=== PATIENT | male | born 1950 | race Two or more races ===

== ENCOUNTER 2019-12-07 14:59 | Inpatient (IN) | payer MEDICARE, MEDICAID ==
[~2019-12-07] VITALS: Ht 170.2 cm; Wt 79.7 kg
--- NOTE | 2019-12-07 15:54 | Emergency Room Report ---
History of Present Illness General Chief Complaint: Fever Present Illness HPI 69-year-old male history of cerebral palsy, bedbound, nonverbal, Nava dependent presented for fever cough and shortness of breath. Patient apparently fever for the past 24 hours last fever this morning 101. Patient is on 2 L nasal canula. History limited due to patient's baseline mental status. Allergies: Coded Allergies: No Known Allergies (Unverified , 12/07/19) COVID-19 Screening Contact w/high risk pt: No Recent Travel to affected area: No Experienced COVID-19 symptoms?: Yes COVID-19 symptoms experienced: Shortness of Breath, Cough Patient History Limited by: medical condition Reviewed Nursing Documentation: PMH: Agreed; PSxH: Agreed Nursing Documentation-PMH Hx Gastrointestinal Problems: Yes - GERD, DYSPHAGIA Review of Systems All Other Systems: limited - History limited due to patient's baseline mental status Physical Exam Vital Signs Date Time Temp Pulse Resp B/P (MAP) Pulse Ox O2 Delivery O2 Flow Rate FiO2 12/07/19 14:59 99.9 78 20 104/68 (80) 97 Room Air Sp02 EP Interpretation: reviewed, normal General Appearance: thin, Chronically Ill Head: normocephalic, atraumatic Eyes: bilateral eye PERRL, bilateral eye EOMI ENT: hearing grossly normal, dry mucus membranes Neck: full range of motion, supple Respiratory: no wheezing, other - Mild respiratory distress noted no audible wheezing Cardiovascular #1: normal peripheral pulses, regular rate, rhythm, no murmur Gastrointestinal: non tender, soft, non-distended, no guarding Musculoskeletal: other - Extremities contracted, chronic ulcerations noted bilateral feet Neurologic: alert, no focal defects, other - Patient nonverbal at baseline Skin: warm/dry, pallor Medical Decision Making Diagnostic Impression: Primary Impression: Urinary tract infection Additional Impression: Rule out Covid-19 ER Course Patient presents for shortness of breath cough and fever. Presented from a intermediate facility. Differential diagnosis included but not limited to pneumonia, coronavirus infection, sepsis, UTI to name a few. Septic work-up initiated in ER. Lactate was normal. Patient was requiring 2 L via nasal cannula, patient's urinalysis was consistent with UTI IV antibiotics given. Chest x-ray showed no obvious lobar pneumonia, patient was covered with azithromycin as well. Due to patient's current living situation and in a intermediate facility with some symptoms concerning for coronavirus infection and Covid-19 will admit to an isolation floor for observation. Coronavirus testing was sent. Patient admitted by his primary care physician. Laboratory Tests Test 12/07/19 15:50 White Blood Count 13.2 K/UL (4.8-10.8) H Red Blood Count 3.34 M/UL (4.70-6.10) L Hemoglobin 9.8 G/DL (14.2-18.0) L Hematocrit 31.8 % (42.0-52.0) L Mean Corpuscular Volume 95 FL (80-99) Mean Corpuscular Hemoglobin 29.2 PG (27.0-31.0) Mean Corpuscular Hemoglobin Concent 30.7 G/DL (32.0-36.0) L Red Cell Distribution Width 20.5 % (11.6-14.8) H Platelet Count 598 K/UL (150-450) H Mean Platelet Volume 5.6 FL (6.5-10.1) L Neutrophils (%) (Auto) 79.2 % (45.0-75.0) H Lymphocytes (%) (Auto) 12.5 % (20.0-45.0) L Monocytes (%) (Auto) 6.1 % (1.0-10.0) Eosinophils (%) (Auto) 1.6 % (0.0-3.0) Basophils (%) (Auto) 0.6 % (0.0-2.0) Urine Color Pale yellow Urine Appearance Very cloudy Urine pH 7 (4.5-8.0) Urine Specific [place] 1.010 (1.005-1.035) Urine Protein 3+ (NEGATIVE) H Urine Glucose (UA) Negative (NEGATIVE) Urine Ketones Negative (NEGATIVE) Urine Blood 5+ (NEGATIVE) H Urine Nitrite Positive (NEGATIVE) H Urine Bilirubin Negative (NEGATIVE) Urine Urobilinogen Normal MG/DL (0.0-1.0) Urine Leukocyte Esterase 3+ (NEGATIVE) H Urine RBC Tntc /HPF (0 - 0) H Urine WBC Tntc /HPF (0 - 0) H Urine Squamous Epithelial Cells None /LPF (NONE/OCC) Urine Bacteria Many /HPF (NONE) H Sodium Level 141 MMOL/L (136-145) Potassium Level 4.3 MMOL/L (3.5-5.1) Chloride Level 106 MMOL/L (98-107) Carbon Dioxide Level 30 MMOL/L (21-32) Anion Gap 5 mmol/L (5-15) Blood Urea Nitrogen 31 mg/dL (7-18) H Creatinine 0.8 MG/DL (0.55-1.30) Estimated Glomerular Filtration Rate > 60 mL/min (>60) Glucose Level 98 MG/DL (74-106) Lactic Acid Level 1.20 mmol/L (0.4-2.0) Calcium Level 8.4 MG/DL (8.5-10.1) L Total Bilirubin 0.3 MG/DL (0.2-1.0) Aspartate Amino Transferase (AST) 22 U/L (15-37) Alanine Aminotransferase (ALT) 17 U/L (12-78) Alkaline Phosphatase 140 U/L (46-116) H Total Creatine Kinase 67 U/L (26-308) Creatine Kinase MB 0.5 NG/ML (0.0-3.6) Creatine Kinase MB Relative Index 0.7 Troponin I 0.000 ng/mL (0.000-0.056) Total Protein 6.5 G/DL (6.4-8.2) Albumin 1.4 G/DL (3.4-5.0) L Globulin 5.1 g/dL Albumin/Globulin Ratio 0.3 (1.0-2.7) L Microbiology Date/Time Source Procedure Growth Status 12/07/19 15:50 Nasal Nares - Final Complete 12/07/19 15:50 Nasal Nares - Final Complete EKG Diagnostic Results EKG Time: 16:12 Rate: normal Rhythm: NSR Other Impression t wave flattening 1 AVL Rhythm Strip Diag. Results EP Interpretation: yes Rate: 86 Rhythm: NSR Last Vital Signs Date Time Temp Pulse Resp B/P (MAP) Pulse Ox O2 Delivery O2 Flow Rate FiO2 12/07/19 14:59 99.9 78 20 104/68 (80) 97 Room Air Disposition: ADMITTED INPATIENT Condition: Serious Referrals: Leda Sweeney MD (PCP) Jonathan Minor M.D. Dec 07, 2019 15:54
[2019-12-07 16:00] VITALS: BP 104/68
[2019-12-07 16:13] LABS: BASOPHILS % (AUTO) 0.6 % (0.0-2.0); EOSINOPHILS % (AUTO) 1.6 % (0.0-3.0); HEMATOCRIT 31.8 % (42.0-52.0); HEMOGLOBIN 9.8 G/DL (14.2-18.0); LYMPHOCYTES % (AUTO) 12.5 % (20.0-45.0); MEAN CORPUSCULAR VOLUME 95 FL (80-99); MONOCYTES % (AUTO) 6.1 % (1.0-10.0); NEUTROPHILS % (AUTO) 79.2 % (45.0-75.0); PLATELET COUNT 598 K/UL (150-450); RED BLOOD COUNT 3.34 M/UL (4.70-6.10); RED CELL DISTRIBUTION WIDTH 20.5 % (11.6-14.8); WHITE BLOOD COUNT 13.2 K/UL (4.8-10.8)
[2019-12-07 16:22] LABS: ANION GAP 5 mmol/L (5-15); APPEARANCE,URINE VERY CLOUDY; BILIRUBIN, URINE NEGATIVE (NEGATIVE); BLOOD UREA NITROGEN 31 mg/dL (7-18); CALCIUM 8.4 MG/DL (8.5-10.1); CARBON DIOXIDE 30 MMOL/L (21-32); CHLORIDE 106 MMOL/L (98-107); COLOR,URINE PALE YELLOW; CREATININE 0.8 MG/DL (0.55-1.30); GLUCOSE, URINE (UA) NEGATIVE (NEGATIVE); KETONES,URINE NEGATIVE (NEGATIVE); LEUKOCYTE ESTERASE ,URINE 3+ (NEGATIVE); NITRITE,URINE POSITIVE (NEGATIVE); PH,URINE 7 (4.5-8.0); POTASSIUM 4.3 MMOL/L (3.5-5.1); PROTEIN,URINE 3+ (NEGATIVE); SODIUM 141 MMOL/L (136-145); UROBILINOGEN,URINE NORMAL MG/DL (0.0-1.0)
[2019-12-07 16:35] LABS: ALANINE AMINOTRANSFERASE 17 U/L (12-78); ALBUMIN 1.4 G/DL (3.4-5.0); ALBUMIN/GLOBULIN RATIO 0.3 (1.0-2.7); ALKALINE PHOSPHATASE 140 U/L (46-116); ASPARTATE AMINO TRANSFERASE 22 U/L (15-37); BILIRUBIN,TOTAL 0.3 MG/DL (0.2-1.0); CKMB 0.5 NG/ML (0.0-3.6); CREATINE KINASE 67 U/L (26-308)
[2019-12-07] MEDS ORDERED: Azithromycin 500 MG in NS 275 ML IV ONE (17:15)
[2019-12-07] MEDS ORDERED: cefTRIAXone 1 GM in NS 55 ML IVPB ONE (17:15)
--- NOTE | 2019-12-07 17:27 | Diagnostic Imaging Report ---
EXAM: XR Chest, 1 View CLINICAL HISTORY: COUGH TECHNIQUE: Frontal view of the chest. COMPARISON: No relevant prior studies available. FINDINGS: Lungs: Low lung volumes with bronchovascular crowding. Left midlung and right base subsegmental atelectasis or scarring. No consolidation, pleural effusion, or pneumothorax. Pleural space: See above. Heart: Unremarkable. No cardiomegaly. Mediastinum: Unremarkable. Bones/joints: Osteopenia. IMPRESSION: 1. Low lung volumes with bronchovascular crowding. 2. Left midlung and right base subsegmental atelectasis or scarring. 3. Otherwise no acute cardiopulmonary disease. 4. If there is continued concern, recommend frontal and lateral chest radiographs or CT.
[2019-12-07 18:24] VITALS: BP 115/78
[2019-12-07 20:00] VITALS: BP_SYST 105; BP_SYST 121; BP_DIAS 70; BP_DIAS 73
[2019-12-07 21:00] VITALS: BP 106/52
[2019-12-07] MEDS ORDERED: Acetaminophen 650 MG SUPP RECTAL PRN ×2 (21:00→21:30)
--- NOTE | 2019-12-07 21:12 | Pulmonology Progress Note ---
Assessment/Plan Assessment/Plan Pulmonary Consultation HPI 69-year-old male history of cerebral palsy, bedbound, nonverbal, Roper dependent presented for fever cough and shortness of breath. Patient apparently fever for the past 24 hours last fever this morning 101. Patient is on 2 L nasal canula. History limited due to patient's baseline mental status. Has G tube Being ruled out for Covid19, currently SDU status, overflowing in ICU On IV Antibiotics, IVF Hemodynamically stable, on NC O2 2L/min Allergies: No Known Allergies Past Medical History: GERD, Dysphagia, previous G tube, Cerebral Palsy, BPH All Other Systems: limited - History limited due to patient's baseline mental status Physical Exam Vital Signs Date Time Temp Pulse Resp B/P (MAP) Pulse Ox O2 Delivery O2 Flow Rate FiO2 12/07/19 14:59 99.9 78 20 104/68 (80) 97 Room Air General Appearance: thin, Chronically Ill, mild pallor Head: normocephalic, atraumatic Eyes: bilateral eye PERRL, bilateral eye EOMI ENT: hearing grossly normal, dry mucus membranes Neck: full range of motion, supple Respiratory: CTAB Cardiovascular: regular rate, rhythm, HS1, HS2 normal, no murmur, normal peripheral pulses, Gastrointestinal: non tender, soft, non-distended, no guarding Musculoskeletal: other - Extremities contracted, chronic ulcerations noted bilateral feet Neurologic: awake, no focal defects, other - Patient nonverbal at baseline Skin: warm/dry Impression: Urinary tract infection Possible Pneumonia Rule out Covid-19 Cerebral Palsy Seizure History BPH - chronic roper Dysphagia s/p G tube Anemia Lymphopenia Plan IV antibiotics R/o coronavirus infection SDU status IVF Await cultures/viral studies PPX Monitor labs O2 PRN Bronchodilators Laboratory Tests Test 12/07/19 15:50 White Blood Count 13.2 K/UL (4.8-10.8) H Red Blood Count 3.34 M/UL (4.70-6.10) L Hemoglobin 9.8 G/DL (14.2-18.0) L Hematocrit 31.8 % (42.0-52.0) L Mean Corpuscular Volume 95 FL (80-99) Mean Corpuscular Hemoglobin 29.2 PG (27.0-31.0) Mean Corpuscular Hemoglobin Concent 30.7 G/DL (32.0-36.0) L Red Cell Distribution Width 20.5 % (11.6-14.8) H Platelet Count 598 K/UL (150-450) H Mean Platelet Volume 5.6 FL (6.5-10.1) L Neutrophils (%) (Auto) 79.2 % (45.0-75.0) H Lymphocytes (%) (Auto) 12.5 % (20.0-45.0) L Monocytes (%) (Auto) 6.1 % (1.0-10.0) Eosinophils (%) (Auto) 1.6 % (0.0-3.0) Basophils (%) (Auto) 0.6 % (0.0-2.0) Urine Color Pale yellow Urine Appearance Very cloudy Urine pH 7 (4.5-8.0) Urine Specific [place] 1.010 (1.005-1.035) Urine Protein 3+ (NEGATIVE) H Urine Glucose (UA) Negative (NEGATIVE) Urine Ketones Negative (NEGATIVE) Urine Blood 5+ (NEGATIVE) H Urine Nitrite Positive (NEGATIVE) H Urine Bilirubin Negative (NEGATIVE) Urine Urobilinogen Normal MG/DL (0.0-1.0) Urine Leukocyte Esterase 3+ (NEGATIVE) H Urine RBC Tntc /HPF (0 - 0) H Urine WBC Tntc /HPF (0 - 0) H Urine Squamous Epithelial Cells None /LPF (NONE/OCC) Urine Bacteria Many /HPF (NONE) H Sodium Level 141 MMOL/L (136-145) Potassium Level 4.3 MMOL/L (3.5-5.1) Chloride Level 106 MMOL/L (98-107) Carbon Dioxide Level 30 MMOL/L (21-32) Anion Gap 5 mmol/L (5-15) Blood Urea Nitrogen 31 mg/dL (7-18) H Creatinine 0.8 MG/DL (0.55-1.30) Estimated Glomerular Filtration Rate > 60 mL/min (>60) Glucose Level 98 MG/DL (74-106) Lactic Acid Level 1.20 mmol/L (0.4-2.0) Calcium Level 8.4 MG/DL (8.5-10.1) L Total Bilirubin 0.3 MG/DL (0.2-1.0) Aspartate Amino Transferase (AST) 22 U/L (15-37) Alanine Aminotransferase (ALT) 17 U/L (12-78) Alkaline Phosphatase 140 U/L (46-116) H Total Creatine Kinase 67 U/L (26-308) Creatine Kinase MB 0.5 NG/ML (0.0-3.6) Creatine Kinase MB Relative Index 0.7 Troponin I 0.000 ng/mL (0.000-0.056) Total Protein 6.5 G/DL (6.4-8.2) Albumin 1.4 G/DL (3.4-5.0) L Globulin 5.1 g/dL Albumin/Globulin Ratio 0.3 (1.0-2.7) L Microbiology Date/Time Source Procedure Growth Status 12/07/19 15:50 Nasal Nares - Final Complete 12/07/19 15:50 Nasal Nares - Final Complete EK:12 Rate: normal Rhythm: NSR Other Impression t wave flattening 1 AVL CXR: Atelectasis RLL, L mid zone Subjective ROS Limited/Unobtainable: No Allergies: Coded Allergies: No Known Allergies (Unverified , 12/07/19) Objective Last 24 Hour Vital Signs Date Time Temp Pulse Resp B/P (MAP) Pulse Ox O2 Delivery O2 Flow Rate FiO2 12/07/19 18:24 99.9 78 20 115/78 97 Nasal Cannula 2.0 12/07/19 16:00 99.9 20 104/68 97 Room Air 12/07/19 16:00 78 20 Room Air 12/07/19 14:59 99.9 78 20 104/68 (80) 97 Room Air Microbiology Date/Time Source Procedure Growth Status 12/07/19 15:50 Nasal Nares - Final Complete 12/07/19 15:50 Nasal Nares - Final Complete 12/07/19 18:15 Rectum Received Laboratory Tests 12/07/19 15:50: White Blood Count 13.2H, Red Blood Count 3.34L, Hemoglobin 9.8L, Hematocrit 31.8L, Mean Corpuscular Volume 95, Mean Corpuscular Hemoglobin 29.2, Mean Corpuscular Hemoglobin Concent 30.7L, Red Cell Distribution Width 20.5H, Platelet Count 598H, Mean Platelet Volume 5.6L, Neutrophils (%) (Auto) 79.2H, Lymphocytes (%) (Auto) 12.5L, Monocytes (%) (Auto) 6.1, Eosinophils (%) (Auto) 1.6, Basophils (%) (Auto) 0.6, Urine Color Pale yellow, Urine Appearance Very cloudy, Urine pH 7, Urine Specific [place] 1.010, Urine Protein 3+H, Urine Glucose (UA) Negative, Urine Ketones Negative, Urine Blood 5+H, Urine Nitrite PositiveH, Urine Bilirubin Negative, Urine Urobilinogen Normal, Urine Leukocyte Esterase 3+H, Urine RBC TntcH, Urine WBC TntcH, Urine Squamous Epithelial Cells None, Urine Bacteria ManyH, Sodium Level 141, Potassium Level 4.3, Chloride Level 106, Carbon Dioxide Level 30, Anion Gap 5, Blood Urea Nitrogen 31H, Creatinine 0.8, Estimat Glomerular Filtration Rate > 60, Glucose Level 98, Lactic Acid Level 1.20, Calcium Level 8.4L, Total Bilirubin 0.3, Aspartate Amino Transf (AST/SGOT) 22, Alanine Aminotransferase (ALT/SGPT) 17, Alkaline Phosphatase 140H, Total Creatine Kinase 67, Creatine Kinase MB 0.5, Creatine Kinase MB Relative Index 0.7, Troponin I 0.000, Total Protein 6.5, Albumin 1.4L , Globulin 5.1, Albumin/Globulin Ratio 0.3L Current Medications Medications (Trade) Dose Ordered Sig/Nazia Route PRN Reason Start Time Stop Time Status Last Admin Dose Admin Acetaminophen (Tylenol) 650 mg Q4H PRN RECTAL Temp >100.5 12/07/19 21:00 01/06/20 20:59 UNV Acetaminophen (Tylenol) 650 mg Q4HR PRN ORAL Temp >100.5 12/07/19 21:00 01/06/20 20:59 UNV Sodium Chloride 1,000 ml @ 50 mls/hr Q20H IV 12/07/19 21:00 01/06/20 20:59 UNV Oscar Bragg MD Dec 07, 2019 21:12
[2019-12-07] MEDS ORDERED: Albuterol/Ipratropium 3ml neb HHN PRN (21:30)
[2019-12-07 22:00] VITALS: BP 93/57
[2019-12-07] MEDS ORDERED: FERROUS SULFAT325 MG GT (22:59)
[2019-12-07] MEDS ORDERED: ACETAMINOPHEN500 M5 GT (22:59)
[2019-12-07] MEDS ORDERED: ATORVASTATIN CA10 MG GT (22:59)
[2019-12-07] MEDS ORDERED: ALBUTEROL1.25 MG/3 HHN (22:59)
[2019-12-07] MEDS ORDERED: SENOKOT8.6 MG GT (22:59)
[2019-12-07] MEDS ORDERED: METOPROLOL SUCC25 MG GT (22:59)
[2019-12-07] MEDS ORDERED: COLACE100 MG/10 GT (22:59)
[2019-12-07] MEDS ORDERED: FUROSEMIDE20 M1 (22:59)
[2019-12-07] MEDS ORDERED: FINASTERIDE5 MG GT (22:59)
[2019-12-07] MEDS ORDERED: MULTIVITAMINS1 EAC2 GT (22:59)
[2019-12-07] MEDS ORDERED: KEPPRA LIQ100 MG/1 M GT (22:59)
[2019-12-07] MEDS ORDERED: VITAMIN C500 M1 GT (22:59)
[2019-12-07] MEDS ORDERED: FLOMAX0.4 MG GT (22:59)
[2019-12-07] MEDS ORDERED: OMEPRAZOLE40 M1 GT (22:59)
[2019-12-07] MEDS ORDERED: ZINC SULFATE220 M1 GT (22:59)
[2019-12-07 23:00] VITALS: BP 90/53
[2019-12-08] VITALS (56 sets, daily range): BP systolic 81–131; BP diastolic 37–95
[2019-12-08] MEDS ORDERED: NS 250 ML IVPB ONE (02:00)
[2019-12-08] MEDS ORDERED: D5NS 1,000 ML IV SCH ×2 (02:00→06:00)
--- NOTE | 2019-12-08 03:04 | Diagnostic Imaging Report ---
EXAM: XR Chest, 1 View CLINICAL HISTORY: S/P LINE TECHNIQUE: Frontal view of the chest. COMPARISON: 12/07/2019 IMPRESSION: Right central line terminates in the right atrium. Cardiomegaly. Mild vascular congestion. Mild bilateral pleural effusions.
--- NOTE | 2019-12-08 03:20 | Emergency Room Report ---
History of Present Illness General Chief Complaint: Fever Source: Medical Record Present Illness HPI This patient was admitted for fever and cough. He was admitted for COVID-19 rule out. His blood pressure drop and he needed a central line for pressor. I placed a central line under sterile condition. no complications. Allergies: Coded Allergies: MOLD (Unverified Allergy, Unknown, 12/07/19) POLLEN EXTRACTS (Unverified Allergy, Unknown, 12/07/19) COVID-19 Screening Contact w/high risk pt: No Recent Travel to affected area: No Experienced COVID-19 symptoms?: Yes COVID-19 symptoms experienced: Fever (T>100.4F or >38C), Shortness of Breath Nursing Documentation-PMH Hx Cardiac Problems: Yes Hx Cancer: No Hx Gastrointestinal Problems: Yes - DYSPHAGIA, malnutrition, gastrostomy, profound Intellectal disabilities Hx Neurological Problems: Yes Hx Seizures: Yes Hx Cerebral Palsy: Yes Physical Exam Vital Signs Date Time Temp Pulse Resp B/P (MAP) Pulse Ox O2 Delivery O2 Flow Rate FiO2 12/07/19 14:59 99.9 78 20 104/68 (80) 97 Room Air 12/07/19 18:24 2.0 Procedures Central Line Central Line : Consent: Emergent Central Line Lumen: triple Maximal Sterile Barrier Tech: yes cap, yes mask, yes sterile gown, yes sterile gloves, yes large sterile sheet, yes hand hygiene, yes chlorhexidine prep No Max Barrier Tech Because: emergency insertion Central Line Postion: internal jugular (R) Anesthesia: local cc's of anesthesia: 5 Complications: none Central Line Post Position: sutured, good blood return, position confirmed w / CXR Attempts: One Patient Tolerated: Well Complications: None Medical Decision Making Diagnostic Impression: Primary Impression: Urinary tract infection Additional Impression: Rule out Covid-19 Chest X-Ray Diagnostic Results Chest X-Ray Diagnostic Results : Chest X-Ray Ordered: Yes # of Views/Limited/Complete: 1 View Indication: Other - central line placement EP Interpretation: Yes Interpretation: no effusion, no pneumothorax, other - RLL infiltrate. central line in good position Impression: Other - central line placement. Electronically Signed by: Mc Gotti mD Last Vital Signs Date Time Temp Pulse Resp B/P (MAP) Pulse Ox O2 Delivery O2 Flow Rate FiO2 12/08/19 02:39 99/47 12/08/19 02:00 75 33 98 4/4/20 00:00 2.0 12/08/19 00:00 98.5 12/07/19 19:56 Nasal Cannula Disposition: ADMITTED INPATIENT Condition: Serious Referrals: Leda Sweeney MD (PCP) Mc Gotti MD Dec 08, 2019 03:20
[2019-12-08 05:19] LABS: BASOPHILS % (AUTO) 0.6 % (0.0-2.0); EOSINOPHILS % (AUTO) 1.7 % (0.0-3.0); HEMATOCRIT 26.1 % (42.0-52.0); HEMOGLOBIN 8.5 G/DL (14.2-18.0); LYMPHOCYTES % (AUTO) 13.4 % (20.0-45.0); MEAN CORPUSCULAR VOLUME 91 FL (80-99); MONOCYTES % (AUTO) 8.3 % (1.0-10.0); PLATELET COUNT 497 K/UL (150-450); RED BLOOD COUNT 2.86 M/UL (4.70-6.10); RED CELL DISTRIBUTION WIDTH 18.3 % (11.6-14.8); WHITE BLOOD COUNT 10.3 K/UL (4.8-10.8)
[2019-12-08 05:27] LABS: ALANINE AMINOTRANSFERASE 16 U/L (12-78); ALBUMIN 1.9 G/DL (3.4-5.0); ALBUMIN/GLOBULIN RATIO 0.5 (1.0-2.7); ALKALINE PHOSPHATASE 111 U/L (46-116); ANION GAP 6 mmol/L (5-15); ASPARTATE AMINO TRANSFERASE 19 U/L (15-37); BILIRUBIN,TOTAL 0.3 MG/DL (0.2-1.0); BLOOD UREA NITROGEN 25 mg/dL (7-18); CALCIUM 8.2 MG/DL (8.5-10.1); CARBON DIOXIDE 30 MMOL/L (21-32); CHLORIDE 107 MMOL/L (98-107); CREATININE 0.7 MG/DL (0.55-1.30); POTASSIUM 3.7 MMOL/L (3.5-5.1); SODIUM 143 MMOL/L (136-145)
[2019-12-08] MEDS ORDERED: Acetaminophen 650 MG SUPP RECTAL PRN (05:30)
--- NOTE | 2019-12-08 05:52 | Pulmonolgy Critical Care Note ---
Critical Care - Asmt/Plan Assessment/Plan: Pulmonary Critical Care Progress Note HPI 69-year-old male history of cerebral palsy, bedbound, nonverbal, Roper dependent presented for fever cough and shortness of breath. 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 Patient is on 2 L nasal canula. History limited due to patient's baseline mental status. Has G tube Being ruled out for Covid19, TF to ICU status this AM due to hypotension On IV Antibiotics, IVF, IV pressors PRN Hemodynamically stable currently, on NC O2 2L/min Allergies: No Known Allergies Past Medical History: GERD, Dysphagia, previous G tube, Cerebral Palsy, BPH All Other Systems: limited - History limited due to patient's baseline mental status Physical Exam Vital Signs Noted General Appearance: thin, Chronically Ill, mild pallor Head: normocephalic, atraumatic Eyes: bilateral eye PERRL, bilateral eye EOMI ENT: hearing grossly normal, dry mucus membranes Neck: full range of motion, supple Respiratory: CTAB Cardiovascular: regular rate, rhythm, HS1, HS2 normal, no murmur, normal peripheral pulses, Gastrointestinal: non tender, soft, non-distended, no guarding Musculoskeletal: other - Extremities contracted, chronic ulcerations noted bilateral feet Neurologic: awake, no focal defects, other - Patient nonverbal at baseline Skin: warm/dry Impression: Urinary tract infection Possible Pneumonia Sepsis Rule out Covid-19 Cerebral Palsy Seizure History BPH - chronic roper Dysphagia s/p G tube Anemia Lymphopenia Plan IV antibiotics R/o coronavirus infection SDU status IVF Pressors PRN Cengtral Line Await cultures/viral studies PPX Monitor labs O2 PRN Bronchodilators Laboratory Tests Test 12/07/19 15:50 White Blood Count 13.2 K/UL (4.8-10.8) H Red Blood Count 3.34 M/UL (4.70-6.10) L Hemoglobin 9.8 G/DL (14.2-18.0) L Hematocrit 31.8 % (42.0-52.0) L Mean Corpuscular Volume 95 FL (80-99) Mean Corpuscular Hemoglobin 29.2 PG (27.0-31.0) Mean Corpuscular Hemoglobin Concent 30.7 G/DL (32.0-36.0) L Red Cell Distribution Width 20.5 % (11.6-14.8) H Platelet Count 598 K/UL (150-450) H Mean Platelet Volume 5.6 FL (6.5-10.1) L Neutrophils (%) (Auto) 79.2 % (45.0-75.0) H Lymphocytes (%) (Auto) 12.5 % (20.0-45.0) L Monocytes (%) (Auto) 6.1 % (1.0-10.0) Eosinophils (%) (Auto) 1.6 % (0.0-3.0) Basophils (%) (Auto) 0.6 % (0.0-2.0) Urine Color Pale yellow Urine Appearance Very cloudy Urine pH 7 (4.5-8.0) Urine Specific [place] 1.010 (1.005-1.035) Urine Protein 3+ (NEGATIVE) H Urine Glucose (UA) Negative (NEGATIVE) Urine Ketones Negative (NEGATIVE) Urine Blood 5+ (NEGATIVE) H Urine Nitrite Positive (NEGATIVE) H Urine Bilirubin Negative (NEGATIVE) Urine Urobilinogen Normal MG/DL (0.0-1.0) Urine Leukocyte Esterase 3+ (NEGATIVE) H Urine RBC Tntc /HPF (0 - 0) H Urine WBC Tntc /HPF (0 - 0) H Urine Squamous Epithelial Cells None /LPF (NONE/OCC) Urine Bacteria Many /HPF (NONE) H Sodium Level 141 MMOL/L (136-145) Potassium Level 4.3 MMOL/L (3.5-5.1) Chloride Level 106 MMOL/L (98-107) Carbon Dioxide Level 30 MMOL/L (21-32) Anion Gap 5 mmol/L (5-15) Blood Urea Nitrogen 31 mg/dL (7-18) H Creatinine 0.8 MG/DL (0.55-1.30) Estimated Glomerular Filtration Rate > 60 mL/min (>60) Glucose Level 98 MG/DL (74-106) Lactic Acid Level 1.20 mmol/L (0.4-2.0) Calcium Level 8.4 MG/DL (8.5-10.1) L Total Bilirubin 0.3 MG/DL (0.2-1.0) Aspartate Amino Transferase (AST) 22 U/L (15-37) Alanine Aminotransferase (ALT) 17 U/L (12-78) Alkaline Phosphatase 140 U/L (46-116) H Total Creatine Kinase 67 U/L (26-308) Creatine Kinase MB 0.5 NG/ML (0.0-3.6) Creatine Kinase MB Relative Index 0.7 Troponin I 0.000 ng/mL (0.000-0.056) Total Protein 6.5 G/DL (6.4-8.2) Albumin 1.4 G/DL (3.4-5.0) L Globulin 5.1 g/dL Albumin/Globulin Ratio 0.3 (1.0-2.7) L Microbiology Date/Time Source Procedure Growth Status 12/07/19 15:50 Nasal Nares - Final Complete 12/07/19 15:50 Nasal Nares - Final Complete EK:12 Rate: normal Rhythm: NSR Other Impression t wave flattening 1 AVL CXR: Atelectasis RLL, L mid zone Subjective ROS Limited/Unobtainable: No Allergies: Coded Allergies: No Known Allergies (Unverified , 12/07/19) Objective Last 24 Hour Vital Signs Date Time Temp Pulse Resp B/P (MAP) Pulse Ox O2 Delivery O2 Flow Rate FiO2 12/07/19 18:24 99.9 78 20 115/78 97 Nasal Cannula 2.0 12/07/19 16:00 99.9 20 104/68 97 Room Air 12/07/19 16:00 78 20 Room Air 12/07/19 14:59 99.9 78 20 104/68 (80) 97 Room Air Microbiology Date/Time Source Procedure Growth Status 12/07/19 15:50 Nasal Nares - Final Complete 12/07/19 15:50 Nasal Nares - Final Complete 12/07/19 18:15 Rectum Received Laboratory Tests 12/07/19 15:50: White Blood Count 13.2H, Red Blood Count 3.34L, Hemoglobin 9.8L, Hematocrit 31.8L, Mean Corpuscular Volume 95, Mean Corpuscular Hemoglobin 29.2, Mean Corpuscular Hemoglobin Concent 30.7L, Red Cell Distribution Width 20.5H, Platelet Count 598H, Mean Platelet Volume 5.6L, Neutrophils (%) (Auto) 79.2H, Lymphocytes (%) (Auto) 12.5L, Monocytes (%) (Auto) 6.1, Eosinophils (%) (Auto) 1.6, Basophils (%) (Auto) 0.6, Urine Color Pale yellow, Urine Appearance Very cloudy, Urine pH 7, Urine Specific [place] 1.010, Urine Protein 3+H, Urine Glucose (UA) Negative, Urine Ketones Negative, Urine Blood 5+H, Urine Nitrite PositiveH, Urine Bilirubin Negative, Urine Urobilinogen Normal, Urine Leukocyte Esterase 3+H, Urine RBC TntcH, Urine WBC TntcH, Urine Squamous Epithelial Cells None, Urine Bacteria ManyH, Sodium Level 141, Potassium Level 4.3, Chloride Level 106, Carbon Dioxide Level 30, Anion Gap 5, Blood Urea Nitrogen 31H, Creatinine 0.8, Estimat Glomerular Filtration Rate > 60, Glucose Level 98, Lactic Acid Level 1.20, Calcium Level 8.4L, Total Bilirubin 0.3, Aspartate Amino Transf (AST/SGOT) 22, Alanine Aminotransferase (ALT/SGPT) 17, Alkaline Phosphatase 140H, Total Creatine Kinase 67, Creatine Kinase MB 0.5, Creatine Kinase MB Relative Index 0.7, Troponin I 0.000, Total Protein 6.5, Albumin 1.4L , Globulin 5.1, Albumin/Globulin Ratio 0.3L Current Medications Medications (Trade) Dose Ordered Sig/Nazia Route PRN Reason Start Time Stop Time Status Last Admin Dose Admin Acetaminophen (Tylenol) 650 mg Q4H PRN RECTAL Temp >100.5 12/07/19 21:00 01/06/20 20:59 UNV Acetaminophen (Tylenol) 650 mg Q4HR PRN ORAL Temp >100.5 12/07/19 21:00 01/06/20 20:59 UNV Sodium Chloride 1,000 ml @ 50 mls/hr Q20H IV 12/07/19 21:00 01/06/20 20:59 UNV Critical Care - Objective Last 24 Hour Vital Signs Date Time Temp Pulse Resp B/P (MAP) Pulse Ox O2 Delivery O2 Flow Rate FiO2 12/08/19 03:15 68 25 100/50 (67) 99 12/08/19 03:00 68 25 102/50 (67) 99 12/08/19 02:45 68 24 106/50 (68) 98 12/08/19 02:39 99/47 12/08/19 02:30 77 24 99/47 (64) 98 12/08/19 02:15 77 24 99/47 (64) 98 12/08/19 02:00 75 33 103/58 (73) 98 12/08/19 01:00 70 25 83/41 (55) 100 12/08/19 00:00 Nasal Cannula 2.0 12/08/19 00:00 2.0 12/08/19 00:00 98.5 64 20 89/46 (60) 100 12/07/19 23:00 64 19 90/53 (65) 100 12/07/19 22:00 66 18 93/57 (69) 100 12/07/19 21:00 Nasal Cannula 2.0 12/07/19 21:00 71 22 106/52 (70) 100 12/07/19 20:00 98.8 72 24 121/73 (89) 100 12/07/19 19:56 99.9 76 22 107/68 100 Nasal Cannula 2.0 12/07/19 18:24 99.9 78 20 115/78 97 Nasal Cannula 2.0 12/07/19 16:00 99.9 20 104/68 97 Room Air 12/07/19 16:00 78 20 Room Air 12/07/19 14:59 99.9 78 20 104/68 (80) 97 Room Air Micro: Microbiology Date/Time Source Procedure Growth Status 12/07/19 15:50 Nasal Nares - Final Complete 12/07/19 15:50 Nasal Nares - Final Complete 12/07/19 18:15 Rectum Received Critical Care - Subjective ROS Limited/Unobtainable: No Condition: critical I&O: Intake and Output 12/07/19 12/08/19 19:00 07:00 Intake Total 730 ml Output Total 410 ml Balance 320 ml Intake IV Total 730 ml Output Urine Total 410 ml Oscar Bragg MD Dec 08, 2019 05:52
[2019-12-08] MEDS ORDERED: Albuterol ud Inhalation HHN PRN ×2 (06:00)
[2019-12-08] MEDS: D5NS 1,000 ML IV SCH ×2 (07:11→18:11)
[2019-12-08] MEDS: levETIRAcetam 500mg/5ml Liquid GT SCH ×2 (08:42→21:01)
[2019-12-08] MEDS: Heparin 5000 units/ml inj SUBQ SCH ×2 (08:43→21:02)
[2019-12-08] MEDS ORDERED: levETIRAcetam 500mg/5ml Liquid GT SCH (09:00)
[2019-12-08] MEDS ORDERED: Heparin 5000 units/ml inj SUBQ SCH (09:00)
[2019-12-08] MEDS ORDERED: D5NS 1000ml IV ONE (12:40)
[2019-12-08] MEDS ORDERED: Vancomycin 1.5gm/NS Premix IVPB ONE (14:00)
[2019-12-08] MEDS: Piperacillin/Tazobactam 3.375 GM in NS 110 ML IVPB SCH ×2 (14:31→21:02)
--- NOTE | 2019-12-08 15:27 | Cardiac Electrophysiology PN ---
Subjective Subjective [id number] Objective Last 24 Hour Vital Signs Date Time Temp Pulse Resp B/P (MAP) Pulse Ox O2 Delivery O2 Flow Rate FiO2 12/08/19 14:00 68 19 129/61 (83) 100 12/08/19 13:15 54 11 120/51 (74) 100 12/08/19 13:00 124/48 12/08/19 13:00 54 13 120/51 (74) 100 12/08/19 12:45 54 22 120/51 (74) 100 12/08/19 12:30 54 22 120/51 (74) 100 12/08/19 12:00 98.8 54 19 94/50 (65) 99 12/08/19 12:00 Nasal Cannula 2.0 12/08/19 12:00 2.0 12/08/19 12:00 94/50 12/08/19 12:00 60 12/08/19 11:45 54 19 94/50 (65) 99 12/08/19 11:30 59 26 112/55 (74) 100 12/08/19 11:15 63 22 109/69 (82) 100 12/08/19 11:00 55 12 100/67 (78) 100 12/08/19 11:00 109/69 12/08/19 10:45 61 12 102/51 (68) 99 12/08/19 10:30 55 10 96/56 (69) 100 12/08/19 10:15 60 16 88/39 (55) 100 12/08/19 10:15 88/39 12/08/19 10:00 58 20 95/50 (65) 100 12/08/19 10:00 84/43 12/08/19 09:51 65 22 84/43 (57) 100 12/08/19 09:45 63 22 87/46 (60) 98 12/08/19 09:45 87/46 12/08/19 09:36 98.6 12/08/19 09:30 60 21 103/40 (61) 96 12/08/19 09:15 66 25 117/57 (77) 100 12/08/19 09:00 99/48 12/08/19 09:00 67 24 99/48 (65) 97 12/08/19 08:00 2.0 12/08/19 08:00 99.0 61 22 101/48 (65) 100 12/08/19 08:00 101/48 12/08/19 08:00 Nasal Cannula 2.0 12/08/19 08:00 61 12/08/19 07:00 61 23 110/47 (68) 100 12/08/19 06:30 66 20 12/08/19 06:00 65 24 109/50 (69) 100 12/08/19 06:00 109/50 12/08/19 05:30 66 23 107/40 (62) 100 12/08/19 05:00 65 20 106/48 (67) 100 12/08/19 05:00 106/48 12/08/19 04:30 82 24 93/55 (68) 100 12/08/19 04:00 2.0 12/08/19 04:00 98.7 61 13 104/56 (72) 100 12/08/19 04:00 61 12/08/19 04:00 104/56 12/08/19 04:00 Nasal Cannula 2.0 12/08/19 03:30 69 26 108/50 (69) 99 12/08/19 03:15 68 25 100/50 (67) 99 12/08/19 03:00 102/50 12/08/19 03:00 68 25 102/50 (67) 99 12/08/19 02:45 68 24 106/50 (68) 98 12/08/19 02:39 99/40 12/08/19 02:39 99/47 12/08/19 02:30 77 24 99/47 (64) 98 12/08/19 02:15 77 24 99/47 (64) 98 12/08/19 02:00 75 33 103/58 (73) 98 12/08/19 01:00 70 25 83/41 (55) 100 12/08/19 00:00 64 12/08/19 00:00 Nasal Cannula 2.0 12/08/19 00:00 2.0 12/08/19 00:00 98.5 64 20 89/46 (60) 100 12/07/19 23:00 64 19 90/53 (65) 100 12/07/19 22:00 66 18 93/57 (69) 100 12/07/19 21:00 Nasal Cannula 2.0 12/07/19 21:00 71 22 106/52 (70) 100 12/07/19 20:10 72 12/07/19 20:00 98.8 72 24 121/73 (89) 100 12/07/19 19:56 99.9 76 22 107/68 100 Nasal Cannula 2.0 12/07/19 18:24 99.9 78 20 115/78 97 Nasal Cannula 2.0 12/07/19 16:00 99.9 20 104/68 97 Room Air 12/07/19 16:00 78 20 Room Air Intake and Output 12/07/19 12/08/19 19:00 07:00 Intake Total 1163.0 ml Output Total 520 ml Balance 643.0 ml Intake IV Total 1163.0 ml Output Urine Total 520 ml # Voids 1 Laboratory Tests Test 12/07/19 15:50 12/08/19 04:30 12/08/19 07:22 White Blood Count 13.2 K/UL (4.8-10.8) H 10.3 K/UL (4.8-10.8) Red Blood Count 3.34 M/UL (4.70-6.10) L 2.86 M/UL (4.70-6.10) L Hemoglobin 9.8 G/DL (14.2-18.0) L 8.5 G/DL (14.2-18.0) L Hematocrit 31.8 % (42.0-52.0) L 26.1 % (42.0-52.0) L Mean Corpuscular Volume 95 FL (80-99) 91 FL (80-99) Mean Corpuscular Hemoglobin 29.2 PG (27.0-31.0) 29.8 PG (27.0-31.0) Mean Corpuscular Hemoglobin Concent 30.7 G/DL (32.0-36.0) L 32.6 G/DL (32.0-36.0) Red Cell Distribution Width 20.5 % (11.6-14.8) H 18.3 % (11.6-14.8) H Platelet Count 598 K/UL (150-450) H 497 K/UL (150-450) H Mean Platelet Volume 5.6 FL (6.5-10.1) L 5.0 FL (6.5-10.1) L Neutrophils (%) (Auto) 79.2 % (45.0-75.0) H 76.0 % (45.0-75.0) H Lymphocytes (%) (Auto) 12.5 % (20.0-45.0) L 13.4 % (20.0-45.0) L Monocytes (%) (Auto) 6.1 % (1.0-10.0) 8.3 % (1.0-10.0) Eosinophils (%) (Auto) 1.6 % (0.0-3.0) 1.7 % (0.0-3.0) Basophils (%) (Auto) 0.6 % (0.0-2.0) 0.6 % (0.0-2.0) Urine Color Pale yellow Urine Appearance Very cloudy Urine pH 7 (4.5-8.0) Urine Specific [place] 1.010 (1.005-1.035) Urine Protein 3+ (NEGATIVE) H Urine Glucose (UA) Negative (NEGATIVE) Urine Ketones Negative (NEGATIVE) Urine Blood 5+ (NEGATIVE) H Urine Nitrite Positive (NEGATIVE) H Urine Bilirubin Negative (NEGATIVE) Urine Urobilinogen Normal MG/DL (0.0-1.0) Urine Leukocyte Esterase 3+ (NEGATIVE) H Urine RBC Tntc /HPF (0 - 0) H Urine WBC Tntc /HPF (0 - 0) H Urine Squamous Epithelial Cells None /LPF (NONE/OCC) Urine Bacteria Many /HPF (NONE) H Sodium Level 141 MMOL/L (136-145) 143 MMOL/L (136-145) Potassium Level 4.3 MMOL/L (3.5-5.1) 3.7 MMOL/L (3.5-5.1) Chloride Level 106 MMOL/L (98-107) 107 MMOL/L (98-107) Carbon Dioxide Level 30 MMOL/L (21-32) 30 MMOL/L (21-32) Anion Gap 5 mmol/L (5-15) 6 mmol/L (5-15) Blood Urea Nitrogen 31 mg/dL (7-18) H 25 mg/dL (7-18) H Creatinine 0.8 MG/DL (0.55-1.30) 0.7 MG/DL (0.55-1.30) Estimat Glomerular Filtration Rate > 60 mL/min (>60) > 60 mL/min (>60) Glucose Level 98 MG/DL (74-106) 112 MG/DL (74-106) H Lactic Acid Level 1.20 mmol/L (0.4-2.0) Calcium Level 8.4 MG/DL (8.5-10.1) L 8.2 MG/DL (8.5-10.1) L Total Bilirubin 0.3 MG/DL (0.2-1.0) 0.3 MG/DL (0.2-1.0) Aspartate Amino Transf (AST/SGOT) 22 U/L (15-37) 19 U/L (15-37) Alanine Aminotransferase (ALT/SGPT) 17 U/L (12-78) 16 U/L (12-78) Alkaline Phosphatase 140 U/L (46-116) H 111 U/L (46-116) Total Creatine Kinase 67 U/L (26-308) Creatine Kinase MB 0.5 NG/ML (0.0-3.6) Creatine Kinase MB Relative Index 0.7 Troponin I 0.000 ng/mL (0.000-0.056) Total Protein 6.5 G/DL (6.4-8.2) 6.0 G/DL (6.4-8.2) L Albumin 1.4 G/DL (3.4-5.0) L 1.9 G/DL (3.4-5.0) L Globulin 5.1 g/dL 4.1 g/dL Albumin/Globulin Ratio 0.3 (1.0-2.7) L 0.5 (1.0-2.7) L Arterial Blood pH 7.500 (7.350-7.450) Arterial Blood Partial Pressure CO2 36.2 mmHg (35.0-45.0) Arterial Blood Partial Pressure O2 144.5 mmHg (75.0-100.0) H Arterial Blood HCO3 27.6 mmol/L (22.0-26.0) H Arterial Blood Oxygen Saturation 98.5 % (95-100) Arterial Blood Base Excess 4.3 (-2-2) H Triston Test Positive Microbiology Date/Time Source Procedure Growth Status 12/07/19 15:50 Nasal Nares - Final Complete 12/07/19 15:50 Nasal Nares - Final Complete 12/07/19 18:15 Rectum Received Rk Hdz MD Dec 08, 2019 15:27
[2019-12-08] MEDS ORDERED: DOPamine 400mg/250ml 250 ML IV SCH (16:15)
--- NOTE | 2019-12-08 17:30 | Consultation ---
DATE OF CONSULTATION: 12/08/2019 CARDIOLOGY CONSULTATION CONSULTING PHYSICIAN: Rk Hdz MD. REFERRING PHYSICIAN: Leda Sweeney MD. REASON FOR CONSULTATION: Shortness of breath. HISTORY OF PRESENT ILLNESS: The patient is a 69-year-old gentleman with cerebral palsy, who is nonverbal and bedbound, G-tube and Nava dependent, who was brought from [facility] for fever and shortness of breath. The patient had fever for 24 hours prior to the admission. He is on 2 L nasal cannula. The patient was admitted to rule out for COVID-19, to intensive care unit as the patient was also hypotensive. At the time of my evaluation, the patient is off pressors and heart rhythm in the 50s. REVIEW OF SYSTEMS: Cannot be obtained. PAST MEDICAL HISTORY: As mentioned above. FAMILY HISTORY: Noncontributory. SOCIAL HISTORY: He lives in a fpc. Does not smoke or drink alcohol. PHYSICAL EXAMINATION: VITAL SIGNS: Blood pressure 129/61, pulse is mostly in the 50s, respirations 18, and he is afebrile with temperature 98.8. HEAD AND NECK: Showed no JVD. LUNGS: Coarse rhonchi. CARDIOVASCULAR: Showed regular S1 and S2 with no gallop. ABDOMEN: Soft. EXTREMITIES: He has 1+ pitting edema. LABORATORY AND DIAGNOSTIC DATA: His labs showed white count of 10.3, hemoglobin of 8.5, hematocrit 26.1, and platelet count of 497,000. Sodium is 142, potassium 3.7, BUN of 25, creatinine 0.7, and glucose of 112. His troponin is negative and urinalysis showed positive nitrites, too numerous to count wbc and rbc, and many bacteria. ASSESSMENT AND PLAN: 1. Shortness of breath. First troponin is negative. We will completely rule out ID protocol and get an echocardiogram and EKG as well as brain natriuretic peptide. 2. Hypotension. The patient was on Levophed that was discontinued. He is on IV antibiotic. 3. Cough and fever. Possible pneumonia. The patient will be ruled out for COVID-19. 4. Seizures, on Keppra. 5. Cerebral palsy. The patient also has a G-tube. Thank you very much for allowing me to participate in the care of this patient. Please do not hesitate to contact me for any questions regarding my evaluation. Rk Hdz M.D. DR: Vladislav JOB#: [id number] CC:
--- NOTE | 2019-12-08 19:56 | Consultation ---
History of Present Illness General Date patient seen: Dec 08, 2019 Chief Complaint: Fever Present Illness HPI 69-year-old male history of cerebral palsy, bedbound, nonverbal, Nava dependent presented for fever cough and shortness of breath. Patient apparently fever for the past 24 hours last fever this morning 101. Patient is on 2 L nasal canula. History limited due to patient's baseline mental status. Admitted to ICU for evaluation work up COVID. Surgery called to evaluate and assist with care. abnormal labs, central line placed in ED, multiple decubitus requiring care. Allergies: Coded Allergies: MOLD (Unverified Allergy, Unknown, 12/07/19) POLLEN EXTRACTS (Unverified Allergy, Unknown, 12/07/19) Medication History Scheduled Albuterol Sulfate (Albuterol Sulfate), 1.25 MG HHN TID, (Reported) Ascorbic Acid* (Vitamin C*), 500 MG GT TWICE A DAY, (Reported) Atorvastatin Calcium* (Lipitor*), 10 MG GT BEDTIME, (Reported) Docusate Sodium (Docusate Sodium), 100 MG GT TWICE A DAY, (Reported) Ferrous Sulfate* (Ferrous Sulfate*), 325 MG GT DAILY, (Reported) Finasteride (Finasteride), 5 MG GT DAILY, (Reported) Furosemide* (Lasix*), 20 MG DAILY, (Reported) Levetiracetam (Keppra), 5 ML GT TWICE A DAY, (Reported) Metoprolol Succinate* (Metoprolol Succinate*), 12.5 MG GT Q12HR, (Reported) Multivitamins* (Multivitamins*), 1 TAB GT DAILY, (Reported) Omeprazole (Omeprazole), 40 MG GT DAILY, (Reported) Sennosides (Senokot), 8.6 MG GT DAILY, (Reported) Tamsulosin HCl (Flomax), 0.4 MG GT QHS, (Reported) Zinc Sulfate (Zinc Sulfate*), 220 MG GT DAILY, (Reported) Scheduled PRN Acetaminophen (Acetaminophen), 500 MG GT Q6HR PRN for Severe Pain (Pain Scale 7- 10), (Reported) Patient History Limited by: medical condition History Provided By: Medical Record, PMD Healthcare decision maker Resuscitation status Full Code Advanced Directive on File Yes Past Medical/Surgical History Past Medical/Surgical History: (1) Decubital ulcer (2) Respiratory insufficiency (3) Suspected COVID-19 virus infection (4) Urinary tract infection Review of Systems All Other Systems: negative except mentioned in HPI ROS Narrative difficult to obtain given medical condition baseline Physical Exam General Appearance: no apparent distress Lines, tubes and drains: central line HEENT: mucous membranes moist Neck: normal inspection Respiratory/Chest: no respiratory distress, no accessory muscle use, decreased breath sounds Cardiovascular/Chest: normal rate Abdomen: soft, no organomegaly, no mass, other Extremities: inflammation, slow capillary refill, other Skin Exam: warm/dry Neurologic: alert Last 24 Hour Vital Signs Date Time Temp Pulse Resp B/P (MAP) Pulse Ox O2 Delivery O2 Flow Rate FiO2 12/08/19 19:37 75 25 97 Nasal Cannula 2.0 28 12/08/19 19:37 97 Nasal Cannula 2.0 28 12/08/19 19:00 76 25 122/44 (70) 87 12/08/19 19:00 122/44 12/08/19 19:00 122/44 12/08/19 19:00 122/44 12/08/19 19:00 122/44 12/08/19 19:00 122/44 12/08/19 18:30 89 25 118/56 (76) 94 12/08/19 18:00 126/53 12/08/19 18:00 126/53 12/08/19 18:00 126/53 12/08/19 18:00 126/53 12/08/19 18:00 126/53 12/08/19 18:00 126/53 12/08/19 18:00 126/53 12/08/19 18:00 126/53 12/08/19 18:00 126/53 12/08/19 18:00 76 24 126/49 (74) 94 12/08/19 17:30 81 23 131/41 (71) 94 12/08/19 17:30 132/55 12/08/19 17:30 132/55 12/08/19 17:30 132/55 12/08/19 17:30 132/55 12/08/19 17:30 132/55 12/08/19 17:30 132/55 12/08/19 17:30 132/55 12/08/19 17:30 132/55 12/08/19 17:30 132/55 12/08/19 17:30 132/55 12/08/19 17:15 132/46 12/08/19 17:15 132/46 12/08/19 17:15 132/46 12/08/19 17:15 132/46 12/08/19 17:15 132/46 12/08/19 17:15 132/46 12/08/19 17:15 132/45 12/08/19 17:15 132/46 12/08/19 17:15 132/46 12/08/19 17:15 132/46 12/08/19 17:00 107/69 12/08/19 17:00 107/69 12/08/19 17:00 107/69 12/08/19 17:00 107/69 12/08/19 17:00 139/54 12/08/19 17:00 139/54 12/08/19 17:00 78 22 107/69 (82) 100 12/08/19 16:45 132/83 12/08/19 16:43 132/83 12/08/19 16:30 60 23 115/66 (82) 100 12/08/19 16:15 60 23 115/66 (82) 100 12/08/19 16:00 2.0 12/08/19 16:00 129/95 12/08/19 16:00 129/95 12/08/19 16:00 129/95 12/08/19 16:00 129/95 12/08/19 16:00 126/95 12/08/19 16:00 98.7 61 29 126/95 (105) 100 12/08/19 16:00 Nasal Cannula 2.0 12/08/19 16:00 69 12/08/19 15:00 113/58 12/08/19 15:00 113/58 12/08/19 15:00 113/58 12/08/19 15:00 113/58 12/08/19 15:00 113/58 12/08/19 15:00 58 16 113/58 (76) 100 12/08/19 14:00 120/55 12/08/19 14:00 120/55 12/08/19 14:00 120/55 12/08/19 14:00 120/55 12/08/19 14:00 120/55 12/08/19 14:00 68 19 129/61 (83) 100 12/08/19 13:15 54 11 120/51 (74) 100 12/08/19 13:00 124/48 12/08/19 13:00 54 13 120/51 (74) 100 12/08/19 12:45 54 22 120/51 (74) 100 12/08/19 12:30 54 22 120/51 (74) 100 12/08/19 12:00 98.8 54 19 94/50 (65) 99 12/08/19 12:00 Nasal Cannula 2.0 12/08/19 12:00 2.0 12/08/19 12:00 94/50 12/08/19 12:00 60 12/08/19 11:45 54 19 94/50 (65) 99 12/08/19 11:30 59 26 112/55 (74) 100 12/08/19 11:15 63 22 109/69 (82) 100 12/08/19 11:00 55 12 100/67 (78) 100 12/08/19 11:00 109/69 12/08/19 10:45 61 12 102/51 (68) 99 12/08/19 10:30 55 10 96/56 (69) 100 12/08/19 10:15 60 16 88/39 (55) 100 12/08/19 10:15 88/39 12/08/19 10:00 58 20 95/50 (65) 100 12/08/19 10:00 84/43 12/08/19 09:51 65 22 84/43 (57) 100 12/08/19 09:45 63 22 87/46 (60) 98 12/08/19 09:45 87/46 12/08/19 09:36 98.6 12/08/19 09:30 60 21 103/40 (61) 96 12/08/19 09:15 66 25 117/57 (77) 100 12/08/19 09:00 99/48 12/08/19 09:00 67 24 99/48 (65) 97 12/08/19 08:00 2.0 12/08/19 08:00 99.0 61 22 101/48 (65) 100 12/08/19 08:00 101/48 12/08/19 08:00 Nasal Cannula 2.0 12/08/19 08:00 61 12/08/19 07:00 61 23 110/47 (68) 100 12/08/19 06:30 66 20 12/08/19 06:00 65 24 109/50 (69) 100 12/08/19 06:00 109/50 12/08/19 05:30 66 23 107/40 (62) 100 12/08/19 05:00 65 20 106/48 (67) 100 12/08/19 05:00 106/48 12/08/19 04:30 82 24 93/55 (68) 100 12/08/19 04:00 2.0 12/08/19 04:00 98.7 61 13 104/56 (72) 100 12/08/19 04:00 61 12/08/19 04:00 104/56 12/08/19 04:00 Nasal Cannula 2.0 12/08/19 03:30 69 26 108/50 (69) 99 12/08/19 03:15 68 25 100/50 (67) 99 12/08/19 03:00 102/50 12/08/19 03:00 68 25 102/50 (67) 99 12/08/19 02:45 68 24 106/50 (68) 98 12/08/19 02:39 99/40 12/08/19 02:39 99/47 12/08/19 02:30 77 24 99/47 (64) 98 12/08/19 02:15 77 24 99/47 (64) 98 12/08/19 02:00 75 33 103/58 (73) 98 12/08/19 01:00 70 25 83/41 (55) 100 12/08/19 00:00 64 12/08/19 00:00 Nasal Cannula 2.0 12/08/19 00:00 2.0 12/08/19 00:00 98.5 64 20 89/46 (60) 100 12/07/19 23:00 64 19 90/53 (65) 100 12/07/19 22:00 66 18 93/57 (69) 100 12/07/19 21:00 Nasal Cannula 2.0 12/07/19 21:00 71 22 106/52 (70) 100 12/07/19 20:10 72 12/07/19 20:00 98.8 72 24 121/73 (89) 100 12/07/19 19:56 99.9 76 22 107/68 100 Nasal Cannula 2.0 Intake and Output 12/07/19 12/08/19 19:00 07:00 Intake Total 1163.0 ml Output Total 520 ml Balance 643.0 ml Intake IV Total 1163.0 ml Output Urine Total 520 ml # Voids 1 Laboratory Tests Test 12/08/19 04:30 12/08/19 07:22 White Blood Count 10.3 K/UL (4.8-10.8) Red Blood Count 2.86 M/UL (4.70-6.10) L Hemoglobin 8.5 G/DL (14.2-18.0) L Hematocrit 26.1 % (42.0-52.0) L Mean Corpuscular Volume 91 FL (80-99) Mean Corpuscular Hemoglobin 29.8 PG (27.0-31.0) Mean Corpuscular Hemoglobin Concent 32.6 G/DL (32.0-36.0) Red Cell Distribution Width 18.3 % (11.6-14.8) H Platelet Count 497 K/UL (150-450) H Mean Platelet Volume 5.0 FL (6.5-10.1) L Neutrophils (%) (Auto) 76.0 % (45.0-75.0) H Lymphocytes (%) (Auto) 13.4 % (20.0-45.0) L Monocytes (%) (Auto) 8.3 % (1.0-10.0) Eosinophils (%) (Auto) 1.7 % (0.0-3.0) Basophils (%) (Auto) 0.6 % (0.0-2.0) Sodium Level 143 MMOL/L (136-145) Potassium Level 3.7 MMOL/L (3.5-5.1) Chloride Level 107 MMOL/L (98-107) Carbon Dioxide Level 30 MMOL/L (21-32) Anion Gap 6 mmol/L (5-15) Blood Urea Nitrogen 25 mg/dL (7-18) H Creatinine 0.7 MG/DL (0.55-1.30) Estimat Glomerular Filtration Rate > 60 mL/min (>60) Glucose Level 112 MG/DL (74-106) H Calcium Level 8.2 MG/DL (8.5-10.1) L Total Bilirubin 0.3 MG/DL (0.2-1.0) Aspartate Amino Transf (AST/SGOT) 19 U/L (15-37) Alanine Aminotransferase (ALT/SGPT) 16 U/L (12-78) Alkaline Phosphatase 111 U/L (46-116) Total Protein 6.0 G/DL (6.4-8.2) L Albumin 1.9 G/DL (3.4-5.0) L Globulin 4.1 g/dL Albumin/Globulin Ratio 0.5 (1.0-2.7) L Arterial Blood pH 7.500 (7.350-7.450) Arterial Blood Partial Pressure CO2 36.2 mmHg (35.0-45.0) Arterial Blood Partial Pressure O2 144.5 mmHg (75.0-100.0) H Arterial Blood HCO3 27.6 mmol/L (22.0-26.0) H Arterial Blood Oxygen Saturation 98.5 % (95-100) Arterial Blood Base Excess 4.3 (-2-2) H Triston Test Positive Height (Feet): 5 Height (Inches): 7.00 Weight (Pounds): 145 Medications Current Medications Medications (Trade) Dose Ordered Sig/Nazia Route PRN Reason Start Time Stop Time Status Last Admin Dose Admin Acetaminophen (Tylenol) 650 mg Q4H PRN ORAL Temp >100.5 12/08/19 05:00 01/07/20 04:59 12/08/19 09:06 Acetaminophen (Tylenol) 650 mg Q4H PRN RECTAL Temp >100.5 12/08/19 05:30 01/06/20 20:59 Albuterol Sulfate (Proventil) 2.5 mg Q6H PRN HHN Shortness of Breath 12/08/19 06:00 12/13/19 05:59 Azithromycin 500 mg/Dextrose 275 ml @ 275 mls/hr Q24HRS IV 12/08/19 23:00 12/13/19 22:59 Chlorhexidine Gluconate (Susanna-Hex 2%) 1 applic DAILY@2000 TOPIC 12/08/19 20:00 03/07/20 19:59 Dextrose/Sodium Chloride 1,000 ml @ 80 mls/hr [id number] IV 12/08/19 06:58 01/07/20 06:57 12/08/19 18:11 Dopamine HCl/ Dextrose 250 ml @ 0 mls/hr Q24H IV 12/09/19 16:15 03/07/20 16:14 Heparin Sodium (Porcine) (Heparin 5000 units/ml) 5,000 units EVERY 12 HOURS SUBQ 12/08/19 09:00 01/22/20 08:59 12/08/19 08:43 Lansoprazole (Prevacid) 30 mg DAILY GT 12/08/19 09:00 01/07/20 08:59 12/08/19 08:42 Levetiracetam (Keppra) 500 mg Q12HR GT 12/08/19 09:00 01/07/20 08:59 12/08/19 08:42 Norepinephrine Bitartrate 4 mg/ Dextrose 250 ml @ 0 mls/hr Q24H IV 12/09/19 01:30 01/07/20 01:29 12/08/19 02:39 Ondansetron HCl (Zofran) 4 mg Q6H PRN IVP Nausea & Vomiting 12/08/19 03:30 01/06/20 21:29 Piperacillin Sod/ Tazobactam Sod 3.375 gm/Sodium Chloride 110 ml @ 27.5 mls/hr EVERY 8 HOURS IVPB 12/08/19 14:00 12/13/19 13:59 12/08/19 14:31 Tamsulosin HCl (Flomax) 0.4 mg BEDTIME ORAL 12/08/19 21:00 01/07/20 20:59 Vancomycin HCl (Vanco rx to dose) 1 ea DAILY PRN MISC Per rx protocol 12/08/19 13:00 01/07/20 12:59 Vancomycin HCl 1 gm/Dextrose 275 ml @ 183.708 mls/hr Q12H IVPB 12/09/19 02:00 12/14/19 01:59 Assessment/Plan Problem List: (1) Urinary tract infection ICD Codes: N39.0 - Urinary tract infection, site not specified SNOMED: 65862383 (2) Respiratory insufficiency Assessment & Plan: Right central line terminates in the right atrium. Cardiomegaly. Mild vascular congestion. Mild bilateral pleural effusions. ICD Codes: R06.89 - Other abnormalities of breathing SNOMED: 042168910 (3) Decubital ulcer Assessment & Plan: patient presented with multiple decubitus ulcere requiring care and close management stage 4 sacral decubitus with necrotic slough moist no pus serous exudate periwound erythema turn q2h off load pressure with pillows off load heels with pillows heel protectors hold on air mattress for now until cleared nutritional supplementation will follow with recs thank you ICD Codes: L89.90 - Pressure ulcer of unspecified site, unspecified stage SNOMED: 130643627 (4) Suspected COVID-19 virus infection ICD Codes: R68.89 - Other general symptoms and signs SNOMED: 978433148 Davonte Ham Dec 08, 2019 19:56
[2019-12-08] MEDS ORDERED: Tamsulosin 0.4mg cap ORAL SCH ×2 (21:00)
[2019-12-08] MEDS: Dyna-Hex 2% Top Sol 2oz TOPIC SCH (21:01)
[2019-12-08] MEDS ORDERED: cefTRIAXone 1 GM in D5W 55 ML IVPB SCH ×4 (22:00)
[2019-12-08] MEDS: Azithromycin 500 MG in D5W 275 ML IV SCH (22:31)
[2019-12-08] MEDS ORDERED: Azithromycin 500 MG in D5W 275 ML IV SCH (23:00)
--- NOTE | 2019-12-08 23:00 | History and Physical Report ---
DATE OF ADMISSION: 12/07/2019 HISTORY OF PRESENT ILLNESS: The patient has Down syndrome, nonverbal, unable to get any history. The patient is being admitted for fever, cough, lethargy and also for urinary tract infection. The patient also had according to the ER doctor COVID swab done in the ER and sent. Chest x-ray does not show any pneumonia, showed slight congestion. Cannot get any history from the patient. PAST MEDICAL HISTORY: Down syndrome, GERD, history of dysphagia, hyperlipidemia, iron-deficiency anemia, BPH, seizure disorder, hypertension, constipation. PAST SURGICAL HISTORY: History of PEG in the past. MEDICATIONS: Vitamin C, Lipitor, Colace, ferrous sulfate, finasteride, Keppra, metoprolol, omeprazole, Senokot, and Flomax. ALLERGIES: Mold and pollen. FAMILY HISTORY: Unable to obtain. SOCIAL HISTORY: Unable to obtain, nonverbal. REVIEW OF SYSTEMS: Unable to obtain. The patient is nonverbal. PHYSICAL EXAMINATION: VITAL SIGNS: Temperature not recorded, pulse is 81, blood pressure 132/55. HEENT: PERRLA. NECK: Supple. No lymphadenopathy. CHEST: Clear to auscultation. CARDIOVASCULAR: Regular rate and rhythm ABDOMEN: Soft. Positive bowel sounds. No organomegaly. EXTREMITIES: A 1+ edema. NEUROLOGIC: Does not follow neurologic exam. The patient is lethargic. LABORATORY DATA: WBC of 13.2, hemoglobin 9.8, and platelets of 598. Sodium 141, potassium 4.3, BUN of 31, creatinine 0.8, glucose of 98. ASSESSMENT/PLAN: Respiratory insufficiency, pneumonia, rule out sepsis. Urinary tract infection. The patient again being admitted for pneumonia and urinary tract infection. I have consulted Dr. Hdz, Dr. Bragg, and Dr. Krause to help with the management of the lethargy, pneumonia, respiratory insufficiency, urinary tract infection, rule out sepsis. Leda Sweeney M.D. DR: William JOB#: [id number] CC:
[2019-12-09] VITALS (46 sets, daily range): BP systolic 73–131; BP diastolic 37–69
[2019-12-09] MEDS ORDERED: DOPamine 400mg/250ml 250 ML IV ONE ×2 (01:15→11:18)
[2019-12-09] MEDS: Vancomycin 1gm/D5W 275ml IVPB SCH ×4 (01:22→15:56)
[2019-12-09] MEDS: DOPamine 400mg/250ml 250 ML IV SCH ×3 (01:23→20:26)
[2019-12-09] MEDS: Piperacillin/Tazobactam 3.375 GM in NS 110 ML IVPB SCH ×3 (05:47→22:34)
[2019-12-09 07:13] LABS: BASOPHILS % (AUTO) 0.5 % (0.0-2.0); EOSINOPHILS % (AUTO) 3.1 % (0.0-3.0); HEMOGLOBIN 9.5 G/DL (14.2-18.0); LYMPHOCYTES % (AUTO) 12.4 % (20.0-45.0); MEAN CORPUSCULAR VOLUME 91 FL (80-99); MONOCYTES % (AUTO) 4.9 % (1.0-10.0); NEUTROPHILS % (AUTO) 79.2 % (45.0-75.0); PLATELET COUNT 557 K/UL (150-450); RED BLOOD COUNT 3.18 M/UL (4.70-6.10); RED CELL DISTRIBUTION WIDTH 17.9 % (11.6-14.8); WHITE BLOOD COUNT 10.6 K/UL (4.8-10.8)
[2019-12-09 07:29] LABS: ANION GAP 8 mmol/L (5-15); BLOOD UREA NITROGEN 17 mg/dL (7-18); CALCIUM 8.3 MG/DL (8.5-10.1); CARBON DIOXIDE 28 MMOL/L (21-32); CHLORIDE 104 MMOL/L (98-107); CREATININE 0.7 MG/DL (0.55-1.30); POTASSIUM 3.2 MMOL/L (3.5-5.1); SODIUM 140 MMOL/L (136-145)
[2019-12-09] MEDS: D5NS 1,000 ML IV SCH ×2 (08:00→10:29)
[2019-12-09] MEDS: levETIRAcetam 500mg/5ml Liquid GT SCH ×2 (08:00→20:25)
[2019-12-09] MEDS: Heparin 5000 units/ml inj SUBQ SCH ×2 (08:01→20:27)
--- NOTE | 2019-12-09 10:09 | Consultation ---
Consult Note Consult Note I was asked to evaluate the patient at the request of Dr. Sweeney fluid and electrolyte management. Days second of patient's hospitalization. He is in ICU room F. Data reviewed. Discussed with RN. Emergency room note: This patient was admitted for fever and cough. He was admitted for COVID-19 rule out. His blood pressure drop and he needed a central line for pressor. I placed a central line under sterile condition. no complications. Coded Allergies: MOLD (Unverified Allergy, Unknown, 12/07/19) POLLEN EXTRACTS (Unverified Allergy, Unknown, 12/07/19) COVID-19 Screening Contact w/high risk pt: No Recent Travel to affected area: No Experienced COVID-19 symptoms?: Yes COVID-19 symptoms experienced: Fever (T>100.4F or >38C), Shortness of Breath Hx Cardiac Problems: Yes Hx Gastrointestinal Problems: Yes - DYSPHAGIA, malnutrition, gastrostomy, profound Intellectal disabilities Hx Neurological Problems: Yes Hx Seizures: Yes Hx Cerebral Palsy: Yes Assessment/Plan Hypokalemia Hypoalbuminemia Urinary tract infection Possible Pneumonia, Sepsis, Rule out Covid-19 Cerebral Palsy Seizure History BPH - chronic roper Dysphagia s/p G tube Anemia, Lymphopenia IV hydration Monitor renal parameters and electrolytes Antibiotics Avoid nephrotoxic's Per consultants Per orders Andre Flores MD Dec 09, 2019 10:09
--- NOTE | 2019-12-09 17:31 | Cardiac Electrophysiology PN ---
Assessment/Plan Assessment/Plan 1. Shortness of breath. Troponins are negative. Echocardiogram still pending. Infulenza A is positive 2. Hypotension. Levophed was discontinued on IV antibiotic. 3. Cough and fever. Possible pneumonia. The patient will be ruled out for COVID-19.Influenza A is positive 4. Seizures, on Keppra. 5. Cerebral palsy. Subjective Subjective In ICU on Dopamine 10. No further bradycardia. Infuenza A is positive. Rule out COVID is pending Objective Last 24 Hour Vital Signs Date Time Temp Pulse Resp B/P (MAP) Pulse Ox O2 Delivery O2 Flow Rate FiO2 12/09/19 17:00 118/60 12/09/19 16:00 2.0 12/09/19 16:00 111/63 12/09/19 16:00 98.1 77 19 115/51 (72) 100 12/09/19 16:00 Nasal Cannula 2.0 12/09/19 15:30 78 26 109/60 (76) 99 12/09/19 15:00 130/67 12/09/19 15:00 95 28 125/62 (83) 98 12/09/19 14:30 76 23 112/58 (76) 98 12/09/19 14:00 78 20 122/62 (82) 97 12/09/19 14:00 119/60 12/09/19 13:30 79 23 114/65 (81) 98 12/09/19 13:00 110/55 12/09/19 13:00 75 20 107/60 (76) 98 12/09/19 12:30 74 20 115/60 (78) 98 12/09/19 12:00 79 12/09/19 12:00 116/59 12/09/19 12:00 Nasal Cannula 2.0 12/09/19 12:00 2.0 12/09/19 12:00 98.5 74 21 113/56 (75) 98 12/09/19 11:30 77 22 115/60 (78) 99 12/09/19 11:23 119/59 12/09/19 11:00 113/57 12/09/19 11:00 72 19 113/57 (75) 98 12/09/19 10:30 77 20 120/56 (77) 99 12/09/19 10:00 108/58 12/09/19 10:00 71 24 108/53 (71) 96 12/09/19 09:30 74 27 118/52 (74) 97 12/09/19 09:16 74 24 100 Nasal Cannula 2.0 28 12/09/19 09:16 100 Nasal Cannula 2.0 28 12/09/19 09:00 73 26 112/53 (72) 98 12/09/19 09:00 112/53 12/09/19 08:30 69 23 106/56 (73) 99 12/09/19 08:00 Nasal Cannula 2.0 12/09/19 08:00 98.0 77 22 115/58 (77) 98 12/09/19 08:00 2.0 12/09/19 08:00 114/62 12/09/19 08:00 67 12/09/19 07:00 77 24 109/48 (68) 95 12/09/19 07:00 109/48 12/09/19 06:30 98.1 76 19 115/55 (75) 99 12/09/19 06:30 76 20 12/09/19 06:00 112/53 12/09/19 06:00 67 20 112/53 (72) 100 12/09/19 05:30 71 20 116/53 (74) 100 12/09/19 05:00 70 27 101/52 (68) 99 12/09/19 05:00 101/52 12/09/19 04:30 74 28 73/39 (50) 100 12/09/19 04:00 2.0 12/09/19 04:00 Nasal Cannula 2.0 12/09/19 04:00 108/57 12/09/19 04:00 75 12/09/19 04:00 98.0 75 18 108/57 (74) 98 12/09/19 03:30 77 22 111/59 (76) 98 12/09/19 03:00 80 22 110/60 (77) 98 12/09/19 03:00 110/60 12/09/19 02:30 83 23 116/59 (78) 98 12/09/19 02:00 81 28 131/65 (87) 97 12/09/19 02:00 131/65 12/09/19 01:30 109/70 12/09/19 01:30 75 21 111/53 (72) 97 12/09/19 01:23 120/40 12/09/19 01:00 75 23 106/46 (66) 97 12/09/19 01:00 106/46 12/09/19 00:30 77 23 101/37 (58) 97 12/09/19 00:00 77 12/09/19 00:00 91/48 12/09/19 00:00 2.0 12/09/19 00:00 98.0 77 16 91/48 (62) 96 12/09/19 00:00 Nasal Cannula 2.0 12/08/19 23:30 78 17 108/37 (60) 97 12/08/19 23:00 111/43 12/08/19 23:00 74 20 111/43 (65) 97 12/08/19 22:45 78 22 115/44 (67) 95 12/08/19 22:30 78 21 99/50 (66) 94 12/08/19 22:00 97/41 12/08/19 22:00 73 20 97/41 (59) 95 12/08/19 21:30 79 26 115/45 (68) 95 12/08/19 21:00 120/47 12/08/19 21:00 75 19 120/47 (71) 96 12/08/19 20:30 74 22 112/45 (67) 97 12/08/19 20:15 75 25 116/44 (68) 95 12/08/19 20:10 75 22 121/46 (71) 97 12/08/19 20:00 98.1 76 20 81/63 (69) 96 12/08/19 20:00 Nasal Cannula 2.0 12/08/19 20:00 81/63 12/08/19 20:00 2.0 12/08/19 19:37 75 25 97 Nasal Cannula 2.0 28 12/08/19 19:37 97 Nasal Cannula 2.0 28 12/08/19 19:31 75 12/08/19 19:30 78 23 121/44 (69) 95 12/08/19 19:00 76 25 122/44 (70) 87 12/08/19 19:00 122/44 12/08/19 19:00 122/44 12/08/19 19:00 122/44 12/08/19 19:00 122/44 12/08/19 19:00 122/44 12/08/19 18:30 89 25 118/56 (76) 94 12/08/19 18:00 126/53 12/08/19 18:00 126/53 12/08/19 18:00 126/53 12/08/19 18:00 126/53 12/08/19 18:00 126/53 12/08/19 18:00 126/53 12/08/19 18:00 126/53 12/08/19 18:00 126/53 12/08/19 18:00 126/53 12/08/19 18:00 76 24 126/49 (74) 94 12/08/19 17:30 81 23 131/41 (71) 94 12/08/19 17:30 132/55 12/08/19 17:30 132/55 12/08/19 17:30 132/55 12/08/19 17:30 132/55 12/08/19 17:30 132/55 12/08/19 17:30 132/55 12/08/19 17:30 132/55 12/08/19 17:30 132/55 12/08/19 17:30 132/55 12/08/19 17:30 132/55 Intake and Output 12/08/19 12/09/19 19:00 07:00 Intake Total 1374.3435 ml 1999.969 ml Output Total 410 ml 940 ml Balance 964.3435 ml 1059.969 ml Intake IV Total 1344.3435 ml 1949.969 ml Other 30 ml 50 ml Output Urine Total 410 ml 940 ml Laboratory Tests Test 12/09/19 04:30 White Blood Count 10.6 K/UL (4.8-10.8) Red Blood Count 3.18 M/UL (4.70-6.10) L Hemoglobin 9.5 G/DL (14.2-18.0) L Hematocrit 29.0 % (42.0-52.0) L Mean Corpuscular Volume 91 FL (80-99) Mean Corpuscular Hemoglobin 29.8 PG (27.0-31.0) Mean Corpuscular Hemoglobin Concent 32.7 G/DL (32.0-36.0) Red Cell Distribution Width 17.9 % (11.6-14.8) H Platelet Count 557 K/UL (150-450) H Mean Platelet Volume 5.0 FL (6.5-10.1) L Neutrophils (%) (Auto) 79.2 % (45.0-75.0) H Lymphocytes (%) (Auto) 12.4 % (20.0-45.0) L Monocytes (%) (Auto) 4.9 % (1.0-10.0) Eosinophils (%) (Auto) 3.1 % (0.0-3.0) H Basophils (%) (Auto) 0.5 % (0.0-2.0) Sodium Level 140 MMOL/L (136-145) Potassium Level 3.2 MMOL/L (3.5-5.1) L Chloride Level 104 MMOL/L (98-107) Carbon Dioxide Level 28 MMOL/L (21-32) Anion Gap 8 mmol/L (5-15) Blood Urea Nitrogen 17 mg/dL (7-18) Creatinine 0.7 MG/DL (0.55-1.30) Estimat Glomerular Filtration Rate > 60 mL/min (>60) Glucose Level 120 MG/DL (74-106) H Calcium Level 8.3 MG/DL (8.5-10.1) L Troponin I 0.021 ng/mL (0.000-0.056) Pro-B-Type Natriuretic Peptide 2538 pg/mL (0-125) H Microbiology Date/Time Source Procedure Growth Status 12/07/19 15:50 Blood Blood Culture - Preliminary Resulted 12/07/19 15:35 Blood Blood Culture - Preliminary NO GROWTH AFTER 24 HOURS Resulted 12/07/19 15:50 Nasal Nares - Final Complete 12/07/19 15:50 Nasal Nares - Final Complete 12/07/19 15:50 Urine,Clean Catch Urine Culture - Preliminary Gram Negative Bacillus 1 Resulted 12/07/19 18:15 Rectum Received Objective HEAD AND NECK: Showed no JVD. LUNGS: Coarse rhonchi. CARDIOVASCULAR: Showed regular S1 and S2 with no gallop. ABDOMEN: Soft. EXTREMITIES: He has 1+ pitting edema. Rk Hdz MD Dec 09, 2019 17:31
--- NOTE | 2019-12-09 17:42 | Pulmonolgy Critical Care Note ---
Critical Care - Asmt/Plan Assessment/Plan: Pulmonary Critical Care Progress Note HPI 69-year-old male history of cerebral palsy, bedbound, nonverbal, Roper dependent presented for fever cough and shortness of breath. 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 Patient is on nasal canula O2. History limited due to patient's baseline mental status. Has G tube On pressors PRN Being ruled out for Covid19, In ICU due to hypotension On IV Antibiotics, IVF, IV pressors PRN Hemodynamically stable currently, on NC O2 Allergies: No Known Allergies Past Medical History: GERD, Dysphagia, previous G tube, Cerebral Palsy, BPH All Other Systems: limited - History limited due to patient's baseline mental status Physical Exam Vital Signs Noted General Appearance: thin, Chronically Ill, mild pallor Head: normocephalic, atraumatic Eyes: bilateral eye PERRL, bilateral eye EOMI ENT: hearing grossly normal, dry mucus membranes Neck: full range of motion, supple Respiratory: CTAB Cardiovascular: regular rate, rhythm, HS1, HS2 normal, no murmur, normal peripheral pulses, Gastrointestinal: non tender, soft, non-distended, no guarding Musculoskeletal: other - Extremities contracted, chronic ulcerations noted bilateral feet Neurologic: awake, no focal defects, other - Patient nonverbal at baseline Skin: warm/dry Impression: Urinary tract infection Possible Pneumonia Sepsis Rule out Covid-19 Cerebral Palsy Seizure History BPH - chronic roper Dysphagia s/p G tube Anemia Lymphopenia Plan IV antibiotics R/o coronavirus infection SDU status IVF Pressors PRN Cengtral Line Await cultures/viral studies PPX Monitor labs O2 PRN Bronchodilators Laboratory Tests Noted EK:12 Rate: normal Rhythm: NSR Other Impression t wave flattening 1 AVL CXR: Atelectasis RLL, L mid zone Subjective ROS Limited/Unobtainable: No Allergies: Coded Allergies: No Known Allergies (Unverified , 12/07/19) Microbiology Date/Time Source Procedure Growth Status 12/07/19 15:50 Nasal Nares - Final Complete 12/07/19 15:50 Nasal Nares - Final Complete 12/07/19 18:15 Rectum Received Critical Care - Objective Last 24 Hour Vital Signs Date Time Temp Pulse Resp B/P (MAP) Pulse Ox O2 Delivery O2 Flow Rate FiO2 12/09/19 17:00 118/60 12/09/19 16:00 2.0 12/09/19 16:00 111/63 12/09/19 16:00 98.1 77 19 115/51 (72) 100 12/09/19 16:00 Nasal Cannula 2.0 12/09/19 15:30 78 26 109/60 (76) 99 12/09/19 15:00 130/67 12/09/19 15:00 95 28 125/62 (83) 98 12/09/19 14:30 76 23 112/58 (76) 98 12/09/19 14:00 78 20 122/62 (82) 97 12/09/19 14:00 119/60 12/09/19 13:30 79 23 114/65 (81) 98 12/09/19 13:00 110/55 12/09/19 13:00 75 20 107/60 (76) 98 12/09/19 12:30 74 20 115/60 (78) 98 12/09/19 12:00 79 12/09/19 12:00 116/59 12/09/19 12:00 Nasal Cannula 2.0 12/09/19 12:00 2.0 12/09/19 12:00 98.5 74 21 113/56 (75) 98 12/09/19 11:30 77 22 115/60 (78) 99 12/09/19 11:23 119/59 12/09/19 11:00 113/57 12/09/19 11:00 72 19 113/57 (75) 98 12/09/19 10:30 77 20 120/56 (77) 99 12/09/19 10:00 108/58 12/09/19 10:00 71 24 108/53 (71) 96 12/09/19 09:30 74 27 118/52 (74) 97 12/09/19 09:16 74 24 100 Nasal Cannula 2.0 28 12/09/19 09:16 100 Nasal Cannula 2.0 28 12/09/19 09:00 73 26 112/53 (72) 98 12/09/19 09:00 112/53 12/09/19 08:30 69 23 106/56 (73) 99 12/09/19 08:00 Nasal Cannula 2.0 12/09/19 08:00 98.0 77 22 115/58 (77) 98 12/09/19 08:00 2.0 12/09/19 08:00 114/62 12/09/19 08:00 67 12/09/19 07:00 77 24 109/48 (68) 95 12/09/19 07:00 109/48 12/09/19 06:30 98.1 76 19 115/55 (75) 99 12/09/19 06:30 76 20 12/09/19 06:00 112/53 12/09/19 06:00 67 20 112/53 (72) 100 12/09/19 05:30 71 20 116/53 (74) 100 12/09/19 05:00 70 27 101/52 (68) 99 12/09/19 05:00 101/52 12/09/19 04:30 74 28 73/39 (50) 100 12/09/19 04:00 2.0 12/09/19 04:00 Nasal Cannula 2.0 12/09/19 04:00 108/57 12/09/19 04:00 75 12/09/19 04:00 98.0 75 18 108/57 (74) 98 12/09/19 03:30 77 22 111/59 (76) 98 12/09/19 03:00 80 22 110/60 (77) 98 12/09/19 03:00 110/60 12/09/19 02:30 83 23 116/59 (78) 98 12/09/19 02:00 81 28 131/65 (87) 97 12/09/19 02:00 131/65 12/09/19 01:30 109/70 12/09/19 01:30 75 21 111/53 (72) 97 12/09/19 01:23 120/40 12/09/19 01:00 75 23 106/46 (66) 97 12/09/19 01:00 106/46 12/09/19 00:30 77 23 101/37 (58) 97 12/09/19 00:00 77 12/09/19 00:00 91/48 12/09/19 00:00 2.0 12/09/19 00:00 98.0 77 16 91/48 (62) 96 12/09/19 00:00 Nasal Cannula 2.0 12/08/19 23:30 78 17 108/37 (60) 97 12/08/19 23:00 111/43 12/08/19 23:00 74 20 111/43 (65) 97 12/08/19 22:45 78 22 115/44 (67) 95 12/08/19 22:30 78 21 99/50 (66) 94 12/08/19 22:00 97/41 12/08/19 22:00 73 20 97/41 (59) 95 12/08/19 21:30 79 26 115/45 (68) 95 12/08/19 21:00 120/47 12/08/19 21:00 75 19 120/47 (71) 96 12/08/19 20:30 74 22 112/45 (67) 97 12/08/19 20:15 75 25 116/44 (68) 95 12/08/19 20:10 75 22 121/46 (71) 97 12/08/19 20:00 98.1 76 20 81/63 (69) 96 12/08/19 20:00 Nasal Cannula 2.0 12/08/19 20:00 81/63 12/08/19 20:00 2.0 12/08/19 19:37 75 25 97 Nasal Cannula 2.0 28 12/08/19 19:37 97 Nasal Cannula 2.0 28 12/08/19 19:31 75 12/08/19 19:30 78 23 121/44 (69) 95 12/08/19 19:00 76 25 122/44 (70) 87 12/08/19 19:00 122/44 12/08/19 19:00 122/44 12/08/19 19:00 122/44 12/08/19 19:00 122/44 12/08/19 19:00 122/44 12/08/19 18:30 89 25 118/56 (76) 94 12/08/19 18:00 126/53 12/08/19 18:00 126/53 12/08/19 18:00 126/53 12/08/19 18:00 126/53 12/08/19 18:00 126/53 12/08/19 18:00 126/53 12/08/19 18:00 126/53 12/08/19 18:00 126/53 12/08/19 18:00 126/53 12/08/19 18:00 76 24 126/49 (74) 94 Micro: Microbiology Date/Time Source Procedure Growth Status 12/07/19 15:50 Blood Blood Culture - Preliminary Resulted 12/07/19 15:35 Blood Blood Culture - Preliminary NO GROWTH AFTER 24 HOURS Resulted 12/07/19 15:50 Nasal Nares - Final Complete 12/07/19 15:50 Nasal Nares - Final Complete 12/07/19 15:50 Urine,Clean Catch Urine Culture - Preliminary Gram Negative Bacillus 1 Resulted 12/07/19 18:15 Rectum Received Critical Care - Subjective ROS Limited/Unobtainable: No FI02: 28 Sputum Amount: None I&O: Intake and Output 12/08/19 12/09/19 19:00 07:00 Intake Total 1374.3435 ml 1999.969 ml Output Total 410 ml 940 ml Balance 964.3435 ml 1059.969 ml Intake IV Total 1344.3435 ml 1949.969 ml Other 30 ml 50 ml Output Urine Total 410 ml 940 ml Oscar Bragg MD Dec 09, 2019 17:42
--- NOTE | 2019-12-09 18:26 | Surgery Progress Note ---
Surgery Progress Note Subjective Symptoms: improved, voiding well, passing flatus Objective Last 24 Hour Vital Signs Date Time Temp Pulse Resp B/P (MAP) Pulse Ox O2 Delivery O2 Flow Rate FiO2 12/09/19 18:00 72 18 117/64 (81) 99 12/09/19 17:30 74 18 119/55 (76) 99 12/09/19 17:00 78 19 118/60 (79) 99 12/09/19 17:00 118/60 12/09/19 16:00 2.0 12/09/19 16:00 111/63 12/09/19 16:00 98.1 77 19 115/51 (72) 100 12/09/19 16:00 74 12/09/19 16:00 Nasal Cannula 2.0 12/09/19 15:30 78 26 109/60 (76) 99 12/09/19 15:00 130/67 12/09/19 15:00 95 28 125/62 (83) 98 12/09/19 14:30 76 23 112/58 (76) 98 12/09/19 14:00 78 20 122/62 (82) 97 12/09/19 14:00 119/60 12/09/19 13:30 79 23 114/65 (81) 98 12/09/19 13:00 110/55 12/09/19 13:00 75 20 107/60 (76) 98 12/09/19 12:30 74 20 115/60 (78) 98 12/09/19 12:00 79 12/09/19 12:00 116/59 12/09/19 12:00 Nasal Cannula 2.0 12/09/19 12:00 2.0 12/09/19 12:00 98.5 74 21 113/56 (75) 98 12/09/19 11:30 77 22 115/60 (78) 99 20 11:23 119/59 12/09/19 11:00 113/57 12/09/19 11:00 72 19 113/57 (75) 98 12/09/19 10:30 77 20 120/56 (77) 99 12/09/19 10:00 108/58 12/09/19 10:00 71 24 108/53 (71) 96 12/09/19 09:30 74 27 118/52 (74) 97 12/09/19 09:16 74 24 100 Nasal Cannula 2.0 28 12/09/19 09:16 100 Nasal Cannula 2.0 28 12/09/19 09:00 73 26 112/53 (72) 98 12/09/19 09:00 112/53 12/09/19 08:30 69 23 106/56 (73) 99 12/09/19 08:00 Nasal Cannula 2.0 12/09/19 08:00 98.0 77 22 115/58 (77) 98 12/09/19 08:00 2.0 12/09/19 08:00 114/62 12/09/19 08:00 67 12/09/19 07:00 77 24 109/48 (68) 95 12/09/19 07:00 109/48 12/09/19 06:30 98.1 76 19 115/55 (75) 99 12/09/19 06:30 76 20 12/09/19 06:00 112/53 12/09/19 06:00 67 20 112/53 (72) 100 12/09/19 05:30 71 20 116/53 (74) 100 12/09/19 05:00 70 27 101/52 (68) 99 12/09/19 05:00 101/52 12/09/19 04:30 74 28 73/39 (50) 100 12/09/19 04:00 2.0 12/09/19 04:00 Nasal Cannula 2.0 12/09/19 04:00 108/57 12/09/19 04:00 75 12/09/19 04:00 98.0 75 18 108/57 (74) 98 12/09/19 03:30 77 22 111/59 (76) 98 12/09/19 03:00 80 22 110/60 (77) 98 12/09/19 03:00 110/60 12/09/19 02:30 83 23 116/59 (78) 98 12/09/19 02:00 81 28 131/65 (87) 97 12/09/19 02:00 131/65 12/09/19 01:30 109/70 12/09/19 01:30 75 21 111/53 (72) 97 12/09/19 01:23 120/40 12/09/19 01:00 75 23 106/46 (66) 97 12/09/19 01:00 106/46 12/09/19 00:30 77 23 101/37 (58) 97 12/09/19 00:00 77 12/09/19 00:00 91/48 12/09/19 00:00 2.0 12/09/19 00:00 98.0 77 16 91/48 (62) 96 12/09/19 00:00 Nasal Cannula 2.0 12/08/19 23:30 78 17 108/37 (60) 97 12/08/19 23:00 111/43 12/08/19 23:00 74 20 111/43 (65) 97 12/08/19 22:45 78 22 115/44 (67) 95 12/08/19 22:30 78 21 99/50 (66) 94 12/08/19 22:00 97/41 12/08/19 22:00 73 20 97/41 (59) 95 12/08/19 21:30 79 26 115/45 (68) 95 12/08/19 21:00 120/47 12/08/19 21:00 75 19 120/47 (71) 96 12/08/19 20:30 74 22 112/45 (67) 97 12/08/19 20:15 75 25 116/44 (68) 95 12/08/19 20:10 75 22 121/46 (71) 97 12/08/19 20:00 98.1 76 20 81/63 (69) 96 12/08/19 20:00 Nasal Cannula 2.0 12/08/19 20:00 81/63 12/08/19 20:00 2.0 12/08/19 19:37 75 25 97 Nasal Cannula 2.0 28 12/08/19 19:37 97 Nasal Cannula 2.0 28 12/08/19 19:31 75 12/08/19 19:30 78 23 121/44 (69) 95 12/08/19 19:00 76 25 122/44 (70) 87 12/08/19 19:00 122/44 12/08/19 19:00 122/44 12/08/19 19:00 122/44 12/08/19 19:00 122/44 12/08/19 19:00 122/44 12/08/19 18:30 89 25 118/56 (76) 94 I&O Intake and Output 12/08/19 12/09/19 19:00 07:00 Intake Total 1374.3435 ml 1999.969 ml Output Total 410 ml 940 ml Balance 964.3435 ml 1059.969 ml Intake IV Total 1344.3435 ml 1949.969 ml Other 30 ml 50 ml Output Urine Total 410 ml 940 ml Dressing: dry Wound: clean Cardiovascular: RSR Respiratory: decreased breath sounds Abdomen: soft, non-tender, present bowel sounds Extremities: no tenderness, no cyanosis Laboratory Tests Test 12/09/19 04:30 White Blood Count 10.6 K/UL (4.8-10.8) Red Blood Count 3.18 M/UL (4.70-6.10) L Hemoglobin 9.5 G/DL (14.2-18.0) L Hematocrit 29.0 % (42.0-52.0) L Mean Corpuscular Volume 91 FL (80-99) Mean Corpuscular Hemoglobin 29.8 PG (27.0-31.0) Mean Corpuscular Hemoglobin Concent 32.7 G/DL (32.0-36.0) Red Cell Distribution Width 17.9 % (11.6-14.8) H Platelet Count 557 K/UL (150-450) H Mean Platelet Volume 5.0 FL (6.5-10.1) L Neutrophils (%) (Auto) 79.2 % (45.0-75.0) H Lymphocytes (%) (Auto) 12.4 % (20.0-45.0) L Monocytes (%) (Auto) 4.9 % (1.0-10.0) Eosinophils (%) (Auto) 3.1 % (0.0-3.0) H Basophils (%) (Auto) 0.5 % (0.0-2.0) Sodium Level 140 MMOL/L (136-145) Potassium Level 3.2 MMOL/L (3.5-5.1) L Chloride Level 104 MMOL/L (98-107) Carbon Dioxide Level 28 MMOL/L (21-32) Anion Gap 8 mmol/L (5-15) Blood Urea Nitrogen 17 mg/dL (7-18) Creatinine 0.7 MG/DL (0.55-1.30) Estimat Glomerular Filtration Rate > 60 mL/min (>60) Glucose Level 120 MG/DL (74-106) H Calcium Level 8.3 MG/DL (8.5-10.1) L Troponin I 0.021 ng/mL (0.000-0.056) Pro-B-Type Natriuretic Peptide 2538 pg/mL (0-125) H Plan Problems: (1) Urinary tract infection (2) Respiratory insufficiency Assessment & Plan: Right central line terminates in the right atrium. Cardiomegaly. Mild vascular congestion. Mild bilateral pleural effusions. (3) Decubital ulcer Assessment & Plan: patient presented with multiple decubitus ulcere requiring care and close management stage 4 sacral decubitus with necrotic slough moist no pus serous exudate periwound erythema turn q2h off load pressure with pillows off load heels with pillows heel protectors hold on air mattress for now until cleared nutritional supplementation will follow with recs thank you (4) Suspected COVID-19 virus infection Davonte Ham Dec 09, 2019 18:26
[2019-12-09] MEDS: Dyna-Hex 2% Top Sol 2oz TOPIC SCH (20:25)
--- NOTE | 2019-12-09 21:00 | General Progress Note ---
Assessment/Plan Problem List: (1) Urinary tract infection ICD Codes: N39.0 - Urinary tract infection, site not specified SNOMED: 58267362 (2) Respiratory insufficiency ICD Codes: R06.89 - Other abnormalities of breathing SNOMED: 554234825 (3) Decubital ulcer ICD Codes: L89.90 - Pressure ulcer of unspecified site, unspecified stage SNOMED: 301216972 (4) Suspected COVID-19 virus infection ICD Codes: R68.89 - Other general symptoms and signs SNOMED: 153234151 Status: progressing Assessment/Plan: nonverbal lethargic r/o covid abx per id afebrile check h/h Subjective ROS Limited/Unobtainable: Yes Allergies: Coded Allergies: MOLD (Unverified Allergy, Unknown, 12/07/19) POLLEN EXTRACTS (Unverified Allergy, Unknown, 12/07/19) Objective Last 24 Hour Vital Signs Date Time Temp Pulse Resp B/P (MAP) Pulse Ox O2 Delivery O2 Flow Rate FiO2 12/09/19 20:30 80 28 115/61 (79) 99 12/09/19 20:26 111/58 12/09/19 20:00 Nasal Cannula 2.0 12/09/19 20:00 2.0 12/09/19 20:00 98.9 74 19 112/62 (79) 100 12/09/19 19:06 75 15 100 Nasal Cannula 2.0 28 12/09/19 19:06 100 Nasal Cannula 2.0 28 12/09/19 19:00 72 17 104/50 (68) 99 12/09/19 19:00 104/50 12/09/19 18:30 96 27 124/69 (87) 97 12/09/19 18:00 117/64 12/09/19 18:00 72 18 117/64 (81) 99 12/09/19 17:30 74 18 119/55 (76) 99 12/09/19 17:00 78 19 118/60 (79) 99 12/09/19 17:00 118/60 12/09/19 16:00 2.0 12/09/19 16:00 111/63 12/09/19 16:00 98.1 77 19 115/51 (72) 100 12/09/19 16:00 74 12/09/19 16:00 Nasal Cannula 2.0 12/09/19 15:30 78 26 109/60 (76) 99 420 15:00 130/67 420 15:00 95 28 125/62 (83) 98 20 14:30 76 23 112/58 (76) 98 20 14:00 78 20 122/62 (82) 97 20 14:00 119/60 20 13:30 79 23 114/65 (81) 98 12/09/19 13:00 110/55 20 13:00 75 20 107/60 (76) 98 12/09/19 12:30 74 20 115/60 (78) 98 12/09/19 12:00 79 12/09/19 12:00 116/59 12/09/19 12:00 Nasal Cannula 2.0 12/09/19 12:00 2.0 12/09/19 12:00 98.5 74 21 113/56 (75) 98 12/09/19 11:30 77 22 115/60 (78) 99 20 11:23 119/59 12/09/19 11:00 113/57 12/09/19 11:00 72 19 113/57 (75) 98 12/09/19 10:30 77 20 120/56 (77) 99 12/09/19 10:00 108/58 20 10:00 71 24 108/53 (71) 96 12/09/19 09:30 74 27 118/52 (74) 97 12/09/19 09:16 74 24 100 Nasal Cannula 2.0 28 12/09/19 09:16 100 Nasal Cannula 2.0 28 12/09/19 09:00 73 26 112/53 (72) 98 20 09:00 112/53 12/09/19 08:30 69 23 106/56 (73) 99 12/09/19 08:00 Nasal Cannula 2.0 12/09/19 08:00 98.0 77 22 115/58 (77) 98 20 08:00 2.0 12/09/19 08:00 114/62 12/09/19 08:00 67 12/09/19 07:00 77 24 109/48 (68) 95 12/09/19 07:00 109/48 12/09/19 06:30 98.1 76 19 115/55 (75) 99 12/09/19 06:30 76 20 12/09/19 06:00 112/53 12/09/19 06:00 67 20 112/53 (72) 100 12/09/19 05:30 71 20 116/53 (74) 100 12/09/19 05:00 70 27 101/52 (68) 99 12/09/19 05:00 101/52 12/09/19 04:30 74 28 73/39 (50) 100 12/09/19 04:00 2.0 12/09/19 04:00 Nasal Cannula 2.0 12/09/19 04:00 108/57 12/09/19 04:00 75 12/09/19 04:00 98.0 75 18 108/57 (74) 98 12/09/19 03:30 77 22 111/59 (76) 98 12/09/19 03:00 80 22 110/60 (77) 98 12/09/19 03:00 110/60 12/09/19 02:30 83 23 116/59 (78) 98 12/09/19 02:00 81 28 131/65 (87) 97 12/09/19 02:00 131/65 12/09/19 01:30 109/70 12/09/19 01:30 75 21 111/53 (72) 97 12/09/19 01:23 120/40 12/09/19 01:00 75 23 106/46 (66) 97 12/09/19 01:00 106/46 12/09/19 00:30 77 23 101/37 (58) 97 12/09/19 00:00 77 12/09/19 00:00 91/48 12/09/19 00:00 2.0 12/09/19 00:00 98.0 77 16 91/48 (62) 96 12/09/19 00:00 Nasal Cannula 2.0 12/08/19 23:30 78 17 108/37 (60) 97 12/08/19 23:00 111/43 12/08/19 23:00 74 20 111/43 (65) 97 12/08/19 22:45 78 22 115/44 (67) 95 12/08/19 22:30 78 21 99/50 (66) 94 12/08/19 22:00 97/41 12/08/19 22:00 73 20 97/41 (59) 95 12/08/19 21:30 79 26 115/45 (68) 95 12/08/19 21:00 120/47 12/08/19 21:00 75 19 120/47 (71) 96 Intake and Output 12/08/19 12/09/19 19:00 07:00 Intake Total 1374.3435 ml 1999.969 ml Output Total 410 ml 940 ml Balance 964.3435 ml 1059.969 ml Intake IV Total 1344.3435 ml 1949.969 ml Other 30 ml 50 ml Output Urine Total 410 ml 940 ml Laboratory Tests 12/09/19 04:30: White Blood Count 10.6, Red Blood Count 3.18L, Hemoglobin 9.5L, Hematocrit 29.0L , Mean Corpuscular Volume 91, Mean Corpuscular Hemoglobin 29.8, Mean Corpuscular Hemoglobin Concent 32.7, Red Cell Distribution Width 17.9H, Platelet Count 557H, Mean Platelet Volume 5.0L, Neutrophils (%) (Auto) 79.2H, Lymphocytes (%) (Auto) 12.4L, Monocytes (%) (Auto) 4.9, Eosinophils (%) (Auto) 3.1H, Basophils (%) (Auto) 0.5, Sodium Level 140, Potassium Level 3.2L, Chloride Level 104, Carbon Dioxide Level 28, Anion Gap 8, Blood Urea Nitrogen 17 , Creatinine 0.7, Estimat Glomerular Filtration Rate > 60, Glucose Level 120H, Calcium Level 8.3L, Troponin I 0.021, Pro-B-Type Natriuretic Peptide 2538H Height (Feet): 5 Height (Inches): 7.00 Weight (Pounds): 148 Leda Sweeney MD Dec 09, 2019 21:00
--- NOTE | 2019-12-09 21:45 | Consultation ---
DATE OF CONSULTATION: 12/09/2019 INFECTIOUS DISEASE CONSULTATION CONSULTING PHYSICIAN: Lucas Gutierrez MD. PRIMARY ATTENDING PHYSICIAN: Leda Sweeney MD. REASON FOR CONSULTATION: Sepsis, septic shock, UTI, and rule out COVID-19. HISTORY OF PRESENT ILLNESS: This is a 69-year-old male admitted on December 06, from a alf facility because of low-grade fever and coughing. He was hypotensive and admitted to ICU, started on vasopressor, and currently is on dopamine. He is not a source of history. PAST MEDICAL HISTORY: Significant for Down syndrome, anemia, pressure ulcers, BPH, dysphagia, status post G-tube placement. The patient was recently hospitalized in [facility] in [place] and [facility]. ALLERGIES: Allergic to mold and pollen. MEDICATIONS: Getting dopamine, Prevacid, vancomycin, azithromycin, Zosyn, Keppra, albuterol, and Zofran. SOCIAL HISTORY: Single. half-way resident. Bedbound. REVIEW OF SYSTEMS: Cannot be obtained, but the patient is more communicative compared to admission to [facility]. PHYSICAL EXAMINATION: VITAL SIGNS: Temperature 98.5, pulse 75, blood pressure 107/60. GENERAL APPEARANCE: No acute distress. HEAD AND NECK: He has right IJ central line. LUNGS: Clear. HEART: Normal rate. ABDOMEN: Soft. G-tube in place. EXTREMITIES: He has bilateral edema. SKIN: He has multiple pressure ulcers including sacral, right big toe, left big toe, right external malleolus, right fifth toe, and right heel. The right heel pressure ulcer seems to be necrotic. NEUROLOGIC: He is awake, responsive. LABORATORY AND DIAGNOSTIC DATA: WBC today is 10.6, coming down from 13.2. Hemoglobin 9.5, hematocrit 29, platelet is 557,000. Sodium 140, potassium 3.2, chloride 104, bicarbonate 28, BUN 17, creatinine 0.7, glucose 120. Albumin is low at 1.9. Chest x-ray shows some congestion, cardiomegaly, and mild bilateral pleural effusion. Blood culture x1 is coming gram-positive cocci in cluster. Urine culture, gram-negative rods. Influenza A and B are negative. IMPRESSION: Sepsis, septic shock, currently on dopamine. He has bacteremia with gram-positive cocci and UTI with gram-negative ranulfo. He has anemia, multiple pressure ulcer, and Down syndrome. RECOMMENDATION: Continue current antibiotic, Zosyn, vancomycin, and Zithromax. We will follow up the culture. We will follow up the COVID-19. At the end of my exam, I thank Dr. Sweeney for involving me in the care of this patient. Lucas Gutierrez M.D. DR: SHORTY JOB#: [id number] CC:
[2019-12-09] MEDS: Azithromycin 500 MG in D5W 275 ML IV SCH (22:36)
[2019-12-10] VITALS (43 sets, daily range): BP systolic 94–135; BP diastolic 50–96
[2019-12-10] MEDS: D5NS 1,000 ML IV SCH ×2 (00:17→16:20)
[2019-12-10 05:43] LABS: BASOPHILS % (AUTO) 0.5 % (0.0-2.0); EOSINOPHILS % (AUTO) 2.5 % (0.0-3.0); HEMATOCRIT 28.4 % (42.0-52.0); HEMOGLOBIN 9.3 G/DL (14.2-18.0); LYMPHOCYTES % (AUTO) 11.9 % (20.0-45.0); MEAN CORPUSCULAR VOLUME 90 FL (80-99); MONOCYTES % (AUTO) 6.2 % (1.0-10.0); NEUTROPHILS % (AUTO) 78.9 % (45.0-75.0); PLATELET COUNT 554 K/UL (150-450); RED BLOOD COUNT 3.14 M/UL (4.70-6.10); RED CELL DISTRIBUTION WIDTH 17.8 % (11.6-14.8); WHITE BLOOD COUNT 11.1 K/UL (4.8-10.8)
[2019-12-10] MEDS: DOPamine 400mg/250ml 250 ML IV SCH ×2 (06:13→17:00)
[2019-12-10] MEDS: Piperacillin/Tazobactam 3.375 GM in NS 110 ML IVPB SCH (06:13)
[2019-12-10 06:22] LABS: ALANINE AMINOTRANSFERASE 21 U/L (12-78); ALBUMIN 1.5 G/DL (3.4-5.0); ALBUMIN/GLOBULIN RATIO 0.3 (1.0-2.7); ALKALINE PHOSPHATASE 119 U/L (46-116); ANION GAP 12 mmol/L (5-15); ASPARTATE AMINO TRANSFERASE 19 U/L (15-37); BILIRUBIN,TOTAL 0.3 MG/DL (0.2-1.0); BLOOD UREA NITROGEN 7 mg/dL (7-18); CALCIUM 8.3 MG/DL (8.5-10.1); CARBON DIOXIDE 22 MMOL/L (21-32); CHLORIDE 103 MMOL/L (98-107); CHOLESTEROL 91 MG/DL (< 200); CREATININE 0.8 MG/DL (0.55-1.30); FERRITIN 646 NG/ML (8-388); GAMMA GLUTAMYL TRANSPEPTIDASE 34 U/L (5-85); HDL CHOLESTEROL 24 MG/DL (40-60); PHOSPHORUS 3.3 MG/DL (2.5-4.9); POTASSIUM 3.6 MMOL/L (3.5-5.1); SODIUM 137 MMOL/L (136-145); TRIGLYCERIDES 80 MG/DL (30-150)
[2019-12-10] MEDS: levETIRAcetam 500mg/5ml Liquid GT SCH ×2 (08:33→21:36)
[2019-12-10] MEDS: Heparin 5000 units/ml inj SUBQ SCH (08:42)
--- NOTE | 2019-12-10 10:29 | Infectious Diseases Prog Note ---
Assessment/Plan Assessment/Plan IMPRESSION: Sepsis, septic shock, currently on dopamine. 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 RECOMMENDATION: Discontinue current Zosyn, vancomycin, and Zithromax. Start on Cefepime COVID-19: negative Subjective ROS Limited/Unobtainable: Yes Cardiovascular: Reports: other - on Dopamine Allergies: Coded Allergies: MOLD (Unverified Allergy, Unknown, 12/07/19) POLLEN EXTRACTS (Unverified Allergy, Unknown, 12/07/19) Objective Vital Signs Last 24 Hour Vital Signs Date Time Temp Pulse Resp B/P (MAP) Pulse Ox O2 Delivery O2 Flow Rate FiO2 12/10/19 10:00 98.5 84 22 107/65 (79) 99 12/10/19 09:30 98.5 68 17 117/50 (72) 100 12/10/19 09:00 98.5 79 23 120/66 (84) 99 12/10/19 08:58 98.5 87 23 130/72 (91) 98 12/10/19 08:30 85 17 130/72 (91) 100 12/10/19 08:00 2.0 12/10/19 08:00 80 20 121/63 (82) 100 12/10/19 08:00 Nasal Cannula 2.0 Nasal Cannula 2.0 Nasal Cannula 2.0 12/10/19 08:00 64 12/10/19 07:00 76 18 118/56 (76) 99 12/10/19 06:13 114/58 12/10/19 06:00 77 20 119/58 (78) 99 12/10/19 05:45 80 19 113/63 (80) 99 12/10/19 05:30 79 24 121/66 (84) 100 12/10/19 05:15 81 21 119/63 (81) 98 12/10/19 05:00 87 22 120/66 (84) 97 12/10/19 04:45 95 29 112/69 (83) 98 12/10/19 04:30 102 29 123/69 (87) 97 12/10/19 04:15 94 31 111/68 (82) 98 12/10/19 04:00 2.0 12/10/19 04:00 Nasal Cannula 2.0 4/6/20 04:00 98.5 67 16 112/56 (74) 100 12/10/19 03:45 75 26 108/62 (77) 100 12/10/19 03:30 68 16 120/51 (74) 100 12/10/19 03:20 72 12/10/19 03:15 68 17 108/58 (75) 100 12/10/19 03:00 72 20 114/53 (73) 99 12/10/19 02:30 70 19 113/54 (73) 100 12/10/19 02:15 72 19 114/50 (71) 99 12/10/19 02:00 69 22 111/57 (75) 100 12/10/19 01:45 72 20 115/56 (75) 100 12/10/19 01:30 71 17 110/56 (74) 99 12/10/19 01:19 115/60 12/10/19 01:00 70 22 118/54 (75) 99 12/10/19 00:30 65 17 107/53 (71) 100 12/10/19 00:15 71 22 106/54 (71) 100 12/10/19 00:00 Nasal Cannula 2.0 12/10/19 00:00 107/63 12/10/19 00:00 98.5 73 21 109/60 (76) 100 12/09/19 23:30 77 23 116/61 (79) 100 12/09/19 23:17 76 12/09/19 23:00 70 24 90/57 (68) 99 12/09/19 22:45 72 23 99/52 (68) 99 12/09/19 22:30 71 21 116/54 (74) 100 12/09/19 22:00 76 23 112/67 (82) 100 12/09/19 21:30 68 16 118/46 (70) 100 12/09/19 21:27 74 12/09/19 21:00 75 18 109/55 (73) 100 12/09/19 20:30 80 28 115/61 (79) 99 12/09/19 20:26 111/58 12/09/19 20:00 Nasal Cannula 2.0 12/09/19 20:00 2.0 12/09/19 20:00 98.9 74 19 112/62 (79) 100 12/09/19 19:06 75 15 100 Nasal Cannula 2.0 28 12/09/19 19:06 100 Nasal Cannula 2.0 28 12/09/19 19:00 72 17 104/50 (68) 99 20 19:00 104/50 12/09/19 18:30 96 27 124/69 (87) 97 12/09/19 18:00 117/64 20 18:00 72 18 117/64 (81) 99 20 17:30 74 18 119/55 (76) 99 12/09/19 17:00 78 19 118/60 (79) 99 20 17:00 118/60 12/09/19 16:00 2.0 12/09/19 16:00 111/63 12/09/19 16:00 98.1 77 19 115/51 (72) 100 12/09/19 16:00 74 12/09/19 16:00 Nasal Cannula 2.0 12/09/19 15:30 78 26 109/60 (76) 99 12/09/19 15:00 130/67 12/09/19 15:00 95 28 125/62 (83) 98 12/09/19 14:30 76 23 112/58 (76) 98 20 14:00 78 20 122/62 (82) 97 12/09/19 14:00 119/60 12/09/19 13:30 79 23 114/65 (81) 98 12/09/19 13:00 110/55 12/09/19 13:00 75 20 107/60 (76) 98 12/09/19 12:30 74 20 115/60 (78) 98 12/09/19 12:00 79 12/09/19 12:00 116/59 20 12:00 Nasal Cannula 2.0 12/09/19 12:00 2.0 12/09/19 12:00 98.5 74 21 113/56 (75) 98 12/09/19 11:30 77 22 115/60 (78) 99 20 11:23 119/59 20 11:00 113/57 20 11:00 72 19 113/57 (75) 98 20 10:30 77 20 120/56 (77) 99 Height (Feet): 5 Height (Inches): 7.00 Weight (Pounds): 145 General Appearance: no acute distress HEENT: mucous membranes moist Respiratory/Chest: lungs clear Cardiovascular: normal rate, other Extremities: other - legs contracture & edema Skin: ulcers, other - more in feet R>L Neurologic/Psychiatric: alert, responsive Microbiology Date/Time Source Procedure Growth Status 12/07/19 15:50 Blood Blood Culture - Preliminary Staphylococcus Sp Coag Neg Resulted 12/07/19 15:35 Blood Blood Culture - Preliminary NO GROWTH AFTER 48 HOURS Resulted 12/07/19 16:05 Nasopharynx Coronavirus COVID-19 PCR ([facility]) - Final Complete 12/07/19 15:50 Nasal Nares - Final Complete 12/07/19 15:50 Nasal Nares - Final Complete 12/07/19 15:50 Urine,Clean Catch Urine Culture - Final Pseudomonas Aeruginosa Complete 12/07/19 18:15 Rectum VRE Culture - Final Enterococcus Faecium - Vre Enterococcus Faecalis - Vre Complete Laboratory Tests Test 12/10/19 01:00 12/10/19 03:40 Vancomycin Level Trough 24.6 ug/mL (5.0-12.0) H White Blood Count 11.1 K/UL (4.8-10.8) H Red Blood Count 3.14 M/UL (4.70-6.10) L Hemoglobin 9.3 G/DL (14.2-18.0) L Hematocrit 28.4 % (42.0-52.0) L Mean Corpuscular Volume 90 FL (80-99) Mean Corpuscular Hemoglobin 29.8 PG (27.0-31.0) Mean Corpuscular Hemoglobin Concent 32.9 G/DL (32.0-36.0) Red Cell Distribution Width 17.8 % (11.6-14.8) H Platelet Count 554 K/UL (150-450) H Mean Platelet Volume 4.7 FL (6.5-10.1) L Neutrophils (%) (Auto) 78.9 % (45.0-75.0) H Lymphocytes (%) (Auto) 11.9 % (20.0-45.0) L Monocytes (%) (Auto) 6.2 % (1.0-10.0) Eosinophils (%) (Auto) 2.5 % (0.0-3.0) Basophils (%) (Auto) 0.5 % (0.0-2.0) Sodium Level 137 MMOL/L (136-145) Potassium Level 3.6 MMOL/L (3.5-5.1) Chloride Level 103 MMOL/L (98-107) Carbon Dioxide Level 22 MMOL/L (21-32) Anion Gap 12 mmol/L (5-15) Blood Urea Nitrogen 7 mg/dL (7-18) Creatinine 0.8 MG/DL (0.55-1.30) Estimat Glomerular Filtration Rate > 60 mL/min (>60) Glucose Level 122 MG/DL (74-106) H Hemoglobin A1c 5.4 % (4.3-6.0) Uric Acid 3.4 MG/DL (2.6-7.2) Calcium Level 8.3 MG/DL (8.5-10.1) L Phosphorus Level 3.3 MG/DL (2.5-4.9) Magnesium Level 1.6 MG/DL (1.8-2.4) L Ferritin 646 NG/ML (8-388) H Total Bilirubin 0.3 MG/DL (0.2-1.0) Gamma Glutamyl Transpeptidase 34 U/L (5-85) Aspartate Amino Transf (AST/SGOT) 19 U/L (15-37) Alanine Aminotransferase (ALT/SGPT) 21 U/L (12-78) Alkaline Phosphatase 119 U/L (46-116) H Troponin I 0.006 ng/mL (0.000-0.056) C-Reactive Protein, Quantitative 15.1 mg/dL (0.00-0.90) H Pro-B-Type Natriuretic Peptide 1632 pg/mL (0-125) H Total Protein 6.4 G/DL (6.4-8.2) Albumin 1.5 G/DL (3.4-5.0) L Globulin 4.9 g/dL Albumin/Globulin Ratio 0.3 (1.0-2.7) L Triglycerides Level 80 MG/DL (30-150) Cholesterol Level 91 MG/DL (< 200) LDL Cholesterol 55 mg/dL (<100) HDL Cholesterol 24 MG/DL (40-60) L Cholesterol/HDL Ratio 3.8 (3.3-4.4) Thyroid Stimulating Hormone (TSH) 1.495 uiU/mL (0.358-3.740) Cortisol AM Sample Pending Current Medications Medications (Trade) Dose Ordered Sig/Nazia Route PRN Reason Start Time Stop Time Status Last Admin Dose Admin Acetaminophen (Tylenol) 650 mg Q4H PRN ORAL Temp >100.5 12/08/19 05:00 01/07/20 04:59 12/08/19 09:06 Acetaminophen (Tylenol) 650 mg Q4H PRN RECTAL Temp >100.5 12/08/19 05:30 01/06/20 20:59 Albuterol Sulfate (Proventil) 2.5 mg Q6H PRN HHN Shortness of Breath 12/08/19 06:00 12/13/19 05:59 Azithromycin 500 mg/Dextrose 275 ml @ 275 mls/hr Q24HRS IV 12/08/19 23:00 12/13/19 22:59 12/09/19 22:36 Chlorhexidine Gluconate (Susanna-Hex 2%) 1 applic DAILY@2000 TOPIC 12/08/19 20:00 03/07/20 19:59 12/09/19 20:25 Dextrose/Sodium Chloride 1,000 ml @ 60 mls/hr [id number] IV 12/09/19 10:15 01/08/20 10:14 12/10/19 00:17 Dopamine HCl/ Dextrose 250 ml @ 0 mls/hr Q24H IV 12/09/19 16:15 03/07/20 16:14 12/10/19 06:13 Heparin Sodium (Porcine) (Heparin 5000 units/ml) 5,000 units EVERY 12 HOURS SUBQ 12/08/19 09:00 01/22/20 08:59 12/10/19 08:42 Lansoprazole (Prevacid) 30 mg BID GT 12/09/19 18:00 01/07/20 08:59 12/10/19 08:33 Levetiracetam (Keppra) 500 mg Q12HR GT 12/08/19 09:00 01/07/20 08:59 12/10/19 08:33 Magnesium Sulfate 100 ml @ 100 mls/hr Q1H IVPB 12/10/19 09:00 12/10/19 10:59 12/10/19 09:53 Norepinephrine Bitartrate 4 mg/ Dextrose 250 ml @ 0 mls/hr Q24H IV 12/09/19 01:30 01/07/20 01:29 12/08/19 02:39 Ondansetron HCl (Zofran) 4 mg Q6H PRN IVP Nausea & Vomiting 12/08/19 03:30 01/06/20 21:29 Piperacillin Sod/ Tazobactam Sod 3.375 gm/Sodium Chloride 110 ml @ 27.5 mls/hr EVERY 8 HOURS IVPB 12/08/19 14:00 12/13/19 13:59 12/10/19 06:13 Lucas Gutierrez MD Dec 10, 2019 10:29
--- NOTE | 2019-12-10 10:45 | Consultation ---
History of Present Illness General Chief Complaint: Fever Present Illness Allergies: Coded Allergies: MOLD (Unverified Allergy, Unknown, 12/07/19) POLLEN EXTRACTS (Unverified Allergy, Unknown, 12/07/19) Medication History Scheduled Albuterol Sulfate (Albuterol Sulfate), 1.25 MG HHN TID, (Reported) Ascorbic Acid* (Vitamin C*), 500 MG GT TWICE A DAY, (Reported) Atorvastatin Calcium* (Lipitor*), 10 MG GT BEDTIME, (Reported) Docusate Sodium (Docusate Sodium), 100 MG GT TWICE A DAY, (Reported) Ferrous Sulfate* (Ferrous Sulfate*), 325 MG GT DAILY, (Reported) Finasteride (Finasteride), 5 MG GT DAILY, (Reported) Furosemide* (Lasix*), 20 MG DAILY, (Reported) Levetiracetam (Keppra), 5 ML GT TWICE A DAY, (Reported) Metoprolol Succinate* (Metoprolol Succinate*), 12.5 MG GT Q12HR, (Reported) Multivitamins* (Multivitamins*), 1 TAB GT DAILY, (Reported) Omeprazole (Omeprazole), 40 MG GT DAILY, (Reported) Sennosides (Senokot), 8.6 MG GT DAILY, (Reported) Tamsulosin HCl (Flomax), 0.4 MG GT QHS, (Reported) Zinc Sulfate (Zinc Sulfate*), 220 MG GT DAILY, (Reported) Scheduled PRN Acetaminophen (Acetaminophen), 500 MG GT Q6HR PRN for Severe Pain (Pain Scale 7- 10), (Reported) Patient History Healthcare decision maker Resuscitation status Full Code Advanced Directive on File Yes Physical Exam Last 24 Hour Vital Signs Date Time Temp Pulse Resp B/P (MAP) Pulse Ox O2 Delivery O2 Flow Rate FiO2 12/10/19 10:00 98.5 84 22 107/65 (79) 99 12/10/19 09:30 98.5 68 17 117/50 (72) 100 12/10/19 09:00 98.5 79 23 120/66 (84) 99 12/10/19 08:58 98.5 87 23 130/72 (91) 98 12/10/19 08:30 85 17 130/72 (91) 100 12/10/19 08:00 2.0 12/10/19 08:00 80 20 121/63 (82) 100 12/10/19 08:00 Nasal Cannula 2.0 Nasal Cannula 2.0 Nasal Cannula 2.0 12/10/19 08:00 64 12/10/19 07:00 76 18 118/56 (76) 99 12/10/19 06:13 114/58 12/10/19 06:00 77 20 119/58 (78) 99 12/10/19 05:45 80 19 113/63 (80) 99 12/10/19 05:30 79 24 121/66 (84) 100 12/10/19 05:15 81 21 119/63 (81) 98 12/10/19 05:00 87 22 120/66 (84) 97 12/10/19 04:45 95 29 112/69 (83) 98 12/10/19 04:30 102 29 123/69 (87) 97 12/10/19 04:15 94 31 111/68 (82) 98 12/10/19 04:00 2.0 12/10/19 04:00 Nasal Cannula 2.0 12/10/19 04:00 98.5 67 16 112/56 (74) 100 12/10/19 03:45 75 26 108/62 (77) 100 12/10/19 03:30 68 16 120/51 (74) 100 12/10/19 03:20 72 12/10/19 03:15 68 17 108/58 (75) 100 12/10/19 03:00 72 20 114/53 (73) 99 12/10/19 02:30 70 19 113/54 (73) 100 12/10/19 02:15 72 19 114/50 (71) 99 12/10/19 02:00 69 22 111/57 (75) 100 12/10/19 01:45 72 20 115/56 (75) 100 12/10/19 01:30 71 17 110/56 (74) 99 12/10/19 01:19 115/60 12/10/19 01:00 70 22 118/54 (75) 99 12/10/19 00:30 65 17 107/53 (71) 100 12/10/19 00:15 71 22 106/54 (71) 100 12/10/19 00:00 Nasal Cannula 2.0 12/10/19 00:00 107/63 4/6/20 00:00 98.5 73 21 109/60 (76) 100 4/20 23:30 77 23 116/61 (79) 100 20 23:17 76 4/01/22 23:00 70 24 90/57 (68) 99 420 22:45 72 23 99/52 (68) 99 4/20 22:30 71 21 116/54 (74) 100 20 22:00 76 23 112/67 (82) 100 420 21:30 68 16 118/46 (70) 100 20 21:27 74 4/20 21:00 75 18 109/55 (73) 100 12/09/19 20:30 80 28 115/61 (79) 99 20 20:26 111/58 12/09/19 20:00 Nasal Cannula 2.0 12/09/19 20:00 2.0 12/09/19 20:00 98.9 74 19 112/62 (79) 100 12/09/19 19:06 75 15 100 Nasal Cannula 2.0 28 12/09/19 19:06 100 Nasal Cannula 2.0 28 12/09/19 19:00 72 17 104/50 (68) 99 20 19:00 104/50 12/09/19 18:30 96 27 124/69 (87) 97 20 18:00 117/64 20 18:00 72 18 117/64 (81) 99 20 17:30 74 18 119/55 (76) 99 20 17:00 78 19 118/60 (79) 99 20 17:00 118/60 20 16:00 2.0 20 16:00 111/63 20 16:00 98.1 77 19 115/51 (72) 100 20 16:00 74 12/09/19 16:00 Nasal Cannula 2.0 20 15:30 78 26 109/60 (76) 99 4/20 15:00 130/67 20 15:00 95 28 125/62 (83) 98 20 14:30 76 23 112/58 (76) 98 4//20 14:00 78 20 122/62 (82) 97 12/09/19 14:00 119/60 12/09/19 13:30 79 23 114/65 (81) 98 12/09/19 13:00 110/55 12/09/19 13:00 75 20 107/60 (76) 98 12/09/19 12:30 74 20 115/60 (78) 98 12/09/19 12:00 79 12/09/19 12:00 116/59 12/09/19 12:00 Nasal Cannula 2.0 12/09/19 12:00 2.0 12/09/19 12:00 98.5 74 21 113/56 (75) 98 12/09/19 11:30 77 22 115/60 (78) 99 12/09/19 11:23 119/59 12/09/19 11:00 113/57 12/09/19 11:00 72 19 113/57 (75) 98 Intake and Output 12/09/19 12/10/19 19:00 07:00 Intake Total 1580.468 ml 1517.058 ml Output Total 675 ml 945 ml Balance 905.468 ml 572.058 ml Intake IV Total 1580.468 ml 1417.058 ml Other 100 ml Output Urine Total 675 ml 945 ml Laboratory Tests Test 12/10/19 01:00 12/10/19 03:40 Vancomycin Level Trough 24.6 ug/mL (5.0-12.0) H White Blood Count 11.1 K/UL (4.8-10.8) H Red Blood Count 3.14 M/UL (4.70-6.10) L Hemoglobin 9.3 G/DL (14.2-18.0) L Hematocrit 28.4 % (42.0-52.0) L Mean Corpuscular Volume 90 FL (80-99) Mean Corpuscular Hemoglobin 29.8 PG (27.0-31.0) Mean Corpuscular Hemoglobin Concent 32.9 G/DL (32.0-36.0) Red Cell Distribution Width 17.8 % (11.6-14.8) H Platelet Count 554 K/UL (150-450) H Mean Platelet Volume 4.7 FL (6.5-10.1) L Neutrophils (%) (Auto) 78.9 % (45.0-75.0) H Lymphocytes (%) (Auto) 11.9 % (20.0-45.0) L Monocytes (%) (Auto) 6.2 % (1.0-10.0) Eosinophils (%) (Auto) 2.5 % (0.0-3.0) Basophils (%) (Auto) 0.5 % (0.0-2.0) Sodium Level 137 MMOL/L (136-145) Potassium Level 3.6 MMOL/L (3.5-5.1) Chloride Level 103 MMOL/L (98-107) Carbon Dioxide Level 22 MMOL/L (21-32) Anion Gap 12 mmol/L (5-15) Blood Urea Nitrogen 7 mg/dL (7-18) Creatinine 0.8 MG/DL (0.55-1.30) Estimat Glomerular Filtration Rate > 60 mL/min (>60) Glucose Level 122 MG/DL (74-106) H Hemoglobin A1c 5.4 % (4.3-6.0) Uric Acid 3.4 MG/DL (2.6-7.2) Calcium Level 8.3 MG/DL (8.5-10.1) L Phosphorus Level 3.3 MG/DL (2.5-4.9) Magnesium Level 1.6 MG/DL (1.8-2.4) L Ferritin 646 NG/ML (8-388) H Total Bilirubin 0.3 MG/DL (0.2-1.0) Gamma Glutamyl Transpeptidase 34 U/L (5-85) Aspartate Amino Transf (AST/SGOT) 19 U/L (15-37) Alanine Aminotransferase (ALT/SGPT) 21 U/L (12-78) Alkaline Phosphatase 119 U/L (46-116) H Troponin I 0.006 ng/mL (0.000-0.056) C-Reactive Protein, Quantitative 15.1 mg/dL (0.00-0.90) H Pro-B-Type Natriuretic Peptide 1632 pg/mL (0-125) H Total Protein 6.4 G/DL (6.4-8.2) Albumin 1.5 G/DL (3.4-5.0) L Globulin 4.9 g/dL Albumin/Globulin Ratio 0.3 (1.0-2.7) L Triglycerides Level 80 MG/DL (30-150) Cholesterol Level 91 MG/DL (< 200) LDL Cholesterol 55 mg/dL (<100) HDL Cholesterol 24 MG/DL (40-60) L Cholesterol/HDL Ratio 3.8 (3.3-4.4) Thyroid Stimulating Hormone (TSH) 1.495 uiU/mL (0.358-3.740) Cortisol AM Sample Pending Height (Feet): 5 Height (Inches): 7.00 Weight (Pounds): 145 Medications Current Medications Medications (Trade) Dose Ordered Sig/Nazia Route PRN Reason Start Time Stop Time Status Last Admin Dose Admin Acetaminophen (Tylenol) 650 mg Q4H PRN ORAL Temp >100.5 12/08/19 05:00 01/07/20 04:59 12/08/19 09:06 Acetaminophen (Tylenol) 650 mg Q4H PRN RECTAL Temp >100.5 12/08/19 05:30 01/06/20 20:59 Albuterol Sulfate (Proventil) 2.5 mg Q6H PRN HHN Shortness of Breath 12/08/19 06:00 12/13/19 05:59 Cefepime HCl 1 gm/ Dextrose 55 ml @ 110 mls/hr EVERY 12 HOURS IVPB 12/10/19 10:30 12/17/19 10:29 UNV Chlorhexidine Gluconate (Susanna-Hex 2%) 1 applic DAILY@2000 TOPIC 12/08/19 20:00 03/07/20 19:59 12/09/19 20:25 Dextrose/Sodium Chloride 1,000 ml @ 60 mls/hr [id number] IV 12/09/19 10:15 01/08/20 10:14 12/10/19 00:17 Dopamine HCl/ Dextrose 250 ml @ 0 mls/hr Q24H IV 12/09/19 16:15 03/07/20 16:14 12/10/19 06:13 Heparin Sodium (Porcine) (Heparin 5000 units/ml) 5,000 units EVERY 12 HOURS SUBQ 12/08/19 09:00 01/22/20 08:59 12/10/19 08:42 Lansoprazole (Prevacid) 30 mg BID GT 12/09/19 18:00 5/4/20 08:59 12/10/19 08:33 Levetiracetam (Keppra) 500 mg Q12HR GT 12/08/19 09:00 01/07/20 08:59 12/10/19 08:33 Magnesium Sulfate 100 ml @ 100 mls/hr Q1H IVPB 12/10/19 09:00 12/10/19 10:59 12/10/19 09:53 Norepinephrine Bitartrate 4 mg/ Dextrose 250 ml @ 0 mls/hr Q24H IV 12/09/19 01:30 01/07/20 01:29 12/08/19 02:39 Ondansetron HCl (Zofran) 4 mg Q6H PRN IVP Nausea & Vomiting 12/08/19 03:30 01/06/20 21:29 Assessment/Plan Assessment/Plan: Heme Consult Chief Complaint: Fever REQ MD: Leda Lynch RFC: Anemia, Lymphopenia DOS: 12/10/2019 HPI 69-year-old male history of cerebral palsy, bedbound, nonverbal, Nava dependent presented for fever cough and shortness of breath. Patient apparently fever for the past 24 hours last fever this morning 101. Patient is on 2 L nasal canula. History limited due to patient's baseline mental status. Admitted to ICU for evaluation work up COVID. Surgery called to evaluate and assist with care. abnormal labs, central line placed in ED, multiple decubitus requiring care.has been seen by several consultants and I was consulted for lab disorders Allergies: MOLD (Unverified Allergy, Unknown, 12/07/19) POLLEN EXTRACTS (Unverified Allergy, Unknown, 12/07/19) Medication History Scheduled Albuterol Sulfate (Albuterol Sulfate), 1.25 MG HHN TID, (Reported) Ascorbic Acid* (Vitamin C*), 500 MG GT TWICE A DAY, (Reported) Atorvastatin Calcium* (Lipitor*), 10 MG GT BEDTIME, (Reported) Docusate Sodium (Docusate Sodium), 100 MG GT TWICE A DAY, (Reported) Ferrous Sulfate* (Ferrous Sulfate*), 325 MG GT DAILY, (Reported) Finasteride (Finasteride), 5 MG GT DAILY, (Reported) Furosemide* (Lasix*), 20 MG DAILY, (Reported) Levetiracetam (Keppra), 5 ML GT TWICE A DAY, (Reported) Metoprolol Succinate* (Metoprolol Succinate*), 12.5 MG GT Q12HR, (Reported) Multivitamins* (Multivitamins*), 1 TAB GT DAILY, (Reported) Omeprazole (Omeprazole), 40 MG GT DAILY, (Reported) Sennosides (Senokot), 8.6 MG GT DAILY, (Reported) Tamsulosin HCl (Flomax), 0.4 MG GT QHS, (Reported) Zinc Sulfate (Zinc Sulfate*), 220 MG GT DAILY, (Reported) Acetaminophen (Acetaminophen), 500 MG GT Q6HR PRN for Severe Pain (Pain Scale 7- 10), (Reported) Patient History Limited by: medical condition History Provided By: Medical Record, PMD Healthcare decision maker Resuscitation status Full Code Advanced Directive on File Yes Past Medical/Surgical History Past Medical/Surgical History: (1) Decubital ulcer (2) Respiratory insufficiency (3) Suspected COVID-19 virus infection (4) Urinary tract infection Review of Systems difficult to obtain given medical condition baseline Physical Exam General Appearance: no apparent distress Lines, tubes and drains: central line HEENT: mucous membranes moist Neck: normal inspection Respiratory/Chest: no respiratory distress Cardiovascular/Chest: normal rate Abdomen: soft, no organomegaly, no mass, other Extremities: inflammation, slow capillary refill, other Skin Exam: warm/dry Labs; noted Imaging: reviewed IMPRESSION/RECS: # Anemia of chronic disease due to underlying chronic medical issues, multifactorial v Gi bleed --> Anemia workup has been ordered, rule out gi bleed --> No evidence of hemolysis is noted, peripheral smear has been reviewed. --> Hgb goal >7. Transfuse prn. --> Epogen or iron at this time is not particularly indicated --> Medications have been reviewed --> low threshold for gi evaluation in case has occult + --> bone marrow biopsy is not indicated given the other more likely causes # Dvt of the right leg history --> currently off anticoagulation --> review lower ext duplex # Lymphopenia is likely due to Sepsis, septic shock, currently on dopamine. --> remains in the icu, with UTI with Pseudomonas --> imaging noted, cultures reviewed --> as per id Positive blood culture likely contamination --> COVID rule out --> on cefepime # VRE Carrier # Multiple pressure ulcer, # Down syndrome. The timing of this note does not necessarily reflect the time of the patient was seen. Greatly appreciate consultation. Camden Bella MD Dec 10, 2019 10:45
--- NOTE | 2019-12-10 11:22 | Nephrology Progress Note ---
Assessment/Plan Problem List: (1) Electrolyte imbalance (2) Dehydration (3) Urinary tract infection (4) Hypoalbuminemia (5) Hypokalemia (6) BPH (benign prostatic hyperplasia) (7) Anemia Assessment Hypokalemia Hypoalbuminemia Urinary tract infection Possible Pneumonia, Sepsis, Rule out Covid-19 Cerebral Palsy Seizure History BPH - chronic roper Dysphagia s/p G tube Anemia, Lymphopenia Plan IV hydration Monitor renal parameters and electrolytes Antibiotics Avoid nephrotoxic's Per consultants Per orders Subjective ROS Limited/Unobtainable: No Constitutional: Reports: malaise Objective Objective Last 24 Hour Vital Signs Date Time Temp Pulse Resp B/P (MAP) Pulse Ox O2 Delivery O2 Flow Rate FiO2 12/10/19 11:00 111/68 12/10/19 10:00 98.5 84 22 107/65 (79) 99 12/10/19 10:00 107/65 12/10/19 09:30 98.5 68 17 117/50 (72) 100 12/10/19 09:00 98.5 79 23 120/66 (84) 99 12/10/19 09:00 120/66 12/10/19 08:58 98.5 87 23 130/72 (91) 98 12/10/19 08:30 85 17 130/72 (91) 100 12/10/19 08:00 2.0 12/10/19 08:00 80 20 121/63 (82) 100 12/10/19 08:00 Nasal Cannula 2.0 Nasal Cannula 2.0 Nasal Cannula 2.0 12/10/19 08:00 121/63 12/10/19 08:00 64 12/10/19 07:00 76 18 118/56 (76) 99 12/10/19 06:13 114/58 12/10/19 06:00 77 20 119/58 (78) 99 12/10/19 05:45 80 19 113/63 (80) 99 12/10/19 05:30 79 24 121/66 (84) 100 12/10/19 05:15 81 21 119/63 (81) 98 12/10/19 05:00 87 22 120/66 (84) 97 12/10/19 04:45 95 29 112/69 (83) 98 12/10/19 04:30 102 29 123/69 (87) 97 12/10/19 04:15 94 31 111/68 (82) 98 12/10/19 04:00 2.0 12/10/19 04:00 Nasal Cannula 2.0 12/10/19 04:00 98.5 67 16 112/56 (74) 100 12/10/19 03:45 75 26 108/62 (77) 100 12/10/19 03:30 68 16 120/51 (74) 100 12/10/19 03:20 72 12/10/19 03:15 68 17 108/58 (75) 100 12/10/19 03:00 72 20 114/53 (73) 99 12/10/19 02:30 70 19 113/54 (73) 100 12/10/19 02:15 72 19 114/50 (71) 99 12/10/19 02:00 69 22 111/57 (75) 100 12/10/19 01:45 72 20 115/56 (75) 100 12/10/19 01:30 71 17 110/56 (74) 99 12/10/19 01:19 115/60 12/10/19 01:00 70 22 118/54 (75) 99 12/10/19 00:30 65 17 107/53 (71) 100 12/10/19 00:15 71 22 106/54 (71) 100 12/10/19 00:00 Nasal Cannula 2.0 12/10/19 00:00 107/63 12/10/19 00:00 98.5 73 21 109/60 (76) 100 12/09/19 23:30 77 23 116/61 (79) 100 12/09/19 23:17 76 12/09/19 23:00 70 24 90/57 (68) 99 12/09/19 22:45 72 23 99/52 (68) 99 12/09/19 22:30 71 21 116/54 (74) 100 12/09/19 22:00 76 23 112/67 (82) 100 12/09/19 21:30 68 16 118/46 (70) 100 12/09/19 21:27 74 12/09/19 21:00 75 18 109/55 (73) 100 12/09/19 20:30 80 28 115/61 (79) 99 12/09/19 20:26 111/58 12/09/19 20:00 Nasal Cannula 2.0 12/09/19 20:00 2.0 12/09/19 20:00 98.9 74 19 112/62 (79) 100 12/09/19 19:06 75 15 100 Nasal Cannula 2.0 28 12/09/19 19:06 100 Nasal Cannula 2.0 28 12/09/19 19:00 72 17 104/50 (68) 99 12/09/19 19:00 104/50 12/09/19 18:30 96 27 124/69 (87) 97 12/09/19 18:00 117/64 12/09/19 18:00 72 18 117/64 (81) 99 12/09/19 17:30 74 18 119/55 (76) 99 12/09/19 17:00 78 19 118/60 (79) 99 12/09/19 17:00 118/60 12/09/19 16:00 2.0 12/09/19 16:00 111/63 12/09/19 16:00 98.1 77 19 115/51 (72) 100 12/09/19 16:00 74 12/09/19 16:00 Nasal Cannula 2.0 12/09/19 15:30 78 26 109/60 (76) 99 12/09/19 15:00 130/67 12/09/19 15:00 95 28 125/62 (83) 98 12/09/19 14:30 76 23 112/58 (76) 98 12/09/19 14:00 78 20 122/62 (82) 97 12/09/19 14:00 119/60 12/09/19 13:30 79 23 114/65 (81) 98 12/09/19 13:00 110/55 12/09/19 13:00 75 20 107/60 (76) 98 12/09/19 12:30 74 20 115/60 (78) 98 12/09/19 12:00 79 12/09/19 12:00 116/59 12/09/19 12:00 Nasal Cannula 2.0 12/09/19 12:00 2.0 12/09/19 12:00 98.5 74 21 113/56 (75) 98 12/09/19 11:30 77 22 115/60 (78) 99 12/09/19 11:23 119/59 Intake and Output 12/09/19 12/10/19 19:00 07:00 Intake Total 1580.468 ml 1517.058 ml Output Total 675 ml 945 ml Balance 905.468 ml 572.058 ml Intake IV Total 1580.468 ml 1417.058 ml Other 100 ml Output Urine Total 675 ml 945 ml Laboratory Tests 12/10/19 01:00: Vancomycin Level Trough 24.6H 12/10/19 03:40: White Blood Count 11.1H, Red Blood Count 3.14L, Hemoglobin 9.3L, Hematocrit 28.4L, Mean Corpuscular Volume 90, Mean Corpuscular Hemoglobin 29.8, Mean Corpuscular Hemoglobin Concent 32.9, Red Cell Distribution Width 17.8H, Platelet Count 554H, Mean Platelet Volume 4.7L, Neutrophils (%) (Auto) 78.9H, Lymphocytes (%) (Auto) 11.9L, Monocytes (%) (Auto) 6.2, Eosinophils (%) (Auto) 2.5, Basophils (%) (Auto) 0.5, Sodium Level 137, Potassium Level 3.6, Chloride Level 103, Carbon Dioxide Level 22, Anion Gap 12, Blood Urea Nitrogen 7, Creatinine 0.8, Estimat Glomerular Filtration Rate > 60, Glucose Level 122H, Hemoglobin A1c 5.4, Uric Acid 3.4, Calcium Level 8.3L, Phosphorus Level 3.3, Magnesium Level 1.6L, Ferritin 646H, Total Bilirubin 0.3, Gamma Glutamyl Transpeptidase 34, Aspartate Amino Transf (AST/SGOT) 19, Alanine Aminotransferase (ALT/SGPT) 21, Alkaline Phosphatase 119H, Troponin I 0.006, C- Reactive Protein, Quantitative 15.1H, Pro-B-Type Natriuretic Peptide 1632H, Total Protein 6.4, Albumin 1.5L, Globulin 4.9, Albumin/Globulin Ratio 0.3L, Triglycerides Level 80, Cholesterol Level 91, LDL Cholesterol 55, HDL Cholesterol 24L, Cholesterol/HDL Ratio 3.8, Thyroid Stimulating Hormone (TSH) 1.495, Cortisol AM Sample [Pending] Height (Feet): 5 Height (Inches): 7.00 Weight (Pounds): 145 General Appearance: no apparent distress Cardiovascular: normal rate Respiratory/Chest: decreased breath sounds Abdomen: soft Andre Flores MD Dec 10, 2019 11:22
[2019-12-10] MEDS: Cefepime HCl 1 GM in D5W 55 ML IVPB SCH ×2 (11:55→21:36)
[2019-12-10] MEDS ORDERED: Heparin 25,000u/D5W 500ml 500 ML IV SCH (13:00)
[2019-12-10] MEDS ORDERED: D5W 275ml ONE (14:09)
[2019-12-10] MEDS ORDERED: Sterile Water Irrig 1000ml IRRIG ONE (14:09)
[2019-12-10] MEDS ORDERED: Tubing IV Secondary IV ONE (14:09)
[2019-12-10] MEDS ORDERED: NS 275ml ONE (14:09)
[2019-12-10] MEDS ORDERED: D5NS 1000ml IV ONE (14:09)
--- NOTE | 2019-12-10 14:18 | Diagnostic Imaging Report ---
Indication: Lower extremity edema, shortness of breath Technique: Grayscale and duplex images of the bilateral lower extremity veins Comparison: Findings: On the right, occlusive thrombus is seen within the common femoral vein and femoral vein. The popliteal vein is patent. The calf veins and greater saphenous vein are patent. On the left, the imaging is very limited as the patient has hip and knee contractures. The imaged portions of the femoral and popliteal veins appear patent Impression: Positive for right common femoral and femoral vein deep venous thrombosis Patient's nurse aware
--- NOTE | 2019-12-10 14:29 | Cardiac Electrophysiology PN ---
Assessment/Plan Assessment/Plan 1. Shortness of breath. Troponins are negative. Echocardiogram pending. 2. Hypotension. On Dopamine and IV antibiotic. 3. Cough and fever. Possible pneumonia. Ruled out for COVID-19. Influenza A is positive 4. Seizures, on Keppra. 5. Cerebral palsy. DW RN Subjective Subjective In ICU on Dopamine 8mcg. No further bradycardia. In isolation for MRSA and VRE. COVID is negative Objective Last 24 Hour Vital Signs Date Time Temp Pulse Resp B/P (MAP) Pulse Ox O2 Delivery O2 Flow Rate FiO2 12/10/19 12:00 98.4 82 26 118/62 (80) 100 12/10/19 12:00 2.0 12/10/19 12:00 Nasal Cannula 2.0 Nasal Cannula 2.0 12/10/19 11:00 94 27 106/74 (85) 12/10/19 11:00 111/68 12/10/19 10:00 98.5 84 22 107/65 (79) 99 12/10/19 10:00 107/65 12/10/19 09:30 98.5 68 17 117/50 (72) 100 12/10/19 09:00 98.5 79 23 120/66 (84) 99 12/10/19 09:00 120/66 12/10/19 08:58 98.5 87 23 130/72 (91) 98 12/10/19 08:30 85 17 130/72 (91) 100 12/10/19 08:00 2.0 12/10/19 08:00 80 20 121/63 (82) 100 12/10/19 08:00 Nasal Cannula 2.0 Nasal Cannula 2.0 Nasal Cannula 2.0 12/10/19 08:00 121/63 12/10/19 08:00 64 12/10/19 07:00 76 18 118/56 (76) 99 12/10/19 06:13 114/58 12/10/19 06:00 77 20 119/58 (78) 99 12/10/19 05:45 80 19 113/63 (80) 99 12/10/19 05:30 79 24 121/66 (84) 100 12/10/19 05:15 81 21 119/63 (81) 98 12/10/19 05:00 87 22 120/66 (84) 97 12/10/19 04:45 95 29 112/69 (83) 98 12/10/19 04:30 102 29 123/69 (87) 97 12/10/19 04:15 94 31 111/68 (82) 98 12/10/19 04:00 2.0 12/10/19 04:00 Nasal Cannula 2.0 12/10/19 04:00 98.5 67 16 112/56 (74) 100 12/10/19 03:45 75 26 108/62 (77) 100 12/10/19 03:30 68 16 120/51 (74) 100 12/10/19 03:20 72 12/10/19 03:15 68 17 108/58 (75) 100 12/10/19 03:00 72 20 114/53 (73) 99 12/10/19 02:30 70 19 113/54 (73) 100 12/10/19 02:15 72 19 114/50 (71) 99 12/10/19 02:00 69 22 111/57 (75) 100 12/10/19 01:45 72 20 115/56 (75) 100 12/10/19 01:30 71 17 110/56 (74) 99 12/10/19 01:19 115/60 12/10/19 01:00 70 22 118/54 (75) 99 12/10/19 00:30 65 17 107/53 (71) 100 12/10/19 00:15 71 22 106/54 (71) 100 12/10/19 00:00 Nasal Cannula 2.0 12/10/19 00:00 107/63 12/10/19 00:00 98.5 73 21 109/60 (76) 100 12/09/19 23:30 77 23 116/61 (79) 100 12/09/19 23:17 76 12/09/19 23:00 70 24 90/57 (68) 99 12/09/19 22:45 72 23 99/52 (68) 99 12/09/19 22:30 71 21 116/54 (74) 100 12/09/19 22:00 76 23 112/67 (82) 100 12/09/19 21:30 68 16 118/46 (70) 100 12/09/19 21:27 74 12/09/19 21:00 75 18 109/55 (73) 100 12/09/19 20:30 80 28 115/61 (79) 99 12/09/19 20:26 111/58 12/09/19 20:00 Nasal Cannula 2.0 12/09/19 20:00 2.0 12/09/19 20:00 98.9 74 19 112/62 (79) 100 12/09/19 19:06 75 15 100 Nasal Cannula 2.0 28 12/09/19 19:06 100 Nasal Cannula 2.0 28 12/09/19 19:00 72 17 104/50 (68) 99 12/09/19 19:00 104/50 12/09/19 18:30 96 27 124/69 (87) 97 12/09/19 18:00 117/64 12/09/19 18:00 72 18 117/64 (81) 99 12/09/19 17:30 74 18 119/55 (76) 99 12/09/19 17:00 78 19 118/60 (79) 99 12/09/19 17:00 118/60 12/09/19 16:00 2.0 12/09/19 16:00 111/63 12/09/19 16:00 98.1 77 19 115/51 (72) 100 12/09/19 16:00 74 12/09/19 16:00 Nasal Cannula 2.0 12/09/19 15:30 78 26 109/60 (76) 99 12/09/19 15:00 130/67 12/09/19 15:00 95 28 125/62 (83) 98 12/09/19 14:30 76 23 112/58 (76) 98 Intake and Output 12/09/19 12/10/19 19:00 07:00 Intake Total 1580.468 ml 1517.058 ml Output Total 675 ml 945 ml Balance 905.468 ml 572.058 ml Intake IV Total 1580.468 ml 1417.058 ml Other 100 ml Output Urine Total 675 ml 945 ml Laboratory Tests Test 12/10/19 01:00 12/10/19 03:40 12/10/19 12:00 Vancomycin Level Trough 24.6 ug/mL (5.0-12.0) H White Blood Count 11.1 K/UL (4.8-10.8) H Red Blood Count 3.14 M/UL (4.70-6.10) L Hemoglobin 9.3 G/DL (14.2-18.0) L Hematocrit 28.4 % (42.0-52.0) L Mean Corpuscular Volume 90 FL (80-99) Mean Corpuscular Hemoglobin 29.8 PG (27.0-31.0) Mean Corpuscular Hemoglobin Concent 32.9 G/DL (32.0-36.0) Red Cell Distribution Width 17.8 % (11.6-14.8) H Platelet Count 554 K/UL (150-450) H Mean Platelet Volume 4.7 FL (6.5-10.1) L Neutrophils (%) (Auto) 78.9 % (45.0-75.0) H Lymphocytes (%) (Auto) 11.9 % (20.0-45.0) L Monocytes (%) (Auto) 6.2 % (1.0-10.0) Eosinophils (%) (Auto) 2.5 % (0.0-3.0) Basophils (%) (Auto) 0.5 % (0.0-2.0) Sodium Level 137 MMOL/L (136-145) Potassium Level 3.6 MMOL/L (3.5-5.1) Chloride Level 103 MMOL/L (98-107) Carbon Dioxide Level 22 MMOL/L (21-32) Anion Gap 12 mmol/L (5-15) Blood Urea Nitrogen 7 mg/dL (7-18) Creatinine 0.8 MG/DL (0.55-1.30) Estimat Glomerular Filtration Rate > 60 mL/min (>60) Glucose Level 122 MG/DL (74-106) H Hemoglobin A1c 5.4 % (4.3-6.0) Uric Acid 3.4 MG/DL (2.6-7.2) Calcium Level 8.3 MG/DL (8.5-10.1) L Phosphorus Level 3.3 MG/DL (2.5-4.9) Magnesium Level 1.6 MG/DL (1.8-2.4) L Ferritin 646 NG/ML (8-388) H Total Bilirubin 0.3 MG/DL (0.2-1.0) Gamma Glutamyl Transpeptidase 34 U/L (5-85) Aspartate Amino Transf (AST/SGOT) 19 U/L (15-37) Alanine Aminotransferase (ALT/SGPT) 21 U/L (12-78) Alkaline Phosphatase 119 U/L (46-116) H Troponin I 0.006 ng/mL (0.000-0.056) C-Reactive Protein, Quantitative 15.1 mg/dL (0.00-0.90) H Pro-B-Type Natriuretic Peptide 1632 pg/mL (0-125) H Total Protein 6.4 G/DL (6.4-8.2) Albumin 1.5 G/DL (3.4-5.0) L Globulin 4.9 g/dL Albumin/Globulin Ratio 0.3 (1.0-2.7) L Triglycerides Level 80 MG/DL (30-150) Cholesterol Level 91 MG/DL (< 200) LDL Cholesterol 55 mg/dL (<100) HDL Cholesterol 24 MG/DL (40-60) L Cholesterol/HDL Ratio 3.8 (3.3-4.4) Thyroid Stimulating Hormone (TSH) 1.495 uiU/mL (0.358-3.740) Cortisol AM Sample Pending Activated Partial Thromboplast Time 32 SEC (23-33) Microbiology Date/Time Source Procedure Growth Status 12/07/19 15:50 Blood Blood Culture - Preliminary Staphylococcus Sp Coag Neg Resulted 12/07/19 15:35 Blood Blood Culture - Preliminary NO GROWTH AFTER 48 HOURS Resulted 12/07/19 18:15 Nasal Nares MRSA Culture - Final Staphylococcus Aureus - Mrsa Complete 12/07/19 16:05 Nasopharynx Coronavirus COVID-19 PCR ([facility]) - Final Complete 12/07/19 15:50 Nasal Nares - Final Complete 12/07/19 15:50 Nasal Nares - Final Complete 12/07/19 15:50 Urine,Clean Catch Urine Culture - Final Pseudomonas Aeruginosa Complete 12/07/19 18:15 Rectum VRE Culture - Final Enterococcus Faecium - Vre Enterococcus Faecalis - Vre Complete Objective HEAD AND NECK: No JVD. LUNGS: Coarse rhonchi. CARDIOVASCULAR: Regular S1 and S2 with no gallop. ABDOMEN: Soft. EXTREMITIES: 1+ pitting edema. Rk Hdz MD Dec 10, 2019 14:29
--- NOTE | 2019-12-10 14:46 | Cardiac Electrophysiology PN ---
Assessment/Plan Assessment/Plan 1. Shortness of breath. Troponins are negative. Echocardiogram pending. 2. Hypotension. On Dopamine and IV antibiotic. 3. Nonsustained VT 20 beats. Mg replaced. FU on tele.Taper off Dopamine if possible 4. R CFV DVT start heparin 5. Cough and fever. Possible pneumonia. Ruled out for COVID-19. 6. Seizures, on Keppra. 7. Cerebral palsy. RHODA RN Subjective Subjective In ICU on Dopamine 8mcg. No further bradycardia.Had 20 beats of VT. Started on heparin for R CFV DVT. In isolation for MRSA and VRE. COVID is negative Objective Last 24 Hour Vital Signs Date Time Temp Pulse Resp B/P (MAP) Pulse Ox O2 Delivery O2 Flow Rate FiO2 12/10/19 12:00 98.4 82 26 118/62 (80) 100 12/10/19 12:00 2.0 12/10/19 12:00 Nasal Cannula 2.0 Nasal Cannula 2.0 12/10/19 11:00 94 27 106/74 (85) 12/10/19 11:00 111/68 12/10/19 10:00 98.5 84 22 107/65 (79) 99 12/10/19 10:00 107/65 12/10/19 09:30 98.5 68 17 117/50 (72) 100 12/10/19 09:00 98.5 79 23 120/66 (84) 99 12/10/19 09:00 120/66 12/10/19 08:58 98.5 87 23 130/72 (91) 98 12/10/19 08:30 85 17 130/72 (91) 100 12/10/19 08:00 2.0 12/10/19 08:00 80 20 121/63 (82) 100 12/10/19 08:00 Nasal Cannula 2.0 Nasal Cannula 2.0 Nasal Cannula 2.0 12/10/19 08:00 121/63 12/10/19 08:00 64 12/10/19 07:00 76 18 118/56 (76) 99 12/10/19 06:13 114/58 12/10/19 06:00 77 20 119/58 (78) 99 12/10/19 05:45 80 19 113/63 (80) 99 12/10/19 05:30 79 24 121/66 (84) 100 12/10/19 05:15 81 21 119/63 (81) 98 12/10/19 05:00 87 22 120/66 (84) 97 12/10/19 04:45 95 29 112/69 (83) 98 12/10/19 04:30 102 29 123/69 (87) 97 12/10/19 04:15 94 31 111/68 (82) 98 12/10/19 04:00 2.0 12/10/19 04:00 Nasal Cannula 2.0 12/10/19 04:00 98.5 67 16 112/56 (74) 100 12/10/19 03:45 75 26 108/62 (77) 100 12/10/19 03:30 68 16 120/51 (74) 100 12/10/19 03:20 72 12/10/19 03:15 68 17 108/58 (75) 100 12/10/19 03:00 72 20 114/53 (73) 99 12/10/19 02:30 70 19 113/54 (73) 100 12/10/19 02:15 72 19 114/50 (71) 99 12/10/19 02:00 69 22 111/57 (75) 100 12/10/19 01:45 72 20 115/56 (75) 100 12/10/19 01:30 71 17 110/56 (74) 99 12/10/19 01:19 115/60 12/10/19 01:00 70 22 118/54 (75) 99 12/10/19 00:30 65 17 107/53 (71) 100 12/10/19 00:15 71 22 106/54 (71) 100 12/10/19 00:00 Nasal Cannula 2.0 12/10/19 00:00 107/63 12/10/19 00:00 98.5 73 21 109/60 (76) 100 12/09/19 23:30 77 23 116/61 (79) 100 12/09/19 23:17 76 12/09/19 23:00 70 24 90/57 (68) 99 12/09/19 22:45 72 23 99/52 (68) 99 12/09/19 22:30 71 21 116/54 (74) 100 12/09/19 22:00 76 23 112/67 (82) 100 12/09/19 21:30 68 16 118/46 (70) 100 12/09/19 21:27 74 12/09/19 21:00 75 18 109/55 (73) 100 12/09/19 20:30 80 28 115/61 (79) 99 12/09/19 20:26 111/58 12/09/19 20:00 Nasal Cannula 2.0 12/09/19 20:00 2.0 12/09/19 20:00 98.9 74 19 112/62 (79) 100 12/09/19 19:06 75 15 100 Nasal Cannula 2.0 28 12/09/19 19:06 100 Nasal Cannula 2.0 28 12/09/19 19:00 72 17 104/50 (68) 99 12/09/19 19:00 104/50 12/09/19 18:30 96 27 124/69 (87) 97 12/09/19 18:00 117/64 12/09/19 18:00 72 18 117/64 (81) 99 12/09/19 17:30 74 18 119/55 (76) 99 12/09/19 17:00 78 19 118/60 (79) 99 12/09/19 17:00 118/60 12/09/19 16:00 2.0 12/09/19 16:00 111/63 12/09/19 16:00 98.1 77 19 115/51 (72) 100 12/09/19 16:00 74 12/09/19 16:00 Nasal Cannula 2.0 12/09/19 15:30 78 26 109/60 (76) 99 12/09/19 15:00 130/67 12/09/19 15:00 95 28 125/62 (83) 98 Intake and Output 12/09/19 12/10/19 19:00 07:00 Intake Total 1580.468 ml 1517.058 ml Output Total 675 ml 945 ml Balance 905.468 ml 572.058 ml Intake IV Total 1580.468 ml 1417.058 ml Other 100 ml Output Urine Total 675 ml 945 ml Laboratory Tests Test 12/10/19 01:00 12/10/19 03:40 12/10/19 12:00 Vancomycin Level Trough 24.6 ug/mL (5.0-12.0) H White Blood Count 11.1 K/UL (4.8-10.8) H Red Blood Count 3.14 M/UL (4.70-6.10) L Hemoglobin 9.3 G/DL (14.2-18.0) L Hematocrit 28.4 % (42.0-52.0) L Mean Corpuscular Volume 90 FL (80-99) Mean Corpuscular Hemoglobin 29.8 PG (27.0-31.0) Mean Corpuscular Hemoglobin Concent 32.9 G/DL (32.0-36.0) Red Cell Distribution Width 17.8 % (11.6-14.8) H Platelet Count 554 K/UL (150-450) H Mean Platelet Volume 4.7 FL (6.5-10.1) L Neutrophils (%) (Auto) 78.9 % (45.0-75.0) H Lymphocytes (%) (Auto) 11.9 % (20.0-45.0) L Monocytes (%) (Auto) 6.2 % (1.0-10.0) Eosinophils (%) (Auto) 2.5 % (0.0-3.0) Basophils (%) (Auto) 0.5 % (0.0-2.0) Sodium Level 137 MMOL/L (136-145) Potassium Level 3.6 MMOL/L (3.5-5.1) Chloride Level 103 MMOL/L (98-107) Carbon Dioxide Level 22 MMOL/L (21-32) Anion Gap 12 mmol/L (5-15) Blood Urea Nitrogen 7 mg/dL (7-18) Creatinine 0.8 MG/DL (0.55-1.30) Estimat Glomerular Filtration Rate > 60 mL/min (>60) Glucose Level 122 MG/DL (74-106) H Hemoglobin A1c 5.4 % (4.3-6.0) Uric Acid 3.4 MG/DL (2.6-7.2) Calcium Level 8.3 MG/DL (8.5-10.1) L Phosphorus Level 3.3 MG/DL (2.5-4.9) Magnesium Level 1.6 MG/DL (1.8-2.4) L Ferritin 646 NG/ML (8-388) H Total Bilirubin 0.3 MG/DL (0.2-1.0) Gamma Glutamyl Transpeptidase 34 U/L (5-85) Aspartate Amino Transf (AST/SGOT) 19 U/L (15-37) Alanine Aminotransferase (ALT/SGPT) 21 U/L (12-78) Alkaline Phosphatase 119 U/L (46-116) H Troponin I 0.006 ng/mL (0.000-0.056) C-Reactive Protein, Quantitative 15.1 mg/dL (0.00-0.90) H Pro-B-Type Natriuretic Peptide 1632 pg/mL (0-125) H Total Protein 6.4 G/DL (6.4-8.2) Albumin 1.5 G/DL (3.4-5.0) L Globulin 4.9 g/dL Albumin/Globulin Ratio 0.3 (1.0-2.7) L Triglycerides Level 80 MG/DL (30-150) Cholesterol Level 91 MG/DL (< 200) LDL Cholesterol 55 mg/dL (<100) HDL Cholesterol 24 MG/DL (40-60) L Cholesterol/HDL Ratio 3.8 (3.3-4.4) Thyroid Stimulating Hormone (TSH) 1.495 uiU/mL (0.358-3.740) Cortisol AM Sample Pending Activated Partial Thromboplast Time 32 SEC (23-33) Microbiology Date/Time Source Procedure Growth Status 12/07/19 15:50 Blood Blood Culture - Preliminary Staphylococcus Sp Coag Neg Resulted 12/07/19 15:35 Blood Blood Culture - Preliminary NO GROWTH AFTER 48 HOURS Resulted 12/07/19 18:15 Nasal Nares MRSA Culture - Final Staphylococcus Aureus - Mrsa Complete 12/07/19 16:05 Nasopharynx Coronavirus COVID-19 PCR ([facility]) - Final Complete 12/07/19 15:50 Nasal Nares - Final Complete 12/07/19 15:50 Nasal Nares - Final Complete 12/07/19 15:50 Urine,Clean Catch Urine Culture - Final Pseudomonas Aeruginosa Complete 12/07/19 18:15 Rectum VRE Culture - Final Enterococcus Faecium - Vre Enterococcus Faecalis - Vre Complete Objective HEAD AND NECK: No JVD. LUNGS: Coarse rhonchi. CARDIOVASCULAR: Regular S1 and S2 with no gallop. ABDOMEN: Soft. EXTREMITIES: 1+ pitting edema. Rk Hdz MD Dec 10, 2019 14:46
--- NOTE | 2019-12-10 17:49 | Surgery Progress Note ---
Surgery Progress Note Subjective Additional Comments ill appearing in icu awake, eyes open does not follow commands labs reviewed imaging reviewed leukocytosis Objective Last 24 Hour Vital Signs Date Time Temp Pulse Resp B/P (MAP) Pulse Ox O2 Delivery O2 Flow Rate FiO2 12/10/19 17:00 69 17 94/53 (67) 100 12/10/19 17:00 94/53 12/10/19 17:00 102/64 12/10/19 16:00 98.1 72 15 121/60 (80) 100 12/10/19 16:00 2.0 12/10/19 16:00 Nasal Cannula 2.0 Nasal Cannula 2.0 12/10/19 16:00 121/60 12/10/19 15:00 114/62 12/10/19 15:00 73 16 114/62 (79) 100 12/10/19 14:30 66 17 95/53 (67) 100 12/10/19 14:00 74 18 135/56 (82) 100 12/10/19 14:00 135/56 12/10/19 13:00 78 20 122/96 (105) 99 12/10/19 13:00 122/96 12/10/19 12:00 98.4 82 26 118/62 (80) 100 12/10/19 12:00 2.0 12/10/19 12:00 123/68 12/10/19 12:00 84 12/10/19 12:00 Nasal Cannula 2.0 Nasal Cannula 2.0 12/10/19 11:00 94 27 106/74 (85) 12/10/19 11:00 111/68 12/10/19 10:00 98.5 84 22 107/65 (79) 99 12/10/19 10:00 107/65 12/10/19 09:30 98.5 68 17 117/50 (72) 100 12/10/19 09:00 98.5 79 23 120/66 (84) 99 12/10/19 09:00 120/66 12/10/19 08:58 98.5 87 23 130/72 (91) 98 12/10/19 08:30 85 17 130/72 (91) 100 12/10/19 08:00 2.0 12/10/19 08:00 80 20 121/63 (82) 100 12/10/19 08:00 Nasal Cannula 2.0 Nasal Cannula 2.0 Nasal Cannula 2.0 12/10/19 08:00 121/63 12/10/19 08:00 64 12/10/19 07:00 76 18 118/56 (76) 99 12/10/19 06:13 114/58 12/10/19 06:00 77 20 119/58 (78) 99 12/10/19 05:45 80 19 113/63 (80) 99 12/10/19 05:30 79 24 121/66 (84) 100 12/10/19 05:15 81 21 119/63 (81) 98 12/10/19 05:00 87 22 120/66 (84) 97 12/10/19 04:45 95 29 112/69 (83) 98 12/10/19 04:30 102 29 123/69 (87) 97 12/10/19 04:15 94 31 111/68 (82) 98 12/10/19 04:00 2.0 12/10/19 04:00 Nasal Cannula 2.0 12/10/19 04:00 98.5 67 16 112/56 (74) 100 12/10/19 03:45 75 26 108/62 (77) 100 12/10/19 03:30 68 16 120/51 (74) 100 12/10/19 03:20 72 12/10/19 03:15 68 17 108/58 (75) 100 12/10/19 03:00 72 20 114/53 (73) 99 12/10/19 02:30 70 19 113/54 (73) 100 12/10/19 02:15 72 19 114/50 (71) 99 12/10/19 02:00 69 22 111/57 (75) 100 12/10/19 01:45 72 20 115/56 (75) 100 12/10/19 01:30 71 17 110/56 (74) 99 12/10/19 01:19 115/60 12/10/19 01:00 70 22 118/54 (75) 99 12/10/19 00:30 65 17 107/53 (71) 100 12/10/19 00:15 71 22 106/54 (71) 100 12/10/19 00:00 Nasal Cannula 2.0 12/10/19 00:00 107/63 12/10/19 00:00 98.5 73 21 109/60 (76) 100 12/09/19 23:30 77 23 116/61 (79) 100 12/09/19 23:17 76 12/09/19 23:00 70 24 90/57 (68) 99 12/09/19 22:45 72 23 99/52 (68) 99 12/09/19 22:30 71 21 116/54 (74) 100 12/09/19 22:00 76 23 112/67 (82) 100 12/09/19 21:30 68 16 118/46 (70) 100 12/09/19 21:27 74 12/09/19 21:00 75 18 109/55 (73) 100 12/09/19 20:30 80 28 115/61 (79) 99 12/09/19 20:26 111/58 12/09/19 20:00 Nasal Cannula 2.0 12/09/19 20:00 2.0 12/09/19 20:00 98.9 74 19 112/62 (79) 100 12/09/19 19:06 75 15 100 Nasal Cannula 2.0 28 12/09/19 19:06 100 Nasal Cannula 2.0 28 12/09/19 19:00 72 17 104/50 (68) 99 12/09/19 19:00 104/50 12/09/19 18:30 96 27 124/69 (87) 97 12/09/19 18:00 117/64 12/09/19 18:00 72 18 117/64 (81) 99 I&O Intake and Output 12/09/19 12/10/19 19:00 07:00 Intake Total 1580.468 ml 1517.058 ml Output Total 675 ml 945 ml Balance 905.468 ml 572.058 ml Intake IV Total 1580.468 ml 1417.058 ml Other 100 ml Output Urine Total 675 ml 945 ml Dressing: other Wound: other Drains: other Cardiovascular: RSR Respiratory: decreased breath sounds Abdomen: soft, non-tender, present bowel sounds Extremities: edema, tenderness, no cyanosis, other Laboratory Tests Test 12/10/19 01:00 12/10/19 03:40 12/10/19 12:00 Vancomycin Level Trough 24.6 ug/mL (5.0-12.0) H White Blood Count 11.1 K/UL (4.8-10.8) H Red Blood Count 3.14 M/UL (4.70-6.10) L Hemoglobin 9.3 G/DL (14.2-18.0) L Hematocrit 28.4 % (42.0-52.0) L Mean Corpuscular Volume 90 FL (80-99) Mean Corpuscular Hemoglobin 29.8 PG (27.0-31.0) Mean Corpuscular Hemoglobin Concent 32.9 G/DL (32.0-36.0) Red Cell Distribution Width 17.8 % (11.6-14.8) H Platelet Count 554 K/UL (150-450) H Mean Platelet Volume 4.7 FL (6.5-10.1) L Neutrophils (%) (Auto) 78.9 % (45.0-75.0) H Lymphocytes (%) (Auto) 11.9 % (20.0-45.0) L Monocytes (%) (Auto) 6.2 % (1.0-10.0) Eosinophils (%) (Auto) 2.5 % (0.0-3.0) Basophils (%) (Auto) 0.5 % (0.0-2.0) Sodium Level 137 MMOL/L (136-145) Potassium Level 3.6 MMOL/L (3.5-5.1) Chloride Level 103 MMOL/L (98-107) Carbon Dioxide Level 22 MMOL/L (21-32) Anion Gap 12 mmol/L (5-15) Blood Urea Nitrogen 7 mg/dL (7-18) Creatinine 0.8 MG/DL (0.55-1.30) Estimat Glomerular Filtration Rate > 60 mL/min (>60) Glucose Level 122 MG/DL (74-106) H Hemoglobin A1c 5.4 % (4.3-6.0) Uric Acid 3.4 MG/DL (2.6-7.2) Calcium Level 8.3 MG/DL (8.5-10.1) L Phosphorus Level 3.3 MG/DL (2.5-4.9) Magnesium Level 1.6 MG/DL (1.8-2.4) L Ferritin 646 NG/ML (8-388) H Total Bilirubin 0.3 MG/DL (0.2-1.0) Gamma Glutamyl Transpeptidase 34 U/L (5-85) Aspartate Amino Transf (AST/SGOT) 19 U/L (15-37) Alanine Aminotransferase (ALT/SGPT) 21 U/L (12-78) Alkaline Phosphatase 119 U/L (46-116) H Troponin I 0.006 ng/mL (0.000-0.056) C-Reactive Protein, Quantitative 15.1 mg/dL (0.00-0.90) H Pro-B-Type Natriuretic Peptide 1632 pg/mL (0-125) H Total Protein 6.4 G/DL (6.4-8.2) Albumin 1.5 G/DL (3.4-5.0) L Globulin 4.9 g/dL Albumin/Globulin Ratio 0.3 (1.0-2.7) L Triglycerides Level 80 MG/DL (30-150) Cholesterol Level 91 MG/DL (< 200) LDL Cholesterol 55 mg/dL (<100) HDL Cholesterol 24 MG/DL (40-60) L Cholesterol/HDL Ratio 3.8 (3.3-4.4) Thyroid Stimulating Hormone (TSH) 1.495 uiU/mL (0.358-3.740) Cortisol AM Sample 11.4 UG/DL Activated Partial Thromboplast Time 32 SEC (23-33) Plan Problems: (1) Urinary tract infection (2) Respiratory insufficiency Assessment & Plan: Right central line terminates in the right atrium. Cardiomegaly. Mild vascular congestion. Mild bilateral pleural effusions. (3) Decubital ulcer Assessment & Plan: Pt presented on admission with contractures, multiple pressure injuries.Unstageable pressure injury noted to upper L earlobe(L)0.5cm x (W)0.8cm. Stable dry eschar noted at base of injury.Edges adhrent and pink.Medially along L earlobe is a DTPI(L)0.8cm x (W)0.6cm. Base of wound is Purple at center with surrounding maroon borders. Distally L earlobe is and Unstageable Pressure Injury(L)1cm x (W)0.4cm. Stable dry eschar at base of injury . Edges dry,adherent and pink. In close proximity at distal lobule is second pressure injury(L)0.5cm x (W)0.6cm. Base of wound is moist and viable. No exudate noted. stage 4 Sacral Pressure injury(L)5.6cmx (W)6.8cm. base of wound has 75% soft necrosis,25% gustabo with surrounding maroon ,indurated borders.Small amt non- odorous serous exudate noted. Sacral wound in its entirety measures (L)9cm x (W) 8cm. Areas of hyperpigmentation from previous wounds noted to L trochanter,and L lower buttocks. Partial thickness wound noted to head of penis(L)0.4cm x (W)0.5cm. Base of wound is moist and viable. Partial thickness Pressure Injury noted at base of shaft of penis(L)2.1cm x (W) 2.4cm. Base of wound is moist and viable. MASD R and L groin ,and Scrotum. Affected areas are erythematous and denuded. Unstageable Pressure injury R heel(L)6.5cm x (W)8cm . Wound is open blood blister. Base of wound is moist gustabo, black at center base of wound. Overlying loose skin flap removed. Periwound R heel is boggy with non-blanchable erythema. Unstageable Pressure Injury R Hallux(L)1.5cm x (W)2.9cm. Base of wound has 60% soft necrosis,40% gustabo. Macerated borders. Small amt. non-odorous serous exudate. Non-blanchable erythema without induration or elevated skin temp periwound. Unstageable Pressure injury Lateral R malleolus(L)1.8cm x (W)1.2cm. Base of is 100% necrotic with semi-detached borders which are erythematous and moist.Wound is malodorous. Periwound erythematous, but without elevated skin temp. Unstageable Pressure Injury L heel(L)4.6cm x (W)5.5cm. Base of wound is 100% necrotic with detached borders that present with mixed erythema and slough. Wound is malodorous. Periwound is erythematous and fluctuant. No elevation in skin temp noted. Unstageable Pressure Injury L lateral Malleolus (L)1.1cm x (W)1.2cm.Stable dry brown eschar at base of wound. Edges flat, adherent and pink. No erythema or fluctuance periwound. Full thickness stage 3 Pressure Injury L hallux(L)3.6cm x (W)3.9cm.Base of wound is moist pink with small amt Biofilm. Bone is palpable. Edges are macerated. No odor noted.Small amt serous exudate noted. Periwound is erythematous,no elevation in skin temp or fluctuance noted. DTPI medial/lateral L foot(L)2.5cm x (W)1.9cm. Base of Injury is maroon and fluctuant. Periwound is pink. Unstageable Pressure Injury distal/lateral L foot(L)2.5cm x (W)1.9cm. Base of wound is 100% soft necrosis with marginal erythema. No odor or exudate noted. Periwound is boggy but pink. Stable dry eschar R 1st metatarsal Head(L)0.6cm x (W)0.5cm. Tx.Plan: Apply Betadine to Wounds L earlobe Daily. Pad Oxygen tubing and keep tubing loose around ears. Cleanse Sacral wound with Saline. Apply Therahoney. Apply Moisture Barrier Periwound. Cover with Optifoam drsg. Change every 3 days and prn. Apply Moisture Barrier Paste to to R and L groin, Base of Penis, and scrotum with each Incontinence care. Apply Betadine to wounds R foot. Cover each wound with Optifoam drsg. Change Daily and prn. Apply Betadine to wounds L foot. Cover each wound with Optifoam drsg. Change Daily and prn. Reposition at least every 2hours or as tolerated. Place pillow between knees. Off-load heels with pillow. Air Fluidized mattress. (4) Suspected COVID-19 virus infection Davonte Ham Dec 10, 2019 17:48
--- NOTE | 2019-12-10 19:56 | General Progress Note ---
Assessment/Plan Status: progressing Assessment/Plan: Assessment - Cerebral palsy - dysphagia, s/p PEG - contracture deformities - decubitus ulcers - sepsis - UTI - Anemia Recommendations - Begin TF, slowly - Elevate HOB - monitor residuals - PPI - Abx / supportive care - wean off pressors as tolerated - sound care Thank you Zakiya Vargas MD Subjective Allergies: Coded Allergies: MOLD (Unverified Allergy, Unknown, 12/07/19) POLLEN EXTRACTS (Unverified Allergy, Unknown, 12/07/19) Objective Last 24 Hour Vital Signs Date Time Temp Pulse Resp B/P (MAP) Pulse Ox O2 Delivery O2 Flow Rate FiO2 12/10/19 19:00 72 21 121/63 (82) 100 12/10/19 18:00 129/58 12/10/19 18:00 76 16 129/58 (81) 100 12/10/19 17:00 69 17 94/53 (67) 100 12/10/19 17:00 94/53 12/10/19 17:00 102/64 12/10/19 16:00 98.1 72 15 121/60 (80) 100 12/10/19 16:00 2.0 12/10/19 16:00 Nasal Cannula 2.0 Nasal Cannula 2.0 12/10/19 16:00 121/60 12/10/19 16:00 71 12/10/19 15:00 114/62 12/10/19 15:00 73 16 114/62 (79) 100 12/10/19 14:30 66 17 95/53 (67) 100 12/10/19 14:00 74 18 135/56 (82) 100 12/10/19 14:00 135/56 12/10/19 13:00 78 20 122/96 (105) 99 12/10/19 13:00 122/96 12/10/19 12:00 98.4 82 26 118/62 (80) 100 12/10/19 12:00 2.0 12/10/19 12:00 123/68 12/10/19 12:00 84 12/10/19 12:00 Nasal Cannula 2.0 Nasal Cannula 2.0 12/10/19 11:00 94 27 106/74 (85) 12/10/19 11:00 111/68 12/10/19 10:00 98.5 84 22 107/65 (79) 99 12/10/19 10:00 107/65 12/10/19 09:30 98.5 68 17 117/50 (72) 100 12/10/19 09:00 98.5 79 23 120/66 (84) 99 12/10/19 09:00 120/66 12/10/19 08:58 98.5 87 23 130/72 (91) 98 12/10/19 08:30 85 17 130/72 (91) 100 12/10/19 08:00 2.0 12/10/19 08:00 80 20 121/63 (82) 100 12/10/19 08:00 Nasal Cannula 2.0 Nasal Cannula 2.0 Nasal Cannula 2.0 12/10/19 08:00 121/63 12/10/19 08:00 64 12/10/19 07:00 76 18 118/56 (76) 99 12/10/19 06:13 114/58 12/10/19 06:00 77 20 119/58 (78) 99 12/10/19 05:45 80 19 113/63 (80) 99 12/10/19 05:30 79 24 121/66 (84) 100 12/10/19 05:15 81 21 119/63 (81) 98 12/10/19 05:00 87 22 120/66 (84) 97 12/10/19 04:45 95 29 112/69 (83) 98 12/10/19 04:30 102 29 123/69 (87) 97 12/10/19 04:15 94 31 111/68 (82) 98 12/10/19 04:00 2.0 12/10/19 04:00 Nasal Cannula 2.0 12/10/19 04:00 98.5 67 16 112/56 (74) 100 12/10/19 03:45 75 26 108/62 (77) 100 12/10/19 03:30 68 16 120/51 (74) 100 12/10/19 03:20 72 12/10/19 03:15 68 17 108/58 (75) 100 12/10/19 03:00 72 20 114/53 (73) 99 12/10/19 02:30 70 19 113/54 (73) 100 12/10/19 02:15 72 19 114/50 (71) 99 12/10/19 02:00 69 22 111/57 (75) 100 12/10/19 01:45 72 20 115/56 (75) 100 12/10/19 01:30 71 17 110/56 (74) 99 12/10/19 01:19 115/60 12/10/19 01:00 70 22 118/54 (75) 99 12/10/19 00:30 65 17 107/53 (71) 100 12/10/19 00:15 71 22 106/54 (71) 100 12/10/19 00:00 Nasal Cannula 2.0 12/10/19 00:00 107/63 12/10/19 00:00 98.5 73 21 109/60 (76) 100 12/09/19 23:30 77 23 116/61 (79) 100 12/09/19 23:17 76 12/09/19 23:00 70 24 90/57 (68) 99 12/09/19 22:45 72 23 99/52 (68) 99 12/09/19 22:30 71 21 116/54 (74) 100 12/09/19 22:00 76 23 112/67 (82) 100 12/09/19 21:30 68 16 118/46 (70) 100 12/09/19 21:27 74 12/09/19 21:00 75 18 109/55 (73) 100 12/09/19 20:30 80 28 115/61 (79) 99 12/09/19 20:26 111/58 12/09/19 20:00 Nasal Cannula 2.0 12/09/19 20:00 2.0 12/09/19 20:00 98.9 74 19 112/62 (79) 100 Intake and Output 12/09/19 12/10/19 19:00 07:00 Intake Total 1580.468 ml 1517.058 ml Output Total 675 ml 945 ml Balance 905.468 ml 572.058 ml IV Total 1580.468 ml 1417.058 ml Other 100 ml Output Urine Total 675 ml 945 ml Laboratory Tests 12/10/19 01:00: Vancomycin Level Trough 24.6H 12/10/19 03:40: White Blood Count 11.1H, Red Blood Count 3.14L, Hemoglobin 9.3L, Hematocrit 28.4L, Mean Corpuscular Volume 90, Mean Corpuscular Hemoglobin 29.8, Mean Corpuscular Hemoglobin Concent 32.9, Red Cell Distribution Width 17.8H, Platelet Count 554H, Mean Platelet Volume 4.7L, Neutrophils (%) (Auto) 78.9H, Lymphocytes (%) (Auto) 11.9L, Monocytes (%) (Auto) 6.2, Eosinophils (%) (Auto) 2.5, Basophils (%) (Auto) 0.5, Sodium Level 137, Potassium Level 3.6, Chloride Level 103, Carbon Dioxide Level 22, Anion Gap 12, Blood Urea Nitrogen 7, Creatinine 0.8, Estimat Glomerular Filtration Rate > 60, Glucose Level 122H, Hemoglobin A1c 5.4, Uric Acid 3.4, Calcium Level 8.3L, Phosphorus Level 3.3, Magnesium Level 1.6L, Ferritin 646H, Total Bilirubin 0.3, Gamma Glutamyl Transpeptidase 34, Aspartate Amino Transf (AST/SGOT) 19, Alanine Aminotransferase (ALT/SGPT) 21, Alkaline Phosphatase 119H, Troponin I 0.006, C- Reactive Protein, Quantitative 15.1H, Pro-B-Type Natriuretic Peptide 1632H, Total Protein 6.4, Albumin 1.5L, Globulin 4.9, Albumin/Globulin Ratio 0.3L, Triglycerides Level 80, Cholesterol Level 91, LDL Cholesterol 55, HDL Cholesterol 24L, Cholesterol/HDL Ratio 3.8, Thyroid Stimulating Hormone (TSH) 1.495, Cortisol AM Sample 11.4 12/10/19 12:00: Activated Partial Thromboplast Time 32 Height (Feet): 5 Height (Inches): 7.00 Weight (Pounds): 145 Zakiya Vargas MD Dec 10, 2019 19:56
--- NOTE | 2019-12-10 21:30 | General Progress Note ---
Assessment/Plan Problem List: (1) Urinary tract infection ICD Codes: N39.0 - Urinary tract infection, site not specified SNOMED: 79229231 (2) Respiratory insufficiency ICD Codes: R06.89 - Other abnormalities of breathing SNOMED: 753473033 (3) Decubital ulcer ICD Codes: L89.90 - Pressure ulcer of unspecified site, unspecified stage SNOMED: 202463071 (4) Suspected COVID-19 virus infection ICD Codes: R68.89 - Other general symptoms and signs SNOMED: 939201145 Status: progressing Assessment/Plan: downs syndrome on pressors for septic shock nsvt seizure pna resp insuff sepsis uti peg malnutrition h/h is stable Subjective ROS Limited/Unobtainable: Yes Allergies: Coded Allergies: MOLD (Unverified Allergy, Unknown, 12/07/19) POLLEN EXTRACTS (Unverified Allergy, Unknown, 12/07/19) Objective Last 24 Hour Vital Signs Date Time Temp Pulse Resp B/P (MAP) Pulse Ox O2 Delivery O2 Flow Rate FiO2 12/10/19 19:00 72 21 121/63 (82) 100 12/10/19 18:00 129/58 12/10/19 18:00 76 16 129/58 (81) 100 12/10/19 17:00 69 17 94/53 (67) 100 12/10/19 17:00 94/53 12/10/19 17:00 102/64 12/10/19 16:00 98.1 72 15 121/60 (80) 100 12/10/19 16:00 2.0 12/10/19 16:00 Nasal Cannula 2.0 Nasal Cannula 2.0 12/10/19 16:00 121/60 12/10/19 16:00 71 12/10/19 15:00 114/62 12/10/19 15:00 73 16 114/62 (79) 100 12/10/19 14:30 66 17 95/53 (67) 100 12/10/19 14:00 74 18 135/56 (82) 100 12/10/19 14:00 135/56 12/10/19 13:00 78 20 122/96 (105) 99 12/10/19 13:00 122/96 12/10/19 12:00 98.4 82 26 118/62 (80) 100 12/10/19 12:00 2.0 12/10/19 12:00 123/68 12/10/19 12:00 84 12/10/19 12:00 Nasal Cannula 2.0 Nasal Cannula 2.0 12/10/19 11:00 94 27 106/74 (85) 12/10/19 11:00 111/68 12/10/19 10:00 98.5 84 22 107/65 (79) 99 12/10/19 10:00 107/65 12/10/19 09:30 98.5 68 17 117/50 (72) 100 12/10/19 09:00 98.5 79 23 120/66 (84) 99 12/10/19 09:00 120/66 12/10/19 08:58 98.5 87 23 130/72 (91) 98 12/10/19 08:30 85 17 130/72 (91) 100 12/10/19 08:00 2.0 12/10/19 08:00 80 20 121/63 (82) 100 12/10/19 08:00 Nasal Cannula 2.0 Nasal Cannula 2.0 Nasal Cannula 2.0 12/10/19 08:00 121/63 12/10/19 08:00 64 12/10/19 07:00 76 18 118/56 (76) 99 12/10/19 06:13 114/58 12/10/19 06:00 77 20 119/58 (78) 99 12/10/19 05:45 80 19 113/63 (80) 99 12/10/19 05:30 79 24 121/66 (84) 100 12/10/19 05:15 81 21 119/63 (81) 98 12/10/19 05:00 87 22 120/66 (84) 97 12/10/19 04:45 95 29 112/69 (83) 98 12/10/19 04:30 102 29 123/69 (87) 97 12/10/19 04:15 94 31 111/68 (82) 98 12/10/19 04:00 2.0 12/10/19 04:00 Nasal Cannula 2.0 12/10/19 04:00 98.5 67 16 112/56 (74) 100 12/10/19 03:45 75 26 108/62 (77) 100 12/10/19 03:30 68 16 120/51 (74) 100 12/10/19 03:20 72 12/10/19 03:15 68 17 108/58 (75) 100 12/10/19 03:00 72 20 114/53 (73) 99 12/10/19 02:30 70 19 113/54 (73) 100 12/10/19 02:15 72 19 114/50 (71) 99 12/10/19 02:00 69 22 111/57 (75) 100 12/10/19 01:45 72 20 115/56 (75) 100 12/10/19 01:30 71 17 110/56 (74) 99 12/10/19 01:19 115/60 12/10/19 01:00 70 22 118/54 (75) 99 12/10/19 00:30 65 17 107/53 (71) 100 12/10/19 00:15 71 22 106/54 (71) 100 12/10/19 00:00 Nasal Cannula 2.0 12/10/19 00:00 107/63 12/10/19 00:00 98.5 73 21 109/60 (76) 100 12/09/19 23:30 77 23 116/61 (79) 100 12/09/19 23:17 76 12/09/19 23:00 70 24 90/57 (68) 99 12/09/19 22:45 72 23 99/52 (68) 99 12/09/19 22:30 71 21 116/54 (74) 100 12/09/19 22:00 76 23 112/67 (82) 100 12/09/19 21:30 68 16 118/46 (70) 100 Intake and Output 12/09/19 12/10/19 19:00 07:00 Intake Total 1580.468 ml 1517.058 ml Output Total 675 ml 945 ml Balance 905.468 ml 572.058 ml IV Total 1580.468 ml 1417.058 ml Other 100 ml Output Urine Total 675 ml 945 ml Laboratory Tests 12/10/19 01:00: Vancomycin Level Trough 24.6H 12/10/19 03:40: White Blood Count 11.1H, Red Blood Count 3.14L, Hemoglobin 9.3L, Hematocrit 28.4L, Mean Corpuscular Volume 90, Mean Corpuscular Hemoglobin 29.8, Mean Corpuscular Hemoglobin Concent 32.9, Red Cell Distribution Width 17.8H, Platelet Count 554H, Mean Platelet Volume 4.7L, Neutrophils (%) (Auto) 78.9H, Lymphocytes (%) (Auto) 11.9L, Monocytes (%) (Auto) 6.2, Eosinophils (%) (Auto) 2.5, Basophils (%) (Auto) 0.5, Sodium Level 137, Potassium Level 3.6, Chloride Level 103, Carbon Dioxide Level 22, Anion Gap 12, Blood Urea Nitrogen 7, Creatinine 0.8, Estimat Glomerular Filtration Rate > 60, Glucose Level 122H, Hemoglobin A1c 5.4, Uric Acid 3.4, Calcium Level 8.3L, Phosphorus Level 3.3, Magnesium Level 1.6L, Ferritin 646H, Total Bilirubin 0.3, Gamma Glutamyl Transpeptidase 34, Aspartate Amino Transf (AST/SGOT) 19, Alanine Aminotransferase (ALT/SGPT) 21, Alkaline Phosphatase 119H, Troponin I 0.006, C- Reactive Protein, Quantitative 15.1H, Pro-B-Type Natriuretic Peptide 1632H, Total Protein 6.4, Albumin 1.5L, Globulin 4.9, Albumin/Globulin Ratio 0.3L, Triglycerides Level 80, Cholesterol Level 91, LDL Cholesterol 55, HDL Cholesterol 24L, Cholesterol/HDL Ratio 3.8, Thyroid Stimulating Hormone (TSH) 1.495, Cortisol AM Sample 11.4 12/10/19 12:00: Activated Partial Thromboplast Time 32 12/10/19 20:15: Activated Partial Thromboplast Time 67H Height (Feet): 5 Height (Inches): 7.00 Weight (Pounds): 145 Leda Sweeney MD Dec 10, 2019 21:30
[2019-12-10] MEDS: Dyna-Hex 2% Top Sol 2oz TOPIC SCH (21:32)
--- NOTE | 2019-12-10 23:14 | Consultation ---
DATE OF CONSULTATION: 12/10/2019 GASTROENTEROLOGY CONSULTATION CHIEF COMPLAINT: I was asked to see this patient by Dr. Leda Sweeney for evaluation of feeding and gastrostomy tube. HISTORY OF PRESENT ILLNESS: The patient is an unfortunate 69-year-old white man with history of cerebral palsy, mental retardation, bedbound state with contracture deformities, who had a gastrostomy tube for long-term enteral feeding, who was brought into the hospital due to shortness of breath. He was tested for COVID and he was negative. He is septic and he is on pressors. He also has urinary tract infection. He is unable to provide any history and most of the information is only available from the chart. He has decubitus ulcerations, which are being evaluated separately. PAST MEDICAL HISTORY: Cerebral palsy, contracture deformities, decubitus ulcerations, dysphagia status post gastrostomy evaluation. FAMILY HISTORY: Noncontributory and unavailable. SOCIAL HISTORY: The patient resides in a [place] [facility] care facility and has had no history of smoking. REVIEW OF SYSTEMS: Otherwise negative and not obtainable. PHYSICAL EXAMINATION: GENERAL: Debilitated and minimally interactive white man seen in the ICU. HEENT: Normocephalic and atraumatic. CHEST: Revealed coarse breath sounds. CARDIOVASCULAR: Revealed regular rate. ABDOMEN: Soft with gastrostomy tube in good position. EXTREMITIES: Revealed contracture deformities as well as decubitus ulcerations. LABORATORY DATA: Noted. ASSESSMENT: 1. This patient has a gastrostomy tube for long-term enteral access and nutrition. He is septic and on pressors and therefore, his tube feeding should be advanced only very slowly since he has a high chance of intolerance. Residuals should be checked. The patient should have his head of bed elevated at all times. Proton-pump inhibitor will be worthwhile to suppress acid. Once his sepsis picture improves, his tube feeding should be gradually advanced. 2. anemia, but this may be of chronic disease. I would follow his CBC for now. I advised his supportive care will be continued. RECOMMENDATIONS: Per above discussion and per orders written in the chart. Thank you for asking me to participate in the care of this patient. Zakiya Vargas M.D. DR: Inocencio JOB#: [id number] CC: [email or web address]
[2019-12-11] VITALS (33 sets, daily range): BP systolic 68–135; BP diastolic 39–82
--- NOTE | 2019-12-11 00:33 | Pulmonolgy Critical Care Note ---
Critical Care - Asmt/Plan Assessment/Plan: Pulmonary Critical Care Progress Note seen on 12/10/2019 HPI 69-year-old male history of cerebral palsy, bedbound, nonverbal, Roper dependent presented for fever cough and shortness of breath. Patient apparently fever for the 24 hours [employer]. Patient is on nasal canula O2. History limited due to patient's baseline mental status. Has G tube Noted to have DVT On pressors PRN, Heparin gtt Negative for Covid19, In ICU due to hypotension On IV Antibiotics, IVF, IV pressors PRN Hemodynamically stable currently, on NC O2 Allergies: No Known Allergies Past Medical History: GERD, Dysphagia, previous G tube, Cerebral Palsy, BPH All Other Systems: limited - History limited due to patient's baseline mental status Physical Exam Vital Signs Noted General Appearance: thin, Chronically Ill, mild pallor Head: normocephalic, atraumatic Eyes: bilateral eye PERRL, bilateral eye EOMI ENT: hearing grossly normal, dry mucus membranes Neck: full range of motion, supple Respiratory: CTAB Cardiovascular: regular rate, rhythm, HS1, HS2 normal, no murmur, normal peripheral pulses, Gastrointestinal: non tender, soft, non-distended, no guarding Musculoskeletal: other - Extremities contracted, chronic ulcerations noted bilateral feet Neurologic: awake, no focal defects, other - Patient nonverbal at baseline Skin: warm/dry Impression: Urinary tract infection Possible Pneumonia Sepsis Rule out Covid-19 Cerebral Palsy Seizure History BPH - chronic roper Dysphagia s/p G tube Anemia Lymphopenia Plan IV antibiotics Heparin gtt VQ scan R/o coronavirus infection IVF Pressors PRN Await cultures PPX Monitor labs O2 PRN Bronchodilators Laboratory Tests Noted EK:12 Rate: normal Rhythm: NSR Other Impression t wave flattening 1 AVL CXR: Atelectasis RLL, L mid zone Subjective ROS Limited/Unobtainable: No Allergies: Coded Allergies: No Known Allergies (Unverified , 12/07/19) Microbiology Date/Time Source Procedure Growth Status 12/07/19 15:50 Nasal Nares - Final Complete 12/07/19 15:50 Nasal Nares - Final Complete 12/07/19 18:15 Rectum Received Critical Care - Objective Last 24 Hour Vital Signs Date Time Temp Pulse Resp B/P (MAP) Pulse Ox O2 Delivery O2 Flow Rate FiO2 12/10/19 23:00 81 17 117/56 (76) 100 12/10/19 22:00 78 18 114/64 (81) 100 12/10/19 21:00 77 20 118/62 (80) 100 12/10/19 20:00 Nasal Cannula 2.0 Nasal Cannula 2.0 12/10/19 20:00 98.3 80 19 120/79 (93) 100 12/10/19 20:00 2.0 12/10/19 20:00 80 12/10/19 19:00 72 21 121/63 (82) 100 12/10/19 18:00 129/58 12/10/19 18:00 76 16 129/58 (81) 100 12/10/19 17:00 69 17 94/53 (67) 100 12/10/19 17:00 94/53 12/10/19 17:00 102/64 12/10/19 16:00 98.1 72 15 121/60 (80) 100 12/10/19 16:00 2.0 12/10/19 16:00 Nasal Cannula 2.0 Nasal Cannula 2.0 12/10/19 16:00 121/60 12/10/19 16:00 71 12/10/19 15:00 114/62 12/10/19 15:00 73 16 114/62 (79) 100 12/10/19 14:30 66 17 95/53 (67) 100 12/10/19 14:00 74 18 135/56 (82) 100 12/10/19 14:00 135/56 12/10/19 13:00 78 20 122/96 (105) 99 12/10/19 13:00 122/96 12/10/19 12:00 98.4 82 26 118/62 (80) 100 12/10/19 12:00 2.0 12/10/19 12:00 123/68 12/10/19 12:00 84 12/10/19 12:00 Nasal Cannula 2.0 Nasal Cannula 2.0 12/10/19 11:00 94 27 106/74 (85) 12/10/19 11:00 111/68 12/10/19 10:00 98.5 84 22 107/65 (79) 99 12/10/19 10:00 107/65 12/10/19 09:30 98.5 68 17 117/50 (72) 100 12/10/19 09:00 98.5 79 23 120/66 (84) 99 12/10/19 09:00 120/66 12/10/19 08:58 98.5 87 23 130/72 (91) 98 12/10/19 08:30 85 17 130/72 (91) 100 12/10/19 08:00 2.0 12/10/19 08:00 80 20 121/63 (82) 100 12/10/19 08:00 Nasal Cannula 2.0 Nasal Cannula 2.0 Nasal Cannula 2.0 12/10/19 08:00 121/63 12/10/19 08:00 64 12/10/19 07:00 76 18 118/56 (76) 99 12/10/19 06:13 114/58 12/10/19 06:00 77 20 119/58 (78) 99 12/10/19 05:45 80 19 113/63 (80) 99 12/10/19 05:30 79 24 121/66 (84) 100 12/10/19 05:15 81 21 119/63 (81) 98 12/10/19 05:00 87 22 120/66 (84) 97 12/10/19 04:45 95 29 112/69 (83) 98 12/10/19 04:30 102 29 123/69 (87) 97 12/10/19 04:15 94 31 111/68 (82) 98 12/10/19 04:00 2.0 12/10/19 04:00 Nasal Cannula 2.0 12/10/19 04:00 98.5 67 16 112/56 (74) 100 12/10/19 03:45 75 26 108/62 (77) 100 12/10/19 03:30 68 16 120/51 (74) 100 12/10/19 03:20 72 12/10/19 03:15 68 17 108/58 (75) 100 12/10/19 03:00 72 20 114/53 (73) 99 12/10/19 02:30 70 19 113/54 (73) 100 12/10/19 02:15 72 19 114/50 (71) 99 12/10/19 02:00 69 22 111/57 (75) 100 12/10/19 01:45 72 20 115/56 (75) 100 12/10/19 01:30 71 17 110/56 (74) 99 12/10/19 01:19 115/60 12/10/19 01:00 70 22 118/54 (75) 99 Critical Care - Subjective ROS Limited/Unobtainable: No FI02: 28 Sputum Amount: None Tube Feeding Amount: 10 I&O: Intake and Output 12/10/19 12/11/19 19:00 07:00 Intake Total 1124.774 ml 100 ml Output Total 1025 ml 190 ml Balance 99.774 ml -90 ml Intake Free Water 100 ml 60 ml IV Total 994.774 ml Tube Feeding 30 ml 40 ml Output Urine Total 1025 ml 190 ml Oscar Bragg MD Dec 11, 2019 00:33
[2019-12-11] MEDS: DOPamine 400mg/250ml 250 ML IV SCH (03:21)
[2019-12-11] MEDS ORDERED: Heparin 5000 units/ml inj IV SCH (07:00)
[2019-12-11] MEDS: Heparin 25,000u/D5W 500ml 500 ML IV SCH ×2 (07:18→11:07)
[2019-12-11] MEDS: levETIRAcetam 500mg/5ml Liquid GT SCH ×2 (09:32→20:04)
[2019-12-11] MEDS: Cefepime HCl 1 GM in D5W 55 ML IVPB SCH ×2 (09:32→20:05)
--- NOTE | 2019-12-11 10:42 | Cardiac Electrophysiology PN ---
Assessment/Plan Assessment/Plan 1. Shortness of breath. Troponins are negative. Echo still pending. 2. Hypotension. On Dopamine and IV antibiotic. 3. Nonsustained VT 20 beats. Mg replaced. FU on tele.Taper off Dopamine if possible No further overnight 4. R CFV DVT on heparin drip 5. Cough and fever. Possible pneumonia. Ruled out for COVID-19. 6. Seizures, on Keppra. 7. Cerebral palsy. DW RN Subjective Subjective In ICU on Dopamine 10 mcg. No further bradycardia.Had 20 beats of VT on 12/10/19 at 3 am. On heparin drip for R CFV DVT. In isolation for MRSA and VRE.COVID is negative. RN at bedside Objective Last 24 Hour Vital Signs Date Time Temp Pulse Resp B/P (MAP) Pulse Ox O2 Delivery O2 Flow Rate FiO2 12/11/19 10:00 88 26 120/68 (85) 99 12/11/19 10:00 125/67 12/11/19 09:30 86 19 119/68 (85) 99 12/11/19 09:00 123/69 12/11/19 09:00 82 21 123/70 (87) 98 12/11/19 08:00 Room Air Room Air 12/11/19 08:00 98.0 83 20 120/67 (84) 99 12/11/19 08:00 2.0 12/11/19 08:00 83 12/11/19 07:00 88 20 104/58 (73) 98 12/11/19 06:00 78 17 119/53 (75) 99 12/11/19 06:00 100 20 122/69 (86) 96 12/11/19 05:00 78 17 119/53 (75) 99 12/11/19 04:00 2.0 12/11/19 04:00 82 12/11/19 04:00 97.6 82 17 104/64 (77) 99 12/11/19 04:00 Room Air Room Air 12/11/19 03:21 112/56 12/11/19 03:21 90/66 12/11/19 03:00 81 18 132/82 (99) 99 12/11/19 02:00 79 18 100/54 (69) 100 12/11/19 01:30 120/65 12/11/19 01:00 80 19 120/65 (83) 100 4/7/20 00:00 83 12/11/19 00:00 2.0 12/11/19 00:00 98.7 83 19 119/56 (77) 100 12/11/19 00:00 Nasal Cannula 2.0 Nasal Cannula 2.0 12/10/19 23:00 81 17 117/56 (76) 100 12/10/19 22:00 78 18 114/64 (81) 100 12/10/19 21:00 77 20 118/62 (80) 100 12/10/19 20:00 Nasal Cannula 2.0 Nasal Cannula 2.0 12/10/19 20:00 98.3 80 19 120/79 (93) 100 12/10/19 20:00 2.0 12/10/19 20:00 80 12/10/19 19:00 72 21 121/63 (82) 100 12/10/19 18:00 129/58 12/10/19 18:00 76 16 129/58 (81) 100 12/10/19 17:00 69 17 94/53 (67) 100 12/10/19 17:00 94/53 12/10/19 17:00 102/64 12/10/19 16:00 98.1 72 15 121/60 (80) 100 12/10/19 16:00 2.0 12/10/19 16:00 Nasal Cannula 2.0 Nasal Cannula 2.0 12/10/19 16:00 121/60 12/10/19 16:00 71 12/10/19 15:00 114/62 12/10/19 15:00 73 16 114/62 (79) 100 12/10/19 14:30 66 17 95/53 (67) 100 12/10/19 14:00 74 18 135/56 (82) 100 12/10/19 14:00 135/56 12/10/19 13:00 78 20 122/96 (105) 99 12/10/19 13:00 122/96 12/10/19 12:00 98.4 82 26 118/62 (80) 100 12/10/19 12:00 2.0 12/10/19 12:00 123/68 12/10/19 12:00 84 12/10/19 12:00 Nasal Cannula 2.0 Nasal Cannula 2.0 12/10/19 11:00 94 27 106/74 (85) 12/10/19 11:00 111/68 Intake and Output 12/10/19 12/11/19 19:00 07:00 Intake Total 1124.774 ml 245 ml Output Total 1025 ml 780 ml Balance 99.774 ml -535 ml Intake Free Water 100 ml 60 ml IV Total 994.774 ml 55 ml Tube Feeding 30 ml 130 ml Output Urine Total 1025 ml 780 ml Laboratory Tests Test 12/10/19 12:00 12/10/19 20:15 12/11/19 03:15 Activated Partial Thromboplast Time 32 SEC (23-33) 67 SEC (23-33) H 31 SEC (23-33) Objective HEAD AND NECK: No JVD. LUNGS: Coarse rhonchi. CARDIOVASCULAR: Regular S1 and S2 with no gallop. ABDOMEN: Soft. EXTREMITIES: 1+ pitting edema. Rk Hdz MD Dec 11, 2019 10:42
--- NOTE | 2019-12-11 11:19 | Infectious Diseases Prog Note ---
Assessment/Plan Assessment/Plan IMPRESSION: Sepsis, septic shock, currently on dopamine. 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 RECOMMENDATION: continue Cefepime COVID-19: negative Subjective ROS Limited/Unobtainable: Yes Cardiovascular: Reports: other - on Dopamin drip Hematologic: Reports: other - on heparin drip Allergies: Coded Allergies: MOLD (Unverified Allergy, Unknown, 12/07/19) POLLEN EXTRACTS (Unverified Allergy, Unknown, 12/07/19) Objective Vital Signs Last 24 Hour Vital Signs Date Time Temp Pulse Resp B/P (MAP) Pulse Ox O2 Delivery O2 Flow Rate FiO2 12/11/19 11:00 118/58 12/11/19 11:00 80 15 118/58 (78) 98 12/11/19 10:00 88 26 120/68 (85) 99 12/11/19 10:00 125/67 12/11/19 09:30 86 19 119/68 (85) 99 12/11/19 09:00 123/69 12/11/19 09:00 82 21 123/70 (87) 98 12/11/19 08:00 Room Air Room Air 12/11/19 08:00 98.0 83 20 120/67 (84) 99 12/11/19 08:00 2.0 12/11/19 08:00 83 12/11/19 07:00 88 20 104/58 (73) 98 12/11/19 06:00 78 17 119/53 (75) 99 12/11/19 06:00 100 20 122/69 (86) 96 12/11/19 05:00 78 17 119/53 (75) 99 12/11/19 04:00 2.0 12/11/19 04:00 82 12/11/19 04:00 97.6 82 17 104/64 (77) 99 12/11/19 04:00 Room Air Room Air 12/11/19 03:21 112/56 12/11/19 03:21 90/66 12/11/19 03:00 81 18 132/82 (99) 99 12/11/19 02:00 79 18 100/54 (69) 100 12/11/19 01:30 120/65 12/11/19 01:00 80 19 120/65 (83) 100 12/11/19 00:00 83 12/11/19 00:00 2.0 12/11/19 00:00 98.7 83 19 119/56 (77) 100 12/11/19 00:00 Nasal Cannula 2.0 Nasal Cannula 2.0 12/10/19 23:00 81 17 117/56 (76) 100 12/10/19 22:00 78 18 114/64 (81) 100 12/10/19 21:00 77 20 118/62 (80) 100 12/10/19 20:00 Nasal Cannula 2.0 Nasal Cannula 2.0 12/10/19 20:00 98.3 80 19 120/79 (93) 100 12/10/19 20:00 2.0 12/10/19 20:00 80 12/10/19 19:00 72 21 121/63 (82) 100 12/10/19 18:00 129/58 12/10/19 18:00 76 16 129/58 (81) 100 12/10/19 17:00 69 17 94/53 (67) 100 12/10/19 17:00 94/53 12/10/19 17:00 102/64 12/10/19 16:00 98.1 72 15 121/60 (80) 100 12/10/19 16:00 2.0 12/10/19 16:00 Nasal Cannula 2.0 Nasal Cannula 2.0 12/10/19 16:00 121/60 12/10/19 16:00 71 12/10/19 15:00 114/62 12/10/19 15:00 73 16 114/62 (79) 100 12/10/19 14:30 66 17 95/53 (67) 100 12/10/19 14:00 74 18 135/56 (82) 100 12/10/19 14:00 135/56 12/10/19 13:00 78 20 122/96 (105) 99 12/10/19 13:00 122/96 12/10/19 12:00 98.4 82 26 118/62 (80) 100 12/10/19 12:00 2.0 12/10/19 12:00 123/68 12/10/19 12:00 84 12/10/19 12:00 Nasal Cannula 2.0 Nasal Cannula 2.0 Height (Feet): 5 Height (Inches): 7.00 Weight (Pounds): 150 General Appearance: no acute distress HEENT: mucous membranes moist Respiratory/Chest: lungs clear Cardiovascular: normal rate, other - RIJ central line Abdomen: soft, non tender, other - GT feeding Extremities: other - edema Skin: ulcers Neurologic/Psychiatric: other - sleeping Laboratory Tests Test 12/10/19 12:00 12/10/19 20:15 12/11/19 03:15 Activated Partial Thromboplast Time 32 SEC (23-33) 67 SEC (23-33) H 31 SEC (23-33) Current Medications Medications (Trade) Dose Ordered Sig/Nazia Route PRN Reason Start Time Stop Time Status Last Admin Dose Admin Acetaminophen (Tylenol) 650 mg Q4H PRN ORAL Temp >100.5 12/08/19 05:00 01/07/20 04:59 12/08/19 09:06 Acetaminophen (Tylenol) 650 mg Q4H PRN RECTAL Temp >100.5 12/08/19 05:30 01/06/20 20:59 Albuterol Sulfate (Proventil) 2.5 mg Q6H PRN HHN Shortness of Breath 12/08/19 06:00 12/13/19 05:59 Cefepime HCl 1 gm/ Dextrose 55 ml @ 110 mls/hr EVERY 12 HOURS IVPB 12/10/19 11:00 12/17/19 10:59 12/11/19 09:32 Chlorhexidine Gluconate (Susanna-Hex 2%) 1 applic DAILY@2000 TOPIC 12/08/19 20:00 03/07/20 19:59 12/10/19 21:32 Dextrose/Sodium Chloride 1,000 ml @ 60 mls/hr [id number] IV 12/09/19 10:15 01/08/20 10:14 12/10/19 16:20 Dopamine HCl/ Dextrose 250 ml @ 0 mls/hr Q24H IV 12/09/19 16:15 03/07/20 16:14 12/11/19 03:21 Heparin Sodium/ Dextrose 500 ml @ 28.939 mls/ hr ADJUST PER PROTOCOL IV 12/11/19 07:18 01/10/20 07:17 12/11/19 11:07 Lansoprazole (Prevacid) 30 mg BID GT 12/09/19 18:00 01/07/20 08:59 12/11/19 09:32 Levetiracetam (Keppra) 500 mg Q12HR GT 12/08/19 09:00 01/07/20 08:59 12/11/19 09:32 Norepinephrine Bitartrate 4 mg/ Dextrose 250 ml @ 0 mls/hr Q24H IV 12/09/19 01:30 01/07/20 01:29 12/08/19 02:39 Ondansetron HCl (Zofran) 4 mg Q6H PRN IVP Nausea & Vomiting 12/08/19 03:30 01/06/20 21:29 Lucas Gutierrez MD Dec 11, 2019 11:19
[2019-12-11] MEDS: D5NS 1,000 ML IV SCH (11:52)
--- NOTE | 2019-12-11 13:06 | Surgery Progress Note ---
Surgery Progress Note Subjective Additional Comments no acute events ill appearing labs noted exam unchanged minimal responsiveness Objective Last 24 Hour Vital Signs Date Time Temp Pulse Resp B/P (MAP) Pulse Ox O2 Delivery O2 Flow Rate FiO2 12/11/19 12:00 125/65 12/11/19 12:00 Room Air Room Air 12/11/19 12:00 98.2 77 17 121/63 (82) 99 12/11/19 11:22 83 12/11/19 11:00 118/58 12/11/19 11:00 80 15 118/58 (78) 98 12/11/19 10:00 88 26 120/68 (85) 99 12/11/19 10:00 125/67 12/11/19 09:30 86 19 119/68 (85) 99 12/11/19 09:00 123/69 12/11/19 09:00 82 21 123/70 (87) 98 12/11/19 08:00 Room Air Room Air 12/11/19 08:00 98.0 83 20 120/67 (84) 99 12/11/19 08:00 2.0 12/11/19 08:00 83 12/11/19 07:00 88 20 104/58 (73) 98 12/11/19 06:00 78 17 119/53 (75) 99 12/11/19 06:00 100 20 122/69 (86) 96 12/11/19 05:00 78 17 119/53 (75) 99 12/11/19 04:00 2.0 12/11/19 04:00 82 12/11/19 04:00 97.6 82 17 104/64 (77) 99 12/11/19 04:00 Room Air Room Air 12/11/19 03:21 112/56 12/11/19 03:21 90/66 12/11/19 03:00 81 18 132/82 (99) 99 12/11/19 02:00 79 18 100/54 (69) 100 12/11/19 01:30 120/65 12/11/19 01:00 80 19 120/65 (83) 100 12/11/19 00:00 83 12/11/19 00:00 2.0 12/11/19 00:00 98.7 83 19 119/56 (77) 100 12/11/19 00:00 Nasal Cannula 2.0 Nasal Cannula 2.0 12/10/19 23:00 81 17 117/56 (76) 100 12/10/19 22:00 78 18 114/64 (81) 100 12/10/19 21:00 77 20 118/62 (80) 100 12/10/19 20:00 Nasal Cannula 2.0 Nasal Cannula 2.0 12/10/19 20:00 98.3 80 19 120/79 (93) 100 12/10/19 20:00 2.0 12/10/19 20:00 80 12/10/19 19:00 72 21 121/63 (82) 100 12/10/19 18:00 129/58 12/10/19 18:00 76 16 129/58 (81) 100 12/10/19 17:00 69 17 94/53 (67) 100 12/10/19 17:00 94/53 12/10/19 17:00 102/64 12/10/19 16:00 98.1 72 15 121/60 (80) 100 12/10/19 16:00 2.0 12/10/19 16:00 Nasal Cannula 2.0 Nasal Cannula 2.0 12/10/19 16:00 121/60 12/10/19 16:00 71 12/10/19 15:00 114/62 12/10/19 15:00 73 16 114/62 (79) 100 12/10/19 14:30 66 17 95/53 (67) 100 12/10/19 14:00 74 18 135/56 (82) 100 12/10/19 14:00 135/56 I&O Intake and Output 12/10/19 12/11/19 19:00 07:00 Intake Total 1124.774 ml 245 ml Output Total 1025 ml 780 ml Balance 99.774 ml -535 ml Intake Free Water 100 ml 60 ml IV Total 994.774 ml 55 ml Tube Feeding 30 ml 130 ml Output Urine Total 1025 ml 780 ml Dressing: other Wound: other Cardiovascular: RSR Respiratory: decreased breath sounds Abdomen: soft, non-tender, present bowel sounds Extremities: no tenderness, no cyanosis, other Laboratory Tests Test 12/10/19 20:15 12/11/19 03:15 Activated Partial Thromboplast Time 67 SEC (23-33) H 31 SEC (23-33) Plan Problems: (1) Urinary tract infection (2) Respiratory insufficiency Assessment & Plan: Right central line terminates in the right atrium. Cardiomegaly. Mild vascular congestion. Mild bilateral pleural effusions. (3) Decubital ulcer Assessment & Plan: Pt presented on admission with contractures, multiple pressure injuries.Unstageable pressure injury noted to upper L earlobe(L)0.5cm x (W)0.8cm. Stable dry eschar noted at base of injury.Edges adhrent and pink.Medially along L earlobe is a DTPI(L)0.8cm x (W)0.6cm. Base of wound is Purple at center with surrounding maroon borders. Distally L earlobe is and Unstageable Pressure Injury(L)1cm x (W)0.4cm. Stable dry eschar at base of injury . Edges dry,adherent and pink. In close proximity at distal lobule is second pressure injury(L)0.5cm x (W)0.6cm. Base of wound is moist and viable. No exudate noted. stage 4 Sacral Pressure injury(L)5.6cmx (W)6.8cm. base of wound has 75% soft necrosis,25% gustabo with surrounding maroon ,indurated borders.Small amt non- odorous serous exudate noted. Sacral wound in its entirety measures (L)9cm x (W) 8cm. Areas of hyperpigmentation from previous wounds noted to L trochanter,and L lower buttocks. Partial thickness wound noted to head of penis(L)0.4cm x (W)0.5cm. Base of wound is moist and viable. Partial thickness Pressure Injury noted at base of shaft of penis(L)2.1cm x (W) 2.4cm. Base of wound is moist and viable. MASD R and L groin ,and Scrotum. Affected areas are erythematous and denuded. Unstageable Pressure injury R heel(L)6.5cm x (W)8cm . Wound is open blood blister. Base of wound is moist gustabo, black at center base of wound. Overlying loose skin flap removed. Periwound R heel is boggy with non-blanchable erythema. Unstageable Pressure Injury R Hallux(L)1.5cm x (W)2.9cm. Base of wound has 60% soft necrosis,40% gustabo. Macerated borders. Small amt. non-odorous serous exudate. Non-blanchable erythema without induration or elevated skin temp periwound. Unstageable Pressure injury Lateral R malleolus(L)1.8cm x (W)1.2cm. Base of is 100% necrotic with semi-detached borders which are erythematous and moist.Wound is malodorous. Periwound erythematous, but without elevated skin temp. Unstageable Pressure Injury L heel(L)4.6cm x (W)5.5cm. Base of wound is 100% necrotic with detached borders that present with mixed erythema and slough. Wound is malodorous. Periwound is erythematous and fluctuant. No elevation in skin temp noted. Unstageable Pressure Injury L lateral Malleolus (L)1.1cm x (W)1.2cm.Stable dry brown eschar at base of wound. Edges flat, adherent and pink. No erythema or fluctuance periwound. Full thickness stage 3 Pressure Injury L hallux(L)3.6cm x (W)3.9cm.Base of wound is moist pink with small amt Biofilm. Bone is palpable. Edges are macerated. No odor noted.Small amt serous exudate noted. Periwound is erythematous,no elevation in skin temp or fluctuance noted. DTPI medial/lateral L foot(L)2.5cm x (W)1.9cm. Base of Injury is maroon and fluctuant. Periwound is pink. Unstageable Pressure Injury distal/lateral L foot(L)2.5cm x (W)1.9cm. Base of wound is 100% soft necrosis with marginal erythema. No odor or exudate noted. Periwound is boggy but pink. Stable dry eschar R 1st metatarsal Head(L)0.6cm x (W)0.5cm. Tx.Plan: Apply Betadine to Wounds L earlobe Daily. Pad Oxygen tubing and keep tubing loose around ears. Cleanse Sacral wound with Saline. Apply Therahoney. Apply Moisture Barrier Periwound. Cover with Optifoam drsg. Change every 3 days and prn. Apply Moisture Barrier Paste to to R and L groin, Base of Penis, and scrotum with each Incontinence care. Apply Betadine to wounds R foot. Cover each wound with Optifoam drsg. Change Daily and prn. Apply Betadine to wounds L foot. Cover each wound with Optifoam drsg. Change Daily and prn. Reposition at least every 2hours or as tolerated. Place pillow between knees. Off-load heels with pillow. Air Fluidized mattress. (4) Suspected COVID-19 virus infection Davonte Ham Dec 11, 2019 13:06
--- NOTE | 2019-12-11 13:24 | Nephrology Progress Note ---
Assessment/Plan Problem List: (1) Electrolyte imbalance (2) Dehydration (3) Urinary tract infection (4) Hypoalbuminemia (5) Hypokalemia (6) BPH (benign prostatic hyperplasia) (7) Anemia Assessment Hypokalemia Hypoalbuminemia Urinary tract infection Possible Pneumonia, Sepsis, Rule out Covid-19 Cerebral Palsy Seizure History BPH - chronic roper Dysphagia s/p G tube Anemia, Lymphopenia Plan IV hydration Monitor renal parameters and electrolytes Antibiotics Avoid nephrotoxic's Per consultants Per orders Subjective ROS Limited/Unobtainable: No Objective Objective Last 24 Hour Vital Signs Date Time Temp Pulse Resp B/P (MAP) Pulse Ox O2 Delivery O2 Flow Rate FiO2 12/11/19 13:00 83 21 121/66 (84) 97 12/11/19 12:00 125/65 12/11/19 12:00 Room Air Room Air 12/11/19 12:00 98.2 77 17 121/63 (82) 99 12/11/19 11:22 83 12/11/19 11:00 118/58 12/11/19 11:00 80 15 118/58 (78) 98 12/11/19 10:00 88 26 120/68 (85) 99 12/11/19 10:00 125/67 12/11/19 09:30 86 19 119/68 (85) 99 12/11/19 09:00 123/69 12/11/19 09:00 82 21 123/70 (87) 98 12/11/19 08:00 Room Air Room Air 12/11/19 08:00 98.0 83 20 120/67 (84) 99 12/11/19 08:00 2.0 12/11/19 08:00 83 12/11/19 07:00 88 20 104/58 (73) 98 12/11/19 06:00 78 17 119/53 (75) 99 12/11/19 06:00 100 20 122/69 (86) 96 12/11/19 05:00 78 17 119/53 (75) 99 12/11/19 04:00 2.0 12/11/19 04:00 82 12/11/19 04:00 97.6 82 17 104/64 (77) 99 12/11/19 04:00 Room Air Room Air 12/11/19 03:21 112/56 12/11/19 03:21 90/66 12/11/19 03:00 81 18 132/82 (99) 99 12/11/19 02:00 79 18 100/54 (69) 100 12/11/19 01:30 120/65 12/11/19 01:00 80 19 120/65 (83) 100 12/11/19 00:00 83 12/11/19 00:00 2.0 12/11/19 00:00 98.7 83 19 119/56 (77) 100 12/11/19 00:00 Nasal Cannula 2.0 Nasal Cannula 2.0 12/10/19 23:00 81 17 117/56 (76) 100 12/10/19 22:00 78 18 114/64 (81) 100 12/10/19 21:00 77 20 118/62 (80) 100 12/10/19 20:00 Nasal Cannula 2.0 Nasal Cannula 2.0 12/10/19 20:00 98.3 80 19 120/79 (93) 100 12/10/19 20:00 2.0 12/10/19 20:00 80 12/10/19 19:00 72 21 121/63 (82) 100 12/10/19 18:00 129/58 12/10/19 18:00 76 16 129/58 (81) 100 12/10/19 17:00 69 17 94/53 (67) 100 12/10/19 17:00 94/53 12/10/19 17:00 102/64 12/10/19 16:00 98.1 72 15 121/60 (80) 100 12/10/19 16:00 2.0 12/10/19 16:00 Nasal Cannula 2.0 Nasal Cannula 2.0 12/10/19 16:00 121/60 12/10/19 16:00 71 12/10/19 15:00 114/62 12/10/19 15:00 73 16 114/62 (79) 100 12/10/19 14:30 66 17 95/53 (67) 100 12/10/19 14:00 74 18 135/56 (82) 100 12/10/19 14:00 135/56 Intake and Output 12/10/19 12/11/19 19:00 07:00 Intake Total 1124.774 ml 245 ml Output Total 1025 ml 780 ml Balance 99.774 ml -535 ml Intake Free Water 100 ml 60 ml IV Total 994.774 ml 55 ml Tube Feeding 30 ml 130 ml Output Urine Total 1025 ml 780 ml Current Medications Medications (Trade) Dose Ordered Sig/Nazia Route PRN Reason Start Time Stop Time Status Last Admin Dose Admin Acetaminophen (Tylenol) 650 mg Q4H PRN ORAL Temp >100.5 12/08/19 05:00 01/07/20 04:59 12/08/19 09:06 Acetaminophen (Tylenol) 650 mg Q4H PRN RECTAL Temp >100.5 12/08/19 05:30 01/06/20 20:59 Albuterol Sulfate (Proventil) 2.5 mg Q6H PRN HHN Shortness of Breath 12/08/19 06:00 12/13/19 05:59 Cefepime HCl 1 gm/ Dextrose 55 ml @ 110 mls/hr EVERY 12 HOURS IVPB 12/10/19 11:00 12/17/19 10:59 12/11/19 09:32 Chlorhexidine Gluconate (Susanna-Hex 2%) 1 applic DAILY@2000 TOPIC 12/08/19 20:00 03/07/20 19:59 12/10/19 21:32 Dextrose/Sodium Chloride 1,000 ml @ 60 mls/hr [id number] IV 12/09/19 10:15 01/08/20 10:14 12/11/19 11:52 Dopamine HCl/ Dextrose 250 ml @ 0 mls/hr Q24H IV 12/09/19 16:15 03/07/20 16:14 12/11/19 03:21 Heparin Sodium/ Dextrose 500 ml @ 28.939 mls/ hr ADJUST PER PROTOCOL IV 12/11/19 07:18 01/10/20 07:17 12/11/19 11:07 Lansoprazole (Prevacid) 30 mg BID GT 12/09/19 18:00 01/07/20 08:59 12/11/19 09:32 Levetiracetam (Keppra) 500 mg Q12HR GT 12/08/19 09:00 01/07/20 08:59 12/11/19 09:32 Norepinephrine Bitartrate 4 mg/ Dextrose 250 ml @ 0 mls/hr Q24H IV 12/09/19 01:30 01/07/20 01:29 12/08/19 02:39 Ondansetron HCl (Zofran) 4 mg Q6H PRN IVP Nausea & Vomiting 12/08/19 03:30 01/06/20 21:29 Laboratory Tests 12/10/19 20:15: Activated Partial Thromboplast Time 67H 12/11/19 03:15: Activated Partial Thromboplast Time 31 Height (Feet): 5 Height (Inches): 7.00 Weight (Pounds): 150 General Appearance: no apparent distress, lethargic Cardiovascular: normal rate Respiratory/Chest: decreased breath sounds Abdomen: distended Andre Flores MD Dec 11, 2019 13:24
--- NOTE | 2019-12-11 13:48 | Hematology/Onc Progress Note ---
Assessment/Plan Assessment/Plan IMPRESSION/RECS: # Anemia of chronic disease due to underlying chronic medical issues, multifactorial v Gi bleed --> Anemia workup has been ordered, rule out gi bleed --> No evidence of hemolysis is noted, peripheral smear has been reviewed. --> Hgb goal >7. Transfuse prn. --> Epogen or iron at this time is not particularly indicated --> Medications have been reviewed --> low threshold for gi evaluation in case has occult + --> bone marrow biopsy is not indicated given the other more likely causes # Dvt of the right leg history --> hep bolus and gtt --> 12/09 us duplex positive for right dvt # Lymphopenia is likely due to Sepsis, septic shock, currently on dopamine. --> remains in the icu, with UTI with Pseudomonas --> imaging noted, cultures reviewed --> as per id Positive blood culture likely contamination --> COVID negative --> abx: cefepime # VRE Carrier # Multiple pressure ulcer, # Down syndrome. The timing of this note does not necessarily reflect the time of the patient was seen. Greatly appreciate consultation. Subjective Allergies: Coded Allergies: MOLD (Unverified Allergy, Unknown, 12/07/19) POLLEN EXTRACTS (Unverified Allergy, Unknown, 12/07/19) Subjective 12/10 icu, nonverbal, cov 19 negative, positive for right le dvt, on pressors Objective Objective Current Medications Medications (Trade) Dose Ordered Sig/Nazia Route PRN Reason Start Time Stop Time Status Last Admin Dose Admin Acetaminophen (Tylenol) 650 mg Q4H PRN ORAL Temp >100.5 12/08/19 05:00 01/07/20 04:59 12/08/19 09:06 Acetaminophen (Tylenol) 650 mg Q4H PRN RECTAL Temp >100.5 12/08/19 05:30 01/06/20 20:59 Albuterol Sulfate (Proventil) 2.5 mg Q6H PRN HHN Shortness of Breath 12/08/19 06:00 12/13/19 05:59 Cefepime HCl 1 gm/ Dextrose 55 ml @ 110 mls/hr EVERY 12 HOURS IVPB 12/10/19 11:00 12/17/19 10:59 12/11/19 09:32 Chlorhexidine Gluconate (Susanna-Hex 2%) 1 applic DAILY@1999 TOPIC 12/08/19 20:00 03/07/20 19:59 12/10/19 21:32 Dextrose/Sodium Chloride 1,000 ml @ 60 mls/hr [id number] IV 12/09/19 10:15 01/08/20 10:14 12/11/19 11:52 Dopamine HCl/ Dextrose 250 ml @ 0 mls/hr Q24H IV 12/09/19 16:15 03/07/20 16:14 12/11/19 03:21 Heparin Sodium/ Dextrose 500 ml @ 28.939 mls/ hr ADJUST PER PROTOCOL IV 12/11/19 07:18 01/10/20 07:17 12/11/19 11:07 Lansoprazole (Prevacid) 30 mg BID GT 12/09/19 18:00 01/07/20 08:59 12/11/19 09:32 Levetiracetam (Keppra) 500 mg Q12HR GT 12/08/19 09:00 01/07/20 08:59 12/11/19 09:32 Norepinephrine Bitartrate 4 mg/ Dextrose 250 ml @ 0 mls/hr Q24H IV 12/09/19 01:30 01/07/20 01:29 12/08/19 02:39 Ondansetron HCl (Zofran) 4 mg Q6H PRN IVP Nausea & Vomiting 12/08/19 03:30 01/06/20 21:29 Last 24 Hour Vital Signs Date Time Temp Pulse Resp B/P (MAP) Pulse Ox O2 Delivery O2 Flow Rate FiO2 12/11/19 13:00 83 21 121/66 (84) 97 12/11/19 13:00 121/66 12/11/19 12:00 125/65 12/11/19 12:00 Room Air Room Air 12/11/19 12:00 98.2 77 17 121/63 (82) 99 12/11/19 11:22 83 12/11/19 11:00 118/58 12/11/19 11:00 80 15 118/58 (78) 98 12/11/19 10:00 88 26 120/68 (85) 99 12/11/19 10:00 125/67 12/11/19 09:30 86 19 119/68 (85) 99 12/11/19 09:00 123/69 12/11/19 09:00 82 21 123/70 (87) 98 12/11/19 08:00 Room Air Room Air 12/11/19 08:00 98.0 83 20 120/67 (84) 99 12/11/19 08:00 2.0 12/11/19 08:00 83 12/11/19 07:00 88 20 104/58 (73) 98 12/11/19 06:00 78 17 119/53 (75) 99 12/11/19 06:00 100 20 122/69 (86) 96 12/11/19 05:00 78 17 119/53 (75) 99 12/11/19 04:00 2.0 12/11/19 04:00 82 12/11/19 04:00 97.6 82 17 104/64 (77) 99 12/11/19 04:00 Room Air Room Air 12/11/19 03:21 112/56 12/11/19 03:21 90/66 12/11/19 03:00 81 18 132/82 (99) 99 12/11/19 02:00 79 18 100/54 (69) 100 12/11/19 01:30 120/65 12/11/19 01:00 80 19 120/65 (83) 100 12/11/19 00:00 83 12/11/19 00:00 2.0 12/11/19 00:00 98.7 83 19 119/56 (77) 100 12/11/19 00:00 Nasal Cannula 2.0 Nasal Cannula 2.0 12/10/19 23:00 81 17 117/56 (76) 100 12/10/19 22:00 78 18 114/64 (81) 100 12/10/19 21:00 77 20 118/62 (80) 100 12/10/19 20:00 Nasal Cannula 2.0 Nasal Cannula 2.0 12/10/19 20:00 98.3 80 19 120/79 (93) 100 12/10/19 20:00 2.0 12/10/19 20:00 80 12/10/19 19:00 72 21 121/63 (82) 100 12/10/19 18:00 129/58 12/10/19 18:00 76 16 129/58 (81) 100 12/10/19 17:00 69 17 94/53 (67) 100 12/10/19 17:00 94/53 12/10/19 17:00 102/64 12/10/19 16:00 98.1 72 15 121/60 (80) 100 12/10/19 16:00 2.0 12/10/19 16:00 Nasal Cannula 2.0 Nasal Cannula 2.0 12/10/19 16:00 121/60 12/10/19 16:00 71 12/10/19 15:00 114/62 12/10/19 15:00 73 16 114/62 (79) 100 12/10/19 14:30 66 17 95/53 (67) 100 12/10/19 14:00 74 18 135/56 (82) 100 12/10/19 14:00 135/56 12/10/19 13:00 78 20 122/96 (105) 99 12/10/19 13:00 122/96 12/10/19 12:00 98.4 82 26 118/62 (80) 100 12/10/19 12:00 2.0 12/10/19 12:00 123/68 12/10/19 12:00 84 12/10/19 12:00 Nasal Cannula 2.0 Nasal Cannula 2.0 12/10/19 11:00 94 27 106/74 (85) 12/10/19 11:00 111/68 12/10/19 10:00 98.5 84 22 107/65 (79) 99 12/10/19 10:00 107/65 12/10/19 09:30 98.5 68 17 117/50 (72) 100 12/10/19 09:00 98.5 79 23 120/66 (84) 99 12/10/19 09:00 120/66 12/10/19 08:58 98.5 87 23 130/72 (91) 98 12/10/19 08:30 85 17 130/72 (91) 100 12/10/19 08:00 2.0 12/10/19 08:00 80 20 121/63 (82) 100 12/10/19 08:00 Nasal Cannula 2.0 Nasal Cannula 2.0 Nasal Cannula 2.0 12/10/19 08:00 121/63 12/10/19 08:00 64 12/10/19 07:00 76 18 118/56 (76) 99 12/10/19 06:13 114/58 12/10/19 06:00 77 20 119/58 (78) 99 12/10/19 05:45 80 19 113/63 (80) 99 12/10/19 05:30 79 24 121/66 (84) 100 12/10/19 05:15 81 21 119/63 (81) 98 12/10/19 05:00 87 22 120/66 (84) 97 12/10/19 04:45 95 29 112/69 (83) 98 12/10/19 04:30 102 29 123/69 (87) 97 12/10/19 04:15 94 31 111/68 (82) 98 12/10/19 04:00 2.0 12/10/19 04:00 Nasal Cannula 2.0 12/10/19 04:00 98.5 67 16 112/56 (74) 100 12/10/19 03:45 75 26 108/62 (77) 100 12/10/19 03:30 68 16 120/51 (74) 100 12/10/19 03:20 72 12/10/19 03:15 68 17 108/58 (75) 100 12/10/19 03:00 72 20 114/53 (73) 99 12/10/19 02:30 70 19 113/54 (73) 100 12/10/19 02:15 72 19 114/50 (71) 99 12/10/19 02:00 69 22 111/57 (75) 100 12/10/19 01:45 72 20 115/56 (75) 100 12/10/19 01:30 71 17 110/56 (74) 99 12/10/19 01:19 115/60 12/10/19 01:00 70 22 118/54 (75) 99 12/10/19 00:30 65 17 107/53 (71) 100 12/10/19 00:15 71 22 106/54 (71) 100 12/10/19 00:00 Nasal Cannula 2.0 12/10/19 00:00 107/63 12/10/19 00:00 98.5 73 21 109/60 (76) 100 12/09/19 23:30 77 23 116/61 (79) 100 12/09/19 23:17 76 12/09/19 23:00 70 24 90/57 (68) 99 12/09/19 22:45 72 23 99/52 (68) 99 12/09/19 22:30 71 21 116/54 (74) 100 12/09/19 22:00 76 23 112/67 (82) 100 12/09/19 21:30 68 16 118/46 (70) 100 12/09/19 21:27 74 4 21:00 75 18 109/55 (73) 100 12/09/19 20:30 80 28 115/61 (79) 99 12/09/19 20:26 111/58 12/09/19 20:00 Nasal Cannula 2.0 12/09/19 20:00 2.0 12/09/19 20:00 98.9 74 19 112/62 (79) 100 12/09/19 19:06 75 15 100 Nasal Cannula 2.0 28 12/09/19 19:06 100 Nasal Cannula 2.0 28 12/09/19 19:00 72 17 104/50 (68) 99 12/09/19 19:00 104/50 12/09/19 18:30 96 27 124/69 (87) 97 12/09/19 18:00 117/64 12/09/19 18:00 72 18 117/64 (81) 99 12/09/19 17:30 74 18 119/55 (76) 99 12/09/19 17:00 78 19 118/60 (79) 99 12/09/19 17:00 118/60 12/09/19 16:00 2.0 12/09/19 16:00 111/63 12/09/19 16:00 98.1 77 19 115/51 (72) 100 12/09/19 16:00 74 12/09/19 16:00 Nasal Cannula 2.0 12/09/19 15:30 78 26 109/60 (76) 99 12/09/19 15:00 130/67 12/09/19 15:00 95 28 125/62 (83) 98 12/09/19 14:30 76 23 112/58 (76) 98 12/09/19 14:00 78 20 122/62 (82) 97 12/09/19 14:00 119/60 Intake and Output 12/10/19 12/11/19 19:00 07:00 Intake Total 1124.774 ml 245 ml Output Total 1025 ml 780 ml Balance 99.774 ml -535 ml Intake Free Water 100 ml 60 ml IV Total 994.774 ml 55 ml Tube Feeding 30 ml 130 ml Output Urine Total 1025 ml 780 ml Labs Test 12/09/19 04:30 12/10/19 01:00 12/10/19 03:40 12/10/19 12:00 White Blood Count 10.6 K/UL (4.8-10.8) 11.1 K/UL (4.8-10.8) Red Blood Count 3.18 M/UL (4.70-6.10) 3.14 M/UL (4.70-6.10) Hemoglobin 9.5 G/DL (14.2-18.0) 9.3 G/DL (14.2-18.0) Hematocrit 29.0 % (42.0-52.0) 28.4 % (42.0-52.0) Mean Corpuscular Volume 91 FL (80-99) 90 FL (80-99) Mean Corpuscular Hemoglobin 29.8 PG (27.0-31.0) 29.8 PG (27.0-31.0) Mean Corpuscular Hemoglobin Concent 32.7 G/DL (32.0-36.0) 32.9 G/DL (32.0-36.0) Red Cell Distribution Width 17.9 % (11.6-14.8) 17.8 % (11.6-14.8) Platelet Count 557 K/UL (150-450) 554 K/UL (150-450) Mean Platelet Volume 5.0 FL (6.5-10.1) 4.7 FL (6.5-10.1) Neutrophils (%) (Auto) 79.2 % (45.0-75.0) 78.9 % (45.0-75.0) Lymphocytes (%) (Auto) 12.4 % (20.0-45.0) 11.9 % (20.0-45.0) Monocytes (%) (Auto) 4.9 % (1.0-10.0) 6.2 % (1.0-10.0) Eosinophils (%) (Auto) 3.1 % (0.0-3.0) 2.5 % (0.0-3.0) Basophils (%) (Auto) 0.5 % (0.0-2.0) 0.5 % (0.0-2.0) Sodium Level 140 MMOL/L (136-145) 137 MMOL/L (136-145) Potassium Level 3.2 MMOL/L (3.5-5.1) 3.6 MMOL/L (3.5-5.1) Chloride Level 104 MMOL/L (98-107) 103 MMOL/L (98-107) Carbon Dioxide Level 28 MMOL/L (21-32) 22 MMOL/L (21-32) Anion Gap 8 mmol/L (5-15) 12 mmol/L (5-15) Blood Urea Nitrogen 17 mg/dL (7-18) 7 mg/dL (7-18) Creatinine 0.7 MG/DL (0.55-1.30) 0.8 MG/DL (0.55-1.30) Estimat Glomerular Filtration Rate > 60 mL/min (>60) > 60 mL/min (>60) Glucose Level 120 MG/DL (74-106) 122 MG/DL (74-106) Calcium Level 8.3 MG/DL (8.5-10.1) 8.3 MG/DL (8.5-10.1) Troponin I 0.021 ng/mL (0.000-0.056) 0.006 ng/mL (0.000-0.056) Pro-B-Type Natriuretic Peptide 2538 pg/mL (0-125) 1632 pg/mL (0-125) Vancomycin Level Trough 24.6 ug/mL (5.0-12.0) Hemoglobin A1c 5.4 % (4.3-6.0) Uric Acid 3.4 MG/DL (2.6-7.2) Phosphorus Level 3.3 MG/DL (2.5-4.9) Magnesium Level 1.6 MG/DL (1.8-2.4) Ferritin 646 NG/ML (8-388) Total Bilirubin 0.3 MG/DL (0.2-1.0) Gamma Glutamyl Transpeptidase 34 U/L (5-85) Aspartate Amino Transf (AST/SGOT) 19 U/L (15-37) Alanine Aminotransferase (ALT/SGPT) 21 U/L (12-78) Alkaline Phosphatase 119 U/L (46-116) C-Reactive Protein, Quantitative 15.1 mg/dL (0.00-0.90) Total Protein 6.4 G/DL (6.4-8.2) Albumin 1.5 G/DL (3.4-5.0) Globulin 4.9 g/dL Albumin/Globulin Ratio 0.3 (1.0-2.7) Triglycerides Level 80 MG/DL (30-150) Cholesterol Level 91 MG/DL (< 200) LDL Cholesterol 55 mg/dL (<100) HDL Cholesterol 24 MG/DL (40-60) Cholesterol/HDL Ratio 3.8 (3.3-4.4) Thyroid Stimulating Hormone (TSH) 1.495 uiU/mL (0.358-3.740) Cortisol AM Sample 11.4 UG/DL Activated Partial Thromboplast Time 32 SEC (23-33) Test 12/10/19 20:15 12/11/19 03:15 Activated Partial Thromboplast Time 67 SEC (23-33) 31 SEC (23-33) Height (Feet): 5 Height (Inches): 7.00 Weight (Pounds): 150 Objective Review of Systems difficult to obtain given medical condition baseline Physical Exam General Appearance: no apparent distress Lines, tubes and drains: central line HEENT: mucous membranes moist Neck: normal inspection Respiratory/Chest: no respiratory distress Cardiovascular/Chest: normal rate Abdomen: soft, no organomegaly, no mass, other Extremities: inflammation, slow capillary refill, other Skin Exam: warm/dry : judson+ Camden Bella MD Dec 11, 2019 13:48
[2019-12-11] MEDS ORDERED: Heparin 25,000u/D5W 500ml 500 ML IV SCH (14:45)
[2019-12-11] MEDS: Enoxaparin 80mg Inj SUBQ SCH (18:29)
[2019-12-11] MEDS: Dyna-Hex 2% Top Sol 2oz TOPIC SCH (20:04)
--- NOTE | 2019-12-11 21:00 | Pulmonolgy Critical Care Note ---
Critical Care - Asmt/Plan Assessment/Plan: Pulmonary Critical Care Progress Note HPI 69-year-old male history of cerebral palsy, bedbound, nonverbal, Roper dependent presented for fever cough and shortness of breath. Patient apparently fever for the 24 hours VASCULAR TECH. Patient is on nasal canula O2. History limited due to patient's baseline mental status. Has G tube Noted to have DVT On pressors PRN, Heparin gtt to Lovenox Negative for Covid19, In ICU due to hypotension On IV Antibiotics, IVF, IV pressors PRN Hemodynamically stable currently, on NC O2 Allergies: No Known Allergies Past Medical History: GERD, Dysphagia, previous G tube, Cerebral Palsy, BPH All Other Systems: limited - History limited due to patient's baseline mental status Physical Exam Vital Signs Noted General Appearance: thin, Chronically Ill, mild pallor Head: normocephalic, atraumatic Eyes: bilateral eye PERRL, bilateral eye EOMI ENT: moist mm Neck: full range of motion, supple Respiratory: CTAB Cardiovascular: regular rate, rhythm, HS1, HS2 normal, no murmur, normal peripheral pulses, Gastrointestinal: non tender, soft, non-distended, no guarding Musculoskeletal: other - Extremities contracted, chronic ulcerations noted bilateral feet Neurologic: awake, no focal defects, other - Patient nonverbal at baseline Skin: warm/dry Impression: Urinary tract infection Possible Pneumonia Sepsis Covid-19 negative Cerebral Palsy Seizure History BPH - chronic roper Dysphagia s/p G tube Anemia DVT Lymphopenia Plan IV antibiotics Heparin gtt to Lovenox VQ scan R/o coronavirus infection IVF Pressors PRN Await cultures PPX Monitor labs O2 PRN Bronchodilators Laboratory Tests Noted EK:12 Rate: normal Rhythm: NSR Other Impression t wave flattening 1 AVL CXR: Atelectasis RLL, L mid zone Subjective ROS Limited/Unobtainable: No Allergies: Coded Allergies: No Known Allergies (Unverified , 12/07/19) Microbiology Date/Time Source Procedure Growth Status 12/07/19 15:50 Nasal Nares - Final Complete 12/07/19 15:50 Nasal Nares - Final Complete 12/07/19 18:15 Rectum Received Critical Care - Objective Last 24 Hour Vital Signs Date Time Temp Pulse Resp B/P (MAP) Pulse Ox O2 Delivery O2 Flow Rate FiO2 4/7/20 19:00 93 18 111/71 (84) 98 12/11/19 18:58 99 Nasal Cannula 2.0 28 12/11/19 18:58 71 17 99 Nasal Cannula 2.0 28 12/11/19 18:00 121 29 101/65 (77) 95 12/11/19 18:00 101/65 12/11/19 17:30 79 18 122/60 (80) 99 12/11/19 17:00 133/58 12/11/19 17:00 82 19 133/58 (83) 99 12/11/19 16:30 98.9 84 17 123/59 (80) 98 12/11/19 16:00 82 12/11/19 16:00 84 18 127/62 (83) 98 12/11/19 16:00 Room Air Room Air 12/11/19 16:00 123/59 12/11/19 15:30 82 20 131/58 (82) 98 12/11/19 15:00 82 21 129/65 (86) 99 12/11/19 15:00 129/65 12/11/19 14:00 110/57 12/11/19 14:00 88 23 71/39 (50) 97 12/11/19 13:00 83 21 121/66 (84) 97 12/11/19 13:00 121/66 12/11/19 12:00 125/65 12/11/19 12:00 Room Air Room Air 12/11/19 12:00 98.2 77 17 121/63 (82) 99 12/11/19 11:22 83 12/11/19 11:00 118/58 12/11/19 11:00 80 15 118/58 (78) 98 12/11/19 10:00 88 26 120/68 (85) 99 12/11/19 10:00 125/67 12/11/19 09:30 86 19 119/68 (85) 99 12/11/19 09:00 123/69 12/11/19 09:00 82 21 123/70 (87) 98 12/11/19 08:00 Room Air Room Air 12/11/19 08:00 98.0 83 20 120/67 (84) 99 12/11/19 08:00 2.0 12/11/19 08:00 83 12/11/19 07:00 88 20 104/58 (73) 98 12/11/19 06:00 78 17 119/53 (75) 99 12/11/19 06:00 100 20 122/69 (86) 96 12/11/19 05:00 78 17 119/53 (75) 99 12/11/19 04:00 2.0 12/11/19 04:00 82 12/11/19 04:00 97.6 82 17 104/64 (77) 99 12/11/19 04:00 Room Air Room Air 12/11/19 03:21 112/56 12/11/19 03:21 90/66 12/11/19 03:00 81 18 132/82 (99) 99 12/11/19 02:00 79 18 100/54 (69) 100 12/11/19 01:30 120/65 12/11/19 01:00 80 19 120/65 (83) 100 12/11/19 00:00 83 12/11/19 00:00 2.0 12/11/19 00:00 98.7 83 19 119/56 (77) 100 12/11/19 00:00 Nasal Cannula 2.0 Nasal Cannula 2.0 12/10/19 23:00 81 17 117/56 (76) 100 12/10/19 22:00 78 18 114/64 (81) 100 12/10/19 21:00 77 20 118/62 (80) 100 Critical Care - Subjective ROS Limited/Unobtainable: No Condition: improving FI02: 28 Sputum Amount: None Tube Feeding Amount: 10 I&O: Intake and Output 12/10/19 12/11/19 19:00 07:00 Intake Total 1124.774 ml 245 ml Output Total 1025 ml 780 ml Balance 99.774 ml -535 ml Intake Free Water 100 ml 60 ml IV Total 994.774 ml 55 ml Tube Feeding 30 ml 130 ml Output Urine Total 1025 ml 780 ml Oscar Bragg MD Dec 11, 2019 21:00
--- NOTE | 2019-12-11 21:57 | General Progress Note ---
Assessment/Plan Problem List: (1) Urinary tract infection ICD Codes: N39.0 - Urinary tract infection, site not specified SNOMED: 36971464 (2) Respiratory insufficiency ICD Codes: R06.89 - Other abnormalities of breathing SNOMED: 873556464 (3) Decubital ulcer ICD Codes: L89.90 - Pressure ulcer of unspecified site, unspecified stage SNOMED: 209180291 (4) Suspected COVID-19 virus infection ICD Codes: R68.89 - Other general symptoms and signs SNOMED: 034955163 Status: progressing, deteriorating Assessment/Plan: downs syndrome on pressors for septic shock nsvt seizure pna resp insuff sepsis uti peg malnutrition abx per id still on pressors unstable to leave icu afebrile Subjective ROS Limited/Unobtainable: Yes Allergies: Coded Allergies: MOLD (Unverified Allergy, Unknown, 12/07/19) POLLEN EXTRACTS (Unverified Allergy, Unknown, 12/07/19) Objective Last 24 Hour Vital Signs Date Time Temp Pulse Resp B/P (MAP) Pulse Ox O2 Delivery O2 Flow Rate FiO2 12/11/19 19:00 93 18 111/71 (84) 98 12/11/19 18:58 99 Nasal Cannula 2.0 28 12/11/19 18:58 71 17 99 Nasal Cannula 2.0 28 12/11/19 18:00 121 29 101/65 (77) 95 12/11/19 18:00 101/65 12/11/19 17:30 79 18 122/60 (80) 99 12/11/19 17:00 133/58 12/11/19 17:00 82 19 133/58 (83) 99 12/11/19 16:30 98.9 84 17 123/59 (80) 98 12/11/19 16:00 82 12/11/19 16:00 84 18 127/62 (83) 98 12/11/19 16:00 Room Air Room Air 12/11/19 16:00 123/59 12/11/19 15:30 82 20 131/58 (82) 98 12/11/19 15:00 82 21 129/65 (86) 99 12/11/19 15:00 129/65 12/11/19 14:00 110/57 12/11/19 14:00 88 23 71/39 (50) 97 12/11/19 13:00 83 21 121/66 (84) 97 12/11/19 13:00 121/66 12/11/19 12:00 125/65 12/11/19 12:00 Room Air Room Air 12/11/19 12:00 98.2 77 17 121/63 (82) 99 12/11/19 11:22 83 12/11/19 11:00 118/58 12/11/19 11:00 80 15 118/58 (78) 98 12/11/19 10:00 88 26 120/68 (85) 99 12/11/19 10:00 125/67 12/11/19 09:30 86 19 119/68 (85) 99 12/11/19 09:00 123/69 12/11/19 09:00 82 21 123/70 (87) 98 12/11/19 08:00 Room Air Room Air 12/11/19 08:00 98.0 83 20 120/67 (84) 99 12/11/19 08:00 2.0 12/11/19 08:00 83 12/11/19 07:00 88 20 104/58 (73) 98 12/11/19 06:00 78 17 119/53 (75) 99 12/11/19 06:00 100 20 122/69 (86) 96 12/11/19 05:00 78 17 119/53 (75) 99 12/11/19 04:00 2.0 12/11/19 04:00 82 12/11/19 04:00 97.6 82 17 104/64 (77) 99 12/11/19 04:00 Room Air Room Air 12/11/19 03:21 112/56 12/11/19 03:21 90/66 12/11/19 03:00 81 18 132/82 (99) 99 12/11/19 02:00 79 18 100/54 (69) 100 12/11/19 01:30 120/65 12/11/19 01:00 80 19 120/65 (83) 100 12/11/19 00:00 83 12/11/19 00:00 2.0 12/11/19 00:00 98.7 83 19 119/56 (77) 100 12/11/19 00:00 Nasal Cannula 2.0 Nasal Cannula 2.0 12/10/19 23:00 81 17 117/56 (76) 100 12/10/19 22:00 78 18 114/64 (81) 100 Intake and Output 12/10/19 12/11/19 19:00 07:00 Intake Total 1124.774 ml 245 ml Output Total 1025 ml 780 ml Balance 99.774 ml -535 ml Intake Free Water 100 ml 60 ml IV Total 994.774 ml 55 ml Tube Feeding 30 ml 130 ml Output Urine Total 1025 ml 780 ml Laboratory Tests 12/11/19 03:15: Activated Partial Thromboplast Time 31 12/11/19 13:30: Activated Partial Thromboplast Time 106H Height (Feet): 5 Height (Inches): 7.00 Weight (Pounds): 150 Leda Sweeney MD Dec 11, 2019 21:57
--- NOTE | 2019-12-11 22:01 | General Progress Note ---
Assessment/Plan Status: progressing, deteriorating Assessment/Plan: Assessment - Cerebral palsy - dysphagia, s/p PEG - contracture deformities - decubitus ulcers - sepsis - UTI - Anemia Recommendations - Begin TF, slowly - Elevate HOB - monitor residuals - PPI - Abx / supportive care - wean off pressors as tolerated - sound care Thank you Zakiya Vargas MD Subjective Allergies: Coded Allergies: MOLD (Unverified Allergy, Unknown, 12/07/19) POLLEN EXTRACTS (Unverified Allergy, Unknown, 12/07/19) Objective Last 24 Hour Vital Signs Date Time Temp Pulse Resp B/P (MAP) Pulse Ox O2 Delivery O2 Flow Rate FiO2 12/11/19 19:00 93 18 111/71 (84) 98 12/11/19 18:58 99 Nasal Cannula 2.0 28 12/11/19 18:58 71 17 99 Nasal Cannula 2.0 28 12/11/19 18:00 121 29 101/65 (77) 95 12/11/19 18:00 101/65 12/11/19 17:30 79 18 122/60 (80) 99 12/11/19 17:00 133/58 12/11/19 17:00 82 19 133/58 (83) 99 12/11/19 16:30 98.9 84 17 123/59 (80) 98 12/11/19 16:00 82 12/11/19 16:00 84 18 127/62 (83) 98 12/11/19 16:00 Room Air Room Air 12/11/19 16:00 123/59 12/11/19 15:30 82 20 131/58 (82) 98 12/11/19 15:00 82 21 129/65 (86) 99 12/11/19 15:00 129/65 12/11/19 14:00 110/57 12/11/19 14:00 88 23 71/39 (50) 97 12/11/19 13:00 83 21 121/66 (84) 97 12/11/19 13:00 121/66 12/11/19 12:00 125/65 12/11/19 12:00 Room Air Room Air 12/11/19 12:00 98.2 77 17 121/63 (82) 99 12/11/19 11:22 83 12/11/19 11:00 118/58 4/7/20 11:00 80 15 118/58 (78) 98 12/11/19 10:00 88 26 120/68 (85) 99 12/11/19 10:00 125/67 12/11/19 09:30 86 19 119/68 (85) 99 12/11/19 09:00 123/69 12/11/19 09:00 82 21 123/70 (87) 98 12/11/19 08:00 Room Air Room Air 12/11/19 08:00 98.0 83 20 120/67 (84) 99 12/11/19 08:00 2.0 12/11/19 08:00 83 12/11/19 07:00 88 20 104/58 (73) 98 12/11/19 06:00 78 17 119/53 (75) 99 12/11/19 06:00 100 20 122/69 (86) 96 12/11/19 05:00 78 17 119/53 (75) 99 12/11/19 04:00 2.0 12/11/19 04:00 82 12/11/19 04:00 97.6 82 17 104/64 (77) 99 12/11/19 04:00 Room Air Room Air 12/11/19 03:21 112/56 12/11/19 03:21 90/66 12/11/19 03:00 81 18 132/82 (99) 99 12/11/19 02:00 79 18 100/54 (69) 100 12/11/19 01:30 120/65 12/11/19 01:00 80 19 120/65 (83) 100 12/11/19 00:00 83 12/11/19 00:00 2.0 12/11/19 00:00 98.7 83 19 119/56 (77) 100 12/11/19 00:00 Nasal Cannula 2.0 Nasal Cannula 2.0 12/10/19 23:00 81 17 117/56 (76) 100 Intake and Output 12/10/19 12/11/19 19:00 07:00 Intake Total 1124.774 ml 245 ml Output Total 1025 ml 780 ml Balance 99.774 ml -535 ml Intake Free Water 100 ml 60 ml IV Total 994.774 ml 55 ml Tube Feeding 30 ml 130 ml Output Urine Total 1025 ml 780 ml Laboratory Tests 12/11/19 03:15: Activated Partial Thromboplast Time 31 12/11/19 13:30: Activated Partial Thromboplast Time 106H Height (Feet): 5 Height (Inches): 7.00 Weight (Pounds): 150 Zakiya Vargas MD Dec 11, 2019 22:01
[2019-12-12] VITALS (48 sets, daily range): BP systolic 79–124; BP diastolic 43–101
[2019-12-12] MEDS: DOPamine 400mg/250ml 250 ML IV SCH ×3 (00:24→23:42)
[2019-12-12] MEDS: D5NS 1,000 ML IV SCH ×2 (01:47→17:35)
[2019-12-12 05:35] LABS: BASOPHILS % (AUTO) 0.6 % (0.0-2.0); EOSINOPHILS % (AUTO) 1.2 % (0.0-3.0); HEMATOCRIT 30.6 % (42.0-52.0); HEMOGLOBIN 10.4 G/DL (14.2-18.0); LYMPHOCYTES % (AUTO) 14.2 % (20.0-45.0); MEAN CORPUSCULAR VOLUME 89 FL (80-99); MONOCYTES % (AUTO) 6.5 % (1.0-10.0); NEUTROPHILS % (AUTO) 77.5 % (45.0-75.0); PLATELET COUNT 567 K/UL (150-450); RED BLOOD COUNT 3.43 M/UL (4.70-6.10); RED CELL DISTRIBUTION WIDTH 17.5 % (11.6-14.8); WHITE BLOOD COUNT 10.1 K/UL (4.8-10.8)
[2019-12-12] MEDS: Enoxaparin 80mg Inj SUBQ SCH ×2 (05:40→17:32)
[2019-12-12 06:08] LABS: ALANINE AMINOTRANSFERASE 17 U/L (12-78); ALBUMIN 1.6 G/DL (3.4-5.0); ALBUMIN/GLOBULIN RATIO 0.3 (1.0-2.7); ALKALINE PHOSPHATASE 136 U/L (46-116); ANION GAP 10 mmol/L (5-15); ASPARTATE AMINO TRANSFERASE 18 U/L (15-37); BILIRUBIN,TOTAL 0.3 MG/DL (0.2-1.0); BLOOD UREA NITROGEN 10 mg/dL (7-18); CALCIUM 8.5 MG/DL (8.5-10.1); CARBON DIOXIDE 24 MMOL/L (21-32); CHLORIDE 104 MMOL/L (98-107); CREATININE 0.8 MG/DL (0.55-1.30); PHOSPHORUS 3.5 MG/DL (2.5-4.9); POTASSIUM 3.1 MMOL/L (3.5-5.1); SODIUM 137 MMOL/L (136-145)
[2019-12-12] MEDS: Cefepime HCl 1 GM in D5W 55 ML IVPB SCH ×2 (08:19→20:26)
[2019-12-12] MEDS: levETIRAcetam 500mg/5ml Liquid GT SCH ×2 (08:19→20:26)
--- NOTE | 2019-12-12 10:05 | Hematology/Onc Progress Note ---
Assessment/Plan Assessment/Plan IMPRESSION/RECS: # Anemia of chronic disease due to underlying chronic medical issues, multifactorial v Gi bleed --> Anemia workup has been ordered, rule out gi bleed --> No evidence of hemolysis is noted, peripheral smear has been reviewed. --> Hgb goal >7. Transfuse prn. --> Epogen or iron at this time is not particularly indicated --> Medications have been reviewed --> low threshold for gi evaluation in case has occult + --> bone marrow biopsy is not indicated given the other more likely causes # Dvt of the right leg history --> hep bolus and gtt -> lovenox sq bid --> 12/09 us duplex positive for right dvt # Lymphopenia is likely due to Sepsis, septic shock, currently on dopamine. --> remains in the icu, with UTI with Pseudomonas --> imaging noted, cultures reviewed --> as per id Positive blood culture likely contamination --> COVID negative --> abx: cefepime # VRE Carrier # Multiple pressure ulcer, # Down syndrome. The timing of this note does not necessarily reflect the time of the patient was seen. Greatly appreciate consultation. Subjective Cardiovascular: Denies: no symptoms, chest pain, edema, irregular heart rate, lightheadedness, palpitations, syncope, other Respiratory: Denies: no symptoms, cough, shortness of breath, SOB with excertion, SOB at rest, sputum, wheezing, other Gastrointestinal/Abdominal: Denies: no symptoms, abdomen distended, abdominal pain, black stools, tarry stools, blood in stool, constipated, diarrhea, difficulty swallowing, nausea, poor appetite, poor fluid intake, rectal bleeding , vomiting, other Genitourinary: Denies: no symptoms, burning, discharge, frequency, flank pain, hematuria, incontinence, pain, urgency, other Neurologic/Psychiatric: Denies: no symptoms, anxiety, depressed, emotional problems, headache, numbness, paresthesia, pre-existing deficit, seizure, tingling, tremors, weakness, other Hematologic/Lymphatic: Denies: no symptoms, anemia, easy bleeding, easy bruising, adenopathy, other Allergies: Coded Allergies: MOLD (Unverified Allergy, Unknown, 12/07/19) POLLEN EXTRACTS (Unverified Allergy, Unknown, 12/07/19) Subjective 12/10 icu, nonverbal, cov 19 negative, positive for right le dvt, on pressors 12/11 remains on dopamine, with gtube feeds as well, labs noted hgb 10.4 Objective Objective Current Medications Medications (Trade) Dose Ordered Sig/Nazia Route PRN Reason Start Time Stop Time Status Last Admin Dose Admin Acetaminophen (Tylenol) 650 mg Q4H PRN ORAL Temp >100.5 12/08/19 05:00 01/07/20 04:59 12/08/19 09:06 Acetaminophen (Tylenol) 650 mg Q4H PRN RECTAL Temp >100.5 12/08/19 05:30 01/06/20 20:59 Albuterol Sulfate (Proventil) 2.5 mg Q6H PRN HHN Shortness of Breath 12/08/19 06:00 12/13/19 05:59 Cefepime HCl 1 gm/ Dextrose 55 ml @ 110 mls/hr EVERY 12 HOURS IVPB 12/10/19 11:00 12/17/19 10:59 12/12/19 08:19 Chlorhexidine Gluconate (Susanna-Hex 2%) 1 applic DAILY@2000 TOPIC 12/08/19 20:00 03/07/20 19:59 12/11/19 20:04 Dextrose/Sodium Chloride 1,000 ml @ 60 mls/hr [id number] IV 12/09/19 10:15 01/08/20 10:14 12/12/19 01:47 Dopamine HCl/ Dextrose 250 ml @ 0 mls/hr Q24H IV 12/09/19 16:15 03/07/20 16:14 12/12/19 00:24 Enoxaparin Sodium (Lovenox) 70 mg Q12H SUBQ 12/11/19 18:00 03/10/20 17:59 12/12/19 05:40 Lansoprazole (Prevacid) 30 mg BID GT 12/09/19 18:00 01/07/20 08:59 12/12/19 08:19 Levetiracetam (Keppra) 500 mg Q12HR GT 12/08/19 09:00 01/07/20 08:59 12/12/19 08:19 Norepinephrine Bitartrate 4 mg/ Dextrose 250 ml @ 0 mls/hr Q24H IV 12/09/19 01:30 01/07/20 01:29 12/08/19 02:39 Ondansetron HCl (Zofran) 4 mg Q6H PRN IVP Nausea & Vomiting 12/08/19 03:30 01/06/20 21:29 Potassium Chloride 100 ml @ 50 mls/hr Q2H IVPB 12/12/19 09:00 12/12/19 12:59 12/12/19 10:02 Last 24 Hour Vital Signs Date Time Temp Pulse Resp B/P (MAP) Pulse Ox O2 Delivery O2 Flow Rate FiO2 12/12/19 09:30 80 19 109/57 (74) 94 12/12/19 09:00 82 17 105/54 (71) 97 12/12/19 09:00 101/49 12/12/19 08:30 81 16 107/51 (69) 98 12/12/19 08:00 98.9 79 14 101/53 (69) 100 12/12/19 08:00 109/58 12/12/19 07:00 80 18 100/51 (67) 98 12/12/19 07:00 100/51 12/12/19 06:30 79 15 98/53 (68) 99 12/12/19 06:00 98/54 12/12/19 06:00 79 15 98/54 (69) 99 12/12/19 05:30 81 19 99/63 (75) 98 12/12/19 05:00 83 16 98/48 (65) 99 12/12/19 05:00 100/57 12/12/19 04:30 78 16 99/62 (74) 98 12/12/19 04:15 78 17 90/55 (67) 98 12/12/19 04:00 98.5 86 18 103/71 (82) 97 12/12/19 04:00 90/55 12/12/19 04:00 105 12/12/19 04:00 Room Air Room Air 12/12/19 03:30 93 22 90/51 (64) 96 12/12/19 03:15 106 35 95/54 (68) 97 12/12/19 03:00 91 24 123/57 (79) 96 12/12/19 03:00 95/54 12/12/19 02:30 90 21 118/60 (79) 96 12/12/19 02:00 93 21 119/57 (77) 96 12/12/19 02:00 120/57 12/12/19 01:30 89 22 119/59 (79) 97 12/12/19 01:30 119/58 12/12/19 01:00 127/62 12/12/19 01:00 83 17 122/61 (81) 96 12/12/19 00:30 75 20 116/55 (75) 96 12/12/19 00:24 84/41 12/12/19 00:00 Room Air Room Air 12/12/19 00:00 84/41 12/12/19 00:00 81 12/12/19 00:00 98.6 88 22 119/63 (81) 95 12/11/19 23:30 79 19 122/60 (80) 97 12/11/19 23:00 115/53 12/11/19 23:00 98 28 68/40 (49) 95 12/11/19 22:30 86 23 97/73 (81) 97 12/11/19 22:00 85 16 119/60 (79) 97 12/11/19 22:00 109/61 12/11/19 21:30 87 23 114/60 (78) 98 12/11/19 21:00 86 20 119/58 (78) 98 12/11/19 21:00 109/87 12/11/19 20:30 87 23 117/58 (77) 98 12/11/19 20:00 Room Air Room Air 12/11/19 20:00 90 12/11/19 20:00 98.5 90 17 135/59 (84) 100 12/11/19 20:00 117/53 12/11/19 19:30 93 20 117/61 (79) 96 12/11/19 19:00 122/61 12/11/19 19:00 93 18 111/71 (84) 98 12/11/19 18:58 99 Nasal Cannula 2.0 28 12/11/19 18:58 71 17 99 Nasal Cannula 2.0 28 12/11/19 18:00 121 29 101/65 (77) 95 12/11/19 18:00 101/65 12/11/19 17:30 79 18 122/60 (80) 99 12/11/19 17:00 133/58 12/11/19 17:00 82 19 133/58 (83) 99 4/7/20 16:30 98.9 84 17 123/59 (80) 98 12/11/19 16:00 82 12/11/19 16:00 84 18 127/62 (83) 98 12/11/19 16:00 Room Air Room Air 12/11/19 16:00 123/59 12/11/19 15:30 82 20 131/58 (82) 98 12/11/19 15:00 82 21 129/65 (86) 99 12/11/19 15:00 129/65 12/11/19 14:00 110/57 12/11/19 14:00 88 23 71/39 (50) 97 12/11/19 13:00 83 21 121/66 (84) 97 12/11/19 13:00 121/66 12/11/19 12:00 125/65 12/11/19 12:00 Room Air Room Air 12/11/19 12:00 98.2 77 17 121/63 (82) 99 12/11/19 11:22 83 12/11/19 11:00 118/58 12/11/19 11:00 80 15 118/58 (78) 98 12/11/19 10:00 88 26 120/68 (85) 99 12/11/19 10:00 125/67 12/11/19 09:30 86 19 119/68 (85) 99 12/11/19 09:00 123/69 12/11/19 09:00 82 21 123/70 (87) 98 12/11/19 08:00 Room Air Room Air 12/11/19 08:00 98.0 83 20 120/67 (84) 99 12/11/19 08:00 2.0 12/11/19 08:00 83 12/11/19 07:00 88 20 104/58 (73) 98 12/11/19 06:00 78 17 119/53 (75) 99 12/11/19 06:00 100 20 122/69 (86) 96 12/11/19 05:00 78 17 119/53 (75) 99 12/11/19 04:00 2.0 12/11/19 04:00 82 12/11/19 04:00 97.6 82 17 104/64 (77) 99 12/11/19 04:00 Room Air Room Air 12/11/19 03:21 112/56 12/11/19 03:21 90/66 12/11/19 03:00 81 18 132/82 (99) 99 12/11/19 02:00 79 18 100/54 (69) 100 12/11/19 01:30 120/65 12/11/19 01:00 80 19 120/65 (83) 100 12/11/19 00:00 83 12/11/19 00:00 2.0 12/11/19 00:00 98.7 83 19 119/56 (77) 100 12/11/19 00:00 Nasal Cannula 2.0 Nasal Cannula 2.0 12/10/19 23:00 81 17 117/56 (76) 100 12/10/19 22:00 78 18 114/64 (81) 100 12/10/19 21:00 77 20 118/62 (80) 100 12/10/19 20:00 Nasal Cannula 2.0 Nasal Cannula 2.0 12/10/19 20:00 98.3 80 19 120/79 (93) 100 12/10/19 20:00 2.0 12/10/19 20:00 80 12/10/19 19:00 72 21 121/63 (82) 100 12/10/19 18:00 129/58 12/10/19 18:00 76 16 129/58 (81) 100 12/10/19 17:00 69 17 94/53 (67) 100 12/10/19 17:00 94/53 12/10/19 17:00 102/64 12/10/19 16:00 98.1 72 15 121/60 (80) 100 12/10/19 16:00 2.0 12/10/19 16:00 Nasal Cannula 2.0 Nasal Cannula 2.0 12/10/19 16:00 121/60 12/10/19 16:00 71 12/10/19 15:00 114/62 12/10/19 15:00 73 16 114/62 (79) 100 12/10/19 14:30 66 17 95/53 (67) 100 12/10/19 14:00 74 18 135/56 (82) 100 12/10/19 14:00 135/56 12/10/19 13:00 78 20 122/96 (105) 99 12/10/19 13:00 122/96 12/10/19 12:00 98.4 82 26 118/62 (80) 100 12/10/19 12:00 2.0 12/10/19 12:00 123/68 12/10/19 12:00 84 12/10/19 12:00 Nasal Cannula 2.0 Nasal Cannula 2.0 12/10/19 11:00 94 27 106/74 (85) 12/10/19 11:00 111/68 Intake and Output 12/11/19 12/12/19 19:00 07:00 Intake Total 1368.777 ml 1186.104 ml Output Total 1155 ml 360 ml Balance 213.777 ml 826.104 ml IV Total 1188.777 ml 1006.104 ml Tube Feeding 120 ml 120 ml Other 60 ml 60 ml Output Urine Total 1155 ml 360 ml Labs Test 12/10/19 01:00 12/10/19 03:40 12/10/19 12:00 12/10/19 20:15 Vancomycin Level Trough 24.6 ug/mL (5.0-12.0) White Blood Count 11.1 K/UL (4.8-10.8) Red Blood Count 3.14 M/UL (4.70-6.10) Hemoglobin 9.3 G/DL (14.2-18.0) Hematocrit 28.4 % (42.0-52.0) Mean Corpuscular Volume 90 FL (80-99) Mean Corpuscular Hemoglobin 29.8 PG (27.0-31.0) Mean Corpuscular Hemoglobin Concent 32.9 G/DL (32.0-36.0) Red Cell Distribution Width 17.8 % (11.6-14.8) Platelet Count 554 K/UL (150-450) Mean Platelet Volume 4.7 FL (6.5-10.1) Neutrophils (%) (Auto) 78.9 % (45.0-75.0) Lymphocytes (%) (Auto) 11.9 % (20.0-45.0) Monocytes (%) (Auto) 6.2 % (1.0-10.0) Eosinophils (%) (Auto) 2.5 % (0.0-3.0) Basophils (%) (Auto) 0.5 % (0.0-2.0) Sodium Level 137 MMOL/L (136-145) Potassium Level 3.6 MMOL/L (3.5-5.1) Chloride Level 103 MMOL/L (98-107) Carbon Dioxide Level 22 MMOL/L (21-32) Anion Gap 12 mmol/L (5-15) Blood Urea Nitrogen 7 mg/dL (7-18) Creatinine 0.8 MG/DL (0.55-1.30) Estimat Glomerular Filtration Rate > 60 mL/min (>60) Glucose Level 122 MG/DL (74-106) Hemoglobin A1c 5.4 % (4.3-6.0) Uric Acid 3.4 MG/DL (2.6-7.2) Calcium Level 8.3 MG/DL (8.5-10.1) Phosphorus Level 3.3 MG/DL (2.5-4.9) Magnesium Level 1.6 MG/DL (1.8-2.4) Ferritin 646 NG/ML (8-388) Total Bilirubin 0.3 MG/DL (0.2-1.0) Gamma Glutamyl Transpeptidase 34 U/L (5-85) Aspartate Amino Transf (AST/SGOT) 19 U/L (15-37) Alanine Aminotransferase (ALT/SGPT) 21 U/L (12-78) Alkaline Phosphatase 119 U/L (46-116) Troponin I 0.006 ng/mL (0.000-0.056) C-Reactive Protein, Quantitative 15.1 mg/dL (0.00-0.90) Pro-B-Type Natriuretic Peptide 1632 pg/mL (0-125) Total Protein 6.4 G/DL (6.4-8.2) Albumin 1.5 G/DL (3.4-5.0) Globulin 4.9 g/dL Albumin/Globulin Ratio 0.3 (1.0-2.7) Triglycerides Level 80 MG/DL (30-150) Cholesterol Level 91 MG/DL (< 200) LDL Cholesterol 55 mg/dL (<100) HDL Cholesterol 24 MG/DL (40-60) Cholesterol/HDL Ratio 3.8 (3.3-4.4) Thyroid Stimulating Hormone (TSH) 1.495 uiU/mL (0.358-3.740) Cortisol AM Sample 11.4 UG/DL Activated Partial Thromboplast Time 32 SEC (23-33) 67 SEC (23-33) Test 12/11/19 03:15 12/11/19 13:30 12/12/19 04:00 Activated Partial Thromboplast Time 31 SEC (23-33) 106 SEC (23-33) White Blood Count 10.1 K/UL (4.8-10.8) Red Blood Count 3.43 M/UL (4.70-6.10) Hemoglobin 10.4 G/DL (14.2-18.0) Hematocrit 30.6 % (42.0-52.0) Mean Corpuscular Volume 89 FL (80-99) Mean Corpuscular Hemoglobin 30.3 PG (27.0-31.0) Mean Corpuscular Hemoglobin Concent 34.0 G/DL (32.0-36.0) Red Cell Distribution Width 17.5 % (11.6-14.8) Platelet Count 567 K/UL (150-450) Mean Platelet Volume 5.1 FL (6.5-10.1) Neutrophils (%) (Auto) 77.5 % (45.0-75.0) Lymphocytes (%) (Auto) 14.2 % (20.0-45.0) Monocytes (%) (Auto) 6.5 % (1.0-10.0) Eosinophils (%) (Auto) 1.2 % (0.0-3.0) Basophils (%) (Auto) 0.6 % (0.0-2.0) Sodium Level 137 MMOL/L (136-145) Potassium Level 3.1 MMOL/L (3.5-5.1) Chloride Level 104 MMOL/L (98-107) Carbon Dioxide Level 24 MMOL/L (21-32) Anion Gap 10 mmol/L (5-15) Blood Urea Nitrogen 10 mg/dL (7-18) Creatinine 0.8 MG/DL (0.55-1.30) Estimat Glomerular Filtration Rate > 60 mL/min (>60) Glucose Level 128 MG/DL (74-106) Calcium Level 8.5 MG/DL (8.5-10.1) Phosphorus Level 3.5 MG/DL (2.5-4.9) Magnesium Level 1.8 MG/DL (1.8-2.4) Total Bilirubin 0.3 MG/DL (0.2-1.0) Aspartate Amino Transf (AST/SGOT) 18 U/L (15-37) Alanine Aminotransferase (ALT/SGPT) 17 U/L (12-78) Alkaline Phosphatase 136 U/L (46-116) C-Reactive Protein, Quantitative 15.4 mg/dL (0.00-0.90) Pro-B-Type Natriuretic Peptide 1730 pg/mL (0-125) Total Protein 6.4 G/DL (6.4-8.2) Albumin 1.6 G/DL (3.4-5.0) Globulin 4.8 g/dL Albumin/Globulin Ratio 0.3 (1.0-2.7) Height (Feet): 5 Height (Inches): 7.00 Weight (Pounds): 147 Objective Review of Systems difficult to obtain given medical condition baseline Physical Exam General Appearance: no apparent distress Lines, tubes and drains: central line HEENT: mucous membranes moist Neck: normal inspection Respiratory/Chest: no respiratory distress Cardiovascular/Chest: normal rate Abdomen: soft, no organomegaly, no mass, other Extremities: inflammation, slow capillary refill, other Skin Exam: warm/dry : roper+ Camden Bella MD Dec 12, 2019 10:04
--- NOTE | 2019-12-12 10:18 | Nephrology Progress Note ---
Assessment/Plan Problem List: (1) Electrolyte imbalance (2) Dehydration (3) Urinary tract infection (4) Hypoalbuminemia (5) Hypokalemia (6) BPH (benign prostatic hyperplasia) (7) Anemia Assessment Hypokalemia Hypoalbuminemia Urinary tract infection Possible Pneumonia, Sepsis, Rule out Covid-19 Cerebral Palsy Seizure History BPH - chronic roper Dysphagia s/p G tube Anemia, Lymphopenia Plan IV hydration-potassium supplement as needed Monitor renal parameters and electrolytes Antibiotics Avoid nephrotoxic's Per consultants Per orders Subjective ROS Limited/Unobtainable: No Constitutional: Reports: malaise Objective Objective Last 24 Hour Vital Signs Date Time Temp Pulse Resp B/P (MAP) Pulse Ox O2 Delivery O2 Flow Rate FiO2 12/12/19 10:00 77 15 106/52 (70) 99 12/12/19 10:00 106/52 12/12/19 09:30 80 19 109/57 (74) 94 12/12/19 09:00 82 17 105/54 (71) 97 12/12/19 09:00 101/49 12/12/19 08:30 81 16 107/51 (69) 98 12/12/19 08:00 98.9 79 14 101/53 (69) 100 12/12/19 08:00 109/58 12/12/19 08:00 Room Air Room Air 12/12/19 07:00 80 18 100/51 (67) 98 12/12/19 07:00 100/51 12/12/19 06:30 79 15 98/53 (68) 99 12/12/19 06:00 98/54 12/12/19 06:00 79 15 98/54 (69) 99 12/12/19 05:30 81 19 99/63 (75) 98 12/12/19 05:00 83 16 98/48 (65) 99 12/12/19 05:00 100/57 12/12/19 04:30 78 16 99/62 (74) 98 12/12/19 04:15 78 17 90/55 (67) 98 12/12/19 04:00 98.5 86 18 103/71 (82) 97 12/12/19 04:00 90/55 12/12/19 04:00 105 12/12/19 04:00 Room Air Room Air 12/12/19 03:30 93 22 90/51 (64) 96 12/12/19 03:15 106 35 95/54 (68) 97 12/12/19 03:00 91 24 123/57 (79) 96 12/12/19 03:00 95/54 12/12/19 02:30 90 21 118/60 (79) 96 12/12/19 02:00 93 21 119/57 (77) 96 12/12/19 02:00 120/57 12/12/19 01:30 89 22 119/59 (79) 97 12/12/19 01:30 119/58 12/12/19 01:00 127/62 12/12/19 01:00 83 17 122/61 (81) 96 12/12/19 00:30 75 20 116/55 (75) 96 12/12/19 00:24 84/41 12/12/19 00:00 Room Air Room Air 12/12/19 00:00 84/41 12/12/19 00:00 81 12/12/19 00:00 98.6 88 22 119/63 (81) 95 12/11/19 23:30 79 19 122/60 (80) 97 12/11/19 23:00 115/53 12/11/19 23:00 98 28 68/40 (49) 95 12/11/19 22:30 86 23 97/73 (81) 97 12/11/19 22:00 85 16 119/60 (79) 97 12/11/19 22:00 109/61 12/11/19 21:30 87 23 114/60 (78) 98 12/11/19 21:00 86 20 119/58 (78) 98 12/11/19 21:00 109/87 12/11/19 20:30 87 23 117/58 (77) 98 12/11/19 20:00 Room Air Room Air 12/11/19 20:00 90 12/11/19 20:00 98.5 90 17 135/59 (84) 100 12/11/19 20:00 117/53 12/11/19 19:30 93 20 117/61 (79) 96 12/11/19 19:00 122/61 12/11/19 19:00 93 18 111/71 (84) 98 12/11/19 18:58 99 Nasal Cannula 2.0 28 12/11/19 18:58 71 17 99 Nasal Cannula 2.0 28 12/11/19 18:00 121 29 101/65 (77) 95 12/11/19 18:00 101/65 12/11/19 17:30 79 18 122/60 (80) 99 12/11/19 17:00 133/58 12/11/19 17:00 82 19 133/58 (83) 99 12/11/19 16:30 98.9 84 17 123/59 (80) 98 12/11/19 16:00 82 12/11/19 16:00 84 18 127/62 (83) 98 12/11/19 16:00 Room Air Room Air 12/11/19 16:00 123/59 12/11/19 15:30 82 20 131/58 (82) 98 12/11/19 15:00 82 21 129/65 (86) 99 12/11/19 15:00 129/65 12/11/19 14:00 110/57 12/11/19 14:00 88 23 71/39 (50) 97 12/11/19 13:00 83 21 121/66 (84) 97 12/11/19 13:00 121/66 12/11/19 12:00 125/65 12/11/19 12:00 Room Air Room Air 12/11/19 12:00 98.2 77 17 121/63 (82) 99 12/11/19 11:22 83 12/11/19 11:00 118/58 12/11/19 11:00 80 15 118/58 (78) 98 Intake and Output 12/11/19 12/12/19 19:00 07:00 Intake Total 1368.777 ml 1186.104 ml Output Total 1155 ml 360 ml Balance 213.777 ml 826.104 ml IV Total 1188.777 ml 1006.104 ml Tube Feeding 120 ml 120 ml Other 60 ml 60 ml Output Urine Total 1155 ml 360 ml Laboratory Tests 12/11/19 13:30: Activated Partial Thromboplast Time 106H 12/12/19 04:00: White Blood Count 10.1, Red Blood Count 3.43L, Hemoglobin 10.4L, Hematocrit 30.6L, Mean Corpuscular Volume 89, Mean Corpuscular Hemoglobin 30.3, Mean Corpuscular Hemoglobin Concent 34.0, Red Cell Distribution Width 17.5H, Platelet Count 567H, Mean Platelet Volume 5.1L, Neutrophils (%) (Auto) 77.5H, Lymphocytes (%) (Auto) 14.2L, Monocytes (%) (Auto) 6.5, Eosinophils (%) (Auto) 1.2, Basophils (%) (Auto) 0.6, Sodium Level 137, Potassium Level 3.1L, Chloride Level 104, Carbon Dioxide Level 24, Anion Gap 10, Blood Urea Nitrogen 10, Creatinine 0.8, Estimat Glomerular Filtration Rate > 60, Glucose Level 128H, Calcium Level 8.5, Phosphorus Level 3.5, Magnesium Level 1.8, Total Bilirubin 0.3, Aspartate Amino Transf (AST/SGOT) 18, Alanine Aminotransferase (ALT/SGPT) 17, Alkaline Phosphatase 136H, C-Reactive Protein, Quantitative 15.4H, Pro-B- Type Natriuretic Peptide 1730H, Total Protein 6.4, Albumin 1.6L, Globulin 4.8, Albumin/Globulin Ratio 0.3L Height (Feet): 5 Height (Inches): 7.00 Weight (Pounds): 147 General Appearance: no apparent distress Cardiovascular: normal rate Respiratory/Chest: decreased breath sounds Objective No change Andre Flores MD Dec 12, 2019 10:18
--- NOTE | 2019-12-12 10:37 | Infectious Diseases Prog Note ---
Assessment/Plan Assessment/Plan IMPRESSION: Sepsis, septic shock, currently on dopamine. 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 RECOMMENDATION: continue Cefepime COVID-19: negative Subjective ROS Limited/Unobtainable: Yes Constitutional: Denies: fever Cardiovascular: Reports: other - on Dopamine Allergies: Coded Allergies: MOLD (Unverified Allergy, Unknown, 12/07/19) POLLEN EXTRACTS (Unverified Allergy, Unknown, 12/07/19) Objective Vital Signs Last 24 Hour Vital Signs Date Time Temp Pulse Resp B/P (MAP) Pulse Ox O2 Delivery O2 Flow Rate FiO2 12/12/19 10:00 77 15 106/52 (70) 99 12/12/19 10:00 106/52 12/12/19 09:30 80 19 109/57 (74) 94 12/12/19 09:00 82 17 105/54 (71) 97 12/12/19 09:00 101/49 12/12/19 08:30 81 16 107/51 (69) 98 12/12/19 08:00 98.9 79 14 101/53 (69) 100 12/12/19 08:00 109/58 12/12/19 08:00 Room Air Room Air 12/12/19 07:00 80 18 100/51 (67) 98 12/12/19 07:00 100/51 12/12/19 06:30 79 15 98/53 (68) 99 12/12/19 06:00 98/54 12/12/19 06:00 79 15 98/54 (69) 99 12/12/19 05:30 81 19 99/63 (75) 98 12/12/19 05:00 83 16 98/48 (65) 99 12/12/19 05:00 100/57 12/12/19 04:30 78 16 99/62 (74) 98 12/12/19 04:15 78 17 90/55 (67) 98 12/12/19 04:00 98.5 86 18 103/71 (82) 97 12/12/19 04:00 90/55 12/12/19 04:00 105 12/12/19 04:00 Room Air Room Air 12/12/19 03:30 93 22 90/51 (64) 96 4/8/20 03:15 106 35 95/54 (68) 97 12/12/19 03:00 91 24 123/57 (79) 96 12/12/19 03:00 95/54 12/12/19 02:30 90 21 118/60 (79) 96 12/12/19 02:00 93 21 119/57 (77) 96 12/12/19 02:00 120/57 12/12/19 01:30 89 22 119/59 (79) 97 12/12/19 01:30 119/58 12/12/19 01:00 127/62 12/12/19 01:00 83 17 122/61 (81) 96 12/12/19 00:30 75 20 116/55 (75) 96 12/12/19 00:24 84/41 12/12/19 00:00 Room Air Room Air 12/12/19 00:00 84/41 12/12/19 00:00 81 12/12/19 00:00 98.6 88 22 119/63 (81) 95 12/11/19 23:30 79 19 122/60 (80) 97 12/11/19 23:00 115/53 12/11/19 23:00 98 28 68/40 (49) 95 12/11/19 22:30 86 23 97/73 (81) 97 12/11/19 22:00 85 16 119/60 (79) 97 12/11/19 22:00 109/61 12/11/19 21:30 87 23 114/60 (78) 98 12/11/19 21:00 86 20 119/58 (78) 98 12/11/19 21:00 109/87 12/11/19 20:30 87 23 117/58 (77) 98 12/11/19 20:00 Room Air Room Air 12/11/19 20:00 90 12/11/19 20:00 98.5 90 17 135/59 (84) 100 12/11/19 20:00 117/53 12/11/19 19:30 93 20 117/61 (79) 96 12/11/19 19:00 122/61 12/11/19 19:00 93 18 111/71 (84) 98 12/11/19 18:58 99 Nasal Cannula 2.0 28 12/11/19 18:58 71 17 99 Nasal Cannula 2.0 28 12/11/19 18:00 121 29 101/65 (77) 95 12/11/19 18:00 101/65 12/11/19 17:30 79 18 122/60 (80) 99 12/11/19 17:00 133/58 12/11/19 17:00 82 19 133/58 (83) 99 12/11/19 16:30 98.9 84 17 123/59 (80) 98 12/11/19 16:00 82 12/11/19 16:00 84 18 127/62 (83) 98 12/11/19 16:00 Room Air Room Air 12/11/19 16:00 123/59 12/11/19 15:30 82 20 131/58 (82) 98 12/11/19 15:00 82 21 129/65 (86) 99 12/11/19 15:00 129/65 12/11/19 14:00 110/57 12/11/19 14:00 88 23 71/39 (50) 97 12/11/19 13:00 83 21 121/66 (84) 97 12/11/19 13:00 121/66 12/11/19 12:00 125/65 12/11/19 12:00 Room Air Room Air 12/11/19 12:00 98.2 77 17 121/63 (82) 99 12/11/19 11:22 83 12/11/19 11:00 118/58 12/11/19 11:00 80 15 118/58 (78) 98 Height (Feet): 5 Height (Inches): 7.00 Weight (Pounds): 147 General Appearance: no acute distress HEENT: mucous membranes moist Respiratory/Chest: lungs clear Cardiovascular: normal rate Abdomen: soft, non tender, other - Gt feeding Extremities: other - edema Skin: ulcers Neurologic/Psychiatric: other - sleeping Laboratory Tests Test 12/11/19 13:30 12/12/19 04:00 Activated Partial Thromboplast Time 106 SEC (23-33) H White Blood Count 10.1 K/UL (4.8-10.8) Red Blood Count 3.43 M/UL (4.70-6.10) L Hemoglobin 10.4 G/DL (14.2-18.0) L Hematocrit 30.6 % (42.0-52.0) L Mean Corpuscular Volume 89 FL (80-99) Mean Corpuscular Hemoglobin 30.3 PG (27.0-31.0) Mean Corpuscular Hemoglobin Concent 34.0 G/DL (32.0-36.0) Red Cell Distribution Width 17.5 % (11.6-14.8) H Platelet Count 567 K/UL (150-450) H Mean Platelet Volume 5.1 FL (6.5-10.1) L Neutrophils (%) (Auto) 77.5 % (45.0-75.0) H Lymphocytes (%) (Auto) 14.2 % (20.0-45.0) L Monocytes (%) (Auto) 6.5 % (1.0-10.0) Eosinophils (%) (Auto) 1.2 % (0.0-3.0) Basophils (%) (Auto) 0.6 % (0.0-2.0) Sodium Level 137 MMOL/L (136-145) Potassium Level 3.1 MMOL/L (3.5-5.1) L Chloride Level 104 MMOL/L (98-107) Carbon Dioxide Level 24 MMOL/L (21-32) Anion Gap 10 mmol/L (5-15) Blood Urea Nitrogen 10 mg/dL (7-18) Creatinine 0.8 MG/DL (0.55-1.30) Estimat Glomerular Filtration Rate > 60 mL/min (>60) Glucose Level 128 MG/DL (74-106) H Calcium Level 8.5 MG/DL (8.5-10.1) Phosphorus Level 3.5 MG/DL (2.5-4.9) Magnesium Level 1.8 MG/DL (1.8-2.4) Total Bilirubin 0.3 MG/DL (0.2-1.0) Aspartate Amino Transf (AST/SGOT) 18 U/L (15-37) Alanine Aminotransferase (ALT/SGPT) 17 U/L (12-78) Alkaline Phosphatase 136 U/L (46-116) H C-Reactive Protein, Quantitative 15.4 mg/dL (0.00-0.90) H Pro-B-Type Natriuretic Peptide 1730 pg/mL (0-125) H Total Protein 6.4 G/DL (6.4-8.2) Albumin 1.6 G/DL (3.4-5.0) L Globulin 4.8 g/dL Albumin/Globulin Ratio 0.3 (1.0-2.7) L Current Medications Medications (Trade) Dose Ordered Sig/Nazia Route PRN Reason Start Time Stop Time Status Last Admin Dose Admin Acetaminophen (Tylenol) 650 mg Q4H PRN ORAL Temp >100.5 12/08/19 05:00 01/07/20 04:59 12/08/19 09:06 Acetaminophen (Tylenol) 650 mg Q4H PRN RECTAL Temp >100.5 12/08/19 05:30 01/06/20 20:59 Albuterol Sulfate (Proventil) 2.5 mg Q6H PRN HHN Shortness of Breath 12/08/19 06:00 12/13/19 05:59 Cefepime HCl 1 gm/ Dextrose 55 ml @ 110 mls/hr EVERY 12 HOURS IVPB 12/10/19 11:00 12/17/19 10:59 12/12/19 08:19 Chlorhexidine Gluconate (Susanna-Hex 2%) 1 applic DAILY@2000 TOPIC 12/08/19 20:00 03/07/20 19:59 12/11/19 20:04 Dextrose/Sodium Chloride 1,000 ml @ 60 mls/hr [id number] IV 12/09/19 10:15 01/08/20 10:14 12/12/19 01:47 Dopamine HCl/ Dextrose 250 ml @ 0 mls/hr Q24H IV 12/09/19 16:15 03/07/20 16:14 12/12/19 00:24 Enoxaparin Sodium (Lovenox) 70 mg Q12H SUBQ 12/11/19 18:00 03/10/20 17:59 12/12/19 05:40 Lansoprazole (Prevacid) 30 mg BID GT 12/09/19 18:00 01/07/20 08:59 12/12/19 08:19 Levetiracetam (Keppra) 500 mg Q12HR GT 12/08/19 09:00 01/07/20 08:59 12/12/19 08:19 Norepinephrine Bitartrate 4 mg/ Dextrose 250 ml @ 0 mls/hr Q24H IV 12/09/19 01:30 01/07/20 01:29 12/08/19 02:39 Ondansetron HCl (Zofran) 4 mg Q6H PRN IVP Nausea & Vomiting 12/08/19 03:30 01/06/20 21:29 Potassium Chloride 100 ml @ 50 mls/hr Q2H IVPB 12/12/19 09:00 12/12/19 12:59 12/12/19 10:02 Lucas Gutierrez MD Dec 12, 2019 10:37
--- NOTE | 2019-12-12 13:47 | Pulmonolgy Critical Care Note ---
Critical Care - Asmt/Plan Assessment/Plan: Pulmonary Critical Care Progress Note HPI 69-year-old male history of cerebral palsy, bedbound, nonverbal, Roper dependent presented for fever cough and shortness of breath. Patient apparently fever for the 24 hours [employer]. Patient is on nasal canula O2. History limited due to patient's baseline mental status. Has G tube Noted to have DVT On pressors PRN, On AC Negative for Covid19, In ICU due to hypotension On IV Antibiotics per ID, IVF, IV pressors PRN Hemodynamically stable currently, on NC O2 Allergies: No Known Allergies Past Medical History: GERD, Dysphagia, previous G tube, Cerebral Palsy, BPH All Other Systems: limited - History limited due to patient's baseline mental status Physical Exam Vital Signs Noted General Appearance: thin, Chronically Ill, mild pallor Head: normocephalic, atraumatic Eyes: bilateral eye PERRL, bilateral eye EOMI ENT: moist mm Neck: full range of motion, supple Respiratory: CTAB Cardiovascular: regular rate, rhythm, HS1, HS2 normal, no murmur, normal peripheral pulses, Gastrointestinal: non tender, soft, non-distended, no guarding Musculoskeletal: other - Extremities contracted, chronic ulcerations noted bilateral feet Neurologic: awake, no focal defects, other - Patient nonverbal at baseline Skin: warm/dry Impression: Urinary tract infection Possible Pneumonia Sepsis Covid-19 negative Cerebral Palsy Seizure History BPH - chronic roper Dysphagia s/p G tube Anemia DVT Lymphopenia Plan IV antibiotics Continue AC for DVT VQ scan R/o coronavirus infection IVF Pressors PRN Await cultures PPX Monitor labs O2 PRN Bronchodilators Laboratory Tests Noted EKG: Rate: normal Rhythm: NSR Other Impression t wave flattening 1 AVL CXR: Atelectasis RLL, L mid zone Subjective ROS Limited/Unobtainable: No Allergies: Coded Allergies: No Known Allergies (Unverified , 12/07/19) Microbiology Date/Time Source Procedure Growth Status 12/07/19 15:50 Nasal Nares - Final Complete 12/07/19 15:50 Nasal Nares - Final Complete 12/07/19 18:15 Rectum Received Critical Care - Objective Last 24 Hour Vital Signs Date Time Temp Pulse Resp B/P (MAP) Pulse Ox O2 Delivery O2 Flow Rate FiO2 12/12/19 13:30 76 15 99/58 (72) 99 12/12/19 13:00 74 16 104/54 (71) 98 12/12/19 13:00 104/58 12/12/19 12:00 106/52 12/12/19 12:00 98.4 74 15 106/52 (70) 99 12/12/19 12:00 Room Air Room Air 12/12/19 11:54 70/37 12/12/19 11:30 74 23 105/50 (68) 97 12/12/19 11:00 79 15 114/54 (74) 99 12/12/19 11:00 114/54 12/12/19 10:00 77 15 106/52 (70) 99 12/12/19 10:00 106/52 12/12/19 09:30 80 19 109/57 (74) 94 12/12/19 09:00 82 17 105/54 (71) 97 12/12/19 09:00 101/49 12/12/19 08:30 81 16 107/51 (69) 98 12/12/19 08:00 98.9 79 14 101/53 (69) 100 12/12/19 08:00 109/58 12/12/19 08:00 Room Air Room Air 12/12/19 07:00 80 18 100/51 (67) 98 12/12/19 07:00 100/51 12/12/19 06:30 79 15 98/53 (68) 99 12/12/19 06:00 98/54 12/12/19 06:00 79 15 98/54 (69) 99 12/12/19 05:30 81 19 99/63 (75) 98 12/12/19 05:00 83 16 98/48 (65) 99 12/12/19 05:00 100/57 12/12/19 04:30 78 16 99/62 (74) 98 12/12/19 04:15 78 17 90/55 (67) 98 12/12/19 04:00 98.5 86 18 103/71 (82) 97 12/12/19 04:00 90/55 12/12/19 04:00 105 12/12/19 04:00 Room Air Room Air 12/12/19 03:30 93 22 90/51 (64) 96 12/12/19 03:15 106 35 95/54 (68) 97 12/12/19 03:00 91 24 123/57 (79) 96 12/12/19 03:00 95/54 12/12/19 02:30 90 21 118/60 (79) 96 12/12/19 02:00 93 21 119/57 (77) 96 12/12/19 02:00 120/57 12/12/19 01:30 89 22 119/59 (79) 97 12/12/19 01:30 119/58 12/12/19 01:00 127/62 12/12/19 01:00 83 17 122/61 (81) 96 12/12/19 00:30 75 20 116/55 (75) 96 12/12/19 00:24 84/41 12/12/19 00:00 Room Air Room Air 12/12/19 00:00 84/41 12/12/19 00:00 81 12/12/19 00:00 98.6 88 22 119/63 (81) 95 12/11/19 23:30 79 19 122/60 (80) 97 12/11/19 23:00 115/53 12/11/19 23:00 98 28 68/40 (49) 95 12/11/19 22:30 86 23 97/73 (81) 97 12/11/19 22:00 85 16 119/60 (79) 97 12/11/19 22:00 109/61 12/11/19 21:30 87 23 114/60 (78) 98 12/11/19 21:00 86 20 119/58 (78) 98 12/11/19 21:00 109/87 12/11/19 20:30 87 23 117/58 (77) 98 12/11/19 20:00 Room Air Room Air 12/11/19 20:00 90 12/11/19 20:00 98.5 90 17 135/59 (84) 100 12/11/19 20:00 117/53 12/11/19 19:30 93 20 117/61 (79) 96 12/11/19 19:00 122/61 12/11/19 19:00 93 18 111/71 (84) 98 12/11/19 18:58 99 Nasal Cannula 2.0 28 12/11/19 18:58 71 17 99 Nasal Cannula 2.0 28 12/11/19 18:00 121 29 101/65 (77) 95 12/11/19 18:00 101/65 12/11/19 17:30 79 18 122/60 (80) 99 12/11/19 17:00 133/58 12/11/19 17:00 82 19 133/58 (83) 99 12/11/19 16:30 98.9 84 17 123/59 (80) 98 12/11/19 16:00 82 12/11/19 16:00 84 18 127/62 (83) 98 12/11/19 16:00 Room Air Room Air 12/11/19 16:00 123/59 12/11/19 15:30 82 20 131/58 (82) 98 12/11/19 15:00 82 21 129/65 (86) 99 12/11/19 15:00 129/65 12/11/19 14:00 110/57 12/11/19 14:00 88 23 71/39 (50) 97 Critical Care - Subjective ROS Limited/Unobtainable: No Condition: improving FI02: 28 Sputum Amount: None Tube Feeding Amount: 10 I&O: Intake and Output 12/11/19 12/12/19 19:00 07:00 Intake Total 1368.777 ml 1186.104 ml Output Total 1155 ml 360 ml Balance 213.777 ml 826.104 ml IV Total 1188.777 ml 1006.104 ml Tube Feeding 120 ml 120 ml Other 60 ml 60 ml Output Urine Total 1155 ml 360 ml Oscar Bragg MD Dec 12, 2019 13:47
--- NOTE | 2019-12-12 14:07 | Cardiac Electrophysiology PN ---
Assessment/Plan Assessment/Plan 1. Shortness of breath. Troponins are negative. Echo EF 60% 2. Hypotension. On Dopamine and IV antibiotic. 3. Nonsustained VT 20 beats. Mg replaced. FU on tele. No further overnight 4. R CFV DVT on heparin drip 5. Cough and fever. Possible pneumonia. Ruled out for COVID-19. 6. Seizures, on Keppra. 7. Cerebral palsy. DW RN Subjective Subjective In ICU on Dopamine 9 mcg.Had 20 beats of VT on 12/10/19 at 3 am.No further VT On heparin drip for R CFV DVT. In isolation for MRSA and VRE. COVID is negative. RN at bedside Objective Last 24 Hour Vital Signs Date Time Temp Pulse Resp B/P (MAP) Pulse Ox O2 Delivery O2 Flow Rate FiO2 12/12/19 13:30 76 15 99/58 (72) 99 12/12/19 13:00 74 16 104/54 (71) 98 12/12/19 13:00 104/58 12/12/19 12:00 106/52 12/12/19 12:00 98.4 74 15 106/52 (70) 99 12/12/19 12:00 Room Air Room Air 12/12/19 11:54 70/37 12/12/19 11:30 74 23 105/50 (68) 97 12/12/19 11:00 79 15 114/54 (74) 99 12/12/19 11:00 114/54 12/12/19 10:00 77 15 106/52 (70) 99 12/12/19 10:00 106/52 12/12/19 09:30 80 19 109/57 (74) 94 12/12/19 09:00 82 17 105/54 (71) 97 12/12/19 09:00 101/49 12/12/19 08:30 81 16 107/51 (69) 98 12/12/19 08:00 98.9 79 14 101/53 (69) 100 12/12/19 08:00 109/58 12/12/19 08:00 Room Air Room Air 12/12/19 07:00 80 18 100/51 (67) 98 12/12/19 07:00 100/51 12/12/19 06:30 79 15 98/53 (68) 99 12/12/19 06:00 98/54 12/12/19 06:00 79 15 98/54 (69) 99 12/12/19 05:30 81 19 99/63 (75) 98 12/12/19 05:00 83 16 98/48 (65) 99 12/12/19 05:00 100/57 12/12/19 04:30 78 16 99/62 (74) 98 12/12/19 04:15 78 17 90/55 (67) 98 12/12/19 04:00 98.5 86 18 103/71 (82) 97 12/12/19 04:00 90/55 12/12/19 04:00 105 12/12/19 04:00 Room Air Room Air 12/12/19 03:30 93 22 90/51 (64) 96 12/12/19 03:15 106 35 95/54 (68) 97 12/12/19 03:00 91 24 123/57 (79) 96 12/12/19 03:00 95/54 12/12/19 02:30 90 21 118/60 (79) 96 12/12/19 02:00 93 21 119/57 (77) 96 12/12/19 02:00 120/57 12/12/19 01:30 89 22 119/59 (79) 97 12/12/19 01:30 119/58 12/12/19 01:00 127/62 12/12/19 01:00 83 17 122/61 (81) 96 12/12/19 00:30 75 20 116/55 (75) 96 12/12/19 00:24 84/41 12/12/19 00:00 Room Air Room Air 12/12/19 00:00 84/41 12/12/19 00:00 81 12/12/19 00:00 98.6 88 22 119/63 (81) 95 12/11/19 23:30 79 19 122/60 (80) 97 12/11/19 23:00 115/53 12/11/19 23:00 98 28 68/40 (49) 95 12/11/19 22:30 86 23 97/73 (81) 97 12/11/19 22:00 85 16 119/60 (79) 97 12/11/19 22:00 109/61 12/11/19 21:30 87 23 114/60 (78) 98 12/11/19 21:00 86 20 119/58 (78) 98 12/11/19 21:00 109/87 12/11/19 20:30 87 23 117/58 (77) 98 12/11/19 20:00 Room Air Room Air 12/11/19 20:00 90 12/11/19 20:00 98.5 90 17 135/59 (84) 100 12/11/19 20:00 117/53 12/11/19 19:30 93 20 117/61 (79) 96 12/11/19 19:00 122/61 12/11/19 19:00 93 18 111/71 (84) 98 12/11/19 18:58 99 Nasal Cannula 2.0 28 12/11/19 18:58 71 17 99 Nasal Cannula 2.0 28 12/11/19 18:00 121 29 101/65 (77) 95 12/11/19 18:00 101/65 12/11/19 17:30 79 18 122/60 (80) 99 12/11/19 17:00 133/58 12/11/19 17:00 82 19 133/58 (83) 99 12/11/19 16:30 98.9 84 17 123/59 (80) 98 12/11/19 16:00 82 12/11/19 16:00 84 18 127/62 (83) 98 12/11/19 16:00 Room Air Room Air 12/11/19 16:00 123/59 12/11/19 15:30 82 20 131/58 (82) 98 12/11/19 15:00 82 21 129/65 (86) 99 12/11/19 15:00 129/65 Intake and Output 12/11/19 12/12/19 19:00 07:00 Intake Total 1368.777 ml 1186.104 ml Output Total 1155 ml 360 ml Balance 213.777 ml 826.104 ml IV Total 1188.777 ml 1006.104 ml Tube Feeding 120 ml 120 ml Other 60 ml 60 ml Output Urine Total 1155 ml 360 ml Laboratory Tests Test 12/12/19 04:00 White Blood Count 10.1 K/UL (4.8-10.8) Red Blood Count 3.43 M/UL (4.70-6.10) L Hemoglobin 10.4 G/DL (14.2-18.0) L Hematocrit 30.6 % (42.0-52.0) L Mean Corpuscular Volume 89 FL (80-99) Mean Corpuscular Hemoglobin 30.3 PG (27.0-31.0) Mean Corpuscular Hemoglobin Concent 34.0 G/DL (32.0-36.0) Red Cell Distribution Width 17.5 % (11.6-14.8) H Platelet Count 567 K/UL (150-450) H Mean Platelet Volume 5.1 FL (6.5-10.1) L Neutrophils (%) (Auto) 77.5 % (45.0-75.0) H Lymphocytes (%) (Auto) 14.2 % (20.0-45.0) L Monocytes (%) (Auto) 6.5 % (1.0-10.0) Eosinophils (%) (Auto) 1.2 % (0.0-3.0) Basophils (%) (Auto) 0.6 % (0.0-2.0) Sodium Level 137 MMOL/L (136-145) Potassium Level 3.1 MMOL/L (3.5-5.1) L Chloride Level 104 MMOL/L (98-107) Carbon Dioxide Level 24 MMOL/L (21-32) Anion Gap 10 mmol/L (5-15) Blood Urea Nitrogen 10 mg/dL (7-18) Creatinine 0.8 MG/DL (0.55-1.30) Estimat Glomerular Filtration Rate > 60 mL/min (>60) Glucose Level 128 MG/DL (74-106) H Calcium Level 8.5 MG/DL (8.5-10.1) Phosphorus Level 3.5 MG/DL (2.5-4.9) Magnesium Level 1.8 MG/DL (1.8-2.4) Total Bilirubin 0.3 MG/DL (0.2-1.0) Aspartate Amino Transf (AST/SGOT) 18 U/L (15-37) Alanine Aminotransferase (ALT/SGPT) 17 U/L (12-78) Alkaline Phosphatase 136 U/L (46-116) H C-Reactive Protein, Quantitative 15.4 mg/dL (0.00-0.90) H Pro-B-Type Natriuretic Peptide 1730 pg/mL (0-125) H Total Protein 6.4 G/DL (6.4-8.2) Albumin 1.6 G/DL (3.4-5.0) L Globulin 4.8 g/dL Albumin/Globulin Ratio 0.3 (1.0-2.7) L Objective HEAD AND NECK: No JVD. LUNGS: Coarse rhonchi. CARDIOVASCULAR: Regular S1 and S2 with no gallop. ABDOMEN: Soft. EXTREMITIES: 1+ pitting edema. Rk Hdz MD Dec 12, 2019 14:07
--- NOTE | 2019-12-12 15:37 | Surgery Progress Note ---
Surgery Progress Note Subjective Additional Comments no acute events labs stable exam stable Objective Last 24 Hour Vital Signs Date Time Temp Pulse Resp B/P (MAP) Pulse Ox O2 Delivery O2 Flow Rate FiO2 12/12/19 15:00 75 16 105/51 (69) 98 12/12/19 14:00 74 17 104/51 (68) 99 12/12/19 13:30 76 15 99/58 (72) 99 12/12/19 13:00 74 16 104/54 (71) 98 12/12/19 13:00 104/58 12/12/19 12:00 106/52 12/12/19 12:00 98.4 74 15 106/52 (70) 99 12/12/19 12:00 Room Air Room Air 12/12/19 11:54 70/37 12/12/19 11:30 74 23 105/50 (68) 97 12/12/19 11:00 79 15 114/54 (74) 99 12/12/19 11:00 114/54 12/12/19 10:00 77 15 106/52 (70) 99 12/12/19 10:00 106/52 12/12/19 09:30 80 19 109/57 (74) 94 12/12/19 09:00 82 17 105/54 (71) 97 12/12/19 09:00 101/49 12/12/19 08:30 81 16 107/51 (69) 98 12/12/19 08:00 98.9 79 14 101/53 (69) 100 12/12/19 08:00 109/58 12/12/19 08:00 Room Air Room Air 12/12/19 07:00 80 18 100/51 (67) 98 12/12/19 07:00 100/51 12/12/19 06:30 79 15 98/53 (68) 99 12/12/19 06:00 98/54 12/12/19 06:00 79 15 98/54 (69) 99 12/12/19 05:30 81 19 99/63 (75) 98 12/12/19 05:00 83 16 98/48 (65) 99 12/12/19 05:00 100/57 12/12/19 04:30 78 16 99/62 (74) 98 12/12/19 04:15 78 17 90/55 (67) 98 12/12/19 04:00 98.5 86 18 103/71 (82) 97 12/12/19 04:00 90/55 12/12/19 04:00 105 12/12/19 04:00 Room Air Room Air 12/12/19 03:30 93 22 90/51 (64) 96 12/12/19 03:15 106 35 95/54 (68) 97 12/12/19 03:00 91 24 123/57 (79) 96 12/12/19 03:00 95/54 12/12/19 02:30 90 21 118/60 (79) 96 12/12/19 02:00 93 21 119/57 (77) 96 12/12/19 02:00 120/57 12/12/19 01:30 89 22 119/59 (79) 97 12/12/19 01:30 119/58 12/12/19 01:00 127/62 12/12/19 01:00 83 17 122/61 (81) 96 12/12/19 00:30 75 20 116/55 (75) 96 12/12/19 00:24 84/41 12/12/19 00:00 Room Air Room Air 12/12/19 00:00 84/41 12/12/19 00:00 81 12/12/19 00:00 98.6 88 22 119/63 (81) 95 12/11/19 23:30 79 19 122/60 (80) 97 12/11/19 23:00 115/53 12/11/19 23:00 98 28 68/40 (49) 95 12/11/19 22:30 86 23 97/73 (81) 97 12/11/19 22:00 85 16 119/60 (79) 97 12/11/19 22:00 109/61 12/11/19 21:30 87 23 114/60 (78) 98 12/11/19 21:00 86 20 119/58 (78) 98 12/11/19 21:00 109/87 12/11/19 20:30 87 23 117/58 (77) 98 12/11/19 20:00 Room Air Room Air 12/11/19 20:00 90 12/11/19 20:00 98.5 90 17 135/59 (84) 100 12/11/19 20:00 117/53 12/11/19 19:30 93 20 117/61 (79) 96 12/11/19 19:00 122/61 12/11/19 19:00 93 18 111/71 (84) 98 12/11/19 18:58 99 Nasal Cannula 2.0 28 12/11/19 18:58 71 17 99 Nasal Cannula 2.0 28 12/11/19 18:00 121 29 101/65 (77) 95 12/11/19 18:00 101/65 12/11/19 17:30 79 18 122/60 (80) 99 12/11/19 17:00 133/58 12/11/19 17:00 82 19 133/58 (83) 99 12/11/19 16:30 98.9 84 17 123/59 (80) 98 12/11/19 16:00 82 12/11/19 16:00 84 18 127/62 (83) 98 12/11/19 16:00 Room Air Room Air 12/11/19 16:00 123/59 I&O Intake and Output 12/11/19 12/12/19 19:00 07:00 Intake Total 1368.777 ml 1186.104 ml Output Total 1155 ml 360 ml Balance 213.777 ml 826.104 ml IV Total 1188.777 ml 1006.104 ml Tube Feeding 120 ml 120 ml Other 60 ml 60 ml Output Urine Total 1155 ml 360 ml Dressing: other Wound: other Drains: other Cardiovascular: RSR, other Respiratory: decreased breath sounds Abdomen: soft, non-tender, present bowel sounds Extremities: no cyanosis Laboratory Tests Test 12/12/19 04:00 White Blood Count 10.1 K/UL (4.8-10.8) Red Blood Count 3.43 M/UL (4.70-6.10) L Hemoglobin 10.4 G/DL (14.2-18.0) L Hematocrit 30.6 % (42.0-52.0) L Mean Corpuscular Volume 89 FL (80-99) Mean Corpuscular Hemoglobin 30.3 PG (27.0-31.0) Mean Corpuscular Hemoglobin Concent 34.0 G/DL (32.0-36.0) Red Cell Distribution Width 17.5 % (11.6-14.8) H Platelet Count 567 K/UL (150-450) H Mean Platelet Volume 5.1 FL (6.5-10.1) L Neutrophils (%) (Auto) 77.5 % (45.0-75.0) H Lymphocytes (%) (Auto) 14.2 % (20.0-45.0) L Monocytes (%) (Auto) 6.5 % (1.0-10.0) Eosinophils (%) (Auto) 1.2 % (0.0-3.0) Basophils (%) (Auto) 0.6 % (0.0-2.0) Sodium Level 137 MMOL/L (136-145) Potassium Level 3.1 MMOL/L (3.5-5.1) L Chloride Level 104 MMOL/L (98-107) Carbon Dioxide Level 24 MMOL/L (21-32) Anion Gap 10 mmol/L (5-15) Blood Urea Nitrogen 10 mg/dL (7-18) Creatinine 0.8 MG/DL (0.55-1.30) Estimat Glomerular Filtration Rate > 60 mL/min (>60) Glucose Level 128 MG/DL (74-106) H Calcium Level 8.5 MG/DL (8.5-10.1) Phosphorus Level 3.5 MG/DL (2.5-4.9) Magnesium Level 1.8 MG/DL (1.8-2.4) Total Bilirubin 0.3 MG/DL (0.2-1.0) Aspartate Amino Transf (AST/SGOT) 18 U/L (15-37) Alanine Aminotransferase (ALT/SGPT) 17 U/L (12-78) Alkaline Phosphatase 136 U/L (46-116) H C-Reactive Protein, Quantitative 15.4 mg/dL (0.00-0.90) H Pro-B-Type Natriuretic Peptide 1730 pg/mL (0-125) H Total Protein 6.4 G/DL (6.4-8.2) Albumin 1.6 G/DL (3.4-5.0) L Globulin 4.8 g/dL Albumin/Globulin Ratio 0.3 (1.0-2.7) L Plan Problems: (1) Urinary tract infection (2) Respiratory insufficiency Assessment & Plan: Right central line terminates in the right atrium. Cardiomegaly. Mild vascular congestion. Mild bilateral pleural effusions. (3) Decubital ulcer Assessment & Plan: Pt presented on admission with contractures, multiple pressure injuries.Unstageable pressure injury noted to upper L earlobe(L)0.5cm x (W)0.8cm. Stable dry eschar noted at base of injury.Edges adhrent and pink.Medially along L earlobe is a DTPI(L)0.8cm x (W)0.6cm. Base of wound is Purple at center with surrounding maroon borders. Distally L earlobe is and Unstageable Pressure Injury(L)1cm x (W)0.4cm. Stable dry eschar at base of injury . Edges dry,adherent and pink. In close proximity at distal lobule is second pressure injury(L)0.5cm x (W)0.6cm. Base of wound is moist and viable. No exudate noted. stage 4 Sacral Pressure injury(L)5.6cmx (W)6.8cm. base of wound has 75% soft necrosis,25% gustabo with surrounding maroon ,indurated borders.Small amt non- odorous serous exudate noted. Sacral wound in its entirety measures (L)9cm x (W) 8cm. Areas of hyperpigmentation from previous wounds noted to L trochanter,and L lower buttocks. Partial thickness wound noted to head of penis(L)0.4cm x (W)0.5cm. Base of wound is moist and viable. Partial thickness Pressure Injury noted at base of shaft of penis(L)2.1cm x (W) 2.4cm. Base of wound is moist and viable. MASD R and L groin ,and Scrotum. Affected areas are erythematous and denuded. Unstageable Pressure injury R heel(L)6.5cm x (W)8cm . Wound is open blood blister. Base of wound is moist gustabo, black at center base of wound. Overlying loose skin flap removed. Periwound R heel is boggy with non-blanchable erythema. Unstageable Pressure Injury R Hallux(L)1.5cm x (W)2.9cm. Base of wound has 60% soft necrosis,40% gustabo. Macerated borders. Small amt. non-odorous serous exudate. Non-blanchable erythema without induration or elevated skin temp periwound. Unstageable Pressure injury Lateral R malleolus(L)1.8cm x (W)1.2cm. Base of is 100% necrotic with semi-detached borders which are erythematous and moist.Wound is malodorous. Periwound erythematous, but without elevated skin temp. Unstageable Pressure Injury L heel(L)4.6cm x (W)5.5cm. Base of wound is 100% necrotic with detached borders that present with mixed erythema and slough. Wound is malodorous. Periwound is erythematous and fluctuant. No elevation in skin temp noted. Unstageable Pressure Injury L lateral Malleolus (L)1.1cm x (W)1.2cm.Stable dry brown eschar at base of wound. Edges flat, adherent and pink. No erythema or fluctuance periwound. Full thickness stage 3 Pressure Injury L hallux(L)3.6cm x (W)3.9cm.Base of wound is moist pink with small amt Biofilm. Bone is palpable. Edges are macerated. No odor noted.Small amt serous exudate noted. Periwound is erythematous,no elevation in skin temp or fluctuance noted. DTPI medial/lateral L foot(L)2.5cm x (W)1.9cm. Base of Injury is maroon and fluctuant. Periwound is pink. Unstageable Pressure Injury distal/lateral L foot(L)2.5cm x (W)1.9cm. Base of wound is 100% soft necrosis with marginal erythema. No odor or exudate noted. Periwound is boggy but pink. Stable dry eschar R 1st metatarsal Head(L)0.6cm x (W)0.5cm. Tx.Plan: Apply Betadine to Wounds L earlobe Daily. Pad Oxygen tubing and keep tubing loose around ears. Cleanse Sacral wound with Saline. Apply Therahoney. Apply Moisture Barrier Periwound. Cover with Optifoam drsg. Change every 3 days and prn. Apply Moisture Barrier Paste to to R and L groin, Base of Penis, and scrotum with each Incontinence care. Apply Betadine to wounds R foot. Cover each wound with Optifoam drsg. Change Daily and prn. Apply Betadine to wounds L foot. Cover each wound with Optifoam drsg. Change Daily and prn. Reposition at least every 2hours or as tolerated. Place pillow between knees. Off-load heels with pillow. Air Fluidized mattress. (4) Suspected COVID-19 virus infection Davonte Ham Dec 12, 2019 15:37
[2019-12-12] MEDS: Dyna-Hex 2% Top Sol 2oz TOPIC SCH (20:26)
--- NOTE | 2019-12-12 21:39 | General Progress Note ---
Assessment/Plan Status: progressing, deteriorating Assessment/Plan: Assessment - Cerebral palsy - dysphagia, s/p PEG - contracture deformities - decubitus ulcers - sepsis - UTI - Anemia Recommendations - Advance TF, slowly - Elevate HOB - monitor residuals - PPI - Abx / supportive care - wean off pressors as tolerated - Wound care Subjective Allergies: Coded Allergies: MOLD (Unverified Allergy, Unknown, 12/07/19) POLLEN EXTRACTS (Unverified Allergy, Unknown, 12/07/19) Subjective resting comfortably tolerating TF - gave orders to advance still on pressors Objective Last 24 Hour Vital Signs Date Time Temp Pulse Resp B/P (MAP) Pulse Ox O2 Delivery O2 Flow Rate FiO2 12/12/19 21:00 84 23 110/58 (75) 100 12/12/19 20:30 87 29 108/58 (75) 98 12/12/19 20:00 98.1 75 14 106/57 (73) 98 12/12/19 19:30 87 21 104/61 (75) 99 12/12/19 19:00 105/76 12/12/19 19:00 88 22 105/76 (86) 99 12/12/19 18:30 86 18 103/43 (63) 99 12/12/19 18:00 89 18 115/56 (75) 98 12/12/19 18:00 115/56 12/12/19 17:00 87 21 111/64 (80) 98 12/12/19 17:00 111/64 12/12/19 16:30 91 24 102/60 (74) 99 12/12/19 16:00 Room Air Room Air 12/12/19 16:00 98.6 73 15 124/101 (109) 98 12/12/19 16:00 101/56 12/12/19 15:57 71 12/12/19 15:34 72 12/12/19 15:00 75 16 105/51 (69) 98 12/12/19 15:00 104/77 12/12/19 14:00 74 17 104/51 (68) 99 12/12/19 14:00 105/55 12/12/19 13:30 76 15 99/58 (72) 99 12/12/19 13:00 74 16 104/54 (71) 98 12/12/19 13:00 104/58 12/12/19 12:00 73 4/8/20 12:00 106/52 12/12/19 12:00 98.4 74 15 106/52 (70) 99 12/12/19 12:00 74 12/12/19 12:00 Room Air Room Air 12/12/19 11:54 70/37 12/12/19 11:30 74 23 105/50 (68) 97 12/12/19 11:00 79 15 114/54 (74) 99 12/12/19 11:00 114/54 12/12/19 10:00 77 15 106/52 (70) 99 12/12/19 10:00 106/52 12/12/19 09:30 80 19 109/57 (74) 94 12/12/19 09:00 82 17 105/54 (71) 97 12/12/19 09:00 101/49 12/12/19 08:30 81 16 107/51 (69) 98 12/12/19 08:00 79 12/12/19 08:00 98.9 79 14 101/53 (69) 100 12/12/19 08:00 109/58 12/12/19 08:00 81 12/12/19 08:00 Room Air Room Air 12/12/19 07:00 80 18 100/51 (67) 98 12/12/19 07:00 100/51 12/12/19 06:30 79 15 98/53 (68) 99 12/12/19 06:00 98/54 12/12/19 06:00 79 15 98/54 (69) 99 12/12/19 05:30 81 19 99/63 (75) 98 12/12/19 05:00 83 16 98/48 (65) 99 12/12/19 05:00 100/57 12/12/19 04:30 78 16 99/62 (74) 98 12/12/19 04:15 78 17 90/55 (67) 98 12/12/19 04:00 98.5 86 18 103/71 (82) 97 12/12/19 04:00 90/55 12/12/19 04:00 105 12/12/19 04:00 Room Air Room Air 12/12/19 03:30 93 22 90/51 (64) 96 12/12/19 03:15 106 35 95/54 (68) 97 12/12/19 03:00 91 24 123/57 (79) 96 12/12/19 03:00 95/54 12/12/19 02:30 90 21 118/60 (79) 96 12/12/19 02:00 93 21 119/57 (77) 96 12/12/19 02:00 120/57 12/12/19 01:30 89 22 119/59 (79) 97 12/12/19 01:30 119/58 12/12/19 01:00 127/62 12/12/19 01:00 83 17 122/61 (81) 96 12/12/19 00:30 75 20 116/55 (75) 96 12/12/19 00:24 84/41 12/12/19 00:00 Room Air Room Air 12/12/19 00:00 84/41 12/12/19 00:00 81 12/12/19 00:00 98.6 88 22 119/63 (81) 95 12/11/19 23:30 79 19 122/60 (80) 97 12/11/19 23:00 115/53 12/11/19 23:00 98 28 68/40 (49) 95 12/11/19 22:30 86 23 97/73 (81) 97 12/11/19 22:00 85 16 119/60 (79) 97 12/11/19 22:00 109/61 Intake and Output 12/11/19 12/12/19 19:00 07:00 Intake Total 1368.777 ml 1186.104 ml Output Total 1155 ml 360 ml Balance 213.777 ml 826.104 ml IV Total 1188.777 ml 1006.104 ml Tube Feeding 120 ml 120 ml Other 60 ml 60 ml Output Urine Total 1155 ml 360 ml Laboratory Tests 12/12/19 04:00: White Blood Count 10.1, Red Blood Count 3.43L, Hemoglobin 10.4L, Hematocrit 30.6L, Mean Corpuscular Volume 89, Mean Corpuscular Hemoglobin 30.3, Mean Corpuscular Hemoglobin Concent 34.0, Red Cell Distribution Width 17.5H, Platelet Count 567H, Mean Platelet Volume 5.1L, Neutrophils (%) (Auto) 77.5H, Lymphocytes (%) (Auto) 14.2L, Monocytes (%) (Auto) 6.5, Eosinophils (%) (Auto) 1.2, Basophils (%) (Auto) 0.6, Sodium Level 137, Potassium Level 3.1L, Chloride Level 104, Carbon Dioxide Level 24, Anion Gap 10, Blood Urea Nitrogen 10, Creatinine 0.8, Estimat Glomerular Filtration Rate > 60, Glucose Level 128H, Calcium Level 8.5, Phosphorus Level 3.5, Magnesium Level 1.8, Total Bilirubin 0.3, Aspartate Amino Transf (AST/SGOT) 18, Alanine Aminotransferase (ALT/SGPT) 17, Alkaline Phosphatase 136H, C-Reactive Protein, Quantitative 15.4H, Pro-B- Type Natriuretic Peptide 1730H, Total Protein 6.4, Albumin 1.6L, Globulin 4.8, Albumin/Globulin Ratio 0.3L Height (Feet): 5 Height (Inches): 7.00 Weight (Pounds): 147 Objective Debilitated WM NCAT supple CTA RR abd soft, (+) GT (++) contracted OBS Zakiya Vargas MD Dec 12, 2019 21:39
--- NOTE | 2019-12-12 21:54 | General Progress Note ---
Assessment/Plan Problem List: (1) Urinary tract infection ICD Codes: N39.0 - Urinary tract infection, site not specified SNOMED: 78940539 (2) Respiratory insufficiency ICD Codes: R06.89 - Other abnormalities of breathing SNOMED: 461685156 (3) Decubital ulcer ICD Codes: L89.90 - Pressure ulcer of unspecified site, unspecified stage SNOMED: 351401209 (4) Suspected COVID-19 virus infection ICD Codes: R68.89 - Other general symptoms and signs SNOMED: 724414635 Status: progressing, deteriorating Assessment/Plan: downs syndrome on pressors for septic shock nsvt no seizure poor prognosis pna resp insuff sepsis uti peg s/p pressor Subjective ROS Limited/Unobtainable: Yes Allergies: Coded Allergies: MOLD (Unverified Allergy, Unknown, 12/07/19) POLLEN EXTRACTS (Unverified Allergy, Unknown, 12/07/19) Objective Last 24 Hour Vital Signs Date Time Temp Pulse Resp B/P (MAP) Pulse Ox O2 Delivery O2 Flow Rate FiO2 12/12/19 21:00 84 23 110/58 (75) 100 12/12/19 20:30 87 29 108/58 (75) 98 12/12/19 20:00 98.1 75 14 106/57 (73) 98 12/12/19 19:30 87 21 104/61 (75) 99 12/12/19 19:00 105/76 12/12/19 19:00 88 22 105/76 (86) 99 12/12/19 18:30 86 18 103/43 (63) 99 12/12/19 18:00 89 18 115/56 (75) 98 12/12/19 18:00 115/56 12/12/19 17:00 87 21 111/64 (80) 98 12/12/19 17:00 111/64 12/12/19 16:30 91 24 102/60 (74) 99 12/12/19 16:00 Room Air Room Air 12/12/19 16:00 98.6 73 15 124/101 (109) 98 12/12/19 16:00 101/56 12/12/19 15:57 71 12/12/19 15:34 72 12/12/19 15:00 75 16 105/51 (69) 98 12/12/19 15:00 104/77 12/12/19 14:00 74 17 104/51 (68) 99 12/12/19 14:00 105/55 12/12/19 13:30 76 15 99/58 (72) 99 12/12/19 13:00 74 16 104/54 (71) 98 12/12/19 13:00 104/58 12/12/19 12:00 73 12/12/19 12:00 106/52 12/12/19 12:00 98.4 74 15 106/52 (70) 99 12/12/19 12:00 74 12/12/19 12:00 Room Air Room Air 12/12/19 11:54 70/37 12/12/19 11:30 74 23 105/50 (68) 97 12/12/19 11:00 79 15 114/54 (74) 99 12/12/19 11:00 114/54 12/12/19 10:00 77 15 106/52 (70) 99 12/12/19 10:00 106/52 12/12/19 09:30 80 19 109/57 (74) 94 12/12/19 09:00 82 17 105/54 (71) 97 12/12/19 09:00 101/49 12/12/19 08:30 81 16 107/51 (69) 98 12/12/19 08:00 79 12/12/19 08:00 98.9 79 14 101/53 (69) 100 12/12/19 08:00 109/58 12/12/19 08:00 81 12/12/19 08:00 Room Air Room Air 12/12/19 07:00 80 18 100/51 (67) 98 12/12/19 07:00 100/51 12/12/19 06:30 79 15 98/53 (68) 99 12/12/19 06:00 98/54 12/12/19 06:00 79 15 98/54 (69) 99 12/12/19 05:30 81 19 99/63 (75) 98 12/12/19 05:00 83 16 98/48 (65) 99 12/12/19 05:00 100/57 12/12/19 04:30 78 16 99/62 (74) 98 12/12/19 04:15 78 17 90/55 (67) 98 12/12/19 04:00 98.5 86 18 103/71 (82) 97 12/12/19 04:00 90/55 12/12/19 04:00 105 12/12/19 04:00 Room Air Room Air 12/12/19 03:30 93 22 90/51 (64) 96 12/12/19 03:15 106 35 95/54 (68) 97 12/12/19 03:00 91 24 123/57 (79) 96 12/12/19 03:00 95/54 12/12/19 02:30 90 21 118/60 (79) 96 12/12/19 02:00 93 21 119/57 (77) 96 12/12/19 02:00 120/57 12/12/19 01:30 89 22 119/59 (79) 97 12/12/19 01:30 119/58 12/12/19 01:00 127/62 12/12/19 01:00 83 17 122/61 (81) 96 12/12/19 00:30 75 20 116/55 (75) 96 12/12/19 00:24 84/41 12/12/19 00:00 Room Air Room Air 12/12/19 00:00 84/41 12/12/19 00:00 81 12/12/19 00:00 98.6 88 22 119/63 (81) 95 12/11/19 23:30 79 19 122/60 (80) 97 12/11/19 23:00 115/53 12/11/19 23:00 98 28 68/40 (49) 95 12/11/19 22:30 86 23 97/73 (81) 97 12/11/19 22:00 85 16 119/60 (79) 97 12/11/19 22:00 109/61 Intake and Output 12/11/19 12/12/19 19:00 07:00 Intake Total 1368.777 ml 1186.104 ml Output Total 1155 ml 360 ml Balance 213.777 ml 826.104 ml IV Total 1188.777 ml 1006.104 ml Tube Feeding 120 ml 120 ml Other 60 ml 60 ml Output Urine Total 1155 ml 360 ml Laboratory Tests 12/12/19 04:00: White Blood Count 10.1, Red Blood Count 3.43L, Hemoglobin 10.4L, Hematocrit 30.6L, Mean Corpuscular Volume 89, Mean Corpuscular Hemoglobin 30.3, Mean Corpuscular Hemoglobin Concent 34.0, Red Cell Distribution Width 17.5H, Platelet Count 567H, Mean Platelet Volume 5.1L, Neutrophils (%) (Auto) 77.5H, Lymphocytes (%) (Auto) 14.2L, Monocytes (%) (Auto) 6.5, Eosinophils (%) (Auto) 1.2, Basophils (%) (Auto) 0.6, Sodium Level 137, Potassium Level 3.1L, Chloride Level 104, Carbon Dioxide Level 24, Anion Gap 10, Blood Urea Nitrogen 10, Creatinine 0.8, Estimat Glomerular Filtration Rate > 60, Glucose Level 128H, Calcium Level 8.5, Phosphorus Level 3.5, Magnesium Level 1.8, Total Bilirubin 0.3, Aspartate Amino Transf (AST/SGOT) 18, Alanine Aminotransferase (ALT/SGPT) 17, Alkaline Phosphatase 136H, C-Reactive Protein, Quantitative 15.4H, Pro-B- Type Natriuretic Peptide 1730H, Total Protein 6.4, Albumin 1.6L, Globulin 4.8, Albumin/Globulin Ratio 0.3L Height (Feet): 5 Height (Inches): 7.00 Weight (Pounds): 147 Leda Sweneey MD Dec 12, 2019 21:54
[2019-12-13] VITALS (42 sets, daily range): BP systolic 91–126; BP diastolic 43–83
[2019-12-13] MEDS: Enoxaparin 80mg Inj SUBQ SCH ×2 (05:36→17:54)
[2019-12-13 05:54] LABS: BASOPHILS % (AUTO) 0.2 % (0.0-2.0); EOSINOPHILS % (AUTO) 1.3 % (0.0-3.0); HEMATOCRIT 28.7 % (42.0-52.0); HEMOGLOBIN 9.6 G/DL (14.2-18.0); LYMPHOCYTES % (AUTO) 10.6 % (20.0-45.0); MEAN CORPUSCULAR VOLUME 89 FL (80-99); MONOCYTES % (AUTO) 6.2 % (1.0-10.0); NEUTROPHILS % (AUTO) 81.6 % (45.0-75.0); PLATELET COUNT 582 K/UL (150-450); RED BLOOD COUNT 3.21 M/UL (4.70-6.10); RED CELL DISTRIBUTION WIDTH 17.8 % (11.6-14.8); WHITE BLOOD COUNT 12.6 K/UL (4.8-10.8)
[2019-12-13 06:01] LABS: ANION GAP 8 mmol/L (5-15); BLOOD UREA NITROGEN 11 mg/dL (7-18); CALCIUM 8.5 MG/DL (8.5-10.1); CARBON DIOXIDE 25 MMOL/L (21-32); CHLORIDE 104 MMOL/L (98-107); CREATININE 0.7 MG/DL (0.55-1.30); POTASSIUM 3.3 MMOL/L (3.5-5.1); SODIUM 137 MMOL/L (136-145)
[2019-12-13] MEDS: levETIRAcetam 500mg/5ml Liquid GT SCH ×2 (08:16→21:30)
[2019-12-13] MEDS: Cefepime HCl 1 GM in D5W 55 ML IVPB SCH ×2 (08:16→21:30)
--- NOTE | 2019-12-13 09:16 | Infectious Diseases Prog Note ---
Assessment/Plan Assessment/Plan IMPRESSION: Sepsis, septic shock, currently on dopamine. 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 RECOMMENDATION: continue Cefepime COVID-19: negative Subjective ROS Limited/Unobtainable: Yes Constitutional: Denies: fever Allergies: Coded Allergies: MOLD (Unverified Allergy, Unknown, 12/07/19) POLLEN EXTRACTS (Unverified Allergy, Unknown, 12/07/19) Objective Vital Signs Last 24 Hour Vital Signs Date Time Temp Pulse Resp B/P (MAP) Pulse Ox O2 Delivery O2 Flow Rate FiO2 12/13/19 09:00 77 18 101/55 (70) 99 12/13/19 08:21 91 12/13/19 08:00 98.5 79 25 114/52 (72) 100 12/13/19 08:00 Room Air Room Air 12/13/19 07:00 104/60 12/13/19 07:00 74 19 104/66 (79) 100 12/13/19 06:30 81 26 97/54 (68) 98 12/13/19 06:00 85 25 125/60 (81) 98 12/13/19 06:00 125/60 12/13/19 05:30 87 27 122/67 (85) 98 12/13/19 05:00 82 22 120/73 (89) 99 12/13/19 05:00 120/73 12/13/19 04:30 86 31 96/71 (79) 100 12/13/19 04:00 98.4 88 24 116/76 (89) 100 12/13/19 04:00 116/76 12/13/19 04:00 Room Air Room Air 12/13/19 03:30 89 28 120/68 (85) 99 12/13/19 03:03 91 12/13/19 03:00 113/73 12/13/19 03:00 92 21 113/73 (86) 98 12/13/19 02:30 120 43 108/67 (81) 98 12/13/19 02:00 114/76 12/13/19 02:00 109 23 114/76 (89) 96 12/13/19 01:30 91 22 112/62 (79) 98 12/13/19 01:30 109/83 12/13/19 01:00 93 26 121/70 (87) 99 12/13/19 01:00 121/70 12/13/19 00:30 91 23 115/69 (84) 99 12/13/19 00:00 98.1 85 27 114/61 (78) 98 12/13/19 00:00 114/61 12/13/19 00:00 Room Air Room Air 12/13/19 00:00 85 12/12/19 23:45 89 27 92/50 (64) 99 12/12/19 23:42 116/78 12/12/19 23:30 87 28 116/78 (91) 99 12/12/19 23:03 78 20 92/56 (68) 99 12/12/19 23:00 79/53 12/12/19 23:00 82 23 79/53 (62) 100 12/12/19 22:45 85 20 97/59 (72) 99 12/12/19 22:30 87 22 113/63 (80) 99 12/12/19 22:00 100 38 103/60 (74) 99 12/12/19 22:00 103/60 12/12/19 21:30 86 21 101/64 (76) 99 12/12/19 21:00 110/58 12/12/19 21:00 84 23 110/58 (75) 100 12/12/19 20:31 73 18 100 Nasal Cannula 2.0 28 12/12/19 20:31 100 Nasal Cannula 2.0 28 12/12/19 20:30 87 29 108/58 (75) 98 12/12/19 20:00 Room Air Room Air 12/12/19 20:00 106/57 12/12/19 20:00 98.1 75 14 106/57 (73) 98 12/12/19 19:30 87 21 104/61 (75) 99 12/12/19 19:23 89 12/12/19 19:00 105/76 12/12/19 19:00 88 22 105/76 (86) 99 12/12/19 18:30 86 18 103/43 (63) 99 12/12/19 18:00 89 18 115/56 (75) 98 12/12/19 18:00 115/56 12/12/19 17:00 87 21 111/64 (80) 98 12/12/19 17:00 111/64 12/12/19 16:30 91 24 102/60 (74) 99 12/12/19 16:00 Room Air Room Air 12/12/19 16:00 98.6 73 15 124/101 (109) 98 12/12/19 16:00 101/56 12/12/19 15:57 71 12/12/19 15:34 72 12/12/19 15:00 75 16 105/51 (69) 98 12/12/19 15:00 104/77 12/12/19 14:00 74 17 104/51 (68) 99 12/12/19 14:00 105/55 12/12/19 13:30 76 15 99/58 (72) 99 12/12/19 13:00 74 16 104/54 (71) 98 12/12/19 13:00 104/58 12/12/19 12:00 73 12/12/19 12:00 106/52 12/12/19 12:00 98.4 74 15 106/52 (70) 99 12/12/19 12:00 74 12/12/19 12:00 Room Air Room Air 12/12/19 11:54 70/37 12/12/19 11:30 74 23 105/50 (68) 97 12/12/19 11:00 79 15 114/54 (74) 99 12/12/19 11:00 114/54 12/12/19 10:00 77 15 106/52 (70) 99 12/12/19 10:00 106/52 12/12/19 09:30 80 19 109/57 (74) 94 Height (Feet): 5 Height (Inches): 7.00 Weight (Pounds): 130 General Appearance: no acute distress HEENT: mucous membranes moist Respiratory/Chest: lungs clear Cardiovascular: normal rate, other - RIJ triple lumen catheter Abdomen: soft, non tender, other Extremities: other - decreased edema Skin: ulcers Neurologic/Psychiatric: other - sleeping Laboratory Tests Test 12/13/19 04:00 White Blood Count 12.6 K/UL (4.8-10.8) H Red Blood Count 3.21 M/UL (4.70-6.10) L Hemoglobin 9.6 G/DL (14.2-18.0) L Hematocrit 28.7 % (42.0-52.0) L Mean Corpuscular Volume 89 FL (80-99) Mean Corpuscular Hemoglobin 30.0 PG (27.0-31.0) Mean Corpuscular Hemoglobin Concent 33.6 G/DL (32.0-36.0) Red Cell Distribution Width 17.8 % (11.6-14.8) H Platelet Count 582 K/UL (150-450) H Mean Platelet Volume 5.5 FL (6.5-10.1) L Neutrophils (%) (Auto) 81.6 % (45.0-75.0) H Lymphocytes (%) (Auto) 10.6 % (20.0-45.0) L Monocytes (%) (Auto) 6.2 % (1.0-10.0) Eosinophils (%) (Auto) 1.3 % (0.0-3.0) Basophils (%) (Auto) 0.2 % (0.0-2.0) Sodium Level 137 MMOL/L (136-145) Potassium Level 3.3 MMOL/L (3.5-5.1) L Chloride Level 104 MMOL/L (98-107) Carbon Dioxide Level 25 MMOL/L (21-32) Anion Gap 8 mmol/L (5-15) Blood Urea Nitrogen 11 mg/dL (7-18) Creatinine 0.7 MG/DL (0.55-1.30) Estimat Glomerular Filtration Rate > 60 mL/min (>60) Glucose Level 127 MG/DL (74-106) H Calcium Level 8.5 MG/DL (8.5-10.1) Current Medications Medications (Trade) Dose Ordered Sig/Nazia Route PRN Reason Start Time Stop Time Status Last Admin Dose Admin Acetaminophen (Tylenol) 650 mg Q4H PRN ORAL Temp >100.5 12/08/19 05:00 01/07/20 04:59 12/08/19 09:06 Acetaminophen (Tylenol) 650 mg Q4H PRN RECTAL Temp >100.5 12/08/19 05:30 01/06/20 20:59 Cefepime HCl 1 gm/ Dextrose 55 ml @ 110 mls/hr EVERY 12 HOURS IVPB 12/10/19 11:00 12/17/19 10:59 12/13/19 08:16 Chlorhexidine Gluconate (Susanna-Hex 2%) 1 applic DAILY@2000 TOPIC 12/08/19 20:00 03/07/20 19:59 12/12/19 20:26 Dextrose/Sodium Chloride 1,000 ml @ 60 mls/hr [id number] IV 12/09/19 10:15 01/08/20 10:14 12/12/19 17:35 Dopamine HCl/ Dextrose 250 ml @ 0 mls/hr Q24H IV 12/09/19 16:15 03/07/20 16:14 12/12/19 23:42 Enoxaparin Sodium (Lovenox) 70 mg Q12H SUBQ 12/11/19 18:00 03/10/20 17:59 12/13/19 05:36 Lansoprazole (Prevacid) 30 mg BID GT 12/09/19 18:00 01/07/20 08:59 12/13/19 08:17 Levetiracetam (Keppra) 500 mg Q12HR GT 12/08/19 09:00 01/07/20 08:59 12/13/19 08:16 Norepinephrine Bitartrate 4 mg/ Dextrose 250 ml @ 0 mls/hr Q24H IV 12/09/19 01:30 01/07/20 01:29 12/08/19 02:39 Ondansetron HCl (Zofran) 4 mg Q6H PRN IVP Nausea & Vomiting 12/08/19 03:30 01/06/20 21:29 Potassium Chloride (K-Dur) 40 meq TWICE A DAY GT 12/13/19 09:00 03/12/20 08:59 12/13/19 08:17 Lucas Gutierrez MD Dec 13, 2019 09:16
--- NOTE | 2019-12-13 10:13 | Hematology/Onc Progress Note ---
Assessment/Plan Assessment/Plan IMPRESSION/RECS: # Anemia of chronic disease due to underlying chronic medical issues, multifactorial v Gi bleed --> Anemia workup has been ordered, rule out gi bleed --> No evidence of hemolysis is noted, peripheral smear has been reviewed. --> Hgb goal >7. Transfuse prn. --> Epogen or iron at this time is not particularly indicated --> Medications have been reviewed --> low threshold for gi evaluation in case has occult + --> bone marrow biopsy is not indicated given the other more likely causes # Dvt of the right leg history --> hep bolus and gtt -> lovenox sq bid --> 12/09 us duplex positive for right dvt # Lymphopenia is likely due to Sepsis, septic shock, currently on dopamine. --> remains in the icu, with UTI with Pseudomonas --> imaging noted, cultures reviewed --> as per id Positive blood culture likely contamination --> COVID negative --> abx: cefepime # VRE Carrier # Multiple pressure ulcer, # Down syndrome. # Confused/ams The timing of this note does not necessarily reflect the time of the patient was seen. Greatly appreciate consultation. Subjective Constitutional: Denies: no symptoms, chills, fever, malaise, weakness, other HEENT: Denies: no symptoms, eye pain, blurred vision, tearing, double vision, ear pain, ear discharge, nose pain, nose congestion, throat pain, throat swelling, mouth pain, mouth swelling, other Respiratory: Denies: no symptoms, cough, shortness of breath, SOB with excertion, SOB at rest, sputum, wheezing, other Gastrointestinal/Abdominal: Denies: no symptoms, abdomen distended, abdominal pain, black stools, tarry stools, blood in stool, constipated, diarrhea, difficulty swallowing, nausea, poor appetite, poor fluid intake, rectal bleeding , vomiting, other Genitourinary: Denies: no symptoms, burning, discharge, frequency, flank pain, hematuria, incontinence, pain, urgency, other Endocrine: Denies: no symptoms, excessive sweating, flushing, intolerance to cold, intolerance to heat, increased hunger, increased thirst, increased urine, unexplained weight gain, unexplained weight loss, other Allergies: Coded Allergies: MOLD (Unverified Allergy, Unknown, 12/07/19) POLLEN EXTRACTS (Unverified Allergy, Unknown, 12/07/19) Subjective 12/10 icu, nonverbal, cov 19 negative, positive for right le dvt, on pressors 12/11 remains on dopamine, with gtube feeds as well, labs noted hgb 10.4 12/12 is a+o x1, with roper and on dopamine Objective Objective Current Medications Medications (Trade) Dose Ordered Sig/Nazia Route PRN Reason Start Time Stop Time Status Last Admin Dose Admin Acetaminophen (Tylenol) 650 mg Q4H PRN ORAL Temp >100.5 12/08/19 05:00 01/07/20 04:59 12/08/19 09:06 Acetaminophen (Tylenol) 650 mg Q4H PRN RECTAL Temp >100.5 12/08/19 05:30 01/06/20 20:59 Cefepime HCl 1 gm/ Dextrose 55 ml @ 110 mls/hr EVERY 12 HOURS IVPB 12/10/19 11:00 12/17/19 10:59 12/13/19 08:16 Chlorhexidine Gluconate (Susanna-Hex 2%) 1 applic DAILY@2000 TOPIC 12/08/19 20:00 03/07/20 19:59 12/12/19 20:26 Dextrose/Sodium Chloride 1,000 ml @ 60 mls/hr [id number] IV 12/09/19 10:15 01/08/20 10:14 12/12/19 17:35 Dopamine HCl/ Dextrose 250 ml @ 0 mls/hr Q24H IV 12/09/19 16:15 03/07/20 16:14 12/12/19 23:42 Enoxaparin Sodium (Lovenox) 70 mg Q12H SUBQ 12/11/19 18:00 03/10/20 17:59 12/13/19 05:36 Lansoprazole (Prevacid) 30 mg BID GT 12/09/19 18:00 01/07/20 08:59 12/13/19 08:17 Levetiracetam (Keppra) 500 mg Q12HR GT 12/08/19 09:00 01/07/20 08:59 12/13/19 08:16 Norepinephrine Bitartrate 4 mg/ Dextrose 250 ml @ 0 mls/hr Q24H IV 12/09/19 01:30 01/07/20 01:29 12/08/19 02:39 Ondansetron HCl (Zofran) 4 mg Q6H PRN IVP Nausea & Vomiting 12/08/19 03:30 01/06/20 21:29 Potassium Chloride (K-Dur) 40 meq TWICE A DAY GT 12/13/19 09:00 03/12/20 08:59 12/13/19 08:17 Last 24 Hour Vital Signs Date Time Temp Pulse Resp B/P (MAP) Pulse Ox O2 Delivery O2 Flow Rate FiO2 12/13/19 10:00 80 21 107/49 (68) 99 12/13/19 09:15 100 Room Air 21 12/13/19 09:14 74 19 100 Room Air 21 12/13/19 09:00 77 18 101/55 (70) 99 12/13/19 09:00 101/55 12/13/19 08:21 91 12/13/19 08:00 114/52 12/13/19 08:00 98.5 79 25 114/52 (72) 100 12/13/19 08:00 Room Air Room Air 12/13/19 07:00 104/60 12/13/19 07:00 74 19 104/66 (79) 100 12/13/19 06:30 81 26 97/54 (68) 98 12/13/19 06:00 85 25 125/60 (81) 98 12/13/19 06:00 125/60 12/13/19 05:30 87 27 122/67 (85) 98 12/13/19 05:00 82 22 120/73 (89) 99 12/13/19 05:00 120/73 12/13/19 04:30 86 31 96/71 (79) 100 12/13/19 04:00 98.4 88 24 116/76 (89) 100 12/13/19 04:00 116/76 12/13/19 04:00 Room Air Room Air 12/13/19 03:30 89 28 120/68 (85) 99 12/13/19 03:03 91 12/13/19 03:00 113/73 12/13/19 03:00 92 21 113/73 (86) 98 12/13/19 02:30 120 43 108/67 (81) 98 12/13/19 02:00 114/76 12/13/19 02:00 109 23 114/76 (89) 96 12/13/19 01:30 91 22 112/62 (79) 98 12/13/19 01:30 109/83 12/13/19 01:00 93 26 121/70 (87) 99 12/13/19 01:00 121/70 12/13/19 00:30 91 23 115/69 (84) 99 12/13/19 00:00 98.1 85 27 114/61 (78) 98 12/13/19 00:00 114/61 12/13/19 00:00 Room Air Room Air 12/13/19 00:00 85 12/12/19 23:45 89 27 92/50 (64) 99 12/12/19 23:42 116/78 12/12/19 23:30 87 28 116/78 (91) 99 12/12/19 23:03 78 20 92/56 (68) 99 12/12/19 23:00 79/53 12/12/19 23:00 82 23 79/53 (62) 100 12/12/19 22:45 85 20 97/59 (72) 99 12/12/19 22:30 87 22 113/63 (80) 99 12/12/19 22:00 100 38 103/60 (74) 99 12/12/19 22:00 103/60 12/12/19 21:30 86 21 101/64 (76) 99 12/12/19 21:00 110/58 12/12/19 21:00 84 23 110/58 (75) 100 12/12/19 20:31 73 18 100 Nasal Cannula 2.0 28 12/12/19 20:31 100 Nasal Cannula 2.0 28 12/12/19 20:30 87 29 108/58 (75) 98 12/12/19 20:00 Room Air Room Air 12/12/19 20:00 106/57 12/12/19 20:00 98.1 75 14 106/57 (73) 98 12/12/19 19:30 87 21 104/61 (75) 99 12/12/19 19:23 89 12/12/19 19:00 105/76 12/12/19 19:00 88 22 105/76 (86) 99 12/12/19 18:30 86 18 103/43 (63) 99 4/8/20 18:00 89 18 115/56 (75) 98 12/12/19 18:00 115/56 12/12/19 17:00 87 21 111/64 (80) 98 12/12/19 17:00 111/64 12/12/19 16:30 91 24 102/60 (74) 99 12/12/19 16:00 Room Air Room Air 12/12/19 16:00 98.6 73 15 124/101 (109) 98 12/12/19 16:00 101/56 12/12/19 15:57 71 12/12/19 15:34 72 12/12/19 15:00 75 16 105/51 (69) 98 12/12/19 15:00 104/77 12/12/19 14:00 74 17 104/51 (68) 99 12/12/19 14:00 105/55 12/12/19 13:30 76 15 99/58 (72) 99 12/12/19 13:00 74 16 104/54 (71) 98 12/12/19 13:00 104/58 12/12/19 12:00 73 12/12/19 12:00 106/52 12/12/19 12:00 98.4 74 15 106/52 (70) 99 12/12/19 12:00 74 12/12/19 12:00 Room Air Room Air 12/12/19 11:54 70/37 12/12/19 11:30 74 23 105/50 (68) 97 12/12/19 11:00 79 15 114/54 (74) 99 12/12/19 11:00 114/54 12/12/19 10:00 77 15 106/52 (70) 99 12/12/19 10:00 106/52 12/12/19 09:30 80 19 109/57 (74) 94 12/12/19 09:00 82 17 105/54 (71) 97 12/12/19 09:00 101/49 12/12/19 08:30 81 16 107/51 (69) 98 12/12/19 08:00 79 12/12/19 08:00 98.9 79 14 101/53 (69) 100 12/12/19 08:00 109/58 12/12/19 08:00 81 12/12/19 08:00 Room Air Room Air 12/12/19 07:00 80 18 100/51 (67) 98 12/12/19 07:00 100/51 12/12/19 06:30 79 15 98/53 (68) 99 12/12/19 06:00 98/54 12/12/19 06:00 79 15 98/54 (69) 99 12/12/19 05:30 81 19 99/63 (75) 98 12/12/19 05:00 83 16 98/48 (65) 99 12/12/19 05:00 100/57 12/12/19 04:30 78 16 99/62 (74) 98 12/12/19 04:15 78 17 90/55 (67) 98 12/12/19 04:00 98.5 86 18 103/71 (82) 97 12/12/19 04:00 90/55 12/12/19 04:00 105 12/12/19 04:00 Room Air Room Air 12/12/19 03:30 93 22 90/51 (64) 96 12/12/19 03:15 106 35 95/54 (68) 97 12/12/19 03:00 91 24 123/57 (79) 96 12/12/19 03:00 95/54 12/12/19 02:30 90 21 118/60 (79) 96 12/12/19 02:00 93 21 119/57 (77) 96 12/12/19 02:00 120/57 12/12/19 01:30 89 22 119/59 (79) 97 12/12/19 01:30 119/58 12/12/19 01:00 127/62 12/12/19 01:00 83 17 122/61 (81) 96 12/12/19 00:30 75 20 116/55 (75) 96 12/12/19 00:24 84/41 12/12/19 00:00 Room Air Room Air 12/12/19 00:00 84/41 12/12/19 00:00 81 12/12/19 00:00 98.6 88 22 119/63 (81) 95 12/11/19 23:30 79 19 122/60 (80) 97 12/11/19 23:00 115/53 12/11/19 23:00 98 28 68/40 (49) 95 12/11/19 22:30 86 23 97/73 (81) 97 12/11/19 22:00 85 16 119/60 (79) 97 12/11/19 22:00 109/61 12/11/19 21:30 87 23 114/60 (78) 98 12/11/19 21:00 86 20 119/58 (78) 98 12/11/19 21:00 109/87 12/11/19 20:30 87 23 117/58 (77) 98 12/11/19 20:00 Room Air Room Air 12/11/19 20:00 90 12/11/19 20:00 98.5 90 17 135/59 (84) 100 12/11/19 20:00 117/53 12/11/19 19:30 93 20 117/61 (79) 96 12/11/19 19:00 122/61 12/11/19 19:00 93 18 111/71 (84) 98 12/11/19 18:58 99 Nasal Cannula 2.0 28 12/11/19 18:58 71 17 99 Nasal Cannula 2.0 28 12/11/19 18:00 121 29 101/65 (77) 95 12/11/19 18:00 101/65 12/11/19 17:30 79 18 122/60 (80) 99 12/11/19 17:00 133/58 12/11/19 17:00 82 19 133/58 (83) 99 12/11/19 16:30 98.9 84 17 123/59 (80) 98 12/11/19 16:00 82 12/11/19 16:00 84 18 127/62 (83) 98 12/11/19 16:00 Room Air Room Air 12/11/19 16:00 123/59 12/11/19 15:30 82 20 131/58 (82) 98 12/11/19 15:00 82 21 129/65 (86) 99 12/11/19 15:00 129/65 12/11/19 14:00 110/57 12/11/19 14:00 88 23 71/39 (50) 97 12/11/19 13:00 83 21 121/66 (84) 97 12/11/19 13:00 121/66 12/11/19 12:00 125/65 12/11/19 12:00 Room Air Room Air 12/11/19 12:00 98.2 77 17 121/63 (82) 99 12/11/19 11:22 83 12/11/19 11:00 118/58 12/11/19 11:00 80 15 118/58 (78) 98 Intake and Output 12/12/19 12/13/19 19:00 07:00 Intake Total 1391.3978 ml 1473.975 ml Output Total 1630 ml 1480 ml Balance -238.6022 ml -6.025 ml IV Total 1086.3978 ml 1033.975 ml Tube Feeding 225 ml 390 ml Other 80 ml 50 ml Output Urine Total 1630 ml 1480 ml Labs Test 12/10/19 12:00 12/10/19 20:15 12/11/19 03:15 12/11/19 13:30 Activated Partial Thromboplast Time 32 SEC (23-33) 67 SEC (23-33) 31 SEC (23-33) 106 SEC (23-33) Test 12/12/19 04:00 12/13/19 04:00 White Blood Count 10.1 K/UL (4.8-10.8) 12.6 K/UL (4.8-10.8) Red Blood Count 3.43 M/UL (4.70-6.10) 3.21 M/UL (4.70-6.10) Hemoglobin 10.4 G/DL (14.2-18.0) 9.6 G/DL (14.2-18.0) Hematocrit 30.6 % (42.0-52.0) 28.7 % (42.0-52.0) Mean Corpuscular Volume 89 FL (80-99) 89 FL (80-99) Mean Corpuscular Hemoglobin 30.3 PG (27.0-31.0) 30.0 PG (27.0-31.0) Mean Corpuscular Hemoglobin Concent 34.0 G/DL (32.0-36.0) 33.6 G/DL (32.0-36.0) Red Cell Distribution Width 17.5 % (11.6-14.8) 17.8 % (11.6-14.8) Platelet Count 567 K/UL (150-450) 582 K/UL (150-450) Mean Platelet Volume 5.1 FL (6.5-10.1) 5.5 FL (6.5-10.1) Neutrophils (%) (Auto) 77.5 % (45.0-75.0) 81.6 % (45.0-75.0) Lymphocytes (%) (Auto) 14.2 % (20.0-45.0) 10.6 % (20.0-45.0) Monocytes (%) (Auto) 6.5 % (1.0-10.0) 6.2 % (1.0-10.0) Eosinophils (%) (Auto) 1.2 % (0.0-3.0) 1.3 % (0.0-3.0) Basophils (%) (Auto) 0.6 % (0.0-2.0) 0.2 % (0.0-2.0) Sodium Level 137 MMOL/L (136-145) 137 MMOL/L (136-145) Potassium Level 3.1 MMOL/L (3.5-5.1) 3.3 MMOL/L (3.5-5.1) Chloride Level 104 MMOL/L (98-107) 104 MMOL/L (98-107) Carbon Dioxide Level 24 MMOL/L (21-32) 25 MMOL/L (21-32) Anion Gap 10 mmol/L (5-15) 8 mmol/L (5-15) Blood Urea Nitrogen 10 mg/dL (7-18) 11 mg/dL (7-18) Creatinine 0.8 MG/DL (0.55-1.30) 0.7 MG/DL (0.55-1.30) Estimat Glomerular Filtration Rate > 60 mL/min (>60) > 60 mL/min (>60) Glucose Level 128 MG/DL (74-106) 127 MG/DL (74-106) Calcium Level 8.5 MG/DL (8.5-10.1) 8.5 MG/DL (8.5-10.1) Phosphorus Level 3.5 MG/DL (2.5-4.9) Magnesium Level 1.8 MG/DL (1.8-2.4) Total Bilirubin 0.3 MG/DL (0.2-1.0) Aspartate Amino Transf (AST/SGOT) 18 U/L (15-37) Alanine Aminotransferase (ALT/SGPT) 17 U/L (12-78) Alkaline Phosphatase 136 U/L (46-116) C-Reactive Protein, Quantitative 15.4 mg/dL (0.00-0.90) Pro-B-Type Natriuretic Peptide 1730 pg/mL (0-125) Total Protein 6.4 G/DL (6.4-8.2) Albumin 1.6 G/DL (3.4-5.0) Globulin 4.8 g/dL Albumin/Globulin Ratio 0.3 (1.0-2.7) Height (Feet): 5 Height (Inches): 7.00 Weight (Pounds): 130 Objective Review of Systems difficult to obtain given medical condition baseline Physical Exam General Appearance: no apparent distress Lines, tubes and drains: central line HEENT: mucous membranes moist Neck: normal inspection Respiratory/Chest: no respiratory distress Cardiovascular/Chest: normal rate Abdomen: soft, no organomegaly, no mass, other Extremities: inflammation, slow capillary refill, other Skin Exam: warm/dry : judson+ Camden Bella MD Dec 13, 2019 10:13
[2019-12-13] MEDS: DOPamine 400mg/250ml 250 ML IV SCH ×2 (11:30→23:32)
--- NOTE | 2019-12-13 12:35 | Cardiac Electrophysiology PN ---
Assessment/Plan Assessment/Plan 1. Shortness of breath. Ruled out for CA. Echo EF 60% 2. Septic shock. On Dopamine 8 mcg and IV antibiotic. 3. Nonsustained VT 20 beats. Mg replaced. No further No further overnight 4. Transient atrial fib, converted back to SR 5. R CFV DVT heparin drip changed to Lovenox 70sq bid 6. Cough and fever. Possible pneumonia. Ruled out for COVID-19. 7. Seizures, on Keppra. 8. Cerebral palsy. DW RN Subjective Subjective In ICU on Dopamine 8 mcg.No further VT Had 20 beats of VT on 12/10/19 at 3 am. Heparin drip changed to Lovenox. In isolation for MRSA and VRE. COVID is negative. RN at bedside HAd transient atrial fib last night Objective Last 24 Hour Vital Signs Date Time Temp Pulse Resp B/P (MAP) Pulse Ox O2 Delivery O2 Flow Rate FiO2 12/13/19 11:30 96/48 12/13/19 11:00 89 22 91/43 (59) 97 12/13/19 11:00 91/43 12/13/19 10:00 107/49 12/13/19 10:00 80 21 107/49 (68) 99 12/13/19 09:15 100 Room Air 21 12/13/19 09:14 74 19 100 Room Air 21 12/13/19 09:00 77 18 101/55 (70) 99 12/13/19 09:00 101/55 12/13/19 08:21 91 12/13/19 08:00 114/52 12/13/19 08:00 98.5 79 25 114/52 (72) 100 12/13/19 08:00 Room Air Room Air 12/13/19 07:00 104/60 12/13/19 07:00 74 19 104/66 (79) 100 12/13/19 06:30 81 26 97/54 (68) 98 12/13/19 06:00 85 25 125/60 (81) 98 12/13/19 06:00 125/60 12/13/19 05:30 87 27 122/67 (85) 98 12/13/19 05:00 82 22 120/73 (89) 99 12/13/19 05:00 120/73 12/13/19 04:30 86 31 96/71 (79) 100 12/13/19 04:00 98.4 88 24 116/76 (89) 100 12/13/19 04:00 116/76 12/13/19 04:00 Room Air Room Air 12/13/19 03:30 89 28 120/68 (85) 99 12/13/19 03:03 91 12/13/19 03:00 113/73 12/13/19 03:00 92 21 113/73 (86) 98 12/13/19 02:30 120 43 108/67 (81) 98 12/13/19 02:00 114/76 12/13/19 02:00 109 23 114/76 (89) 96 12/13/19 01:30 91 22 112/62 (79) 98 12/13/19 01:30 109/83 12/13/19 01:00 93 26 121/70 (87) 99 12/13/19 01:00 121/70 12/13/19 00:30 91 23 115/69 (84) 99 12/13/19 00:00 98.1 85 27 114/61 (78) 98 12/13/19 00:00 114/61 12/13/19 00:00 Room Air Room Air 12/13/19 00:00 85 12/12/19 23:45 89 27 92/50 (64) 99 12/12/19 23:42 116/78 12/12/19 23:30 87 28 116/78 (91) 99 12/12/19 23:03 78 20 92/56 (68) 99 12/12/19 23:00 79/53 12/12/19 23:00 82 23 79/53 (62) 100 12/12/19 22:45 85 20 97/59 (72) 99 12/12/19 22:30 87 22 113/63 (80) 99 12/12/19 22:00 100 38 103/60 (74) 99 12/12/19 22:00 103/60 12/12/19 21:30 86 21 101/64 (76) 99 12/12/19 21:00 110/58 12/12/19 21:00 84 23 110/58 (75) 100 12/12/19 20:31 73 18 100 Nasal Cannula 2.0 28 12/12/19 20:31 100 Nasal Cannula 2.0 28 12/12/19 20:30 87 29 108/58 (75) 98 12/12/19 20:00 Room Air Room Air 12/12/19 20:00 106/57 12/12/19 20:00 98.1 75 14 106/57 (73) 98 12/12/19 19:30 87 21 104/61 (75) 99 12/12/19 19:23 89 12/12/19 19:00 105/76 12/12/19 19:00 88 22 105/76 (86) 99 12/12/19 18:30 86 18 103/43 (63) 99 12/12/19 18:00 89 18 115/56 (75) 98 12/12/19 18:00 115/56 12/12/19 17:00 87 21 111/64 (80) 98 12/12/19 17:00 111/64 12/12/19 16:30 91 24 102/60 (74) 99 12/12/19 16:00 Room Air Room Air 12/12/19 16:00 98.6 73 15 124/101 (109) 98 12/12/19 16:00 101/56 12/12/19 15:57 71 12/12/19 15:34 72 12/12/19 15:00 75 16 105/51 (69) 98 12/12/19 15:00 104/77 12/12/19 14:00 74 17 104/51 (68) 99 12/12/19 14:00 105/55 12/12/19 13:30 76 15 99/58 (72) 99 12/12/19 13:00 74 16 104/54 (71) 98 12/12/19 13:00 104/58 Intake and Output 12/12/19 12/13/19 19:00 07:00 Intake Total 1391.3978 ml 1473.975 ml Output Total 1630 ml 1480 ml Balance -238.6022 ml -6.025 ml IV Total 1086.3978 ml 1033.975 ml Tube Feeding 225 ml 390 ml Other 80 ml 50 ml Output Urine Total 1630 ml 1480 ml Laboratory Tests Test 12/13/19 04:00 White Blood Count 12.6 K/UL (4.8-10.8) H Red Blood Count 3.21 M/UL (4.70-6.10) L Hemoglobin 9.6 G/DL (14.2-18.0) L Hematocrit 28.7 % (42.0-52.0) L Mean Corpuscular Volume 89 FL (80-99) Mean Corpuscular Hemoglobin 30.0 PG (27.0-31.0) Mean Corpuscular Hemoglobin Concent 33.6 G/DL (32.0-36.0) Red Cell Distribution Width 17.8 % (11.6-14.8) H Platelet Count 582 K/UL (150-450) H Mean Platelet Volume 5.5 FL (6.5-10.1) L Neutrophils (%) (Auto) 81.6 % (45.0-75.0) H Lymphocytes (%) (Auto) 10.6 % (20.0-45.0) L Monocytes (%) (Auto) 6.2 % (1.0-10.0) Eosinophils (%) (Auto) 1.3 % (0.0-3.0) Basophils (%) (Auto) 0.2 % (0.0-2.0) Sodium Level 137 MMOL/L (136-145) Potassium Level 3.3 MMOL/L (3.5-5.1) L Chloride Level 104 MMOL/L (98-107) Carbon Dioxide Level 25 MMOL/L (21-32) Anion Gap 8 mmol/L (5-15) Blood Urea Nitrogen 11 mg/dL (7-18) Creatinine 0.7 MG/DL (0.55-1.30) Estimat Glomerular Filtration Rate > 60 mL/min (>60) Glucose Level 127 MG/DL (74-106) H Calcium Level 8.5 MG/DL (8.5-10.1) Objective HEAD AND NECK: No JVD. LUNGS: Coarse rhonchi. CARDIOVASCULAR: Regular S1 and S2 with no gallop. ABDOMEN: Soft. EXTREMITIES: 1+ pitting edema. Rk Hdz MD Dec 13, 2019 12:35
--- NOTE | 2019-12-13 13:08 | Nephrology Progress Note ---
Assessment/Plan Problem List: (1) Electrolyte imbalance (2) Dehydration (3) Urinary tract infection (4) Hypoalbuminemia (5) Hypokalemia (6) BPH (benign prostatic hyperplasia) (7) Anemia Assessment Hypokalemia Hypoalbuminemia Urinary tract infection Possible Pneumonia, Sepsis, Rule out Covid-19 Cerebral Palsy Seizure History BPH - chronic roper Dysphagia s/p G tube Anemia, Lymphopenia Plan Start midodrine 5 mg every 8 hours for low blood pressure Remains on dopamine for blood pressure maintenance IV hydration-potassium supplement as needed Monitor renal parameters and electrolytes Antibiotics Avoid nephrotoxic's Per consultants Per orders Subjective ROS Limited/Unobtainable: No Constitutional: Reports: malaise, weakness Objective Objective Last 24 Hour Vital Signs Date Time Temp Pulse Resp B/P (MAP) Pulse Ox O2 Delivery O2 Flow Rate FiO2 12/13/19 11:30 96/48 12/13/19 11:00 89 22 91/43 (59) 97 12/13/19 11:00 91/43 12/13/19 10:00 107/49 12/13/19 10:00 80 21 107/49 (68) 99 12/13/19 09:15 100 Room Air 21 12/13/19 09:14 74 19 100 Room Air 21 12/13/19 09:00 77 18 101/55 (70) 99 12/13/19 09:00 101/55 12/13/19 08:21 91 12/13/19 08:00 114/52 12/13/19 08:00 98.5 79 25 114/52 (72) 100 12/13/19 08:00 Room Air Room Air 12/13/19 07:00 104/60 12/13/19 07:00 74 19 104/66 (79) 100 12/13/19 06:30 81 26 97/54 (68) 98 12/13/19 06:00 85 25 125/60 (81) 98 12/13/19 06:00 125/60 12/13/19 05:30 87 27 122/67 (85) 98 12/13/19 05:00 82 22 120/73 (89) 99 12/13/19 05:00 120/73 12/13/19 04:30 86 31 96/71 (79) 100 12/13/19 04:00 98.4 88 24 116/76 (89) 100 12/13/19 04:00 116/76 12/13/19 04:00 Room Air Room Air 12/13/19 03:30 89 28 120/68 (85) 99 12/13/19 03:03 91 12/13/19 03:00 113/73 12/13/19 03:00 92 21 113/73 (86) 98 12/13/19 02:30 120 43 108/67 (81) 98 12/13/19 02:00 114/76 12/13/19 02:00 109 23 114/76 (89) 96 12/13/19 01:30 91 22 112/62 (79) 98 12/13/19 01:30 109/83 12/13/19 01:00 93 26 121/70 (87) 99 12/13/19 01:00 121/70 12/13/19 00:30 91 23 115/69 (84) 99 12/13/19 00:00 98.1 85 27 114/61 (78) 98 12/13/19 00:00 114/61 12/13/19 00:00 Room Air Room Air 12/13/19 00:00 85 12/12/19 23:45 89 27 92/50 (64) 99 12/12/19 23:42 116/78 12/12/19 23:30 87 28 116/78 (91) 99 12/12/19 23:03 78 20 92/56 (68) 99 12/12/19 23:00 79/53 12/12/19 23:00 82 23 79/53 (62) 100 12/12/19 22:45 85 20 97/59 (72) 99 12/12/19 22:30 87 22 113/63 (80) 99 12/12/19 22:00 100 38 103/60 (74) 99 12/12/19 22:00 103/60 12/12/19 21:30 86 21 101/64 (76) 99 12/12/19 21:00 110/58 12/12/19 21:00 84 23 110/58 (75) 100 12/12/19 20:31 73 18 100 Nasal Cannula 2.0 28 12/12/19 20:31 100 Nasal Cannula 2.0 28 12/12/19 20:30 87 29 108/58 (75) 98 12/12/19 20:00 Room Air Room Air 12/12/19 20:00 106/57 12/12/19 20:00 98.1 75 14 106/57 (73) 98 12/12/19 19:30 87 21 104/61 (75) 99 12/12/19 19:23 89 12/12/19 19:00 105/76 12/12/19 19:00 88 22 105/76 (86) 99 12/12/19 18:30 86 18 103/43 (63) 99 12/12/19 18:00 89 18 115/56 (75) 98 12/12/19 18:00 115/56 12/12/19 17:00 87 21 111/64 (80) 98 12/12/19 17:00 111/64 12/12/19 16:30 91 24 102/60 (74) 99 12/12/19 16:00 Room Air Room Air 12/12/19 16:00 98.6 73 15 124/101 (109) 98 12/12/19 16:00 101/56 12/12/19 15:57 71 12/12/19 15:34 72 12/12/19 15:00 75 16 105/51 (69) 98 12/12/19 15:00 104/77 12/12/19 14:00 74 17 104/51 (68) 99 12/12/19 14:00 105/55 12/12/19 13:30 76 15 99/58 (72) 99 Intake and Output 12/12/19 12/13/19 19:00 07:00 Intake Total 1391.3978 ml 1473.975 ml Output Total 1630 ml 1480 ml Balance -238.6022 ml -6.025 ml IV Total 1086.3978 ml 1033.975 ml Tube Feeding 225 ml 390 ml Other 80 ml 50 ml Output Urine Total 1630 ml 1480 ml Current Medications Medications (Trade) Dose Ordered Sig/Nazia Route PRN Reason Start Time Stop Time Status Last Admin Dose Admin Acetaminophen (Tylenol) 650 mg Q4H PRN ORAL Temp >100.5 12/08/19 05:00 01/07/20 04:59 12/08/19 09:06 Acetaminophen (Tylenol) 650 mg Q4H PRN RECTAL Temp >100.5 12/08/19 05:30 01/06/20 20:59 Cefepime HCl 1 gm/ Dextrose 55 ml @ 110 mls/hr EVERY 12 HOURS IVPB 12/10/19 11:00 12/17/19 10:59 12/13/19 08:16 Chlorhexidine Gluconate (Susanna-Hex 2%) 1 applic DAILY@2000 TOPIC 12/08/19 20:00 03/07/20 19:59 12/12/19 20:26 Dextrose/Sodium Chloride 1,000 ml @ 60 mls/hr [id number] IV 12/09/19 10:15 01/08/20 10:14 12/12/19 17:35 Dopamine HCl/ Dextrose 250 ml @ 0 mls/hr Q24H IV 12/09/19 16:15 03/07/20 16:14 12/13/19 11:30 Enoxaparin Sodium (Lovenox) 70 mg Q12H SUBQ 12/11/19 18:00 03/10/20 17:59 12/13/19 05:36 Lansoprazole (Prevacid) 30 mg BID GT 12/09/19 18:00 01/07/20 08:59 12/13/19 08:17 Levetiracetam (Keppra) 500 mg Q12HR GT 12/08/19 09:00 01/07/20 08:59 12/13/19 08:16 Norepinephrine Bitartrate 4 mg/ Dextrose 250 ml @ 0 mls/hr Q24H IV 12/09/19 01:30 01/07/20 01:29 12/08/19 02:39 Ondansetron HCl (Zofran) 4 mg Q6H PRN IVP Nausea & Vomiting 12/08/19 03:30 01/06/20 21:29 Potassium Chloride (K-Dur) 40 meq TWICE A DAY GT 12/13/19 09:00 03/12/20 08:59 12/13/19 08:17 Laboratory Tests 12/13/19 04:00: White Blood Count 12.6H, Red Blood Count 3.21L, Hemoglobin 9.6L, Hematocrit 28.7L, Mean Corpuscular Volume 89, Mean Corpuscular Hemoglobin 30.0, Mean Corpuscular Hemoglobin Concent 33.6, Red Cell Distribution Width 17.8H, Platelet Count 582H, Mean Platelet Volume 5.5L, Neutrophils (%) (Auto) 81.6H, Lymphocytes (%) (Auto) 10.6L, Monocytes (%) (Auto) 6.2, Eosinophils (%) (Auto) 1.3, Basophils (%) (Auto) 0.2, Sodium Level 137, Potassium Level 3.3L, Chloride Level 104, Carbon Dioxide Level 25, Anion Gap 8, Blood Urea Nitrogen 11, Creatinine 0.7, Estimat Glomerular Filtration Rate > 60, Glucose Level 127H, Calcium Level 8.5 Height (Feet): 5 Height (Inches): 7.00 Weight (Pounds): 130 General Appearance: no apparent distress, lethargic Cardiovascular: normal rate Respiratory/Chest: decreased breath sounds Abdomen: soft Objective No change Andre Flores MD Dec 13, 2019 13:08
--- NOTE | 2019-12-13 14:48 | Surgery Progress Note ---
Surgery Progress Note Subjective Additional Comments no acute events labs noted eaxm stable Objective Last 24 Hour Vital Signs Date Time Temp Pulse Resp B/P (MAP) Pulse Ox O2 Delivery O2 Flow Rate FiO2 12/13/19 13:00 83 28 119/55 (76) 98 12/13/19 12:00 Room Air Room Air Room Air 12/13/19 12:00 98.5 79 28 112/53 (72) 100 12/13/19 11:30 96/48 12/13/19 11:07 84 12/13/19 11:00 89 22 91/43 (59) 97 12/13/19 11:00 91/43 12/13/19 10:00 107/49 12/13/19 10:00 80 21 107/49 (68) 99 12/13/19 09:15 100 Room Air 21 12/13/19 09:14 74 19 100 Room Air 21 12/13/19 09:00 77 18 101/55 (70) 99 12/13/19 09:00 101/55 12/13/19 08:21 91 12/13/19 08:00 114/52 12/13/19 08:00 98.5 79 25 114/52 (72) 100 12/13/19 08:00 Room Air Room Air 12/13/19 07:00 104/60 12/13/19 07:00 74 19 104/66 (79) 100 12/13/19 06:30 81 26 97/54 (68) 98 12/13/19 06:00 85 25 125/60 (81) 98 12/13/19 06:00 125/60 12/13/19 05:30 87 27 122/67 (85) 98 12/13/19 05:00 82 22 120/73 (89) 99 12/13/19 05:00 120/73 12/13/19 04:30 86 31 96/71 (79) 100 12/13/19 04:00 98.4 88 24 116/76 (89) 100 12/13/19 04:00 116/76 12/13/19 04:00 Room Air Room Air 12/13/19 03:30 89 28 120/68 (85) 99 12/13/19 03:03 91 12/13/19 03:00 113/73 12/13/19 03:00 92 21 113/73 (86) 98 12/13/19 02:30 120 43 108/67 (81) 98 12/13/19 02:00 114/76 12/13/19 02:00 109 23 114/76 (89) 96 12/13/19 01:30 91 22 112/62 (79) 98 12/13/19 01:30 109/83 12/13/19 01:00 93 26 121/70 (87) 99 12/13/19 01:00 121/70 12/13/19 00:30 91 23 115/69 (84) 99 12/13/19 00:00 98.1 85 27 114/61 (78) 98 12/13/19 00:00 114/61 12/13/19 00:00 Room Air Room Air 12/13/19 00:00 85 12/12/19 23:45 89 27 92/50 (64) 99 12/12/19 23:42 116/78 12/12/19 23:30 87 28 116/78 (91) 99 12/12/19 23:03 78 20 92/56 (68) 99 12/12/19 23:00 79/53 12/12/19 23:00 82 23 79/53 (62) 100 12/12/19 22:45 85 20 97/59 (72) 99 12/12/19 22:30 87 22 113/63 (80) 99 12/12/19 22:00 100 38 103/60 (74) 99 12/12/19 22:00 103/60 12/12/19 21:30 86 21 101/64 (76) 99 12/12/19 21:00 110/58 12/12/19 21:00 84 23 110/58 (75) 100 12/12/19 20:31 73 18 100 Nasal Cannula 2.0 28 12/12/19 20:31 100 Nasal Cannula 2.0 28 12/12/19 20:30 87 29 108/58 (75) 98 12/12/19 20:00 Room Air Room Air 12/12/19 20:00 106/57 12/12/19 20:00 98.1 75 14 106/57 (73) 98 12/12/19 19:30 87 21 104/61 (75) 99 12/12/19 19:23 89 12/12/19 19:00 105/76 12/12/19 19:00 88 22 105/76 (86) 99 12/12/19 18:30 86 18 103/43 (63) 99 12/12/19 18:00 89 18 115/56 (75) 98 12/12/19 18:00 115/56 12/12/19 17:00 87 21 111/64 (80) 98 12/12/19 17:00 111/64 12/12/19 16:30 91 24 102/60 (74) 99 12/12/19 16:00 Room Air Room Air 12/12/19 16:00 98.6 73 15 124/101 (109) 98 12/12/19 16:00 101/56 12/12/19 15:57 71 12/12/19 15:34 72 12/12/19 15:00 75 16 105/51 (69) 98 12/12/19 15:00 104/77 I&O Intake and Output 12/12/19 12/13/19 19:00 07:00 Intake Total 1391.3978 ml 1473.975 ml Output Total 1630 ml 1480 ml Balance -238.6022 ml -6.025 ml IV Total 1086.3978 ml 1033.975 ml Tube Feeding 225 ml 390 ml Other 80 ml 50 ml Output Urine Total 1630 ml 1480 ml Dressing: other Wound: other Drains: other Cardiovascular: RSR Respiratory: decreased breath sounds Abdomen: soft, non-tender, present bowel sounds Extremities: no tenderness, no cyanosis Laboratory Tests Test 12/13/19 04:00 White Blood Count 12.6 K/UL (4.8-10.8) H Red Blood Count 3.21 M/UL (4.70-6.10) L Hemoglobin 9.6 G/DL (14.2-18.0) L Hematocrit 28.7 % (42.0-52.0) L Mean Corpuscular Volume 89 FL (80-99) Mean Corpuscular Hemoglobin 30.0 PG (27.0-31.0) Mean Corpuscular Hemoglobin Concent 33.6 G/DL (32.0-36.0) Red Cell Distribution Width 17.8 % (11.6-14.8) H Platelet Count 582 K/UL (150-450) H Mean Platelet Volume 5.5 FL (6.5-10.1) L Neutrophils (%) (Auto) 81.6 % (45.0-75.0) H Lymphocytes (%) (Auto) 10.6 % (20.0-45.0) L Monocytes (%) (Auto) 6.2 % (1.0-10.0) Eosinophils (%) (Auto) 1.3 % (0.0-3.0) Basophils (%) (Auto) 0.2 % (0.0-2.0) Sodium Level 137 MMOL/L (136-145) Potassium Level 3.3 MMOL/L (3.5-5.1) L Chloride Level 104 MMOL/L (98-107) Carbon Dioxide Level 25 MMOL/L (21-32) Anion Gap 8 mmol/L (5-15) Blood Urea Nitrogen 11 mg/dL (7-18) Creatinine 0.7 MG/DL (0.55-1.30) Estimat Glomerular Filtration Rate > 60 mL/min (>60) Glucose Level 127 MG/DL (74-106) H Calcium Level 8.5 MG/DL (8.5-10.1) Plan Problems: (1) Urinary tract infection (2) Respiratory insufficiency Assessment & Plan: Right central line terminates in the right atrium. Cardiomegaly. Mild vascular congestion. Mild bilateral pleural effusions. (3) Decubital ulcer Assessment & Plan: Pt presented on admission with contractures, multiple pressure injuries.Unstageable pressure injury noted to upper L earlobe(L)0.5cm x (W)0.8cm. Stable dry eschar noted at base of injury.Edges adhrent and pink.Medially along L earlobe is a DTPI(L)0.8cm x (W)0.6cm. Base of wound is Purple at center with surrounding maroon borders. Distally L earlobe is and Unstageable Pressure Injury(L)1cm x (W)0.4cm. Stable dry eschar at base of injury . Edges dry,adherent and pink. In close proximity at distal lobule is second pressure injury(L)0.5cm x (W)0.6cm. Base of wound is moist and viable. No exudate noted. stage 4 Sacral Pressure injury(L)5.6cmx (W)6.8cm. base of wound has 75% soft necrosis,25% gustabo with surrounding maroon ,indurated borders.Small amt non- odorous serous exudate noted. Sacral wound in its entirety measures (L)9cm x (W) 8cm. Areas of hyperpigmentation from previous wounds noted to L trochanter,and L lower buttocks. Partial thickness wound noted to head of penis(L)0.4cm x (W)0.5cm. Base of wound is moist and viable. Partial thickness Pressure Injury noted at base of shaft of penis(L)2.1cm x (W) 2.4cm. Base of wound is moist and viable. MASD R and L groin ,and Scrotum. Affected areas are erythematous and denuded. Unstageable Pressure injury R heel(L)6.5cm x (W)8cm . Wound is open blood blister. Base of wound is moist gustabo, black at center base of wound. Overlying loose skin flap removed. Periwound R heel is boggy with non-blanchable erythema. Unstageable Pressure Injury R Hallux(L)1.5cm x (W)2.9cm. Base of wound has 60% soft necrosis,40% gustabo. Macerated borders. Small amt. non-odorous serous exudate. Non-blanchable erythema without induration or elevated skin temp periwound. Unstageable Pressure injury Lateral R malleolus(L)1.8cm x (W)1.2cm. Base of is 100% necrotic with semi-detached borders which are erythematous and moist.Wound is malodorous. Periwound erythematous, but without elevated skin temp. Unstageable Pressure Injury L heel(L)4.6cm x (W)5.5cm. Base of wound is 100% necrotic with detached borders that present with mixed erythema and slough. Wound is malodorous. Periwound is erythematous and fluctuant. No elevation in skin temp noted. Unstageable Pressure Injury L lateral Malleolus (L)1.1cm x (W)1.2cm.Stable dry brown eschar at base of wound. Edges flat, adherent and pink. No erythema or fluctuance periwound. Full thickness stage 3 Pressure Injury L hallux(L)3.6cm x (W)3.9cm.Base of wound is moist pink with small amt Biofilm. Bone is palpable. Edges are macerated. No odor noted.Small amt serous exudate noted. Periwound is erythematous,no elevation in skin temp or fluctuance noted. DTPI medial/lateral L foot(L)2.5cm x (W)1.9cm. Base of Injury is maroon and fluctuant. Periwound is pink. Unstageable Pressure Injury distal/lateral L foot(L)2.5cm x (W)1.9cm. Base of wound is 100% soft necrosis with marginal erythema. No odor or exudate noted. Periwound is boggy but pink. Stable dry eschar R 1st metatarsal Head(L)0.6cm x (W)0.5cm. Tx.Plan: Apply Betadine to Wounds L earlobe Daily. Pad Oxygen tubing and keep tubing loose around ears. Cleanse Sacral wound with Saline. Apply Therahoney. Apply Moisture Barrier Periwound. Cover with Optifoam drsg. Change every 3 days and prn. Apply Moisture Barrier Paste to to R and L groin, Base of Penis, and scrotum with each Incontinence care. Apply Betadine to wounds R foot. Cover each wound with Optifoam drsg. Change Daily and prn. Apply Betadine to wounds L foot. Cover each wound with Optifoam drsg. Change Daily and prn. Reposition at least every 2hours or as tolerated. Place pillow between knees. Off-load heels with pillow. Air Fluidized mattress. (4) Suspected COVID-19 virus infection Davonte Ham Dec 13, 2019 14:48
[2019-12-13] MEDS: D5NS 1,000 ML IV SCH (15:20)
[2019-12-13] MEDS: Dyna-Hex 2% Top Sol 2oz TOPIC SCH (19:59)
--- NOTE | 2019-12-13 21:08 | Pulmonolgy Critical Care Note ---
Critical Care - Asmt/Plan Assessment/Plan: Pulmonary Critical Care Progress Note HPI 69-year-old male history of cerebral palsy, bedbound, nonverbal, Roper dependent presented for fever cough and shortness of breath. Patient apparently fever for the 24 hours [employer]. Patient is on nasal canula O2. History limited due to patient's baseline mental status. Has G tube Noted to have DVT, KPC on cultute On pressors PRN, On AC Negative for Covid19, In ICU due to hypotension On IV Antibiotics per ID, IVF, IV pressors PRN - Dopamine being weaned Hemodynamically stable currently, on NC O2 Allergies: No Known Allergies Past Medical History: GERD, Dysphagia, previous G tube, Cerebral Palsy, BPH All Other Systems: limited - History limited due to patient's baseline mental status Physical Exam Vital Signs Noted General Appearance: thin, Chronically Ill, mild pallor Head: normocephalic, atraumatic Eyes: bilateral eye PERRL, bilateral eye EOMI ENT: moist mm Neck: full range of motion, supple Respiratory: CTAB Cardiovascular: regular rate, rhythm, HS1, HS2 normal, no murmur, normal peripheral pulses, Gastrointestinal: non tender, soft, non-distended, no guarding Musculoskeletal: other - Extremities contracted, chronic ulcerations noted bilateral feet Neurologic: awake, no focal defects, other - Patient nonverbal at baseline Skin: warm/dry Impression: Urinary tract infection Possible Pneumonia Sepsis Covid-19 negative Cerebral Palsy Seizure History BPH - chronic roper Dysphagia s/p G tube Anemia DVT Lymphopenia Plan IV antibiotics Continue AC for DVT VQ scan R/o coronavirus infection IVF Pressors PRN Await cultures PPX Monitor labs O2 PRN Bronchodilators Laboratory Tests Noted EKG: Rate: normal Rhythm: NSR Other Impression t wave flattening 1 AVL CXR: Atelectasis RLL, L mid zone Subjective ROS Limited/Unobtainable: No Allergies: Coded Allergies: No Known Allergies (Unverified , 12/07/19) Microbiology Date/Time Source Procedure Growth Status 12/07/19 15:50 Nasal Nares - Final Complete 12/07/19 15:50 Nasal Nares - Final Complete 12/07/19 18:15 Rectum Received Critical Care - Objective Last 24 Hour Vital Signs Date Time Temp Pulse Resp B/P (MAP) Pulse Ox O2 Delivery O2 Flow Rate FiO2 12/13/19 20:30 92 26 103/60 (74) 100 12/13/19 20:00 98.5 93 28 95/58 (70) 100 12/13/19 19:30 87 22 110/63 (79) 100 12/13/19 19:00 97/61 12/13/19 19:00 87 20 97/61 (73) 100 12/13/19 18:00 133/84 12/13/19 18:00 112 53 119/67 (84) 97 12/13/19 17:00 84 25 116/58 (77) 100 12/13/19 17:00 136/76 12/13/19 16:00 146/81 12/13/19 16:00 Room Air Room Air Room Air 12/13/19 16:00 99.7 84 24 119/60 (79) 99 12/13/19 16:00 81 12/13/19 15:00 121/61 12/13/19 15:00 79 20 110/57 (74) 99 12/13/19 14:00 76 21 110/59 (76) 100 12/13/19 14:00 128/58 12/13/19 13:00 83 28 119/55 (76) 98 12/13/19 13:00 130/68 12/13/19 12:00 Room Air Room Air Room Air 12/13/19 12:00 98.5 79 28 112/53 (72) 100 12/13/19 12:00 137/68 12/13/19 11:30 96/48 12/13/19 11:07 84 12/13/19 11:00 89 22 91/43 (59) 97 12/13/19 11:00 91/43 12/13/19 10:00 107/49 12/13/19 10:00 80 21 107/49 (68) 99 12/13/19 09:15 100 Room Air 21 12/13/19 09:14 74 19 100 Room Air 21 12/13/19 09:00 77 18 101/55 (70) 99 12/13/19 09:00 101/55 12/13/19 08:21 91 12/13/19 08:00 114/52 12/13/19 08:00 98.5 79 25 114/52 (72) 100 12/13/19 08:00 Room Air Room Air 12/13/19 07:00 104/60 12/13/19 07:00 74 19 104/66 (79) 100 12/13/19 06:30 81 26 97/54 (68) 98 12/13/19 06:00 85 25 125/60 (81) 98 12/13/19 06:00 125/60 12/13/19 05:30 87 27 122/67 (85) 98 12/13/19 05:00 82 22 120/73 (89) 99 12/13/19 05:00 120/73 12/13/19 04:30 86 31 96/71 (79) 100 12/13/19 04:00 98.4 88 24 116/76 (89) 100 12/13/19 04:00 116/76 12/13/19 04:00 Room Air Room Air 12/13/19 03:30 89 28 120/68 (85) 99 12/13/19 03:03 91 12/13/19 03:00 113/73 12/13/19 03:00 92 21 113/73 (86) 98 12/13/19 02:30 120 43 108/67 (81) 98 12/13/19 02:00 114/76 12/13/19 02:00 109 23 114/76 (89) 96 12/13/19 01:30 91 22 112/62 (79) 98 12/13/19 01:30 109/83 12/13/19 01:00 93 26 121/70 (87) 99 12/13/19 01:00 121/70 12/13/19 00:30 91 23 115/69 (84) 99 12/13/19 00:00 98.1 85 27 114/61 (78) 98 12/13/19 00:00 114/61 12/13/19 00:00 Room Air Room Air 12/13/19 00:00 85 12/12/19 23:45 89 27 92/50 (64) 99 12/12/19 23:42 116/78 12/12/19 23:30 87 28 116/78 (91) 99 12/12/19 23:03 78 20 92/56 (68) 99 12/12/19 23:00 79/53 12/12/19 23:00 82 23 79/53 (62) 100 12/12/19 22:45 85 20 97/59 (72) 99 12/12/19 22:30 87 22 113/63 (80) 99 12/12/19 22:00 100 38 103/60 (74) 99 12/12/19 22:00 103/60 12/12/19 21:30 86 21 101/64 (76) 99 Critical Care - Subjective ROS Limited/Unobtainable: No Condition: improving FI02: 21 Sputum Amount: None Tube Feeding Amount: 50 I&O: Intake and Output 12/12/19 12/13/19 19:00 07:00 Intake Total 1391.3978 ml 1473.975 ml Output Total 1630 ml 1480 ml Balance -238.6022 ml -6.025 ml IV Total 1086.3978 ml 1033.975 ml Tube Feeding 225 ml 390 ml Other 80 ml 50 ml Output Urine Total 1630 ml 1480 ml Oscar Bragg MD Dec 13, 2019 21:07
--- NOTE | 2019-12-13 21:42 | General Progress Note ---
Assessment/Plan Status: progressing, deteriorating Assessment/Plan: Assessment - Cerebral palsy - dysphagia, s/p PEG - contracture deformities - decubitus ulcers - sepsis - UTI - Anemia Recommendations - continue TF at goal - Elevate HOB - monitor residuals - PPI - Abx / supportive care - wean off pressors as tolerated - Wound care - will see PRN - call if questions Subjective Allergies: Coded Allergies: MOLD (Unverified Allergy, Unknown, 12/07/19) POLLEN EXTRACTS (Unverified Allergy, Unknown, 12/07/19) Subjective resting comfortably tolerating TF Objective Last 24 Hour Vital Signs Date Time Temp Pulse Resp B/P (MAP) Pulse Ox O2 Delivery O2 Flow Rate FiO2 12/13/19 20:55 87 23 99 Room Air 21 12/13/19 20:55 99 Room Air 21 12/13/19 20:30 92 26 103/60 (74) 100 12/13/19 20:00 98.5 93 28 95/58 (70) 100 12/13/19 20:00 95/58 12/13/19 20:00 Room Air Room Air Room Air 12/13/19 19:30 87 22 110/63 (79) 100 12/13/19 19:00 97/61 12/13/19 19:00 87 20 97/61 (73) 100 12/13/19 18:00 133/84 12/13/19 18:00 112 53 119/67 (84) 97 12/13/19 17:00 84 25 116/58 (77) 100 12/13/19 17:00 136/76 12/13/19 16:00 146/81 12/13/19 16:00 Room Air Room Air Room Air 12/13/19 16:00 99.7 84 24 119/60 (79) 99 12/13/19 16:00 81 12/13/19 15:00 121/61 12/13/19 15:00 79 20 110/57 (74) 99 12/13/19 14:00 76 21 110/59 (76) 100 12/13/19 14:00 128/58 12/13/19 13:00 83 28 119/55 (76) 98 12/13/19 13:00 130/68 12/13/19 12:00 Room Air Room Air Room Air 12/13/19 12:00 98.5 79 28 112/53 (72) 100 4/9/20 12:00 137/68 12/13/19 11:30 96/48 12/13/19 11:07 84 12/13/19 11:00 89 22 91/43 (59) 97 12/13/19 11:00 91/43 12/13/19 10:00 107/49 12/13/19 10:00 80 21 107/49 (68) 99 12/13/19 09:15 100 Room Air 21 12/13/19 09:14 74 19 100 Room Air 21 12/13/19 09:00 77 18 101/55 (70) 99 12/13/19 09:00 101/55 12/13/19 08:21 91 12/13/19 08:00 114/52 12/13/19 08:00 98.5 79 25 114/52 (72) 100 12/13/19 08:00 Room Air Room Air 12/13/19 07:00 104/60 12/13/19 07:00 74 19 104/66 (79) 100 12/13/19 06:30 81 26 97/54 (68) 98 12/13/19 06:00 85 25 125/60 (81) 98 12/13/19 06:00 125/60 12/13/19 05:30 87 27 122/67 (85) 98 12/13/19 05:00 82 22 120/73 (89) 99 12/13/19 05:00 120/73 12/13/19 04:30 86 31 96/71 (79) 100 12/13/19 04:00 98.4 88 24 116/76 (89) 100 12/13/19 04:00 116/76 12/13/19 04:00 Room Air Room Air 12/13/19 03:30 89 28 120/68 (85) 99 12/13/19 03:03 91 12/13/19 03:00 113/73 12/13/19 03:00 92 21 113/73 (86) 98 12/13/19 02:30 120 43 108/67 (81) 98 12/13/19 02:00 114/76 12/13/19 02:00 109 23 114/76 (89) 96 12/13/19 01:30 91 22 112/62 (79) 98 4/9/20 01:30 109/83 12/13/19 01:00 93 26 121/70 (87) 99 12/13/19 01:00 121/70 12/13/19 00:30 91 23 115/69 (84) 99 12/13/19 00:00 98.1 85 27 114/61 (78) 98 12/13/19 00:00 114/61 12/13/19 00:00 Room Air Room Air 12/13/19 00:00 85 12/12/19 23:45 89 27 92/50 (64) 99 12/12/19 23:42 116/78 12/12/19 23:30 87 28 116/78 (91) 99 12/12/19 23:03 78 20 92/56 (68) 99 12/12/19 23:00 79/53 12/12/19 23:00 82 23 79/53 (62) 100 12/12/19 22:45 85 20 97/59 (72) 99 12/12/19 22:30 87 22 113/63 (80) 99 12/12/19 22:00 100 38 103/60 (74) 99 12/12/19 22:00 103/60 Intake and Output 12/12/19 12/13/19 19:00 07:00 Intake Total 1391.3978 ml 1473.975 ml Output Total 1630 ml 1480 ml Balance -238.6022 ml -6.025 ml IV Total 1086.3978 ml 1033.975 ml Tube Feeding 225 ml 390 ml Other 80 ml 50 ml Output Urine Total 1630 ml 1480 ml Laboratory Tests 12/13/19 04:00: White Blood Count 12.6H, Red Blood Count 3.21L, Hemoglobin 9.6L, Hematocrit 28.7L, Mean Corpuscular Volume 89, Mean Corpuscular Hemoglobin 30.0, Mean Corpuscular Hemoglobin Concent 33.6, Red Cell Distribution Width 17.8H, Platelet Count 582H, Mean Platelet Volume 5.5L, Neutrophils (%) (Auto) 81.6H, Lymphocytes (%) (Auto) 10.6L, Monocytes (%) (Auto) 6.2, Eosinophils (%) (Auto) 1.3, Basophils (%) (Auto) 0.2, Sodium Level 137, Potassium Level 3.3L, Chloride Level 104, Carbon Dioxide Level 25, Anion Gap 8, Blood Urea Nitrogen 11, Creatinine 0.7, Estimat Glomerular Filtration Rate > 60, Glucose Level 127H, Calcium Level 8.5 Height (Feet): 5 Height (Inches): 7.00 Weight (Pounds): 130 Objective Debilitated WM NCAT supple CTA RR abd soft, (+) GT (++) contracted OBS Zakiya Vargas MD Dec 13, 2019 21:42
--- NOTE | 2019-12-13 21:48 | General Progress Note ---
Assessment/Plan Problem List: (1) Urinary tract infection ICD Codes: N39.0 - Urinary tract infection, site not specified SNOMED: 98048393 (2) Respiratory insufficiency ICD Codes: R06.89 - Other abnormalities of breathing SNOMED: 317762277 (3) Decubital ulcer ICD Codes: L89.90 - Pressure ulcer of unspecified site, unspecified stage SNOMED: 110836251 (4) Suspected COVID-19 virus infection ICD Codes: R68.89 - Other general symptoms and signs SNOMED: 784890046 Status: progressing, deteriorating Assessment/Plan: downs syndrome or septic shock reviewed chart and labs lethargic not improving pna resp insuff sepsis uti peg s/p pressor Subjective ROS Limited/Unobtainable: Yes Allergies: Coded Allergies: MOLD (Unverified Allergy, Unknown, 12/07/19) POLLEN EXTRACTS (Unverified Allergy, Unknown, 12/07/19) Objective Last 24 Hour Vital Signs Date Time Temp Pulse Resp B/P (MAP) Pulse Ox O2 Delivery O2 Flow Rate FiO2 12/13/19 20:55 87 23 99 Room Air 21 12/13/19 20:55 99 Room Air 21 12/13/19 20:30 92 26 103/60 (74) 100 12/13/19 20:00 98.5 93 28 95/58 (70) 100 12/13/19 20:00 95/58 12/13/19 20:00 Room Air Room Air Room Air 12/13/19 19:30 87 22 110/63 (79) 100 12/13/19 19:00 97/61 12/13/19 19:00 87 20 97/61 (73) 100 12/13/19 18:00 133/84 12/13/19 18:00 112 53 119/67 (84) 97 12/13/19 17:00 84 25 116/58 (77) 100 12/13/19 17:00 136/76 12/13/19 16:00 146/81 12/13/19 16:00 Room Air Room Air Room Air 12/13/19 16:00 99.7 84 24 119/60 (79) 99 12/13/19 16:00 81 12/13/19 15:00 121/61 12/13/19 15:00 79 20 110/57 (74) 99 12/13/19 14:00 76 21 110/59 (76) 100 12/13/19 14:00 128/58 12/13/19 13:00 83 28 119/55 (76) 98 12/13/19 13:00 130/68 12/13/19 12:00 Room Air Room Air Room Air 12/13/19 12:00 98.5 79 28 112/53 (72) 100 12/13/19 12:00 137/68 12/13/19 11:30 96/48 12/13/19 11:07 84 12/13/19 11:00 89 22 91/43 (59) 97 12/13/19 11:00 91/43 12/13/19 10:00 107/49 12/13/19 10:00 80 21 107/49 (68) 99 12/13/19 09:15 100 Room Air 21 12/13/19 09:14 74 19 100 Room Air 21 12/13/19 09:00 77 18 101/55 (70) 99 12/13/19 09:00 101/55 12/13/19 08:21 91 12/13/19 08:00 114/52 12/13/19 08:00 98.5 79 25 114/52 (72) 100 12/13/19 08:00 Room Air Room Air 12/13/19 07:00 104/60 12/13/19 07:00 74 19 104/66 (79) 100 12/13/19 06:30 81 26 97/54 (68) 98 12/13/19 06:00 85 25 125/60 (81) 98 12/13/19 06:00 125/60 12/13/19 05:30 87 27 122/67 (85) 98 12/13/19 05:00 82 22 120/73 (89) 99 12/13/19 05:00 120/73 12/13/19 04:30 86 31 96/71 (79) 100 12/13/19 04:00 98.4 88 24 116/76 (89) 100 12/13/19 04:00 116/76 12/13/19 04:00 Room Air Room Air 12/13/19 03:30 89 28 120/68 (85) 99 12/13/19 03:03 91 12/13/19 03:00 113/73 12/13/19 03:00 92 21 113/73 (86) 98 12/13/19 02:30 120 43 108/67 (81) 98 12/13/19 02:00 114/76 12/13/19 02:00 109 23 114/76 (89) 96 12/13/19 01:30 91 22 112/62 (79) 98 12/13/19 01:30 109/83 12/13/19 01:00 93 26 121/70 (87) 99 12/13/19 01:00 121/70 12/13/19 00:30 91 23 115/69 (84) 99 12/13/19 00:00 98.1 85 27 114/61 (78) 98 12/13/19 00:00 114/61 12/13/19 00:00 Room Air Room Air 12/13/19 00:00 85 12/12/19 23:45 89 27 92/50 (64) 99 12/12/19 23:42 116/78 12/12/19 23:30 87 28 116/78 (91) 99 12/12/19 23:03 78 20 92/56 (68) 99 12/12/19 23:00 79/53 12/12/19 23:00 82 23 79/53 (62) 100 12/12/19 22:45 85 20 97/59 (72) 99 12/12/19 22:30 87 22 113/63 (80) 99 12/12/19 22:00 100 38 103/60 (74) 99 12/12/19 22:00 103/60 Intake and Output 12/12/19 12/13/19 19:00 07:00 Intake Total 1391.3978 ml 1473.975 ml Output Total 1630 ml 1480 ml Balance -238.6022 ml -6.025 ml IV Total 1086.3978 ml 1033.975 ml Tube Feeding 225 ml 390 ml Other 80 ml 50 ml Output Urine Total 1630 ml 1480 ml Laboratory Tests 12/13/19 04:00: White Blood Count 12.6H, Red Blood Count 3.21L, Hemoglobin 9.6L, Hematocrit 28.7L, Mean Corpuscular Volume 89, Mean Corpuscular Hemoglobin 30.0, Mean Corpuscular Hemoglobin Concent 33.6, Red Cell Distribution Width 17.8H, Platelet Count 582H, Mean Platelet Volume 5.5L, Neutrophils (%) (Auto) 81.6H, Lymphocytes (%) (Auto) 10.6L, Monocytes (%) (Auto) 6.2, Eosinophils (%) (Auto) 1.3, Basophils (%) (Auto) 0.2, Sodium Level 137, Potassium Level 3.3L, Chloride Level 104, Carbon Dioxide Level 25, Anion Gap 8, Blood Urea Nitrogen 11, Creatinine 0.7, Estimat Glomerular Filtration Rate > 60, Glucose Level 127H, Calcium Level 8.5 Height (Feet): 5 Height (Inches): 7.00 Weight (Pounds): 130 Leda Sweeney MD Dec 13, 2019 21:48
[2019-12-14] VITALS (47 sets, daily range): BP systolic 81–119; BP diastolic 41–71
[2019-12-14] MEDS: Enoxaparin 80mg Inj SUBQ SCH (05:27)
[2019-12-14] MEDS: D5NS 1,000 ML IV SCH (07:21)
[2019-12-14] MEDS: Cefepime HCl 1 GM in D5W 55 ML IVPB SCH ×2 (09:04→20:29)
[2019-12-14] MEDS: levETIRAcetam 500mg/5ml Liquid GT SCH ×2 (09:06→20:29)
--- NOTE | 2019-12-14 10:34 | Infectious Diseases Prog Note ---
Assessment/Plan Assessment/Plan IMPRESSION: Sepsis, septic shock, currently on dopamine. 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 RECOMMENDATION: continue Cefepime Add IV Vancomycin Repeat CXR COVID-19: negative Subjective ROS Limited/Unobtainable: Yes Cardiovascular: Reports: other - on Dopamin Allergies: Coded Allergies: MOLD (Unverified Allergy, Unknown, 12/07/19) POLLEN EXTRACTS (Unverified Allergy, Unknown, 12/07/19) Objective Vital Signs Last 24 Hour Vital Signs Date Time Temp Pulse Resp B/P (MAP) Pulse Ox O2 Delivery O2 Flow Rate FiO2 12/14/19 08:25 80 18 99 Room Air 21 12/14/19 08:25 99 Room Air 21 12/14/19 08:00 99.6 77 18 87/50 (62) 100 12/14/19 08:00 Room Air Room Air Room Air 12/14/19 07:30 78 20 91/48 (62) 100 12/14/19 07:00 76 17 101/46 (64) 99 12/14/19 06:30 79 20 99/53 (68) 98 12/14/19 06:00 84 22 106/45 (65) 99 12/14/19 06:00 106/45 12/14/19 05:30 78 17 98/45 (62) 99 12/14/19 05:00 102/48 12/14/19 05:00 83 20 102/48 (66) 98 12/14/19 04:30 89 26 87/53 (64) 97 12/14/19 04:00 99.1 104 30 119/68 (85) 97 12/14/19 04:00 119/68 12/14/19 04:00 Room Air Room Air Room Air 12/14/19 03:33 57 12/14/19 03:30 83 17 93/54 (67) 98 12/14/19 03:00 84 21 102/53 (69) 99 12/14/19 03:00 102/53 12/14/19 02:30 85 19 106/49 (68) 99 12/14/19 02:00 83 17 102/53 (69) 98 12/14/19 02:00 102/53 12/14/19 01:30 88 21 109/57 (74) 98 12/14/19 01:30 109/57 12/14/19 01:00 99/53 12/14/19 01:00 89 24 99/53 (68) 98 12/14/19 00:30 88 24 104/58 (73) 98 12/14/19 00:15 87 24 111/64 (80) 99 12/14/19 00:00 99.1 86 22 116/71 (86) 100 12/14/19 00:00 116/71 12/14/19 00:00 Room Air Room Air Room Air 12/13/19 23:38 85 12/13/19 23:32 84/37 12/13/19 23:00 88 20 106/57 (73) 99 12/13/19 23:00 106/57 12/13/19 22:30 86 20 105/56 (72) 99 12/13/19 22:00 88 26 100/75 (83) 99 12/13/19 22:00 100/75 12/13/19 21:30 88 25 103/54 (70) 99 12/13/19 21:00 90 24 114/57 (76) 99 12/13/19 21:00 114/57 12/13/19 20:55 87 23 99 Room Air 21 12/13/19 20:55 99 Room Air 21 12/13/19 20:30 92 26 103/60 (74) 100 12/13/19 20:00 93 12/13/19 20:00 98.5 93 28 95/58 (70) 100 12/13/19 20:00 95/58 12/13/19 20:00 Room Air Room Air Room Air 12/13/19 19:30 87 22 110/63 (79) 100 12/13/19 19:00 97/61 12/13/19 19:00 87 20 97/61 (73) 100 12/13/19 18:00 133/84 12/13/19 18:00 112 53 119/67 (84) 97 12/13/19 17:00 84 25 116/58 (77) 100 12/13/19 17:00 136/76 12/13/19 16:00 146/81 12/13/19 16:00 Room Air Room Air Room Air 12/13/19 16:00 99.7 84 24 119/60 (79) 99 12/13/19 16:00 81 12/13/19 15:00 121/61 12/13/19 15:00 79 20 110/57 (74) 99 12/13/19 14:00 76 21 110/59 (76) 100 12/13/19 14:00 128/58 12/13/19 13:00 83 28 119/55 (76) 98 12/13/19 13:00 130/68 12/13/19 12:00 Room Air Room Air Room Air 12/13/19 12:00 98.5 79 28 112/53 (72) 100 12/13/19 12:00 137/68 12/13/19 11:30 96/48 12/13/19 11:07 84 12/13/19 11:00 89 22 91/43 (59) 97 12/13/19 11:00 91/43 Height (Feet): 5 Height (Inches): 7.00 Weight (Pounds): 130 General Appearance: no acute distress HEENT: mucous membranes moist Respiratory/Chest: lungs clear Cardiovascular: normal rate, other - RIJ central line Abdomen: soft, non tender, other - GT feeding Extremities: other - dependent edema Neurologic/Psychiatric: other - sleeping Current Medications Medications (Trade) Dose Ordered Sig/Nazia Route PRN Reason Start Time Stop Time Status Last Admin Dose Admin Acetaminophen (Tylenol) 650 mg Q4H PRN ORAL Temp >100.5 12/08/19 05:00 01/07/20 04:59 12/08/19 09:06 Acetaminophen (Tylenol) 650 mg Q4H PRN RECTAL Temp >100.5 12/08/19 05:30 01/06/20 20:59 Cefepime HCl 1 gm/ Dextrose 55 ml @ 110 mls/hr EVERY 12 HOURS IVPB 12/10/19 11:00 12/17/19 10:59 12/14/19 09:04 Chlorhexidine Gluconate (Susanna-Hex 2%) 1 applic DAILY@2000 TOPIC 12/08/19 20:00 03/07/20 19:59 12/13/19 19:59 Dextrose/Sodium Chloride 1,000 ml @ 60 mls/hr [id number] IV 12/09/19 10:15 01/08/20 10:14 12/14/19 07:21 Dopamine HCl/ Dextrose 250 ml @ 0 mls/hr Q24H IV 12/09/19 16:15 03/07/20 16:14 12/13/19 23:32 Enoxaparin Sodium (Lovenox) 60 mg Q12H SUBQ 12/14/19 18:00 03/13/20 17:59 Lansoprazole (Prevacid) 30 mg BID GT 12/09/19 18:00 01/07/20 08:59 12/14/19 09:06 Levetiracetam (Keppra) 500 mg Q12HR GT 12/08/19 09:00 01/07/20 08:59 12/14/19 09:06 Midodrine (Pro-Amatine) 5 mg Q8HR GT 12/13/19 14:00 03/12/20 13:59 12/14/19 05:23 Norepinephrine Bitartrate 4 mg/ Dextrose 250 ml @ 0 mls/hr Q24H IV 12/09/19 01:30 01/07/20 01:29 12/08/19 02:39 Ondansetron HCl (Zofran) 4 mg Q6H PRN IVP Nausea & Vomiting 12/08/19 03:30 01/06/20 21:29 Potassium Chloride (K-Dur) 40 meq TWICE A DAY GT 12/13/19 09:00 03/12/20 08:59 12/14/19 09:07 Lucas Gutierrez MD Dec 14, 2019 10:34
[2019-12-14 11:09] LABS: BASOPHILS % (AUTO) 0.7 % (0.0-2.0); EOSINOPHILS % (AUTO) 1.9 % (0.0-3.0); HEMATOCRIT 27.6 % (42.0-52.0); HEMOGLOBIN 8.8 G/DL (14.2-18.0); MEAN CORPUSCULAR VOLUME 93 FL (80-99); NEUTROPHILS % (AUTO) 79.4 % (45.0-75.0); PLATELET COUNT 512 K/UL (150-450); RED BLOOD COUNT 2.96 M/UL (4.70-6.10); RED CELL DISTRIBUTION WIDTH 19.5 % (11.6-14.8); WHITE BLOOD COUNT 12.5 K/UL (4.8-10.8)
[2019-12-14 11:17] LABS: ANION GAP 7 mmol/L (5-15); BLOOD UREA NITROGEN 13 mg/dL (7-18); CALCIUM 8.6 MG/DL (8.5-10.1); CARBON DIOXIDE 25 MMOL/L (21-32); CHLORIDE 105 MMOL/L (98-107); CREATININE 0.7 MG/DL (0.55-1.30); POTASSIUM 3.6 MMOL/L (3.5-5.1); SODIUM 137 MMOL/L (136-145)
--- NOTE | 2019-12-14 11:18 | Hematology/Onc Progress Note ---
Assessment/Plan Assessment/Plan IMPRESSION/RECS: # Anemia of chronic disease due to underlying chronic medical issues, multifactorial v Gi bleed --> Anemia workup has been ordered, rule out gi bleed --> No evidence of hemolysis is noted, peripheral smear has been reviewed. --> Hgb goal >7. Transfuse prn. --> Epogen or iron at this time is not particularly indicated --> Medications have been reviewed --> low threshold for gi evaluation in case has occult + --> bone marrow biopsy is not indicated given the other more likely causes # Dvt of the right leg history --> hep bolus and gtt -> lovenox sq bid --> 12/09 us duplex positive for right dvt # Lymphopenia is likely due to Sepsis, septic shock, currently on dopamine. --> remains in the icu, with UTI with Pseudomonas --> imaging noted, cultures reviewed --> as per id Positive blood culture likely contamination --> COVID negative --> abx: cefepime/vanc # VRE Carrier # Multiple pressure ulcer, # Down syndrome. # Confused/ams # Dvt ppx lovenox sq The timing of this note does not necessarily reflect the time of the patient was seen. Greatly appreciate consultation. Subjective HEENT: Denies: no symptoms, eye pain, blurred vision, tearing, double vision, ear pain, ear discharge, nose pain, nose congestion, throat pain, throat swelling, mouth pain, mouth swelling, other Cardiovascular: Denies: no symptoms, chest pain, edema, irregular heart rate, lightheadedness, palpitations, syncope, other Respiratory: Denies: no symptoms, cough, shortness of breath, SOB with excertion, SOB at rest, sputum, wheezing, other Gastrointestinal/Abdominal: Denies: no symptoms, abdomen distended, abdominal pain, black stools, tarry stools, blood in stool, constipated, diarrhea, difficulty swallowing, nausea, poor appetite, poor fluid intake, rectal bleeding , vomiting, other Genitourinary: Denies: no symptoms, burning, discharge, frequency, flank pain, hematuria, incontinence, pain, urgency, other Neurologic/Psychiatric: Denies: no symptoms, anxiety, depressed, emotional problems, headache, numbness, paresthesia, pre-existing deficit, seizure, tingling, tremors, weakness, other Endocrine: Denies: no symptoms, excessive sweating, flushing, intolerance to cold, intolerance to heat, increased hunger, increased thirst, increased urine, unexplained weight gain, unexplained weight loss, other Hematologic/Lymphatic: Denies: no symptoms, anemia, easy bleeding, easy bruising, adenopathy, other Allergies: Coded Allergies: MOLD (Unverified Allergy, Unknown, 12/07/19) POLLEN EXTRACTS (Unverified Allergy, Unknown, 12/07/19) Subjective 12/10 icu, nonverbal, cov 19 negative, positive for right le dvt, on pressors 12/11 remains on dopamine, with gtube feeds as well, labs noted hgb 10.4 12/12 is a+o x1, with roper and on dopamine 12/13 on cefepime and vanc, also on dopamine, labs noted Objective Objective Current Medications Medications (Trade) Dose Ordered Sig/Nazia Route PRN Reason Start Time Stop Time Status Last Admin Dose Admin Acetaminophen (Tylenol) 650 mg Q4H PRN ORAL Temp >100.5 12/08/19 05:00 01/07/20 04:59 12/08/19 09:06 Acetaminophen (Tylenol) 650 mg Q4H PRN RECTAL Temp >100.5 12/08/19 05:30 01/06/20 20:59 Cefepime HCl 1 gm/ Dextrose 55 ml @ 110 mls/hr EVERY 12 HOURS IVPB 12/10/19 11:00 12/17/19 10:59 12/14/19 09:04 Chlorhexidine Gluconate (Susanna-Hex 2%) 1 applic DAILY@2000 TOPIC 12/08/19 20:00 03/07/20 19:59 12/13/19 19:59 Dextrose/Sodium Chloride 1,000 ml @ 60 mls/hr [id number] IV 12/09/19 10:15 01/08/20 10:14 12/14/19 07:21 Dopamine HCl/ Dextrose 250 ml @ 0 mls/hr Q24H IV 12/09/19 16:15 03/07/20 16:14 12/13/19 23:32 Enoxaparin Sodium (Lovenox) 60 mg Q12H SUBQ 12/14/19 18:00 03/13/20 17:59 Lansoprazole (Prevacid) 30 mg BID GT 12/09/19 18:00 01/07/20 08:59 12/14/19 09:06 Levetiracetam (Keppra) 500 mg Q12HR GT 12/08/19 09:00 01/07/20 08:59 12/14/19 09:06 Midodrine (Pro-Amatine) 5 mg Q8HR GT 12/13/19 14:00 03/12/20 13:59 12/14/19 05:23 Norepinephrine Bitartrate 4 mg/ Dextrose 250 ml @ 0 mls/hr Q24H IV 12/09/19 01:30 01/07/20 01:29 12/08/19 02:39 Ondansetron HCl (Zofran) 4 mg Q6H PRN IVP Nausea & Vomiting 12/08/19 03:30 01/06/20 21:29 Potassium Chloride (K-Dur) 40 meq TWICE A DAY GT 12/13/19 09:00 03/12/20 08:59 12/14/19 09:07 Vancomycin HCl (Vanco rx to dose) 1 ea DAILY PRN MISC Per rx protocol 12/14/19 10:45 01/13/20 10:44 Vancomycin HCl 500 mg/Dextrose 110 ml @ 110 mls/hr Q12HR@0100,1300 IVPB 12/14/19 13:00 12/19/19 12:59 Last 24 Hour Vital Signs Date Time Temp Pulse Resp B/P (MAP) Pulse Ox O2 Delivery O2 Flow Rate FiO2 12/14/19 08:25 80 18 99 Room Air 21 12/14/19 08:25 99 Room Air 21 12/14/19 08:00 99.6 77 18 87/50 (62) 100 12/14/19 08:00 Room Air Room Air Room Air 12/14/19 07:30 78 20 91/48 (62) 100 12/14/19 07:00 76 17 101/46 (64) 99 12/14/19 06:30 79 20 99/53 (68) 98 12/14/19 06:00 84 22 106/45 (65) 99 12/14/19 06:00 106/45 12/14/19 05:30 78 17 98/45 (62) 99 12/14/19 05:00 102/48 12/14/19 05:00 83 20 102/48 (66) 98 12/14/19 04:30 89 26 87/53 (64) 97 12/14/19 04:00 99.1 104 30 119/68 (85) 97 12/14/19 04:00 119/68 12/14/19 04:00 Room Air Room Air Room Air 12/14/19 03:33 57 12/14/19 03:30 83 17 93/54 (67) 98 12/14/19 03:00 84 21 102/53 (69) 99 12/14/19 03:00 102/53 12/14/19 02:30 85 19 106/49 (68) 99 12/14/19 02:00 83 17 102/53 (69) 98 12/14/19 02:00 102/53 12/14/19 01:30 88 21 109/57 (74) 98 12/14/19 01:30 109/57 12/14/19 01:00 99/53 12/14/19 01:00 89 24 99/53 (68) 98 12/14/19 00:30 88 24 104/58 (73) 98 12/14/19 00:15 87 24 111/64 (80) 99 12/14/19 00:00 99.1 86 22 116/71 (86) 100 12/14/19 00:00 116/71 12/14/19 00:00 Room Air Room Air Room Air 12/13/19 23:38 85 12/13/19 23:32 84/37 12/13/19 23:00 88 20 106/57 (73) 99 12/13/19 23:00 106/57 12/13/19 22:30 86 20 105/56 (72) 99 12/13/19 22:00 88 26 100/75 (83) 99 12/13/19 22:00 100/75 12/13/19 21:30 88 25 103/54 (70) 99 12/13/19 21:00 90 24 114/57 (76) 99 12/13/19 21:00 114/57 12/13/19 20:55 87 23 99 Room Air 21 12/13/19 20:55 99 Room Air 21 12/13/19 20:30 92 26 103/60 (74) 100 12/13/19 20:00 93 12/13/19 20:00 98.5 93 28 95/58 (70) 100 12/13/19 20:00 95/58 12/13/19 20:00 Room Air Room Air Room Air 12/13/19 19:30 87 22 110/63 (79) 100 12/13/19 19:00 97/61 12/13/19 19:00 87 20 97/61 (73) 100 12/13/19 18:00 133/84 12/13/19 18:00 112 53 119/67 (84) 97 12/13/19 17:00 84 25 116/58 (77) 100 12/13/19 17:00 136/76 12/13/19 16:00 146/81 12/13/19 16:00 Room Air Room Air Room Air 12/13/19 16:00 99.7 84 24 119/60 (79) 99 12/13/19 16:00 81 12/13/19 15:00 121/61 12/13/19 15:00 79 20 110/57 (74) 99 12/13/19 14:00 76 21 110/59 (76) 100 12/13/19 14:00 128/58 12/13/19 13:00 83 28 119/55 (76) 98 12/13/19 13:00 130/68 12/13/19 12:00 Room Air Room Air Room Air 12/13/19 12:00 98.5 79 28 112/53 (72) 100 12/13/19 12:00 137/68 12/13/19 11:30 96/48 12/13/19 11:07 84 12/13/19 11:00 89 22 91/43 (59) 97 12/13/19 11:00 91/43 12/13/19 10:00 107/49 12/13/19 10:00 80 21 107/49 (68) 99 12/13/19 09:15 100 Room Air 21 12/13/19 09:14 74 19 100 Room Air 21 12/13/19 09:00 77 18 101/55 (70) 99 12/13/19 09:00 101/55 12/13/19 08:21 91 12/13/19 08:00 114/52 12/13/19 08:00 98.5 79 25 114/52 (72) 100 12/13/19 08:00 Room Air Room Air 4/9/20 07:00 104/60 12/13/19 07:00 74 19 104/66 (79) 100 12/13/19 06:30 81 26 97/54 (68) 98 12/13/19 06:00 85 25 125/60 (81) 98 12/13/19 06:00 125/60 12/13/19 05:30 87 27 122/67 (85) 98 12/13/19 05:00 82 22 120/73 (89) 99 12/13/19 05:00 120/73 12/13/19 04:30 86 31 96/71 (79) 100 12/13/19 04:00 98.4 88 24 116/76 (89) 100 12/13/19 04:00 116/76 12/13/19 04:00 Room Air Room Air 12/13/19 03:30 89 28 120/68 (85) 99 12/13/19 03:15 89 24 126/82 (97) 100 12/13/19 03:03 91 12/13/19 03:00 92 21 113/73 (86) 98 12/13/19 03:00 113/73 12/13/19 03:00 92 21 113/73 (86) 98 12/13/19 02:45 103 26 109/83 (92) 98 12/13/19 02:30 120 43 108/67 (81) 98 12/13/19 02:30 120 43 108/67 (81) 98 12/13/19 02:15 95 31 125/73 (90) 98 12/13/19 02:00 114/76 12/13/19 02:00 109 23 114/76 (89) 96 12/13/19 02:00 109 23 114/76 (89) 96 12/13/19 01:45 108 26 115/74 (88) 96 12/13/19 01:30 91 22 112/62 (79) 98 12/13/19 01:30 109/83 12/13/19 01:30 91 22 112/62 (79) 98 12/13/19 01:15 90 26 116/57 (76) 98 12/13/19 01:00 93 26 121/70 (87) 99 12/13/19 01:00 93 26 121/70 (87) 99 12/13/19 01:00 121/70 12/13/19 00:45 88 20 121/54 (76) 99 12/13/19 00:30 91 23 115/69 (84) 99 12/13/19 00:30 91 23 115/69 (84) 99 12/13/19 00:15 86 25 118/68 (85) 98 12/13/19 00:00 98.1 85 27 114/61 (78) 98 12/13/19 00:00 114/61 12/13/19 00:00 85 27 114/61 (78) 98 12/13/19 00:00 Room Air Room Air 12/13/19 00:00 85 12/12/19 23:45 89 27 92/50 (64) 99 12/12/19 23:45 89 27 92/50 (64) 99 12/12/19 23:42 116/78 12/12/19 23:30 87 28 116/78 (91) 99 12/12/19 23:30 87 28 116/78 (91) 99 12/12/19 23:15 82 25 110/63 (79) 99 12/12/19 23:03 78 20 92/56 (68) 99 12/12/19 23:03 78 20 92/56 (68) 99 12/12/19 23:00 82 23 79/53 (62) 100 12/12/19 23:00 79/53 12/12/19 23:00 82 23 79/53 (62) 100 12/12/19 22:45 85 20 97/59 (72) 99 12/12/19 22:30 87 22 113/63 (80) 99 12/12/19 22:00 100 38 103/60 (74) 99 12/12/19 22:00 103/60 12/12/19 21:30 86 21 101/64 (76) 99 12/12/19 21:00 110/58 12/12/19 21:00 84 23 110/58 (75) 100 12/12/19 20:31 73 18 100 Nasal Cannula 2.0 28 12/12/19 20:31 100 Nasal Cannula 2.0 28 12/12/19 20:30 87 29 108/58 (75) 98 12/12/19 20:00 Room Air Room Air 12/12/19 20:00 106/57 12/12/19 20:00 98.1 75 14 106/57 (73) 98 12/12/19 19:30 87 21 104/61 (75) 99 12/12/19 19:23 89 12/12/19 19:00 105/76 12/12/19 19:00 88 22 105/76 (86) 99 12/12/19 18:30 86 18 103/43 (63) 99 12/12/19 18:00 89 18 115/56 (75) 98 12/12/19 18:00 115/56 12/12/19 17:00 87 21 111/64 (80) 98 12/12/19 17:00 111/64 12/12/19 16:30 91 24 102/60 (74) 99 12/12/19 16:00 Room Air Room Air 12/12/19 16:00 98.6 73 15 124/101 (109) 98 12/12/19 16:00 101/56 12/12/19 15:57 71 12/12/19 15:34 72 12/12/19 15:00 75 16 105/51 (69) 98 12/12/19 15:00 104/77 12/12/19 14:00 74 17 104/51 (68) 99 12/12/19 14:00 105/55 12/12/19 13:30 76 15 99/58 (72) 99 12/12/19 13:00 74 16 104/54 (71) 98 12/12/19 13:00 104/58 12/12/19 12:00 73 12/12/19 12:00 106/52 12/12/19 12:00 98.4 74 15 106/52 (70) 99 12/12/19 12:00 74 12/12/19 12:00 Room Air Room Air 12/12/19 11:54 70/37 12/12/19 11:30 74 23 105/50 (68) 97 Intake and Output 12/13/19 12/14/19 19:00 07:00 Intake Total 1287.865 ml 1712.041 ml Output Total 1395 ml 1040 ml Balance -107.135 ml 672.041 ml IV Total 692.865 ml 932.041 ml Tube Feeding 595 ml 600 ml Other 180 ml Output Urine Total 1395 ml 1040 ml Labs Test 12/11/19 13:30 12/12/19 04:00 12/13/19 04:00 12/14/19 09:20 Activated Partial Thromboplast Time 106 SEC (23-33) White Blood Count 10.1 K/UL (4.8-10.8) 12.6 K/UL (4.8-10.8) 12.5 K/UL (4.8-10.8) Red Blood Count 3.43 M/UL (4.70-6.10) 3.21 M/UL (4.70-6.10) 2.96 M/UL (4.70-6.10) Hemoglobin 10.4 G/DL (14.2-18.0) 9.6 G/DL (14.2-18.0) 8.8 G/DL (14.2-18.0) Hematocrit 30.6 % (42.0-52.0) 28.7 % (42.0-52.0) 27.6 % (42.0-52.0) Mean Corpuscular Volume 89 FL (80-99) 89 FL (80-99) 93 FL (80-99) Mean Corpuscular Hemoglobin 30.3 PG (27.0-31.0) 30.0 PG (27.0-31.0) 29.8 PG (27.0-31.0) Mean Corpuscular Hemoglobin Concent 34.0 G/DL (32.0-36.0) 33.6 G/DL (32.0-36.0) 32.0 G/DL (32.0-36.0) Red Cell Distribution Width 17.5 % (11.6-14.8) 17.8 % (11.6-14.8) 19.5 % (11.6-14.8) Platelet Count 567 K/UL (150-450) 582 K/UL (150-450) 512 K/UL (150-450) Mean Platelet Volume 5.1 FL (6.5-10.1) 5.5 FL (6.5-10.1) 6.0 FL (6.5-10.1) Neutrophils (%) (Auto) 77.5 % (45.0-75.0) 81.6 % (45.0-75.0) 79.4 % (45.0-75.0) Lymphocytes (%) (Auto) 14.2 % (20.0-45.0) 10.6 % (20.0-45.0) 10.0 % (20.0-45.0) Monocytes (%) (Auto) 6.5 % (1.0-10.0) 6.2 % (1.0-10.0) 8.0 % (1.0-10.0) Eosinophils (%) (Auto) 1.2 % (0.0-3.0) 1.3 % (0.0-3.0) 1.9 % (0.0-3.0) Basophils (%) (Auto) 0.6 % (0.0-2.0) 0.2 % (0.0-2.0) 0.7 % (0.0-2.0) Sodium Level 137 MMOL/L (136-145) 137 MMOL/L (136-145) Potassium Level 3.1 MMOL/L (3.5-5.1) 3.3 MMOL/L (3.5-5.1) Chloride Level 104 MMOL/L (98-107) 104 MMOL/L (98-107) Carbon Dioxide Level 24 MMOL/L (21-32) 25 MMOL/L (21-32) Anion Gap 10 mmol/L (5-15) 8 mmol/L (5-15) Blood Urea Nitrogen 10 mg/dL (7-18) 11 mg/dL (7-18) Creatinine 0.8 MG/DL (0.55-1.30) 0.7 MG/DL (0.55-1.30) Estimat Glomerular Filtration Rate > 60 mL/min (>60) > 60 mL/min (>60) Glucose Level 128 MG/DL (74-106) 127 MG/DL (74-106) Calcium Level 8.5 MG/DL (8.5-10.1) 8.5 MG/DL (8.5-10.1) Phosphorus Level 3.5 MG/DL (2.5-4.9) Magnesium Level 1.8 MG/DL (1.8-2.4) Total Bilirubin 0.3 MG/DL (0.2-1.0) Aspartate Amino Transf (AST/SGOT) 18 U/L (15-37) Alanine Aminotransferase (ALT/SGPT) 17 U/L (12-78) Alkaline Phosphatase 136 U/L (46-116) C-Reactive Protein, Quantitative 15.4 mg/dL (0.00-0.90) Pro-B-Type Natriuretic Peptide 1730 pg/mL (0-125) Total Protein 6.4 G/DL (6.4-8.2) Albumin 1.6 G/DL (3.4-5.0) Globulin 4.8 g/dL Albumin/Globulin Ratio 0.3 (1.0-2.7) Height (Feet): 5 Height (Inches): 7.00 Weight (Pounds): 130 Objective Review of Systems difficult to obtain given medical condition baseline Physical Exam General Appearance: no apparent distress Lines, tubes and drains: central line HEENT: mucous membranes moist Neck: normal inspection Respiratory/Chest: no respiratory distress Cardiovascular/Chest: normal rate Abdomen: soft, no organomegaly, no mass, other Extremities: inflammation, slow capillary refill, other Skin Exam: warm/dry : judson+ Camden Bella MD Dec 14, 2019 11:18
[2019-12-14 11:21] LABS: ALANINE AMINOTRANSFERASE 18 U/L (12-78); ALBUMIN 1.3 G/DL (3.4-5.0); ALBUMIN/GLOBULIN RATIO 0.3 (1.0-2.7); ALKALINE PHOSPHATASE 136 U/L (46-116); ASPARTATE AMINO TRANSFERASE 19 U/L (15-37); BILIRUBIN,TOTAL 0.1 MG/DL (0.2-1.0); PHOSPHORUS 2.3 MG/DL (2.5-4.9)
--- NOTE | 2019-12-14 11:26 | Nephrology Progress Note ---
Assessment/Plan Problem List: (1) Electrolyte imbalance (2) Dehydration (3) Urinary tract infection (4) Hypoalbuminemia (5) Hypokalemia (6) BPH (benign prostatic hyperplasia) (7) Anemia Assessment Hypokalemia Hypoalbuminemia Urinary tract infection Possible Pneumonia, Sepsis, Rule out Covid-19 Cerebral Palsy Seizure History BPH - chronic roper Dysphagia s/p G tube Anemia, Lymphopenia Plan Increase midodrine to 10 mg every 8 hours for low blood pressure Remains on dopamine for blood pressure maintenance IV hydration-potassium supplement as needed Monitor renal parameters and electrolytes Antibiotics Avoid nephrotoxic's Per consultants Per orders Subjective ROS Limited/Unobtainable: No Constitutional: Reports: malaise, weakness Objective Objective Last 24 Hour Vital Signs Date Time Temp Pulse Resp B/P (MAP) Pulse Ox O2 Delivery O2 Flow Rate FiO2 12/14/19 08:25 80 18 99 Room Air 21 12/14/19 08:25 99 Room Air 21 12/14/19 08:00 99.6 77 18 87/50 (62) 100 12/14/19 08:00 Room Air Room Air Room Air 12/14/19 07:30 78 20 91/48 (62) 100 12/14/19 07:00 76 17 101/46 (64) 99 12/14/19 06:30 79 20 99/53 (68) 98 12/14/19 06:00 84 22 106/45 (65) 99 12/14/19 06:00 106/45 12/14/19 05:30 78 17 98/45 (62) 99 12/14/19 05:00 102/48 12/14/19 05:00 83 20 102/48 (66) 98 12/14/19 04:30 89 26 87/53 (64) 97 12/14/19 04:00 99.1 104 30 119/68 (85) 97 12/14/19 04:00 119/68 12/14/19 04:00 Room Air Room Air Room Air 12/14/19 03:33 57 12/14/19 03:30 83 17 93/54 (67) 98 12/14/19 03:00 84 21 102/53 (69) 99 12/14/19 03:00 102/53 12/14/19 02:30 85 19 106/49 (68) 99 12/14/19 02:00 83 17 102/53 (69) 98 12/14/19 02:00 102/53 12/14/19 01:30 88 21 109/57 (74) 98 12/14/19 01:30 109/57 12/14/19 01:00 99/53 12/14/19 01:00 89 24 99/53 (68) 98 12/14/19 00:30 88 24 104/58 (73) 98 12/14/19 00:15 87 24 111/64 (80) 99 12/14/19 00:00 99.1 86 22 116/71 (86) 100 12/14/19 00:00 116/71 12/14/19 00:00 Room Air Room Air Room Air 12/13/19 23:38 85 12/13/19 23:32 84/37 12/13/19 23:00 88 20 106/57 (73) 99 12/13/19 23:00 106/57 12/13/19 22:30 86 20 105/56 (72) 99 12/13/19 22:00 88 26 100/75 (83) 99 12/13/19 22:00 100/75 12/13/19 21:30 88 25 103/54 (70) 99 12/13/19 21:00 90 24 114/57 (76) 99 12/13/19 21:00 114/57 12/13/19 20:55 87 23 99 Room Air 21 12/13/19 20:55 99 Room Air 21 12/13/19 20:30 92 26 103/60 (74) 100 12/13/19 20:00 93 12/13/19 20:00 98.5 93 28 95/58 (70) 100 12/13/19 20:00 95/58 12/13/19 20:00 Room Air Room Air Room Air 12/13/19 19:30 87 22 110/63 (79) 100 12/13/19 19:00 97/61 12/13/19 19:00 87 20 97/61 (73) 100 12/13/19 18:00 133/84 12/13/19 18:00 112 53 119/67 (84) 97 12/13/19 17:00 84 25 116/58 (77) 100 12/13/19 17:00 136/76 4/9/20 16:00 146/81 12/13/19 16:00 Room Air Room Air Room Air 12/13/19 16:00 99.7 84 24 119/60 (79) 99 12/13/19 16:00 81 12/13/19 15:00 121/61 12/13/19 15:00 79 20 110/57 (74) 99 12/13/19 14:00 76 21 110/59 (76) 100 12/13/19 14:00 128/58 12/13/19 13:00 83 28 119/55 (76) 98 12/13/19 13:00 130/68 12/13/19 12:00 Room Air Room Air Room Air 12/13/19 12:00 98.5 79 28 112/53 (72) 100 12/13/19 12:00 137/68 12/13/19 11:30 96/48 Intake and Output 12/13/19 12/14/19 19:00 07:00 Intake Total 1287.865 ml 1712.041 ml Output Total 1395 ml 1040 ml Balance -107.135 ml 672.041 ml IV Total 692.865 ml 932.041 ml Tube Feeding 595 ml 600 ml Other 180 ml Output Urine Total 1395 ml 1040 ml Laboratory Tests 12/14/19 09:20: White Blood Count 12.5H, Red Blood Count 2.96L, Hemoglobin 8.8L, Hematocrit 27.6L, Mean Corpuscular Volume 93, Mean Corpuscular Hemoglobin 29.8, Mean Corpuscular Hemoglobin Concent 32.0, Red Cell Distribution Width 19.5H, Platelet Count 512H, Mean Platelet Volume 6.0L, Neutrophils (%) (Auto) 79.4H, Lymphocytes (%) (Auto) 10.0L, Monocytes (%) (Auto) 8.0, Eosinophils (%) (Auto) 1.9, Basophils (%) (Auto) 0.7, Sodium Level 137, Potassium Level 3.6, Chloride Level 105, Carbon Dioxide Level 25, Anion Gap 7, Blood Urea Nitrogen 13, Creatinine 0.7, Estimat Glomerular Filtration Rate > 60, Glucose Level 136H, Calcium Level 8.6, Phosphorus Level 2.3L, Magnesium Level 1.7L, Total Bilirubin 0.1L, Aspartate Amino Transf (AST/SGOT) 19, Alanine Aminotransferase (ALT/SGPT) 18, Alkaline Phosphatase 136H, Total Protein 5.7L, Albumin 1.3L, Globulin 4.4, Albumin/Globulin Ratio 0.3L Height (Feet): 5 Height (Inches): 7.00 Weight (Pounds): 130 General Appearance: no apparent distress Cardiovascular: normal rate Respiratory/Chest: decreased breath sounds Abdomen: soft Objective No change Andre Flores MD Dec 14, 2019 11:26
[2019-12-14] MEDS: DOPamine 400mg/250ml 250 ML IV SCH (13:07)
[2019-12-14] MEDS: Vancomycin 500mg/D5W 110ml IVPB SCH ×2 (13:33)
--- NOTE | 2019-12-14 14:07 | Cardiac Electrophysiology PN ---
Assessment/Plan Assessment/Plan 1. Shortness of breath. Ruled out for MO. Echo EF 60%. COVID negative 2. Septic shock. On Dopamine 8 mcg and IV antibiotic. 3. Nonsustained VT 20 beats. Mg replaced. No further overnight 4. Transient atrial fib, converted back to SR 5. R CFV DVT, on Lovenox 70 sq bid 6. Cough and fever. Possible pneumonia. Ruled out for COVID-19. 7. Seizures, on Keppra. 8. Cerebral palsy. DW RN Subjective Subjective In ICU on Dopamine still 8 mcg. No further VT Had 20 beats of VT on 12/10/19 at 3 am. In isolation for MRSA and VRE. COVID is negative. RN at bedside Had transient atrial fib 12/12/19 Objective Last 24 Hour Vital Signs Date Time Temp Pulse Resp B/P (MAP) Pulse Ox O2 Delivery O2 Flow Rate FiO2 12/14/19 13:07 102/60 12/14/19 08:25 80 18 99 Room Air 21 12/14/19 08:25 99 Room Air 21 12/14/19 08:00 99.6 77 18 87/50 (62) 100 12/14/19 08:00 Room Air Room Air Room Air 12/14/19 07:30 78 20 91/48 (62) 100 12/14/19 07:00 76 17 101/46 (64) 99 12/14/19 06:30 79 20 99/53 (68) 98 12/14/19 06:00 84 22 106/45 (65) 99 12/14/19 06:00 106/45 12/14/19 05:30 78 17 98/45 (62) 99 12/14/19 05:00 102/48 12/14/19 05:00 83 20 102/48 (66) 98 12/14/19 04:30 89 26 87/53 (64) 97 12/14/19 04:00 99.1 104 30 119/68 (85) 97 12/14/19 04:00 119/68 12/14/19 04:00 Room Air Room Air Room Air 12/14/19 03:33 57 12/14/19 03:30 83 17 93/54 (67) 98 12/14/19 03:00 84 21 102/53 (69) 99 12/14/19 03:00 102/53 12/14/19 02:30 85 19 106/49 (68) 99 12/14/19 02:00 83 17 102/53 (69) 98 12/14/19 02:00 102/53 12/14/19 01:30 88 21 109/57 (74) 98 12/14/19 01:30 109/57 12/14/19 01:00 99/53 12/14/19 01:00 89 24 99/53 (68) 98 12/14/19 00:30 88 24 104/58 (73) 98 12/14/19 00:15 87 24 111/64 (80) 99 12/14/19 00:00 99.1 86 22 116/71 (86) 100 12/14/19 00:00 116/71 12/14/19 00:00 Room Air Room Air Room Air 12/13/19 23:38 85 12/13/19 23:32 84/37 12/13/19 23:00 88 20 106/57 (73) 99 12/13/19 23:00 106/57 12/13/19 22:30 86 20 105/56 (72) 99 12/13/19 22:00 88 26 100/75 (83) 99 12/13/19 22:00 100/75 12/13/19 21:30 88 25 103/54 (70) 99 12/13/19 21:00 90 24 114/57 (76) 99 12/13/19 21:00 114/57 12/13/19 20:55 87 23 99 Room Air 21 12/13/19 20:55 99 Room Air 21 12/13/19 20:30 92 26 103/60 (74) 100 12/13/19 20:00 93 12/13/19 20:00 98.5 93 28 95/58 (70) 100 12/13/19 20:00 95/58 12/13/19 20:00 Room Air Room Air Room Air 12/13/19 19:30 87 22 110/63 (79) 100 12/13/19 19:00 97/61 12/13/19 19:00 87 20 97/61 (73) 100 12/13/19 18:00 133/84 12/13/19 18:00 112 53 119/67 (84) 97 12/13/19 17:00 84 25 116/58 (77) 100 12/13/19 17:00 136/76 12/13/19 16:00 146/81 12/13/19 16:00 Room Air Room Air Room Air 12/13/19 16:00 99.7 84 24 119/60 (79) 99 12/13/19 16:00 81 12/13/19 15:00 121/61 12/13/19 15:00 79 20 110/57 (74) 99 Intake and Output 12/13/19 12/14/19 19:00 07:00 Intake Total 1287.865 ml 1712.041 ml Output Total 1395 ml 1040 ml Balance -107.135 ml 672.041 ml IV Total 692.865 ml 932.041 ml Tube Feeding 595 ml 600 ml Other 180 ml Output Urine Total 1395 ml 1040 ml Laboratory Tests Test 12/14/19 09:20 White Blood Count 12.5 K/UL (4.8-10.8) H Red Blood Count 2.96 M/UL (4.70-6.10) L Hemoglobin 8.8 G/DL (14.2-18.0) L Hematocrit 27.6 % (42.0-52.0) L Mean Corpuscular Volume 93 FL (80-99) Mean Corpuscular Hemoglobin 29.8 PG (27.0-31.0) Mean Corpuscular Hemoglobin Concent 32.0 G/DL (32.0-36.0) Red Cell Distribution Width 19.5 % (11.6-14.8) H Platelet Count 512 K/UL (150-450) H Mean Platelet Volume 6.0 FL (6.5-10.1) L Neutrophils (%) (Auto) 79.4 % (45.0-75.0) H Lymphocytes (%) (Auto) 10.0 % (20.0-45.0) L Monocytes (%) (Auto) 8.0 % (1.0-10.0) Eosinophils (%) (Auto) 1.9 % (0.0-3.0) Basophils (%) (Auto) 0.7 % (0.0-2.0) Sodium Level 137 MMOL/L (136-145) Potassium Level 3.6 MMOL/L (3.5-5.1) Chloride Level 105 MMOL/L (98-107) Carbon Dioxide Level 25 MMOL/L (21-32) Anion Gap 7 mmol/L (5-15) Blood Urea Nitrogen 13 mg/dL (7-18) Creatinine 0.7 MG/DL (0.55-1.30) Estimat Glomerular Filtration Rate > 60 mL/min (>60) Glucose Level 136 MG/DL (74-106) H Calcium Level 8.6 MG/DL (8.5-10.1) Phosphorus Level 2.3 MG/DL (2.5-4.9) L Magnesium Level 1.7 MG/DL (1.8-2.4) L Total Bilirubin 0.1 MG/DL (0.2-1.0) L Aspartate Amino Transf (AST/SGOT) 19 U/L (15-37) Alanine Aminotransferase (ALT/SGPT) 18 U/L (12-78) Alkaline Phosphatase 136 U/L (46-116) H Total Protein 5.7 G/DL (6.4-8.2) L Albumin 1.3 G/DL (3.4-5.0) L Globulin 4.4 g/dL Albumin/Globulin Ratio 0.3 (1.0-2.7) L Objective HEAD AND NECK: No JVD. LUNGS: Coarse rhonchi. CARDIOVASCULAR: Regular S1 and S2 with no gallop. ABDOMEN: Soft. EXTREMITIES: 1+ pitting edema. Rk Hdz MD Dec 14, 2019 14:07
--- NOTE | 2019-12-14 16:36 | Surgery Progress Note ---
Surgery Progress Note Subjective Additional Comments no acute events stable exam unchanged labs noted micro reviewed Objective Last 24 Hour Vital Signs Date Time Temp Pulse Resp B/P (MAP) Pulse Ox O2 Delivery O2 Flow Rate FiO2 12/14/19 15:30 79 21 115/47 (69) 99 12/14/19 15:00 80 21 95/58 (70) 99 12/14/19 14:30 82 21 105/50 (68) 99 12/14/19 14:00 80 23 110/50 (70) 99 12/14/19 13:30 82 25 94/61 (72) 98 12/14/19 13:07 102/60 12/14/19 13:00 78 21 102/60 (74) 99 12/14/19 12:30 72 15 92/45 (61) 100 12/14/19 12:00 77 12/14/19 12:00 99.4 73 19 103/58 (73) 100 12/14/19 11:30 74 16 101/44 (63) 100 12/14/19 11:00 74 20 93/44 (60) 100 12/14/19 10:30 80 23 94/53 (67) 99 12/14/19 10:00 78 23 94/45 (61) 98 12/14/19 09:30 77 23 92/42 (59) 98 12/14/19 09:00 77 19 99/41 (60) 99 12/14/19 08:30 82 24 102/49 (66) 99 12/14/19 08:25 80 18 99 Room Air 21 12/14/19 08:25 99 Room Air 21 12/14/19 08:00 99.6 77 18 87/50 (62) 100 12/14/19 08:00 Room Air Room Air Room Air 12/14/19 08:00 78 12/14/19 07:30 78 20 91/48 (62) 100 12/14/19 07:00 76 17 101/46 (64) 99 12/14/19 06:30 79 20 99/53 (68) 98 12/14/19 06:00 84 22 106/45 (65) 99 12/14/19 06:00 106/45 12/14/19 05:30 78 17 98/45 (62) 99 12/14/19 05:00 102/48 4/10/20 05:00 83 20 102/48 (66) 98 12/14/19 04:30 89 26 87/53 (64) 97 12/14/19 04:00 99.1 104 30 119/68 (85) 97 12/14/19 04:00 119/68 12/14/19 04:00 Room Air Room Air Room Air 12/14/19 03:33 57 12/14/19 03:30 83 17 93/54 (67) 98 12/14/19 03:00 84 21 102/53 (69) 99 12/14/19 03:00 102/53 12/14/19 02:30 85 19 106/49 (68) 99 12/14/19 02:00 83 17 102/53 (69) 98 12/14/19 02:00 102/53 12/14/19 01:30 88 21 109/57 (74) 98 12/14/19 01:30 109/57 12/14/19 01:00 99/53 12/14/19 01:00 89 24 99/53 (68) 98 12/14/19 00:30 88 24 104/58 (73) 98 12/14/19 00:15 87 24 111/64 (80) 99 12/14/19 00:00 99.1 86 22 116/71 (86) 100 12/14/19 00:00 116/71 12/14/19 00:00 Room Air Room Air Room Air 12/13/19 23:38 85 12/13/19 23:32 84/37 12/13/19 23:00 88 20 106/57 (73) 99 12/13/19 23:00 106/57 12/13/19 22:30 86 20 105/56 (72) 99 12/13/19 22:00 88 26 100/75 (83) 99 12/13/19 22:00 100/75 12/13/19 21:30 88 25 103/54 (70) 99 12/13/19 21:00 90 24 114/57 (76) 99 12/13/19 21:00 114/57 12/13/19 20:55 87 23 99 Room Air 21 12/13/19 20:55 99 Room Air 21 12/13/19 20:30 92 26 103/60 (74) 100 12/13/19 20:00 93 12/13/19 20:00 98.5 93 28 95/58 (70) 100 12/13/19 20:00 95/58 12/13/19 20:00 Room Air Room Air Room Air 12/13/19 19:30 87 22 110/63 (79) 100 12/13/19 19:00 97/61 12/13/19 19:00 87 20 97/61 (73) 100 12/13/19 18:00 133/84 12/13/19 18:00 112 53 119/67 (84) 97 12/13/19 17:00 84 25 116/58 (77) 100 12/13/19 17:00 136/76 I&O Intake and Output 12/13/19 12/14/19 19:00 07:00 Intake Total 1287.865 ml 1712.041 ml Output Total 1395 ml 1040 ml Balance -107.135 ml 672.041 ml IV Total 692.865 ml 932.041 ml Tube Feeding 595 ml 600 ml Other 180 ml Output Urine Total 1395 ml 1040 ml Dressing: other Wound: other Drains: other Cardiovascular: RSR Respiratory: decreased breath sounds Abdomen: soft, non-tender, present bowel sounds Extremities: no tenderness, no cyanosis Laboratory Tests Test 12/14/19 09:20 White Blood Count 12.5 K/UL (4.8-10.8) H Red Blood Count 2.96 M/UL (4.70-6.10) L Hemoglobin 8.8 G/DL (14.2-18.0) L Hematocrit 27.6 % (42.0-52.0) L Mean Corpuscular Volume 93 FL (80-99) Mean Corpuscular Hemoglobin 29.8 PG (27.0-31.0) Mean Corpuscular Hemoglobin Concent 32.0 G/DL (32.0-36.0) Red Cell Distribution Width 19.5 % (11.6-14.8) H Platelet Count 512 K/UL (150-450) H Mean Platelet Volume 6.0 FL (6.5-10.1) L Neutrophils (%) (Auto) 79.4 % (45.0-75.0) H Lymphocytes (%) (Auto) 10.0 % (20.0-45.0) L Monocytes (%) (Auto) 8.0 % (1.0-10.0) Eosinophils (%) (Auto) 1.9 % (0.0-3.0) Basophils (%) (Auto) 0.7 % (0.0-2.0) Sodium Level 137 MMOL/L (136-145) Potassium Level 3.6 MMOL/L (3.5-5.1) Chloride Level 105 MMOL/L (98-107) Carbon Dioxide Level 25 MMOL/L (21-32) Anion Gap 7 mmol/L (5-15) Blood Urea Nitrogen 13 mg/dL (7-18) Creatinine 0.7 MG/DL (0.55-1.30) Estimat Glomerular Filtration Rate > 60 mL/min (>60) Glucose Level 136 MG/DL (74-106) H Calcium Level 8.6 MG/DL (8.5-10.1) Phosphorus Level 2.3 MG/DL (2.5-4.9) L Magnesium Level 1.7 MG/DL (1.8-2.4) L Total Bilirubin 0.1 MG/DL (0.2-1.0) L Aspartate Amino Transf (AST/SGOT) 19 U/L (15-37) Alanine Aminotransferase (ALT/SGPT) 18 U/L (12-78) Alkaline Phosphatase 136 U/L (46-116) H Total Protein 5.7 G/DL (6.4-8.2) L Albumin 1.3 G/DL (3.4-5.0) L Globulin 4.4 g/dL Albumin/Globulin Ratio 0.3 (1.0-2.7) L Plan Problems: (1) Urinary tract infection (2) Respiratory insufficiency Assessment & Plan: Right central line terminates in the right atrium. Cardiomegaly. Mild vascular congestion. Mild bilateral pleural effusions. (3) Decubital ulcer Assessment & Plan: Pt presented on admission with contractures, multiple pressure injuries.Unstageable pressure injury noted to upper L earlobe(L)0.5cm x (W)0.8cm. Stable dry eschar noted at base of injury.Edges adhrent and pink.Medially along L earlobe is a DTPI(L)0.8cm x (W)0.6cm. Base of wound is Purple at center with surrounding maroon borders. Distally L earlobe is and Unstageable Pressure Injury(L)1cm x (W)0.4cm. Stable dry eschar at base of injury . Edges dry,adherent and pink. In close proximity at distal lobule is second pressure injury(L)0.5cm x (W)0.6cm. Base of wound is moist and viable. No exudate noted. stage 4 Sacral Pressure injury(L)5.6cmx (W)6.8cm. base of wound has 75% soft necrosis,25% gustabo with surrounding maroon ,indurated borders.Small amt non- odorous serous exudate noted. Sacral wound in its entirety measures (L)9cm x (W) 8cm. Areas of hyperpigmentation from previous wounds noted to L trochanter,and L lower buttocks. Partial thickness wound noted to head of penis(L)0.4cm x (W)0.5cm. Base of wound is moist and viable. Partial thickness Pressure Injury noted at base of shaft of penis(L)2.1cm x (W) 2.4cm. Base of wound is moist and viable. MASD R and L groin ,and Scrotum. Affected areas are erythematous and denuded. Unstageable Pressure injury R heel(L)6.5cm x (W)8cm . Wound is open blood blister. Base of wound is moist gustabo, black at center base of wound. Overlying loose skin flap removed. Periwound R heel is boggy with non-blanchable erythema. Unstageable Pressure Injury R Hallux(L)1.5cm x (W)2.9cm. Base of wound has 60% soft necrosis,40% gustabo. Macerated borders. Small amt. non-odorous serous exudate. Non-blanchable erythema without induration or elevated skin temp periwound. Unstageable Pressure injury Lateral R malleolus(L)1.8cm x (W)1.2cm. Base of is 100% necrotic with semi-detached borders which are erythematous and moist.Wound is malodorous. Periwound erythematous, but without elevated skin temp. Unstageable Pressure Injury L heel(L)4.6cm x (W)5.5cm. Base of wound is 100% necrotic with detached borders that present with mixed erythema and slough. Wound is malodorous. Periwound is erythematous and fluctuant. No elevation in skin temp noted. Unstageable Pressure Injury L lateral Malleolus (L)1.1cm x (W)1.2cm.Stable dry brown eschar at base of wound. Edges flat, adherent and pink. No erythema or fluctuance periwound. Full thickness stage 3 Pressure Injury L hallux(L)3.6cm x (W)3.9cm.Base of wound is moist pink with small amt Biofilm. Bone is palpable. Edges are macerated. No odor noted.Small amt serous exudate noted. Periwound is erythematous,no elevation in skin temp or fluctuance noted. DTPI medial/lateral L foot(L)2.5cm x (W)1.9cm. Base of Injury is maroon and fluctuant. Periwound is pink. Unstageable Pressure Injury distal/lateral L foot(L)2.5cm x (W)1.9cm. Base of wound is 100% soft necrosis with marginal erythema. No odor or exudate noted. Periwound is boggy but pink. Stable dry eschar R 1st metatarsal Head(L)0.6cm x (W)0.5cm. Tx.Plan: Apply Betadine to Wounds L earlobe Daily. Pad Oxygen tubing and keep tubing loose around ears. Cleanse Sacral wound with Saline. Apply Therahoney. Apply Moisture Barrier Periwound. Cover with Optifoam drsg. Change every 3 days and prn. Apply Moisture Barrier Paste to to R and L groin, Base of Penis, and scrotum with each Incontinence care. Apply Betadine to wounds R foot. Cover each wound with Optifoam drsg. Change Daily and prn. Apply Betadine to wounds L foot. Cover each wound with Optifoam drsg. Change Daily and prn. Reposition at least every 2hours or as tolerated. Place pillow between knees. Off-load heels with pillow. Air Fluidized mattress. (4) Suspected COVID-19 virus infection JitendraDavonte Dec 14, 2019 16:36
[2019-12-14] MEDS: Enoxaparin 60mg Inj SUBQ SCH (18:39)
--- NOTE | 2019-12-14 19:06 | Pulmonolgy Critical Care Note ---
Critical Care - Asmt/Plan Assessment/Plan: Pulmonary Critical Care Progress Note HPI 69-year-old male history of cerebral palsy, bedbound, nonverbal, Roper dependent presented for fever cough and shortness of breath. 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 Patient is on nasal canula O2. History limited due to patient's baseline mental status. Has G tube Noted to have DVT, KPC on cultute On pressors PRN, On AC Negative for Covid19, In ICU due to hypotension On IV Antibiotics per ID, IVF, IV pressors PRN - Dopamine being weaned Hemodynamically stable currently, on NC O2 Allergies: No Known Allergies Past Medical History: GERD, Dysphagia, previous G tube, Cerebral Palsy, BPH All Other Systems: limited - History limited due to patient's baseline mental status Physical Exam Vital Signs Noted General Appearance: thin, Chronically Ill, mild pallor Head: normocephalic, atraumatic Eyes: bilateral eye PERRL, bilateral eye EOMI ENT: moist mm Neck: full range of motion, supple Respiratory: CTAB Cardiovascular: regular rate, rhythm, HS1, HS2 normal, no murmur, normal peripheral pulses, Gastrointestinal: non tender, soft, non-distended, no guarding Musculoskeletal: other - Extremities contracted, chronic ulcerations noted bilateral feet Neurologic: awake, no focal defects, other - Patient nonverbal at baseline Skin: warm/dry Impression: Urinary tract infection Possible Pneumonia Sepsis Covid-19 negative Cerebral Palsy Seizure History BPH - chronic roper Dysphagia s/p G tube Anemia DVT Lymphopenia Plan IV antibiotics Continue AC for DVT VQ scan R/o coronavirus infection IVF Pressors PRN Await cultures PPX Monitor labs O2 PRN Bronchodilators Laboratory Tests Noted EKG: Rate: normal Rhythm: NSR Other Impression t wave flattening 1 AVL CXR: Atelectasis RLL, L mid zone Subjective ROS Limited/Unobtainable: No Allergies: Coded Allergies: No Known Allergies (Unverified , 12/07/19) Microbiology Date/Time Source Procedure Growth Status 12/07/19 15:50 Nasal Nares - Final Complete 12/07/19 15:50 Nasal Nares - Final Complete 12/07/19 18:15 Rectum Received Critical Care - Objective Last 24 Hour Vital Signs Date Time Temp Pulse Resp B/P (MAP) Pulse Ox O2 Delivery O2 Flow Rate FiO2 12/14/19 17:00 85 26 98/57 (71) 94 12/14/19 16:30 76 17 101/45 (63) 100 12/14/19 16:00 Room Air Room Air Room Air 12/14/19 16:00 99.4 77 18 98/46 (63) 99 12/14/19 15:30 79 21 115/47 (69) 99 12/14/19 15:00 80 21 95/58 (70) 99 12/14/19 14:30 82 21 105/50 (68) 99 12/14/19 14:00 80 23 110/50 (70) 99 12/14/19 13:30 82 25 94/61 (72) 98 12/14/19 13:07 102/60 12/14/19 13:00 78 21 102/60 (74) 99 12/14/19 12:30 72 15 92/45 (61) 100 12/14/19 12:00 77 12/14/19 12:00 Room Air Room Air Room Air 12/14/19 12:00 99.4 73 19 103/58 (73) 100 12/14/19 11:30 74 16 101/44 (63) 100 12/14/19 11:00 74 20 93/44 (60) 100 12/14/19 10:30 80 23 94/53 (67) 99 12/14/19 10:00 78 23 94/45 (61) 98 12/14/19 09:30 77 23 92/42 (59) 98 12/14/19 09:00 77 19 99/41 (60) 99 12/14/19 08:30 82 24 102/49 (66) 99 12/14/19 08:25 80 18 99 Room Air 21 12/14/19 08:25 99 Room Air 21 12/14/19 08:00 99.6 77 18 87/50 (62) 100 12/14/19 08:00 Room Air Room Air Room Air 12/14/19 08:00 78 12/14/19 07:30 78 20 91/48 (62) 100 12/14/19 07:00 76 17 101/46 (64) 99 12/14/19 06:30 79 20 99/53 (68) 98 12/14/19 06:00 84 22 106/45 (65) 99 4/10/20 06:00 106/45 12/14/19 05:30 78 17 98/45 (62) 99 12/14/19 05:00 102/48 12/14/19 05:00 83 20 102/48 (66) 98 12/14/19 04:30 89 26 87/53 (64) 97 12/14/19 04:00 99.1 104 30 119/68 (85) 97 12/14/19 04:00 119/68 12/14/19 04:00 Room Air Room Air Room Air 12/14/19 03:33 57 12/14/19 03:30 83 17 93/54 (67) 98 12/14/19 03:00 84 21 102/53 (69) 99 12/14/19 03:00 102/53 12/14/19 02:30 85 19 106/49 (68) 99 12/14/19 02:00 83 17 102/53 (69) 98 12/14/19 02:00 102/53 12/14/19 01:30 88 21 109/57 (74) 98 12/14/19 01:30 109/57 12/14/19 01:00 99/53 12/14/19 01:00 89 24 99/53 (68) 98 12/14/19 00:30 88 24 104/58 (73) 98 12/14/19 00:15 87 24 111/64 (80) 99 12/14/19 00:00 99.1 86 22 116/71 (86) 100 12/14/19 00:00 116/71 12/14/19 00:00 Room Air Room Air Room Air 12/13/19 23:38 85 12/13/19 23:32 84/37 12/13/19 23:00 88 20 106/57 (73) 99 12/13/19 23:00 106/57 12/13/19 22:30 86 20 105/56 (72) 99 12/13/19 22:00 88 26 100/75 (83) 99 12/13/19 22:00 100/75 12/13/19 21:30 88 25 103/54 (70) 99 12/13/19 21:00 90 24 114/57 (76) 99 12/13/19 21:00 114/57 12/13/19 20:55 87 23 99 Room Air 21 12/13/19 20:55 99 Room Air 21 12/13/19 20:30 92 26 103/60 (74) 100 12/13/19 20:00 93 12/13/19 20:00 98.5 93 28 95/58 (70) 100 12/13/19 20:00 95/58 12/13/19 20:00 Room Air Room Air Room Air 12/13/19 19:30 87 22 110/63 (79) 100 Critical Care - Subjective ROS Limited/Unobtainable: No FI02: 21 Sputum Amount: None Tube Feeding Amount: 50 I&O: Intake and Output 12/13/19 12/14/19 19:00 07:00 Intake Total 1287.865 ml 1712.041 ml Output Total 1395 ml 1040 ml Balance -107.135 ml 672.041 ml IV Total 692.865 ml 932.041 ml Tube Feeding 595 ml 600 ml Other 180 ml Output Urine Total 1395 ml 1040 ml Oscar Bragg MD Dec 14, 2019 19:06
[2019-12-14] MEDS: Dyna-Hex 2% Top Sol 2oz TOPIC SCH (20:28)
--- NOTE | 2019-12-14 20:36 | General Progress Note ---
Assessment/Plan Problem List: (1) Urinary tract infection ICD Codes: N39.0 - Urinary tract infection, site not specified SNOMED: 06023386 (2) Respiratory insufficiency ICD Codes: R06.89 - Other abnormalities of breathing SNOMED: 729978268 (3) Decubital ulcer ICD Codes: L89.90 - Pressure ulcer of unspecified site, unspecified stage SNOMED: 513445653 (4) Suspected COVID-19 virus infection ICD Codes: R68.89 - Other general symptoms and signs SNOMED: 066467761 Status: progressing, deteriorating Assessment/Plan: downs syndrome s/p septic shock reviewed chart and labs lethargic afebrile pna resp insuff sepsis uti malnutrition low bp poor prognosis h/h dropping Subjective ROS Limited/Unobtainable: Yes Allergies: Coded Allergies: MOLD (Unverified Allergy, Unknown, 12/07/19) POLLEN EXTRACTS (Unverified Allergy, Unknown, 12/07/19) Objective Last 24 Hour Vital Signs Date Time Temp Pulse Resp B/P (MAP) Pulse Ox O2 Delivery O2 Flow Rate FiO2 12/14/19 19:18 100 Nasal Cannula 2.0 28 12/14/19 19:18 81 18 100 Nasal Cannula 2.0 28 12/14/19 19:15 88 25 99/56 (70) 100 12/14/19 19:00 88 18 87/47 (60) 100 12/14/19 19:00 87/47 12/14/19 18:30 81 27 105/66 (79) 99 12/14/19 18:00 78 18 97/48 (64) 100 12/14/19 18:00 97/48 12/14/19 17:30 78 18 100/49 (66) 100 12/14/19 17:00 98/57 12/14/19 17:00 85 26 98/57 (71) 94 12/14/19 16:30 76 17 101/45 (63) 100 12/14/19 16:00 Room Air Room Air Room Air 12/14/19 16:00 99.4 77 18 98/46 (63) 99 12/14/19 16:00 98/46 12/14/19 16:00 124 12/14/19 15:30 79 21 115/47 (69) 99 12/14/19 15:00 95/58 12/14/19 15:00 80 21 95/58 (70) 99 12/14/19 14:30 82 21 105/50 (68) 99 12/14/19 14:00 80 23 110/50 (70) 99 12/14/19 14:00 110/50 12/14/19 13:30 82 25 94/61 (72) 98 12/14/19 13:07 102/60 12/14/19 13:00 102/60 12/14/19 13:00 78 21 102/60 (74) 99 12/14/19 12:30 72 15 92/45 (61) 100 12/14/19 12:00 77 12/14/19 12:00 Room Air Room Air Room Air 12/14/19 12:00 103/88 12/14/19 12:00 99.4 73 19 103/58 (73) 100 12/14/19 11:30 74 16 101/44 (63) 100 12/14/19 11:00 93/44 12/14/19 11:00 74 20 93/44 (60) 100 12/14/19 10:30 80 23 94/53 (67) 99 12/14/19 10:00 94/45 12/14/19 10:00 78 23 94/45 (61) 98 12/14/19 09:30 77 23 92/42 (59) 98 12/14/19 09:00 77 19 99/41 (60) 99 12/14/19 09:00 99/44 12/14/19 08:30 82 24 102/49 (66) 99 12/14/19 08:25 80 18 99 Room Air 21 12/14/19 08:25 99 Room Air 21 12/14/19 08:00 99.6 77 18 87/50 (62) 100 12/14/19 08:00 102/49 12/14/19 08:00 Room Air Room Air Room Air 12/14/19 08:00 78 12/14/19 07:30 78 20 91/48 (62) 100 12/14/19 07:00 76 17 101/46 (64) 99 12/14/19 07:00 102/49 12/14/19 06:30 79 20 99/53 (68) 98 12/14/19 06:00 84 22 106/45 (65) 99 12/14/19 06:00 106/45 12/14/19 05:30 78 17 98/45 (62) 99 12/14/19 05:00 102/48 12/14/19 05:00 83 20 102/48 (66) 98 12/14/19 04:30 89 26 87/53 (64) 97 12/14/19 04:00 99.1 104 30 119/68 (85) 97 12/14/19 04:00 119/68 12/14/19 04:00 Room Air Room Air Room Air 12/14/19 03:33 57 12/14/19 03:30 83 17 93/54 (67) 98 12/14/19 03:00 84 21 102/53 (69) 99 12/14/19 03:00 102/53 12/14/19 02:30 85 19 106/49 (68) 99 12/14/19 02:00 83 17 102/53 (69) 98 12/14/19 02:00 102/53 12/14/19 01:30 88 21 109/57 (74) 98 12/14/19 01:30 109/57 12/14/19 01:00 99/53 12/14/19 01:00 89 24 99/53 (68) 98 12/14/19 00:30 88 24 104/58 (73) 98 12/14/19 00:15 87 24 111/64 (80) 99 12/14/19 00:00 99.1 86 22 116/71 (86) 100 12/14/19 00:00 116/71 12/14/19 00:00 Room Air Room Air Room Air 12/13/19 23:38 85 12/13/19 23:32 84/37 12/13/19 23:00 88 20 106/57 (73) 99 12/13/19 23:00 106/57 12/13/19 22:30 86 20 105/56 (72) 99 12/13/19 22:00 88 26 100/75 (83) 99 12/13/19 22:00 100/75 12/13/19 21:30 88 25 103/54 (70) 99 12/13/19 21:00 90 24 114/57 (76) 99 12/13/19 21:00 114/57 12/13/19 20:55 87 23 99 Room Air 21 12/13/19 20:55 99 Room Air 21 Intake and Output 12/13/19 12/14/19 19:00 07:00 Intake Total 1287.865 ml 1791.772 ml Output Total 1395 ml 1040 ml Balance -107.135 ml 751.772 ml IV Total 692.865 ml 1011.772 ml Tube Feeding 595 ml 600 ml Other 180 ml Output Urine Total 1395 ml 1040 ml Laboratory Tests 12/14/19 09:20: White Blood Count 12.5H, Red Blood Count 2.96L, Hemoglobin 8.8L, Hematocrit 27.6L, Mean Corpuscular Volume 93, Mean Corpuscular Hemoglobin 29.8, Mean Corpuscular Hemoglobin Concent 32.0, Red Cell Distribution Width 19.5H, Platelet Count 512H, Mean Platelet Volume 6.0L, Neutrophils (%) (Auto) 79.4H, Lymphocytes (%) (Auto) 10.0L, Monocytes (%) (Auto) 8.0, Eosinophils (%) (Auto) 1.9, Basophils (%) (Auto) 0.7, Sodium Level 137, Potassium Level 3.6, Chloride Level 105, Carbon Dioxide Level 25, Anion Gap 7, Blood Urea Nitrogen 13, Creatinine 0.7, Estimat Glomerular Filtration Rate > 60, Glucose Level 136H, Calcium Level 8.6, Phosphorus Level 2.3L, Magnesium Level 1.7L, Total Bilirubin 0.1L, Aspartate Amino Transf (AST/SGOT) 19, Alanine Aminotransferase (ALT/SGPT) 18, Alkaline Phosphatase 136H, Total Protein 5.7L, Albumin 1.3L, Globulin 4.4, Albumin/Globulin Ratio 0.3L Height (Feet): 5 Height (Inches): 7.00 Weight (Pounds): 130 Leda Sweeney MD Dec 14, 2019 20:36
[2019-12-15] VITALS (48 sets, daily range): BP systolic 71–112; BP diastolic 35–79
[2019-12-15] MEDS: D5NS 1,000 ML IV SCH ×2 (01:10→14:57)
[2019-12-15] MEDS: Vancomycin 500mg/D5W 110ml IVPB SCH ×4 (01:11→14:55)
[2019-12-15] MEDS: DOPamine 400mg/250ml 250 ML IV SCH ×2 (04:38→21:56)
[2019-12-15] MEDS: Enoxaparin 60mg Inj SUBQ SCH ×2 (05:38→17:28)
[2019-12-15 06:44] LABS: BASOPHILS % (AUTO) 0.4 % (0.0-2.0); EOSINOPHILS % (AUTO) 1.2 % (0.0-3.0); HEMATOCRIT 26.5 % (42.0-52.0); HEMOGLOBIN 8.9 G/DL (14.2-18.0); MEAN CORPUSCULAR VOLUME 90 FL (80-99); MONOCYTES % (AUTO) 8.3 % (1.0-10.0); PLATELET COUNT 496 K/UL (150-450); RED BLOOD COUNT 2.96 M/UL (4.70-6.10); RED CELL DISTRIBUTION WIDTH 18.1 % (11.6-14.8); WHITE BLOOD COUNT 11.5 K/UL (4.8-10.8)
[2019-12-15 07:24] LABS: ANION GAP 8 mmol/L (5-15); BLOOD UREA NITROGEN 14 mg/dL (7-18); CALCIUM 8.6 MG/DL (8.5-10.1); CARBON DIOXIDE 24 MMOL/L (21-32); CHLORIDE 105 MMOL/L (98-107); CREATININE 0.7 MG/DL (0.55-1.30); POTASSIUM 4.7 MMOL/L (3.5-5.1); SODIUM 137 MMOL/L (136-145)
--- NOTE | 2019-12-15 08:46 | Diagnostic Imaging Report ---
EXAM: XR Chest, 1 View CLINICAL HISTORY: INFECT TECHNIQUE: Frontal view of the chest. COMPARISON: 12/08/19 FINDINGS: Lungs: There is unchanged mild perihilar pulmonary venous congestion. There is been development of mild right basilar infiltrate, likely representing atelectasis. No additional infiltrates are identified. Pleural space: Unremarkable. No pneumothorax. Heart: There is mild cardiomegaly. Mediastinum: Unremarkable. Bones/joints: Unremarkable. Tubes, lines and devices: There is right IJ central venous catheter in unchanged position. IMPRESSION: 1. Unchanged cardia megaly pulmonary venous congestion. 2. Development of mild right basilar infiltrate, likely representing atelectasis.
[2019-12-15] MEDS: Cefepime HCl 1 GM in D5W 55 ML IVPB SCH ×2 (08:54→20:06)
[2019-12-15] MEDS: levETIRAcetam 500mg/5ml Liquid GT SCH ×2 (08:54→21:56)
--- NOTE | 2019-12-15 11:24 | Nephrology Progress Note ---
Assessment/Plan Problem List: (1) Electrolyte imbalance (2) Dehydration (3) Urinary tract infection (4) Hypoalbuminemia (5) Hypokalemia (6) BPH (benign prostatic hyperplasia) (7) Anemia Assessment Hypokalemia Hypoalbuminemia Urinary tract infection Possible Pneumonia, Sepsis, Rule out Covid-19 Cerebral Palsy Seizure History BPH - chronic roper Dysphagia s/p G tube Anemia, Lymphopenia Plan Increase midodrine to 10 mg every 8 hours for low blood pressure Remains on dopamine for blood pressure maintenance IV hydration-potassium supplement as needed Monitor renal parameters and electrolytes Antibiotics Avoid nephrotoxic's Per consultants Per orders Subjective ROS Limited/Unobtainable: No Constitutional: Reports: malaise, weakness Objective Objective Last 24 Hour Vital Signs Date Time Temp Pulse Resp B/P (MAP) Pulse Ox O2 Delivery O2 Flow Rate FiO2 12/15/19 09:38 97.8 12/15/19 09:00 71/36 12/15/19 09:00 68 19 71/36 (48) 99 12/15/19 08:30 84 24 89/51 (64) 100 12/15/19 08:00 97.8 72 20 78/49 (59) 99 12/15/19 08:00 78/49 12/15/19 08:00 Room Air Room Air Room Air 12/15/19 07:30 63 15 91/57 (68) 99 12/15/19 07:00 68 21 79/54 (62) 100 12/15/19 07:00 79/60 12/15/19 06:30 64 14 82/46 (58) 100 12/15/19 06:00 88/52 12/15/19 06:00 68 20 88/51 (63) 100 12/15/19 05:30 72 24 104/48 (66) 100 12/15/19 05:00 93/56 12/15/19 05:00 72 25 93/54 (67) 99 12/15/19 04:38 110/57 12/15/19 04:30 74 27 96/55 (69) 98 12/15/19 04:00 74 12/15/19 04:00 110/57 12/15/19 04:00 99.6 80 20 82/53 (63) 97 12/15/19 04:00 Room Air Room Air Room Air 12/15/19 03:30 87 22 86/54 (65) 96 12/15/19 03:00 95/55 12/15/19 03:00 115 37 112/64 (80) 97 12/15/19 02:30 75 13 109/50 (69) 99 12/15/19 02:00 88/51 12/15/19 02:00 73 15 94/53 (67) 100 12/15/19 01:30 79 18 110/65 (80) 98 12/15/19 01:11 103/59 12/15/19 01:00 76 18 96/61 (73) 100 12/15/19 01:00 110/65 12/15/19 00:30 67 15 73/39 (50) 99 12/15/19 00:00 99.0 75 21 99/59 (72) 99 12/15/19 00:00 Room Air Room Air Room Air 12/15/19 00:00 96 12/15/19 00:00 72/44 12/14/19 23:00 93/54 12/14/19 23:00 69 19 103/59 (74) 100 12/14/19 22:30 73 18 91/55 (67) 98 12/14/19 22:00 91/43 12/14/19 22:00 78 19 84/61 (69) 100 12/14/19 21:30 70 17 81/42 (55) 100 12/14/19 21:00 93 28 97/50 (66) 97 12/14/19 21:00 97/50 12/14/19 20:00 94/49 12/14/19 20:00 86 12/14/19 20:00 Room Air Room Air Room Air 12/14/19 20:00 99.1 89 28 94/49 (64) 99 12/14/19 19:18 100 Nasal Cannula 2.0 28 12/14/19 19:18 81 18 100 Nasal Cannula 2.0 28 12/14/19 19:15 88 25 99/56 (70) 100 12/14/19 19:00 88 18 87/47 (60) 100 12/14/19 19:00 87/47 12/14/19 18:30 81 27 105/66 (79) 99 12/14/19 18:00 78 18 97/48 (64) 100 12/14/19 18:00 97/48 4/10/20 17:30 78 18 100/49 (66) 100 12/14/19 17:00 98/57 12/14/19 17:00 85 26 98/57 (71) 94 12/14/19 16:30 76 17 101/45 (63) 100 12/14/19 16:00 Room Air Room Air Room Air 12/14/19 16:00 99.4 77 18 98/46 (63) 99 12/14/19 16:00 98/46 12/14/19 16:00 124 12/14/19 15:30 79 21 115/47 (69) 99 12/14/19 15:00 95/58 12/14/19 15:00 80 21 95/58 (70) 99 12/14/19 14:30 82 21 105/50 (68) 99 12/14/19 14:00 80 23 110/50 (70) 99 12/14/19 14:00 110/50 12/14/19 13:30 82 25 94/61 (72) 98 12/14/19 13:07 102/60 12/14/19 13:00 102/60 12/14/19 13:00 78 21 102/60 (74) 99 12/14/19 12:30 72 15 92/45 (61) 100 12/14/19 12:00 77 12/14/19 12:00 Room Air Room Air Room Air 12/14/19 12:00 103/88 12/14/19 12:00 99.4 73 19 103/58 (73) 100 12/14/19 11:30 74 16 101/44 (63) 100 Intake and Output 12/14/19 12/15/19 19:00 07:00 Intake Total 1811.772 ml 1764.778 ml Output Total 1550 ml 885 ml Balance 261.772 ml 879.778 ml Intake Free Water 150 ml IV Total 1151.772 ml 964.778 ml Tube Feeding 600 ml 600 ml Other 60 ml 50 ml Output Urine Total 1550 ml 885 ml Laboratory Tests 12/15/19 04:00: White Blood Count 11.5H, Red Blood Count 2.96L, Hemoglobin 8.9L, Hematocrit 26.5L, Mean Corpuscular Volume 90, Mean Corpuscular Hemoglobin 30.2, Mean Corpuscular Hemoglobin Concent 33.7, Red Cell Distribution Width 18.1H, Platelet Count 496H, Mean Platelet Volume 4.9L, Neutrophils (%) (Auto) 74.0, Lymphocytes (%) (Auto) 16.0L, Monocytes (%) (Auto) 8.3, Eosinophils (%) (Auto) 1.2, Basophils (%) (Auto) 0.4, Sodium Level 137, Potassium Level 4.7, Chloride Level 105, Carbon Dioxide Level 24, Anion Gap 8, Blood Urea Nitrogen 14, Creatinine 0.7, Estimat Glomerular Filtration Rate > 60, Glucose Level 105, Calcium Level 8.6 Height (Feet): 5 Height (Inches): 7.00 Weight (Pounds): 131 General Appearance: no apparent distress Cardiovascular: normal rate Respiratory/Chest: decreased breath sounds Abdomen: soft Objective No change Andre Flores MD Dec 15, 2019 11:24
--- NOTE | 2019-12-15 12:40 | Infectious Diseases Prog Note ---
Assessment/Plan Assessment/Plan antibiotics : vancomycin iv, cefepime A 1. pseudomonas UTI 2. + blood culture with coag neg staph likely contaminated 3. shock 4. Downs syndrome 5. DVT of leg P 1. continue iv vancomycin, cefepime 2. will follow up cultures Subjective ROS Limited/Unobtainable: Yes Allergies: Coded Allergies: MOLD (Unverified Allergy, Unknown, 12/07/19) POLLEN EXTRACTS (Unverified Allergy, Unknown, 12/07/19) Objective Vital Signs Last 24 Hour Vital Signs Date Time Temp Pulse Resp B/P (MAP) Pulse Ox O2 Delivery O2 Flow Rate FiO2 12/15/19 12:00 98.1 64 17 83/48 (60) 100 12/15/19 12:00 83/48 12/15/19 12:00 Room Air Room Air Room Air 12/15/19 11:30 66 17 76/43 (54) 99 12/15/19 11:00 79/40 12/15/19 11:00 64 16 79/40 (53) 99 12/15/19 10:30 64 15 80/38 (52) 100 12/15/19 10:00 66 16 79/35 (50) 99 12/15/19 10:00 79/35 12/15/19 09:38 97.8 12/15/19 09:30 66 18 74/36 (49) 98 12/15/19 09:00 71/36 12/15/19 09:00 68 19 71/36 (48) 99 12/15/19 08:30 84 24 89/51 (64) 100 12/15/19 08:00 97.8 72 20 78/49 (59) 99 12/15/19 08:00 78/49 12/15/19 08:00 Room Air Room Air Room Air 12/15/19 07:30 63 15 91/57 (68) 99 12/15/19 07:00 68 21 79/54 (62) 100 12/15/19 07:00 79/60 12/15/19 06:30 64 14 82/46 (58) 100 12/15/19 06:00 88/52 12/15/19 06:00 68 20 88/51 (63) 100 12/15/19 05:30 72 24 104/48 (66) 100 12/15/19 05:00 93/56 12/15/19 05:00 72 25 93/54 (67) 99 12/15/19 04:38 110/57 12/15/19 04:30 74 27 96/55 (69) 98 12/15/19 04:00 74 12/15/19 04:00 110/57 12/15/19 04:00 99.6 80 20 82/53 (63) 97 12/15/19 04:00 Room Air Room Air Room Air 12/15/19 03:30 87 22 86/54 (65) 96 12/15/19 03:00 95/55 12/15/19 03:00 115 37 112/64 (80) 97 12/15/19 02:30 75 13 109/50 (69) 99 12/15/19 02:00 88/51 12/15/19 02:00 73 15 94/53 (67) 100 12/15/19 01:30 79 18 110/65 (80) 98 12/15/19 01:11 103/59 12/15/19 01:00 76 18 96/61 (73) 100 12/15/19 01:00 110/65 12/15/19 00:30 67 15 73/39 (50) 99 12/15/19 00:00 99.0 75 21 99/59 (72) 99 12/15/19 00:00 Room Air Room Air Room Air 12/15/19 00:00 96 12/15/19 00:00 72/44 12/14/19 23:00 93/54 12/14/19 23:00 69 19 103/59 (74) 100 12/14/19 22:30 73 18 91/55 (67) 98 12/14/19 22:00 91/43 12/14/19 22:00 78 19 84/61 (69) 100 12/14/19 21:30 70 17 81/42 (55) 100 12/14/19 21:00 93 28 97/50 (66) 97 12/14/19 21:00 97/50 12/14/19 20:00 94/49 12/14/19 20:00 86 12/14/19 20:00 Room Air Room Air Room Air 12/14/19 20:00 99.1 89 28 94/49 (64) 99 12/14/19 19:18 100 Nasal Cannula 2.0 28 12/14/19 19:18 81 18 100 Nasal Cannula 2.0 28 12/14/19 19:15 88 25 99/56 (70) 100 12/14/19 19:00 88 18 87/47 (60) 100 12/14/19 19:00 87/47 12/14/19 18:30 81 27 105/66 (79) 99 12/14/19 18:00 78 18 97/48 (64) 100 12/14/19 18:00 97/48 12/14/19 17:30 78 18 100/49 (66) 100 12/14/19 17:00 98/57 12/14/19 17:00 85 26 98/57 (71) 94 12/14/19 16:30 76 17 101/45 (63) 100 12/14/19 16:00 Room Air Room Air Room Air 12/14/19 16:00 99.4 77 18 98/46 (63) 99 12/14/19 16:00 98/46 12/14/19 16:00 124 12/14/19 15:30 79 21 115/47 (69) 99 12/14/19 15:00 95/58 12/14/19 15:00 80 21 95/58 (70) 99 12/14/19 14:30 82 21 105/50 (68) 99 12/14/19 14:00 80 23 110/50 (70) 99 12/14/19 14:00 110/50 12/14/19 13:30 82 25 94/61 (72) 98 12/14/19 13:07 102/60 12/14/19 13:00 102/60 12/14/19 13:00 78 21 102/60 (74) 99 Height (Feet): 5 Height (Inches): 7.00 Weight (Pounds): 131 Respiratory/Chest: lungs clear Cardiovascular: normal rate, regular rhythm, no gallop/murmur Abdomen: soft, non tender, other - GT Extremities: no edema, other - right IJ catheter Laboratory Tests Test 12/15/19 04:00 White Blood Count 11.5 K/UL (4.8-10.8) H Red Blood Count 2.96 M/UL (4.70-6.10) L Hemoglobin 8.9 G/DL (14.2-18.0) L Hematocrit 26.5 % (42.0-52.0) L Mean Corpuscular Volume 90 FL (80-99) Mean Corpuscular Hemoglobin 30.2 PG (27.0-31.0) Mean Corpuscular Hemoglobin Concent 33.7 G/DL (32.0-36.0) Red Cell Distribution Width 18.1 % (11.6-14.8) H Platelet Count 496 K/UL (150-450) H Mean Platelet Volume 4.9 FL (6.5-10.1) L Neutrophils (%) (Auto) 74.0 % (45.0-75.0) Lymphocytes (%) (Auto) 16.0 % (20.0-45.0) L Monocytes (%) (Auto) 8.3 % (1.0-10.0) Eosinophils (%) (Auto) 1.2 % (0.0-3.0) Basophils (%) (Auto) 0.4 % (0.0-2.0) Sodium Level 137 MMOL/L (136-145) Potassium Level 4.7 MMOL/L (3.5-5.1) Chloride Level 105 MMOL/L (98-107) Carbon Dioxide Level 24 MMOL/L (21-32) Anion Gap 8 mmol/L (5-15) Blood Urea Nitrogen 14 mg/dL (7-18) Creatinine 0.7 MG/DL (0.55-1.30) Estimat Glomerular Filtration Rate > 60 mL/min (>60) Glucose Level 105 MG/DL (74-106) Calcium Level 8.6 MG/DL (8.5-10.1) Current Medications Medications (Trade) Dose Ordered Sig/Nazia Route PRN Reason Start Time Stop Time Status Last Admin Dose Admin Acetaminophen (Tylenol) 650 mg Q4H PRN ORAL Temp >100.5 12/08/19 05:00 01/07/20 04:59 12/15/19 08:57 Acetaminophen (Tylenol) 650 mg Q4H PRN RECTAL Temp >100.5 12/08/19 05:30 01/06/20 20:59 Cefepime HCl 1 gm/ Dextrose 55 ml @ 110 mls/hr EVERY 12 HOURS IVPB 12/10/19 11:00 12/17/19 10:59 12/15/19 08:54 Chlorhexidine Gluconate (Susanna-Hex 2%) 1 applic DAILY@2000 TOPIC 12/08/19 20:00 03/07/20 19:59 12/14/19 20:28 Dextrose/Sodium Chloride 1,000 ml @ 60 mls/hr [id number] IV 12/09/19 10:15 01/08/20 10:14 12/15/19 01:10 Dopamine HCl/ Dextrose 250 ml @ 0 mls/hr Q24H IV 12/09/19 16:15 03/07/20 16:14 12/15/19 04:38 Enoxaparin Sodium (Lovenox) 60 mg Q12H SUBQ 12/14/19 18:00 03/13/20 17:59 12/15/19 05:38 Lansoprazole (Prevacid) 30 mg BID GT 12/09/19 18:00 01/07/20 08:59 12/15/19 08:58 Levetiracetam (Keppra) 500 mg Q12HR GT 12/08/19 09:00 01/07/20 08:59 12/15/19 08:54 Midodrine (Pro-Amatine) 10 mg Q8HR GT 12/14/19 14:00 03/12/20 13:59 12/15/19 05:36 Norepinephrine Bitartrate 4 mg/ Dextrose 250 ml @ 0 mls/hr Q24H IV 12/09/19 01:30 01/07/20 01:29 12/08/19 02:39 Ondansetron HCl (Zofran) 4 mg Q6H PRN IVP Nausea & Vomiting 12/08/19 03:30 01/06/20 21:29 Potassium Chloride (K-Dur) 40 meq TWICE A DAY GT 12/13/19 09:00 03/12/20 08:59 12/15/19 08:58 Vancomycin HCl (Vanco rx to dose) 1 ea DAILY PRN MISC Per rx protocol 12/14/19 10:45 01/13/20 10:44 Vancomycin HCl 500 mg/Dextrose 110 ml @ 110 mls/hr Q12HR@0100,1300 IVPB 12/14/19 13:00 12/19/19 12:59 12/15/19 01:11 Clarita Lees MD Dec 15, 2019 12:40
--- NOTE | 2019-12-15 17:23 | Cardiac Electrophysiology PN ---
Assessment/Plan Assessment/Plan 1. Shortness of breath. Ruled out for TX. Echo EF 60%. COVID negative 2. Septic shock. On Dopamine 5 mcg and IV antibiotic. Taper off as long as SBP>58 3. Nonsustained VT 20 beats. Mg replaced. No further 4. Transient atrial fib, converted back to SR 5. R CFV DVT, on Lovenox 70 sq bid 6. Cough and fever. Possible pneumonia. Ruled out for COVID-19. 7. Seizures, on Keppra. 8. Cerebral palsy. DW RN Subjective Subjective In ICU on Dopamine 5 mcg. No further VT Had 20 beats of VT on 12/10/19. In isolation for MRSA and VRE. COVID is negative. RN at bedside Had transient atrial fib 12/12/19 but no further Objective Last 24 Hour Vital Signs Date Time Temp Pulse Resp B/P (MAP) Pulse Ox O2 Delivery O2 Flow Rate FiO2 12/15/19 16:30 78 27 87/53 (64) 100 12/15/19 16:00 78 12/15/19 16:00 98.5 75 24 90/45 (60) 100 12/15/19 16:00 Room Air Room Air Room Air 12/15/19 15:30 76 25 101/52 (68) 98 12/15/19 15:00 95/47 12/15/19 15:00 90 32 95/47 (63) 100 12/15/19 14:30 73 25 95/60 (72) 99 12/15/19 14:00 66 19 75/45 (55) 99 12/15/19 14:00 75/45 12/15/19 13:30 76 24 97/61 (73) 100 12/15/19 13:00 97/61 12/15/19 13:00 67 18 77/37 (50) 99 12/15/19 12:30 64 15 81/51 (61) 98 12/15/19 12:00 98.1 64 17 83/48 (60) 100 12/15/19 12:00 83/48 12/15/19 12:00 Room Air Room Air Room Air 12/15/19 12:00 66 12/15/19 11:30 66 17 76/43 (54) 99 12/15/19 11:00 79/40 12/15/19 11:00 64 16 79/40 (53) 99 12/15/19 10:30 64 15 80/38 (52) 100 12/15/19 10:00 66 16 79/35 (50) 99 12/15/19 10:00 79/35 12/15/19 09:38 97.8 12/15/19 09:30 66 18 74/36 (49) 98 12/15/19 09:00 71/36 12/15/19 09:00 68 19 71/36 (48) 99 12/15/19 08:30 84 24 89/51 (64) 100 12/15/19 08:00 97.8 72 20 78/49 (59) 99 12/15/19 08:00 70 12/15/19 08:00 78/49 12/15/19 08:00 Room Air Room Air Room Air 12/15/19 07:30 63 15 91/57 (68) 99 12/15/19 07:00 68 21 79/54 (62) 100 12/15/19 07:00 79/60 12/15/19 06:30 64 14 82/46 (58) 100 12/15/19 06:00 88/52 12/15/19 06:00 68 20 88/51 (63) 100 12/15/19 05:30 72 24 104/48 (66) 100 12/15/19 05:00 93/56 12/15/19 05:00 72 25 93/54 (67) 99 12/15/19 04:38 110/57 12/15/19 04:30 74 27 96/55 (69) 98 12/15/19 04:00 74 12/15/19 04:00 110/57 12/15/19 04:00 99.6 80 20 82/53 (63) 97 12/15/19 04:00 Room Air Room Air Room Air 12/15/19 03:30 87 22 86/54 (65) 96 12/15/19 03:00 95/55 12/15/19 03:00 115 37 112/64 (80) 97 12/15/19 02:30 75 13 109/50 (69) 99 12/15/19 02:00 88/51 12/15/19 02:00 73 15 94/53 (67) 100 12/15/19 01:30 79 18 110/65 (80) 98 12/15/19 01:11 103/59 12/15/19 01:00 76 18 96/61 (73) 100 12/15/19 01:00 110/65 12/15/19 00:30 67 15 73/39 (50) 99 12/15/19 00:00 99.0 75 21 99/59 (72) 99 12/15/19 00:00 Room Air Room Air Room Air 12/15/19 00:00 96 12/15/19 00:00 72/44 12/14/19 23:00 93/54 12/14/19 23:00 69 19 103/59 (74) 100 12/14/19 22:30 73 18 91/55 (67) 98 12/14/19 22:00 91/43 12/14/19 22:00 78 19 84/61 (69) 100 12/14/19 21:30 70 17 81/42 (55) 100 12/14/19 21:00 93 28 97/50 (66) 97 12/14/19 21:00 97/50 12/14/19 20:00 94/49 12/14/19 20:00 86 12/14/19 20:00 Room Air Room Air Room Air 12/14/19 20:00 99.1 89 28 94/49 (64) 99 12/14/19 19:18 100 Nasal Cannula 2.0 28 12/14/19 19:18 81 18 100 Nasal Cannula 2.0 28 12/14/19 19:15 88 25 99/56 (70) 100 12/14/19 19:00 88 18 87/47 (60) 100 12/14/19 19:00 87/47 12/14/19 18:30 81 27 105/66 (79) 99 12/14/19 18:00 78 18 97/48 (64) 100 12/14/19 18:00 97/48 12/14/19 17:30 78 18 100/49 (66) 100 Intake and Output 12/14/19 12/15/19 19:00 07:00 Intake Total 1811.772 ml 1764.778 ml Output Total 1550 ml 885 ml Balance 261.772 ml 879.778 ml Intake Free Water 150 ml IV Total 1151.772 ml 964.778 ml Tube Feeding 600 ml 600 ml Other 60 ml 50 ml Output Urine Total 1550 ml 885 ml Laboratory Tests Test 12/15/19 04:00 White Blood Count 11.5 K/UL (4.8-10.8) H Red Blood Count 2.96 M/UL (4.70-6.10) L Hemoglobin 8.9 G/DL (14.2-18.0) L Hematocrit 26.5 % (42.0-52.0) L Mean Corpuscular Volume 90 FL (80-99) Mean Corpuscular Hemoglobin 30.2 PG (27.0-31.0) Mean Corpuscular Hemoglobin Concent 33.7 G/DL (32.0-36.0) Red Cell Distribution Width 18.1 % (11.6-14.8) H Platelet Count 496 K/UL (150-450) H Mean Platelet Volume 4.9 FL (6.5-10.1) L Neutrophils (%) (Auto) 74.0 % (45.0-75.0) Lymphocytes (%) (Auto) 16.0 % (20.0-45.0) L Monocytes (%) (Auto) 8.3 % (1.0-10.0) Eosinophils (%) (Auto) 1.2 % (0.0-3.0) Basophils (%) (Auto) 0.4 % (0.0-2.0) Sodium Level 137 MMOL/L (136-145) Potassium Level 4.7 MMOL/L (3.5-5.1) Chloride Level 105 MMOL/L (98-107) Carbon Dioxide Level 24 MMOL/L (21-32) Anion Gap 8 mmol/L (5-15) Blood Urea Nitrogen 14 mg/dL (7-18) Creatinine 0.7 MG/DL (0.55-1.30) Estimat Glomerular Filtration Rate > 60 mL/min (>60) Glucose Level 105 MG/DL (74-106) Calcium Level 8.6 MG/DL (8.5-10.1) Objective HEAD AND NECK: No JVD. LUNGS: Coarse rhonchi. CARDIOVASCULAR: Regular S1 and S2 with no gallop. ABDOMEN: Soft. EXTREMITIES: 1+ pitting edema. Rk Hdz MD Dec 15, 2019 17:23
--- NOTE | 2019-12-15 19:46 | Surgery Progress Note ---
Surgery Progress Note Subjective Additional Comments no acute events labs noted exam stable Objective Last 24 Hour Vital Signs Date Time Temp Pulse Resp B/P (MAP) Pulse Ox O2 Delivery O2 Flow Rate FiO2 12/15/19 19:30 84 26 94/71 (79) 100 12/15/19 19:00 89 27 85/48 (60) 99 12/15/19 19:00 85/48 12/15/19 18:30 93 25 81/50 (60) 98 12/15/19 18:00 102/69 12/15/19 18:00 100 30 102/69 (80) 96 12/15/19 17:30 97 25 84/58 (67) 99 12/15/19 17:00 78 27 84/58 (67) 97 12/15/19 17:00 84/58 12/15/19 16:30 78 27 87/53 (64) 100 12/15/19 16:00 90/45 12/15/19 16:00 78 12/15/19 16:00 98.5 75 24 90/45 (60) 100 12/15/19 16:00 Room Air Room Air Room Air 12/15/19 15:30 76 25 101/52 (68) 98 12/15/19 15:00 95/47 12/15/19 15:00 90 32 95/47 (63) 100 12/15/19 14:30 73 25 95/60 (72) 99 12/15/19 14:00 66 19 75/45 (55) 99 12/15/19 14:00 75/45 12/15/19 13:30 76 24 97/61 (73) 100 12/15/19 13:00 97/61 12/15/19 13:00 67 18 77/37 (50) 99 12/15/19 12:30 64 15 81/51 (61) 98 12/15/19 12:00 98.1 64 17 83/48 (60) 100 12/15/19 12:00 83/48 12/15/19 12:00 Room Air Room Air Room Air 12/15/19 12:00 66 12/15/19 11:30 66 17 76/43 (54) 99 12/15/19 11:00 79/40 12/15/19 11:00 64 16 79/40 (53) 99 4/11/20 10:30 64 15 80/38 (52) 100 12/15/19 10:00 66 16 79/35 (50) 99 12/15/19 10:00 79/35 12/15/19 09:38 97.8 12/15/19 09:30 66 18 74/36 (49) 98 12/15/19 09:00 71/36 12/15/19 09:00 68 19 71/36 (48) 99 12/15/19 08:30 84 24 89/51 (64) 100 12/15/19 08:00 97.8 72 20 78/49 (59) 99 12/15/19 08:00 70 12/15/19 08:00 78/49 12/15/19 08:00 Room Air Room Air Room Air 12/15/19 07:30 63 15 91/57 (68) 99 12/15/19 07:00 68 21 79/54 (62) 100 12/15/19 07:00 79/60 12/15/19 06:30 64 14 82/46 (58) 100 12/15/19 06:00 88/52 12/15/19 06:00 68 20 88/51 (63) 100 12/15/19 05:30 72 24 104/48 (66) 100 12/15/19 05:00 93/56 12/15/19 05:00 72 25 93/54 (67) 99 12/15/19 04:38 110/57 12/15/19 04:30 74 27 96/55 (69) 98 12/15/19 04:00 74 12/15/19 04:00 110/57 12/15/19 04:00 99.6 80 20 82/53 (63) 97 12/15/19 04:00 Room Air Room Air Room Air 12/15/19 03:30 87 22 86/54 (65) 96 12/15/19 03:00 95/55 12/15/19 03:00 115 37 112/64 (80) 97 12/15/19 02:30 75 13 109/50 (69) 99 12/15/19 02:00 88/51 12/15/19 02:00 73 15 94/53 (67) 100 12/15/19 01:30 79 18 110/65 (80) 98 12/15/19 01:11 103/59 12/15/19 01:00 76 18 96/61 (73) 100 12/15/19 01:00 110/65 12/15/19 00:30 67 15 73/39 (50) 99 12/15/19 00:00 99.0 75 21 99/59 (72) 99 12/15/19 00:00 Room Air Room Air Room Air 12/15/19 00:00 96 12/15/19 00:00 72/44 12/14/19 23:00 93/54 12/14/19 23:00 69 19 103/59 (74) 100 12/14/19 22:30 73 18 91/55 (67) 98 12/14/19 22:00 91/43 12/14/19 22:00 78 19 84/61 (69) 100 12/14/19 21:30 70 17 81/42 (55) 100 12/14/19 21:00 93 28 97/50 (66) 97 12/14/19 21:00 97/50 12/14/19 20:00 94/49 12/14/19 20:00 86 12/14/19 20:00 Room Air Room Air Room Air 12/14/19 20:00 99.1 89 28 94/49 (64) 99 I&O Intake and Output 12/14/19 12/15/19 19:00 07:00 Intake Total 1811.772 ml 1764.778 ml Output Total 1550 ml 885 ml Balance 261.772 ml 879.778 ml Intake Free Water 150 ml IV Total 1151.772 ml 964.778 ml Tube Feeding 600 ml 600 ml Other 60 ml 50 ml Output Urine Total 1550 ml 885 ml Dressing: other Wound: other Drains: other Cardiovascular: RSR Respiratory: decreased breath sounds Abdomen: soft, non-tender, present bowel sounds Extremities: no cyanosis Laboratory Tests Test 12/15/19 04:00 White Blood Count 11.5 K/UL (4.8-10.8) H Red Blood Count 2.96 M/UL (4.70-6.10) L Hemoglobin 8.9 G/DL (14.2-18.0) L Hematocrit 26.5 % (42.0-52.0) L Mean Corpuscular Volume 90 FL (80-99) Mean Corpuscular Hemoglobin 30.2 PG (27.0-31.0) Mean Corpuscular Hemoglobin Concent 33.7 G/DL (32.0-36.0) Red Cell Distribution Width 18.1 % (11.6-14.8) H Platelet Count 496 K/UL (150-450) H Mean Platelet Volume 4.9 FL (6.5-10.1) L Neutrophils (%) (Auto) 74.0 % (45.0-75.0) Lymphocytes (%) (Auto) 16.0 % (20.0-45.0) L Monocytes (%) (Auto) 8.3 % (1.0-10.0) Eosinophils (%) (Auto) 1.2 % (0.0-3.0) Basophils (%) (Auto) 0.4 % (0.0-2.0) Sodium Level 137 MMOL/L (136-145) Potassium Level 4.7 MMOL/L (3.5-5.1) Chloride Level 105 MMOL/L (98-107) Carbon Dioxide Level 24 MMOL/L (21-32) Anion Gap 8 mmol/L (5-15) Blood Urea Nitrogen 14 mg/dL (7-18) Creatinine 0.7 MG/DL (0.55-1.30) Estimat Glomerular Filtration Rate > 60 mL/min (>60) Glucose Level 105 MG/DL (74-106) Calcium Level 8.6 MG/DL (8.5-10.1) Plan Problems: (1) Urinary tract infection (2) Respiratory insufficiency Assessment & Plan: Right central line terminates in the right atrium. Cardiomegaly. Mild vascular congestion. Mild bilateral pleural effusions. (3) Decubital ulcer Assessment & Plan: Pt presented on admission with contractures, multiple pressure injuries.Unstageable pressure injury noted to upper L earlobe(L)0.5cm x (W)0.8cm. Stable dry eschar noted at base of injury.Edges adhrent and pink.Medially along L earlobe is a DTPI(L)0.8cm x (W)0.6cm. Base of wound is Purple at center with surrounding maroon borders. Distally L earlobe is and Unstageable Pressure Injury(L)1cm x (W)0.4cm. Stable dry eschar at base of injury . Edges dry,adherent and pink. In close proximity at distal lobule is second pressure injury(L)0.5cm x (W)0.6cm. Base of wound is moist and viable. No exudate noted. stage 4 Sacral Pressure injury(L)5.6cmx (W)6.8cm. base of wound has 75% soft necrosis,25% gustabo with surrounding maroon ,indurated borders.Small amt non- odorous serous exudate noted. Sacral wound in its entirety measures (L)9cm x (W) 8cm. Areas of hyperpigmentation from previous wounds noted to L trochanter,and L lower buttocks. Partial thickness wound noted to head of penis(L)0.4cm x (W)0.5cm. Base of wound is moist and viable. Partial thickness Pressure Injury noted at base of shaft of penis(L)2.1cm x (W) 2.4cm. Base of wound is moist and viable. MASD R and L groin ,and Scrotum. Affected areas are erythematous and denuded. Unstageable Pressure injury R heel(L)6.5cm x (W)8cm . Wound is open blood blister. Base of wound is moist gustabo, black at center base of wound. Overlying loose skin flap removed. Periwound R heel is boggy with non-blanchable erythema. Unstageable Pressure Injury R Hallux(L)1.5cm x (W)2.9cm. Base of wound has 60% soft necrosis,40% gustabo. Macerated borders. Small amt. non-odorous serous exudate. Non-blanchable erythema without induration or elevated skin temp periwound. Unstageable Pressure injury Lateral R malleolus(L)1.8cm x (W)1.2cm. Base of is 100% necrotic with semi-detached borders which are erythematous and moist.Wound is malodorous. Periwound erythematous, but without elevated skin temp. Unstageable Pressure Injury L heel(L)4.6cm x (W)5.5cm. Base of wound is 100% necrotic with detached borders that present with mixed erythema and slough. Wound is malodorous. Periwound is erythematous and fluctuant. No elevation in skin temp noted. Unstageable Pressure Injury L lateral Malleolus (L)1.1cm x (W)1.2cm.Stable dry brown eschar at base of wound. Edges flat, adherent and pink. No erythema or fluctuance periwound. Full thickness stage 3 Pressure Injury L hallux(L)3.6cm x (W)3.9cm.Base of wound is moist pink with small amt Biofilm. Bone is palpable. Edges are macerated. No odor noted.Small amt serous exudate noted. Periwound is erythematous,no elevation in skin temp or fluctuance noted. DTPI medial/lateral L foot(L)2.5cm x (W)1.9cm. Base of Injury is maroon and fluctuant. Periwound is pink. Unstageable Pressure Injury distal/lateral L foot(L)2.5cm x (W)1.9cm. Base of wound is 100% soft necrosis with marginal erythema. No odor or exudate noted. Periwound is boggy but pink. Stable dry eschar R 1st metatarsal Head(L)0.6cm x (W)0.5cm. Tx.Plan: Apply Betadine to Wounds L earlobe Daily. Pad Oxygen tubing and keep tubing loose around ears. Cleanse Sacral wound with Saline. Apply Therahoney. Apply Moisture Barrier Periwound. Cover with Optifoam drsg. Change every 3 days and prn. Apply Moisture Barrier Paste to to R and L groin, Base of Penis, and scrotum with each Incontinence care. Apply Betadine to wounds R foot. Cover each wound with Optifoam drsg. Change Daily and prn. Apply Betadine to wounds L foot. Cover each wound with Optifoam drsg. Change Daily and prn. Reposition at least every 2hours or as tolerated. Place pillow between knees. Off-load heels with pillow. Air Fluidized mattress. (4) Suspected COVID-19 virus infection Davonte Ham Dec 15, 2019 19:46
[2019-12-15] MEDS: Dyna-Hex 2% Top Sol 2oz TOPIC SCH (19:57)
[2019-12-15] MEDS ORDERED: Tubing IV Secondary IV ONE (21:10)
[2019-12-15] MEDS ORDERED: NS 275ml ONE (21:10)
[2019-12-15] MEDS ORDERED: D5NS 1000ml IV ONE ×2 (21:10→21:12)
--- NOTE | 2019-12-15 22:51 | Pulmonolgy Critical Care Note ---
Critical Care - Asmt/Plan Assessment/Plan: Pulmonary Critical Care Progress Note HPI 69-year-old male history of cerebral palsy, bedbound, nonverbal, Roper dependent presented for fever cough and shortness of breath. Patient apparently fever for the 24 hours [employer]. Patient is on nasal canula O2. History limited due to patient's baseline mental status. Has G tube Noted to have DVT, KPC on cultute On pressors PRN, On AC Negative for Covid19, In ICU due to hypotension On IV Antibiotics per ID, IVF, IV pressors PRN - Dopamine being weaned Hemodynamically stable currently, on NC O2 Allergies: No Known Allergies Past Medical History: GERD, Dysphagia, previous G tube, Cerebral Palsy, BPH All Other Systems: limited - History limited due to patient's baseline mental status Physical Exam Vital Signs Noted General Appearance: thin, Chronically Ill, mild pallor Head: normocephalic, atraumatic Eyes: bilateral eye PERRL, bilateral eye EOMI ENT: moist mm Neck: full range of motion, supple Respiratory: CTAB Cardiovascular: regular rate, rhythm, HS1, HS2 normal, no murmur, normal peripheral pulses, Gastrointestinal: non tender, soft, non-distended, no guarding Musculoskeletal: other - Extremities contracted, chronic ulcerations noted bilateral feet Neurologic: awake, no focal defects, other - Patient nonverbal at baseline Skin: warm/dry Impression: Urinary tract infection Possible Pneumonia Sepsis Covid-19 negative Cerebral Palsy Seizure History BPH - chronic roper Dysphagia s/p G tube Anemia DVT Lymphopenia Plan IV antibiotics Continue AC for DVT VQ scan R/o coronavirus infection IVF Pressors PRN Await cultures PPX Monitor labs O2 PRN Bronchodilators Laboratory Tests Noted EKG: Rate: normal Rhythm: NSR Other Impression t wave flattening 1 AVL CXR: Atelectasis RLL, L mid zone Subjective ROS Limited/Unobtainable: No Allergies: Coded Allergies: No Known Allergies (Unverified , 12/07/19) Microbiology Date/Time Source Procedure Growth Status 12/07/19 15:50 Nasal Nares - Final Complete 12/07/19 15:50 Nasal Nares - Final Complete 12/07/19 18:15 Rectum Received Critical Care - Objective Last 24 Hour Vital Signs Date Time Temp Pulse Resp B/P (MAP) Pulse Ox O2 Delivery O2 Flow Rate FiO2 12/15/19 22:00 88 28 98/71 (80) 100 12/15/19 22:00 97/58 12/15/19 21:56 82/59 12/15/19 21:30 85 29 82/59 (67) 100 12/15/19 21:00 88/56 12/15/19 21:00 85 26 85/58 (67) 100 12/15/19 20:30 84 27 85/70 (75) 99 12/15/19 20:23 100 Nasal Cannula 2.0 28 12/15/19 20:23 85 21 100 Nasal Cannula 2.0 28 12/15/19 20:00 95/58 12/15/19 20:00 98.8 88 25 95/58 (70) 100 12/15/19 20:00 Room Air Room Air Room Air 12/15/19 20:00 77 12/15/19 19:30 84 26 94/71 (79) 100 12/15/19 19:00 89 27 85/48 (60) 99 12/15/19 19:00 85/48 12/15/19 18:30 93 25 81/50 (60) 98 12/15/19 18:00 102/69 12/15/19 18:00 100 30 102/69 (80) 96 12/15/19 17:30 97 25 84/58 (67) 99 12/15/19 17:00 78 27 84/58 (67) 97 12/15/19 17:00 84/58 12/15/19 16:30 78 27 87/53 (64) 100 12/15/19 16:00 90/45 12/15/19 16:00 78 12/15/19 16:00 98.5 75 24 90/45 (60) 100 12/15/19 16:00 Room Air Room Air Room Air 12/15/19 15:30 76 25 101/52 (68) 98 12/15/19 15:00 95/47 12/15/19 15:00 90 32 95/47 (63) 100 12/15/19 14:30 73 25 95/60 (72) 99 12/15/19 14:00 66 19 75/45 (55) 99 12/15/19 14:00 75/45 12/15/19 13:30 76 24 97/61 (73) 100 12/15/19 13:00 97/61 12/15/19 13:00 67 18 77/37 (50) 99 12/15/19 12:30 64 15 81/51 (61) 98 12/15/19 12:00 98.1 64 17 83/48 (60) 100 12/15/19 12:00 83/48 12/15/19 12:00 Room Air Room Air Room Air 12/15/19 12:00 66 12/15/19 11:30 66 17 76/43 (54) 99 12/15/19 11:00 79/40 12/15/19 11:00 64 16 79/40 (53) 99 12/15/19 10:30 64 15 80/38 (52) 100 12/15/19 10:00 66 16 79/35 (50) 99 12/15/19 10:00 79/35 12/15/19 09:38 97.8 12/15/19 09:30 66 18 74/36 (49) 98 12/15/19 09:00 71/36 12/15/19 09:00 68 19 71/36 (48) 99 12/15/19 08:30 84 24 89/51 (64) 100 12/15/19 08:00 97.8 72 20 78/49 (59) 99 12/15/19 08:00 70 12/15/19 08:00 78/49 12/15/19 08:00 Room Air Room Air Room Air 12/15/19 07:30 63 15 91/57 (68) 99 12/15/19 07:00 68 21 79/54 (62) 100 12/15/19 07:00 79/60 12/15/19 06:30 64 14 82/46 (58) 100 12/15/19 06:00 88/52 12/15/19 06:00 68 20 88/51 (63) 100 12/15/19 05:30 72 24 104/48 (66) 100 12/15/19 05:00 93/56 12/15/19 05:00 72 25 93/54 (67) 99 12/15/19 04:38 110/57 12/15/19 04:30 74 27 96/55 (69) 98 12/15/19 04:00 74 12/15/19 04:00 110/57 12/15/19 04:00 99.6 80 20 82/53 (63) 97 12/15/19 04:00 Room Air Room Air Room Air 12/15/19 03:30 87 22 86/54 (65) 96 12/15/19 03:00 95/55 12/15/19 03:00 115 37 112/64 (80) 97 12/15/19 02:30 75 13 109/50 (69) 99 12/15/19 02:00 88/51 12/15/19 02:00 73 15 94/53 (67) 100 12/15/19 01:30 79 18 110/65 (80) 98 12/15/19 01:11 103/59 12/15/19 01:00 76 18 96/61 (73) 100 12/15/19 01:00 110/65 12/15/19 00:30 67 15 73/39 (50) 99 12/15/19 00:00 99.0 75 21 99/59 (72) 99 12/15/19 00:00 Room Air Room Air Room Air 12/15/19 00:00 96 12/15/19 00:00 72/44 12/14/19 23:00 93/54 12/14/19 23:00 69 19 103/59 (74) 100 Critical Care - Subjective ROS Limited/Unobtainable: No FI02: 28 Sputum Amount: None Tube Feeding Amount: 50 I&O: Intake and Output 12/14/19 12/15/19 19:00 07:00 Intake Total 1811.772 ml 1764.778 ml Output Total 1550 ml 885 ml Balance 261.772 ml 879.778 ml Intake Free Water 150 ml IV Total 1151.772 ml 964.778 ml Tube Feeding 600 ml 600 ml Other 60 ml 50 ml Output Urine Total 1550 ml 885 ml Oscar Bragg MD Dec 15, 2019 22:51
--- NOTE | 2019-12-15 23:14 | General Progress Note ---
Assessment/Plan Problem List: (1) Urinary tract infection ICD Codes: N39.0 - Urinary tract infection, site not specified SNOMED: 65582311 (2) Respiratory insufficiency ICD Codes: R06.89 - Other abnormalities of breathing SNOMED: 519438789 (3) Decubital ulcer ICD Codes: L89.90 - Pressure ulcer of unspecified site, unspecified stage SNOMED: 675714194 (4) Suspected COVID-19 virus infection ICD Codes: R68.89 - Other general symptoms and signs SNOMED: 113086015 Status: progressing, deteriorating Assessment/Plan: downs syndrome s/p septic shock pna resp insuff sepsis uti malnutrition low bp d/p pressors poor prognsis no change Subjective ROS Limited/Unobtainable: Yes Allergies: Coded Allergies: MOLD (Unverified Allergy, Unknown, 12/07/19) POLLEN EXTRACTS (Unverified Allergy, Unknown, 12/07/19) Objective Last 24 Hour Vital Signs Date Time Temp Pulse Resp B/P (MAP) Pulse Ox O2 Delivery O2 Flow Rate FiO2 12/15/19 22:00 88 28 98/71 (80) 100 12/15/19 22:00 97/58 12/15/19 21:56 82/59 12/15/19 21:30 85 29 82/59 (67) 100 12/15/19 21:00 88/56 12/15/19 21:00 85 26 85/58 (67) 100 12/15/19 20:30 84 27 85/70 (75) 99 12/15/19 20:23 100 Nasal Cannula 2.0 28 12/15/19 20:23 85 21 100 Nasal Cannula 2.0 28 12/15/19 20:00 95/58 12/15/19 20:00 98.8 88 25 95/58 (70) 100 12/15/19 20:00 Room Air Room Air Room Air 12/15/19 20:00 77 12/15/19 19:30 84 26 94/71 (79) 100 12/15/19 19:00 89 27 85/48 (60) 99 12/15/19 19:00 85/48 12/15/19 18:30 93 25 81/50 (60) 98 12/15/19 18:00 102/69 12/15/19 18:00 100 30 102/69 (80) 96 12/15/19 17:30 97 25 84/58 (67) 99 12/15/19 17:00 78 27 84/58 (67) 97 12/15/19 17:00 84/58 12/15/19 16:30 78 27 87/53 (64) 100 12/15/19 16:00 90/45 12/15/19 16:00 78 12/15/19 16:00 98.5 75 24 90/45 (60) 100 12/15/19 16:00 Room Air Room Air Room Air 12/15/19 15:30 76 25 101/52 (68) 98 12/15/19 15:00 95/47 12/15/19 15:00 90 32 95/47 (63) 100 12/15/19 14:30 73 25 95/60 (72) 99 12/15/19 14:00 66 19 75/45 (55) 99 12/15/19 14:00 75/45 12/15/19 13:30 76 24 97/61 (73) 100 12/15/19 13:00 97/61 12/15/19 13:00 67 18 77/37 (50) 99 12/15/19 12:30 64 15 81/51 (61) 98 12/15/19 12:00 98.1 64 17 83/48 (60) 100 12/15/19 12:00 83/48 12/15/19 12:00 Room Air Room Air Room Air 12/15/19 12:00 66 12/15/19 11:30 66 17 76/43 (54) 99 12/15/19 11:00 79/40 12/15/19 11:00 64 16 79/40 (53) 99 12/15/19 10:30 64 15 80/38 (52) 100 12/15/19 10:00 66 16 79/35 (50) 99 12/15/19 10:00 79/35 12/15/19 09:38 97.8 12/15/19 09:30 66 18 74/36 (49) 98 12/15/19 09:00 71/36 12/15/19 09:00 68 19 71/36 (48) 99 12/15/19 08:30 84 24 89/51 (64) 100 12/15/19 08:00 97.8 72 20 78/49 (59) 99 12/15/19 08:00 70 12/15/19 08:00 78/49 12/15/19 08:00 Room Air Room Air Room Air 12/15/19 07:30 63 15 91/57 (68) 99 12/15/19 07:00 68 21 79/54 (62) 100 12/15/19 07:00 79/60 12/15/19 06:30 64 14 82/46 (58) 100 12/15/19 06:00 88/52 12/15/19 06:00 68 20 88/51 (63) 100 12/15/19 05:30 72 24 104/48 (66) 100 12/15/19 05:00 93/56 12/15/19 05:00 72 25 93/54 (67) 99 12/15/19 04:38 110/57 12/15/19 04:30 74 27 96/55 (69) 98 12/15/19 04:00 74 12/15/19 04:00 110/57 12/15/19 04:00 99.6 80 20 82/53 (63) 97 12/15/19 04:00 Room Air Room Air Room Air 12/15/19 03:30 87 22 86/54 (65) 96 12/15/19 03:00 95/55 12/15/19 03:00 115 37 112/64 (80) 97 12/15/19 02:30 75 13 109/50 (69) 99 12/15/19 02:00 88/51 12/15/19 02:00 73 15 94/53 (67) 100 12/15/19 01:30 79 18 110/65 (80) 98 12/15/19 01:11 103/59 12/15/19 01:00 76 18 96/61 (73) 100 12/15/19 01:00 110/65 12/15/19 00:30 67 15 73/39 (50) 99 12/15/19 00:00 99.0 75 21 99/59 (72) 99 12/15/19 00:00 Room Air Room Air Room Air 12/15/19 00:00 96 12/15/19 00:00 72/44 Intake and Output 12/14/19 12/15/19 19:00 07:00 Intake Total 1811.772 ml 1764.778 ml Output Total 1550 ml 885 ml Balance 261.772 ml 879.778 ml Intake Free Water 150 ml IV Total 1151.772 ml 964.778 ml Tube Feeding 600 ml 600 ml Other 60 ml 50 ml Output Urine Total 1550 ml 885 ml Laboratory Tests 12/15/19 04:00: White Blood Count 11.5H, Red Blood Count 2.96L, Hemoglobin 8.9L, Hematocrit 26.5L, Mean Corpuscular Volume 90, Mean Corpuscular Hemoglobin 30.2, Mean Corpuscular Hemoglobin Concent 33.7, Red Cell Distribution Width 18.1H, Platelet Count 496H, Mean Platelet Volume 4.9L, Neutrophils (%) (Auto) 74.0, Lymphocytes (%) (Auto) 16.0L, Monocytes (%) (Auto) 8.3, Eosinophils (%) (Auto) 1.2, Basophils (%) (Auto) 0.4, Sodium Level 137, Potassium Level 4.7, Chloride Level 105, Carbon Dioxide Level 24, Anion Gap 8, Blood Urea Nitrogen 14, Creatinine 0.7, Estimat Glomerular Filtration Rate > 60, Glucose Level 105, Calcium Level 8.6 Height (Feet): 5 Height (Inches): 7.00 Weight (Pounds): 131 General Appearance: lethargic Leda Sweeney MD Dec 15, 2019 23:14
[2019-12-16] VITALS (29 sets, daily range): BP systolic 77–121; BP diastolic 39–102
[2019-12-16] MEDS: Vancomycin 500mg/D5W 110ml IVPB SCH ×4 (02:38→13:39)
[2019-12-16 05:09] LABS: BASOPHILS % (AUTO) 0.4 % (0.0-2.0); EOSINOPHILS % (AUTO) 1.6 % (0.0-3.0); HEMATOCRIT 25.9 % (42.0-52.0); HEMOGLOBIN 8.6 G/DL (14.2-18.0); LYMPHOCYTES % (AUTO) 12.6 % (20.0-45.0); MEAN CORPUSCULAR VOLUME 91 FL (80-99); MONOCYTES % (AUTO) 6.6 % (1.0-10.0); NEUTROPHILS % (AUTO) 78.7 % (45.0-75.0); PLATELET COUNT 488 K/UL (150-450); RED BLOOD COUNT 2.84 M/UL (4.70-6.10); RED CELL DISTRIBUTION WIDTH 18.5 % (11.6-14.8); WHITE BLOOD COUNT 12.5 K/UL (4.8-10.8)
[2019-12-16 05:26] LABS: ALANINE AMINOTRANSFERASE 29 U/L (12-78); ALBUMIN 1.3 G/DL (3.4-5.0); ALBUMIN/GLOBULIN RATIO 0.3 (1.0-2.7); ALKALINE PHOSPHATASE 150 U/L (46-116); ANION GAP 7 mmol/L (5-15); ASPARTATE AMINO TRANSFERASE 29 U/L (15-37); BILIRUBIN,TOTAL 0.2 MG/DL (0.2-1.0); BLOOD UREA NITROGEN 19 mg/dL (7-18); CALCIUM 8.7 MG/DL (8.5-10.1); CARBON DIOXIDE 24 MMOL/L (21-32); CHLORIDE 105 MMOL/L (98-107); CREATININE 0.7 MG/DL (0.55-1.30); SODIUM 136 MMOL/L (136-145)
[2019-12-16] MEDS: Enoxaparin 60mg Inj SUBQ SCH ×2 (06:10→17:55)
[2019-12-16] MEDS: levETIRAcetam 500mg/5ml Liquid GT SCH ×2 (09:12→20:44)
[2019-12-16] MEDS: D5NS 1,000 ML IV SCH ×2 (09:12→20:19)
[2019-12-16] MEDS: Cefepime HCl 1 GM in D5W 55 ML IVPB SCH ×2 (09:16→20:45)
--- NOTE | 2019-12-16 10:49 | Diagnostic Imaging Report ---
EXAM: XR Chest, 1 View CLINICAL HISTORY: F/U TECHNIQUE: Frontal view of the chest. COMPARISON: 12/15/19. FINDINGS: The tip of the right internal jugular central venous catheter is appropriately position, projecting near the cavoatrial junction, stable in the interval. No pneumothorax. Persistent blunting of the right costophrenic sulcus suggesting a small pleural effusion with some basilar atelectasis. Degenerative changes. IMPRESSION: No significant change in blunting of the right costophrenic sulcus, likely small pleural effusion. Right IJ CVC, appropriately positioned.
--- NOTE | 2019-12-16 11:51 | Infectious Diseases Prog Note ---
Assessment/Plan Assessment/Plan IMPRESSION: Sepsis, septic shock, currently on dopamine. 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 RECOMMENDATION: continue Cefepime & IV Vancomycin COVID-19: negative Subjective ROS Limited/Unobtainable: Yes Allergies: Coded Allergies: MOLD (Unverified Allergy, Unknown, 12/07/19) POLLEN EXTRACTS (Unverified Allergy, Unknown, 12/07/19) Objective Vital Signs Last 24 Hour Vital Signs Date Time Temp Pulse Resp B/P (MAP) Pulse Ox O2 Delivery O2 Flow Rate FiO2 12/16/19 10:00 100 23 84/48 (60) 99 12/16/19 09:00 81 23 103/55 (71) 99 12/16/19 08:00 Room Air Room Air Room Air 12/16/19 08:00 85 12/16/19 08:00 98.0 76 21 88/47 (61) 100 12/16/19 07:00 91/51 12/16/19 07:00 74 21 85/48 (60) 99 12/16/19 06:30 84 32 95/48 (64) 99 12/16/19 06:00 89/49 12/16/19 06:00 80 31 82/39 (53) 100 12/16/19 05:30 80 29 86/46 (59) 100 12/16/19 05:00 78 28 85/52 (63) 100 12/16/19 05:00 85/47 12/16/19 04:30 98.0 75 25 95/44 (61) 100 12/16/19 04:00 88 12/16/19 04:00 Room Air Room Air Room Air 12/16/19 04:00 87/57 12/16/19 04:00 77 29 87/52 (64) 100 12/16/19 03:30 81 29 82/47 (59) 99 12/16/19 03:00 87 26 121/102 (108) 98 12/16/19 03:00 121/102 12/16/19 02:30 100 35 104/86 (92) 97 12/16/19 02:26 100 37 92/73 (79) 98 12/16/19 02:00 77 26 80/39 (53) 100 12/16/19 02:00 80/39 4/12/20 01:30 74 27 95/58 (70) 100 12/16/19 01:03 76 27 89/43 (58) 99 12/16/19 01:00 76 22 88/41 (57) 100 12/16/19 01:00 89/45 12/16/19 00:31 Room Air Room Air Room Air 12/16/19 00:30 77 26 94/44 (61) 100 12/16/19 00:00 96 12/16/19 00:00 99.5 78 21 77/44 (55) 100 12/16/19 00:00 93/52 12/15/19 23:30 77 25 88/56 (67) 99 12/15/19 23:00 75 24 106/79 (88) 99 12/15/19 23:00 88/56 12/15/19 22:30 78 25 97/48 (64) 100 12/15/19 22:00 88 28 98/71 (80) 100 12/15/19 22:00 97/58 12/15/19 21:56 82/59 12/15/19 21:30 85 29 82/59 (67) 100 12/15/19 21:00 88/56 12/15/19 21:00 85 26 85/58 (67) 100 12/15/19 20:30 84 27 85/70 (75) 99 12/15/19 20:23 100 Nasal Cannula 2.0 28 12/15/19 20:23 85 21 100 Nasal Cannula 2.0 28 12/15/19 20:00 95/58 12/15/19 20:00 98.8 88 25 95/58 (70) 100 12/15/19 20:00 Room Air Room Air Room Air 12/15/19 20:00 77 12/15/19 19:30 84 26 94/71 (79) 100 12/15/19 19:00 89 27 85/48 (60) 99 12/15/19 19:00 85/48 12/15/19 18:30 93 25 81/50 (60) 98 12/15/19 18:00 102/69 12/15/19 18:00 100 30 102/69 (80) 96 12/15/19 17:30 97 25 84/58 (67) 99 12/15/19 17:00 78 27 84/58 (67) 97 12/15/19 17:00 84/58 12/15/19 16:30 78 27 87/53 (64) 100 12/15/19 16:00 90/45 12/15/19 16:00 78 12/15/19 16:00 98.5 75 24 90/45 (60) 100 12/15/19 16:00 Room Air Room Air Room Air 12/15/19 15:30 76 25 101/52 (68) 98 12/15/19 15:00 95/47 12/15/19 15:00 90 32 95/47 (63) 100 12/15/19 14:30 73 25 95/60 (72) 99 12/15/19 14:00 66 19 75/45 (55) 99 12/15/19 14:00 75/45 12/15/19 13:30 76 24 97/61 (73) 100 12/15/19 13:00 97/61 12/15/19 13:00 67 18 77/37 (50) 99 12/15/19 12:30 64 15 81/51 (61) 98 12/15/19 12:00 98.1 64 17 83/48 (60) 100 12/15/19 12:00 83/48 12/15/19 12:00 Room Air Room Air Room Air 12/15/19 12:00 66 Height (Feet): 5 Height (Inches): 7.00 Weight (Pounds): 129 General Appearance: no acute distress HEENT: mucous membranes moist Respiratory/Chest: lungs clear Cardiovascular: tachycardia, other - RIJ central line Abdomen: soft, non tender, other - GT feeding Extremities: other - dependent edema Skin: ulcers Neurologic/Psychiatric: other - sleeping Laboratory Tests Test 12/16/19 00:30 12/16/19 04:00 Vancomycin Level Trough 13.4 ug/mL (5.0-12.0) H White Blood Count 12.5 K/UL (4.8-10.8) H Red Blood Count 2.84 M/UL (4.70-6.10) L Hemoglobin 8.6 G/DL (14.2-18.0) L Hematocrit 25.9 % (42.0-52.0) L Mean Corpuscular Volume 91 FL (80-99) Mean Corpuscular Hemoglobin 30.1 PG (27.0-31.0) Mean Corpuscular Hemoglobin Concent 33.0 G/DL (32.0-36.0) Red Cell Distribution Width 18.5 % (11.6-14.8) H Platelet Count 488 K/UL (150-450) H Mean Platelet Volume 5.4 FL (6.5-10.1) L Neutrophils (%) (Auto) 78.7 % (45.0-75.0) H Lymphocytes (%) (Auto) 12.6 % (20.0-45.0) L Monocytes (%) (Auto) 6.6 % (1.0-10.0) Eosinophils (%) (Auto) 1.6 % (0.0-3.0) Basophils (%) (Auto) 0.4 % (0.0-2.0) Erythrocyte Sedimentation Rate 103 MM/HR (0-20) H Sodium Level 136 MMOL/L (136-145) Potassium Level 5.0 MMOL/L (3.5-5.1) Chloride Level 105 MMOL/L (98-107) Carbon Dioxide Level 24 MMOL/L (21-32) Anion Gap 7 mmol/L (5-15) Blood Urea Nitrogen 19 mg/dL (7-18) H Creatinine 0.7 MG/DL (0.55-1.30) Estimat Glomerular Filtration Rate > 60 mL/min (>60) Glucose Level 81 MG/DL (74-106) Calcium Level 8.7 MG/DL (8.5-10.1) Total Bilirubin 0.2 MG/DL (0.2-1.0) Aspartate Amino Transf (AST/SGOT) 29 U/L (15-37) Alanine Aminotransferase (ALT/SGPT) 29 U/L (12-78) Alkaline Phosphatase 150 U/L (46-116) H C-Reactive Protein, Quantitative 12.2 mg/dL (0.00-0.90) H Total Protein 5.7 G/DL (6.4-8.2) L Albumin 1.3 G/DL (3.4-5.0) L Globulin 4.4 g/dL Albumin/Globulin Ratio 0.3 (1.0-2.7) L Current Medications Medications (Trade) Dose Ordered Sig/Nazia Route PRN Reason Start Time Stop Time Status Last Admin Dose Admin Acetaminophen (Tylenol) 650 mg Q4H PRN ORAL Temp >100.5 12/08/19 05:00 01/07/20 04:59 12/15/19 20:01 Acetaminophen (Tylenol) 650 mg Q4H PRN RECTAL Temp >100.5 12/08/19 05:30 01/06/20 20:59 Cefepime HCl 1 gm/ Dextrose 55 ml @ 110 mls/hr EVERY 12 HOURS IVPB 12/10/19 11:00 12/17/19 10:59 12/16/19 09:16 Chlorhexidine Gluconate (Susanna-Hex 2%) 1 applic DAILY@2000 TOPIC 12/08/19 20:00 03/07/20 19:59 12/15/19 19:57 Dextrose/Sodium Chloride 1,000 ml @ 60 mls/hr [id number] IV 12/09/19 10:15 01/08/20 10:14 12/16/19 09:12 Dopamine HCl/ Dextrose 250 ml @ 0 mls/hr Q24H IV 12/09/19 16:15 03/07/20 16:14 12/15/19 21:56 Enoxaparin Sodium (Lovenox) 60 mg Q12H SUBQ 12/14/19 18:00 03/13/20 17:59 12/16/19 06:10 Lansoprazole (Prevacid) 30 mg BID GT 12/09/19 18:00 01/07/20 08:59 12/16/19 09:11 Levetiracetam (Keppra) 500 mg Q12HR GT 12/08/19 09:00 01/07/20 08:59 12/16/19 09:12 Midodrine (Pro-Amatine) 10 mg Q8HR GT 12/14/19 14:00 03/12/20 13:59 12/16/19 06:11 Norepinephrine Bitartrate 4 mg/ Dextrose 250 ml @ 0 mls/hr Q24H IV 12/09/19 01:30 01/07/20 01:29 12/08/19 02:39 Ondansetron HCl (Zofran) 4 mg Q6H PRN IVP Nausea & Vomiting 12/08/19 03:30 01/06/20 21:29 Potassium Chloride (K-Dur) 40 meq TWICE A DAY GT 12/13/19 09:00 03/12/20 08:59 12/16/19 09:12 Vancomycin HCl (Vanco rx to dose) 1 ea DAILY PRN MISC Per rx protocol 12/14/19 10:45 01/13/20 10:44 Vancomycin HCl 500 mg/Dextrose 110 ml @ 110 mls/hr Q12HR@0100,1300 IVPB 12/14/19 13:00 12/19/19 12:59 12/16/19 02:38 Lucas Gutierrez MD Dec 16, 2019 11:51
--- NOTE | 2019-12-16 11:53 | Nephrology Progress Note ---
Assessment/Plan Problem List: (1) Electrolyte imbalance (2) Dehydration (3) Urinary tract infection (4) Hypoalbuminemia (5) Hypokalemia (6) BPH (benign prostatic hyperplasia) (7) Anemia Assessment Hypokalemia Hypoalbuminemia Urinary tract infection Possible Pneumonia, Sepsis, Rule out Covid-19 Cerebral Palsy Seizure History BPH - chronic roper Dysphagia s/p G tube Anemia, Lymphopenia Plan Increase midodrine to 10 mg every 8 hours for low blood pressure Remains on dopamine for blood pressure maintenance IV hydration-potassium supplement as needed Monitor renal parameters and electrolytes Antibiotics Avoid nephrotoxic's Per consultants Per orders Subjective ROS Limited/Unobtainable: No Constitutional: Reports: malaise, weakness Objective Objective Last 24 Hour Vital Signs Date Time Temp Pulse Resp B/P (MAP) Pulse Ox O2 Delivery O2 Flow Rate FiO2 12/16/19 10:00 100 23 84/48 (60) 99 12/16/19 09:00 81 23 103/55 (71) 99 12/16/19 08:00 Room Air Room Air Room Air 12/16/19 08:00 85 12/16/19 08:00 98.0 76 21 88/47 (61) 100 12/16/19 07:00 91/51 12/16/19 07:00 74 21 85/48 (60) 99 12/16/19 06:30 84 32 95/48 (64) 99 12/16/19 06:00 89/49 12/16/19 06:00 80 31 82/39 (53) 100 12/16/19 05:30 80 29 86/46 (59) 100 12/16/19 05:00 78 28 85/52 (63) 100 12/16/19 05:00 85/47 12/16/19 04:30 98.0 75 25 95/44 (61) 100 12/16/19 04:00 88 12/16/19 04:00 Room Air Room Air Room Air 12/16/19 04:00 87/57 12/16/19 04:00 77 29 87/52 (64) 100 12/16/19 03:30 81 29 82/47 (59) 99 12/16/19 03:00 87 26 121/102 (108) 98 12/16/19 03:00 121/102 12/16/19 02:30 100 35 104/86 (92) 97 12/16/19 02:26 100 37 92/73 (79) 98 12/16/19 02:00 77 26 80/39 (53) 100 12/16/19 02:00 80/39 12/16/19 01:30 74 27 95/58 (70) 100 12/16/19 01:03 76 27 89/43 (58) 99 12/16/19 01:00 76 22 88/41 (57) 100 12/16/19 01:00 89/45 12/16/19 00:31 Room Air Room Air Room Air 12/16/19 00:30 77 26 94/44 (61) 100 12/16/19 00:00 96 12/16/19 00:00 99.5 78 21 77/44 (55) 100 12/16/19 00:00 93/52 12/15/19 23:30 77 25 88/56 (67) 99 12/15/19 23:00 75 24 106/79 (88) 99 12/15/19 23:00 88/56 12/15/19 22:30 78 25 97/48 (64) 100 12/15/19 22:00 88 28 98/71 (80) 100 12/15/19 22:00 97/58 12/15/19 21:56 82/59 12/15/19 21:30 85 29 82/59 (67) 100 12/15/19 21:00 88/56 12/15/19 21:00 85 26 85/58 (67) 100 12/15/19 20:30 84 27 85/70 (75) 99 12/15/19 20:23 100 Nasal Cannula 2.0 28 12/15/19 20:23 85 21 100 Nasal Cannula 2.0 28 12/15/19 20:00 95/58 12/15/19 20:00 98.8 88 25 95/58 (70) 100 12/15/19 20:00 Room Air Room Air Room Air 12/15/19 20:00 77 12/15/19 19:30 84 26 94/71 (79) 100 12/15/19 19:00 89 27 85/48 (60) 99 12/15/19 19:00 85/48 12/15/19 18:30 93 25 81/50 (60) 98 12/15/19 18:00 102/69 4/11/20 18:00 100 30 102/69 (80) 96 12/15/19 17:30 97 25 84/58 (67) 99 12/15/19 17:00 78 27 84/58 (67) 97 12/15/19 17:00 84/58 12/15/19 16:30 78 27 87/53 (64) 100 12/15/19 16:00 90/45 12/15/19 16:00 78 12/15/19 16:00 98.5 75 24 90/45 (60) 100 12/15/19 16:00 Room Air Room Air Room Air 12/15/19 15:30 76 25 101/52 (68) 98 12/15/19 15:00 95/47 12/15/19 15:00 90 32 95/47 (63) 100 12/15/19 14:30 73 25 95/60 (72) 99 12/15/19 14:00 66 19 75/45 (55) 99 12/15/19 14:00 75/45 12/15/19 13:30 76 24 97/61 (73) 100 12/15/19 13:00 97/61 12/15/19 13:00 67 18 77/37 (50) 99 12/15/19 12:30 64 15 81/51 (61) 98 12/15/19 12:00 98.1 64 17 83/48 (60) 100 12/15/19 12:00 83/48 12/15/19 12:00 Room Air Room Air Room Air 12/15/19 12:00 66 Intake and Output 12/15/19 12/16/19 19:00 07:00 Intake Total 1712.984 ml 1579.068 ml Output Total 740 ml 460 ml Balance 972.984 ml 1119.068 ml Intake Free Water 50 ml IV Total 1032.984 ml 929.068 ml Tube Feeding 600 ml 600 ml Other 80 ml Output Urine Total 740 ml 460 ml # Bowel Movements 1 Current Medications Medications (Trade) Dose Ordered Sig/Nazia Route PRN Reason Start Time Stop Time Status Last Admin Dose Admin Acetaminophen (Tylenol) 650 mg Q4H PRN ORAL Temp >100.5 12/08/19 05:00 01/07/20 04:59 12/15/19 20:01 Acetaminophen (Tylenol) 650 mg Q4H PRN RECTAL Temp >100.5 12/08/19 05:30 01/06/20 20:59 Cefepime HCl 1 gm/ Dextrose 55 ml @ 110 mls/hr EVERY 12 HOURS IVPB 12/10/19 11:00 12/17/19 10:59 12/16/19 09:16 Chlorhexidine Gluconate (Susanna-Hex 2%) 1 applic DAILY@2000 TOPIC 12/08/19 20:00 03/07/20 19:59 12/15/19 19:57 Dextrose/Sodium Chloride 1,000 ml @ 60 mls/hr [id number] IV 12/09/19 10:15 01/08/20 10:14 12/16/19 09:12 Dopamine HCl/ Dextrose 250 ml @ 0 mls/hr Q24H IV 12/09/19 16:15 03/07/20 16:14 12/15/19 21:56 Enoxaparin Sodium (Lovenox) 60 mg Q12H SUBQ 12/14/19 18:00 03/13/20 17:59 12/16/19 06:10 Lansoprazole (Prevacid) 30 mg BID GT 12/09/19 18:00 01/07/20 08:59 12/16/19 09:11 Levetiracetam (Keppra) 500 mg Q12HR GT 12/08/19 09:00 01/07/20 08:59 12/16/19 09:12 Midodrine (Pro-Amatine) 10 mg Q8HR GT 12/14/19 14:00 03/12/20 13:59 12/16/19 06:11 Norepinephrine Bitartrate 4 mg/ Dextrose 250 ml @ 0 mls/hr Q24H IV 12/09/19 01:30 01/07/20 01:29 12/08/19 02:39 Ondansetron HCl (Zofran) 4 mg Q6H PRN IVP Nausea & Vomiting 12/08/19 03:30 01/06/20 21:29 Potassium Chloride (K-Dur) 40 meq TWICE A DAY GT 12/13/19 09:00 03/12/20 08:59 12/16/19 09:12 Vancomycin HCl (Vanco rx to dose) 1 ea DAILY PRN MISC Per rx protocol 12/14/19 10:45 01/13/20 10:44 Vancomycin HCl 500 mg/Dextrose 110 ml @ 110 mls/hr Q12HR@0100,1300 IVPB 12/14/19 13:00 12/19/19 12:59 12/16/19 02:38 Laboratory Tests 12/16/19 00:30: Vancomycin Level Trough 13.4H 12/16/19 04:00: White Blood Count 12.5H, Red Blood Count 2.84L, Hemoglobin 8.6L, Hematocrit 25.9L, Mean Corpuscular Volume 91, Mean Corpuscular Hemoglobin 30.1, Mean Corpuscular Hemoglobin Concent 33.0, Red Cell Distribution Width 18.5H, Platelet Count 488H, Mean Platelet Volume 5.4L, Neutrophils (%) (Auto) 78.7H, Lymphocytes (%) (Auto) 12.6L, Monocytes (%) (Auto) 6.6, Eosinophils (%) (Auto) 1.6, Basophils (%) (Auto) 0.4, Erythrocyte Sedimentation Rate 103H, Sodium Level 136, Potassium Level 5.0, Chloride Level 105, Carbon Dioxide Level 24, Anion Gap 7, Blood Urea Nitrogen 19H, Creatinine 0.7, Estimat Glomerular Filtration Rate > 60, Glucose Level 81, Calcium Level 8.7, Total Bilirubin 0.2, Aspartate Amino Transf (AST/SGOT) 29, Alanine Aminotransferase (ALT/SGPT) 29, Alkaline Phosphatase 150H, C-Reactive Protein, Quantitative 12.2H, Total Protein 5.7L, Albumin 1.3L, Globulin 4.4, Albumin/Globulin Ratio 0.3L Height (Feet): 5 Height (Inches): 7.00 Weight (Pounds): 129 General Appearance: no apparent distress Cardiovascular: tachycardia Respiratory/Chest: decreased breath sounds Abdomen: soft Objective No change Andre Flores MD Dec 16, 2019 11:53
[2019-12-16] MEDS ORDERED: Tubing IV Secondary IV ONE ×2 (14:08→14:20)
[2019-12-16] MEDS ORDERED: NS 275ml ONE ×4 (14:08→14:20)
[2019-12-16] MEDS ORDERED: D5NS 1000ml IV ONE ×2 (14:09→14:20)
[2019-12-16] MEDS ORDERED: NS 500ML ONE (14:15)
[2019-12-16] MEDS ORDERED: D5 1/2NS 1000ml IV ONE (14:20)
[2019-12-16] MEDS ORDERED: Sterile Water Irrig 1000ml IRRIG ONE (14:20)
--- NOTE | 2019-12-16 15:15 | Surgery Progress Note ---
Surgery Progress Note Subjective Additional Comments worsening leukocytosis more ill appearing today less responsive desaturation labs noted Objective Last 24 Hour Vital Signs Date Time Temp Pulse Resp B/P (MAP) Pulse Ox O2 Delivery O2 Flow Rate FiO2 12/16/19 14:00 77 20 94/99 (97) 98 12/16/19 13:00 107 20 83/48 (60) 98 12/16/19 12:00 98.7 73 19 106/53 (70) 99 12/16/19 12:00 67 12/16/19 12:00 Room Air Room Air Room Air 12/16/19 11:00 74 20 94/53 (67) 99 12/16/19 10:00 100 23 84/48 (60) 99 12/16/19 09:00 81 23 103/55 (71) 99 12/16/19 08:00 Room Air Room Air Room Air 12/16/19 08:00 85 12/16/19 08:00 98.0 76 21 88/47 (61) 100 12/16/19 07:00 91/51 12/16/19 07:00 74 21 85/48 (60) 99 12/16/19 06:30 84 32 95/48 (64) 99 12/16/19 06:00 89/49 12/16/19 06:00 80 31 82/39 (53) 100 12/16/19 05:30 80 29 86/46 (59) 100 12/16/19 05:00 78 28 85/52 (63) 100 12/16/19 05:00 85/47 12/16/19 04:30 98.0 75 25 95/44 (61) 100 12/16/19 04:00 88 12/16/19 04:00 Room Air Room Air Room Air 12/16/19 04:00 87/57 12/16/19 04:00 77 29 87/52 (64) 100 12/16/19 03:30 81 29 82/47 (59) 99 12/16/19 03:00 87 26 121/102 (108) 98 12/16/19 03:00 121/102 12/16/19 02:30 100 35 104/86 (92) 97 12/16/19 02:26 100 37 92/73 (79) 98 12/16/19 02:00 77 26 80/39 (53) 100 12/16/19 02:00 80/39 12/16/19 01:30 74 27 95/58 (70) 100 12/16/19 01:03 76 27 89/43 (58) 99 12/16/19 01:00 76 22 88/41 (57) 100 12/16/19 01:00 89/45 12/16/19 00:31 Room Air Room Air Room Air 12/16/19 00:30 77 26 94/44 (61) 100 12/16/19 00:00 96 12/16/19 00:00 99.5 78 21 77/44 (55) 100 12/16/19 00:00 93/52 12/15/19 23:30 77 25 88/56 (67) 99 12/15/19 23:00 75 24 106/79 (88) 99 12/15/19 23:00 88/56 12/15/19 22:30 78 25 97/48 (64) 100 12/15/19 22:00 88 28 98/71 (80) 100 12/15/19 22:00 97/58 12/15/19 21:56 82/59 12/15/19 21:30 85 29 82/59 (67) 100 12/15/19 21:00 88/56 12/15/19 21:00 85 26 85/58 (67) 100 12/15/19 20:30 84 27 85/70 (75) 99 12/15/19 20:23 100 Nasal Cannula 2.0 28 12/15/19 20:23 85 21 100 Nasal Cannula 2.0 28 12/15/19 20:00 95/58 12/15/19 20:00 98.8 88 25 95/58 (70) 100 12/15/19 20:00 Room Air Room Air Room Air 12/15/19 20:00 77 12/15/19 19:30 84 26 94/71 (79) 100 12/15/19 19:00 89 27 85/48 (60) 99 12/15/19 19:00 85/48 12/15/19 18:30 93 25 81/50 (60) 98 12/15/19 18:00 102/69 12/15/19 18:00 100 30 102/69 (80) 96 12/15/19 17:30 97 25 84/58 (67) 99 12/15/19 17:00 78 27 84/58 (67) 97 12/15/19 17:00 84/58 12/15/19 16:30 78 27 87/53 (64) 100 12/15/19 16:00 90/45 12/15/19 16:00 78 12/15/19 16:00 98.5 75 24 90/45 (60) 100 12/15/19 16:00 Room Air Room Air Room Air 12/15/19 15:30 76 25 101/52 (68) 98 I&O Intake and Output 12/15/19 12/16/19 19:00 07:00 Intake Total 1712.984 ml 1579.068 ml Output Total 740 ml 460 ml Balance 972.984 ml 1119.068 ml Intake Free Water 50 ml IV Total 1032.984 ml 929.068 ml Tube Feeding 600 ml 600 ml Other 80 ml Output Urine Total 740 ml 460 ml # Bowel Movements 1 Dressing: other Wound: other Drains: other Cardiovascular: RSR Respiratory: decreased breath sounds Abdomen: soft, non-tender, present bowel sounds Extremities: no tenderness, no cyanosis Laboratory Tests Test 12/16/19 00:30 12/16/19 04:00 Vancomycin Level Trough 13.4 ug/mL (5.0-12.0) H White Blood Count 12.5 K/UL (4.8-10.8) H Red Blood Count 2.84 M/UL (4.70-6.10) L Hemoglobin 8.6 G/DL (14.2-18.0) L Hematocrit 25.9 % (42.0-52.0) L Mean Corpuscular Volume 91 FL (80-99) Mean Corpuscular Hemoglobin 30.1 PG (27.0-31.0) Mean Corpuscular Hemoglobin Concent 33.0 G/DL (32.0-36.0) Red Cell Distribution Width 18.5 % (11.6-14.8) H Platelet Count 488 K/UL (150-450) H Mean Platelet Volume 5.4 FL (6.5-10.1) L Neutrophils (%) (Auto) 78.7 % (45.0-75.0) H Lymphocytes (%) (Auto) 12.6 % (20.0-45.0) L Monocytes (%) (Auto) 6.6 % (1.0-10.0) Eosinophils (%) (Auto) 1.6 % (0.0-3.0) Basophils (%) (Auto) 0.4 % (0.0-2.0) Erythrocyte Sedimentation Rate 103 MM/HR (0-20) H Sodium Level 136 MMOL/L (136-145) Potassium Level 5.0 MMOL/L (3.5-5.1) Chloride Level 105 MMOL/L (98-107) Carbon Dioxide Level 24 MMOL/L (21-32) Anion Gap 7 mmol/L (5-15) Blood Urea Nitrogen 19 mg/dL (7-18) H Creatinine 0.7 MG/DL (0.55-1.30) Estimat Glomerular Filtration Rate > 60 mL/min (>60) Glucose Level 81 MG/DL (74-106) Calcium Level 8.7 MG/DL (8.5-10.1) Total Bilirubin 0.2 MG/DL (0.2-1.0) Aspartate Amino Transf (AST/SGOT) 29 U/L (15-37) Alanine Aminotransferase (ALT/SGPT) 29 U/L (12-78) Alkaline Phosphatase 150 U/L (46-116) H C-Reactive Protein, Quantitative 12.2 mg/dL (0.00-0.90) H Total Protein 5.7 G/DL (6.4-8.2) L Albumin 1.3 G/DL (3.4-5.0) L Globulin 4.4 g/dL Albumin/Globulin Ratio 0.3 (1.0-2.7) L Plan Problems: (1) Urinary tract infection (2) Respiratory insufficiency Assessment & Plan: Right central line terminates in the right atrium. Cardiomegaly. Mild vascular congestion. Mild bilateral pleural effusions. The tip of the right internal jugular central venous catheter is appropriately position, projecting near the cavoatrial junction, stable in the interval. No pneumothorax. Persistent blunting of the right costophrenic sulcus suggesting a small pleural effusion with some basilar atelectasis. Degenerative changes. IMPRESSION: No significant change in blunting of the right costophrenic sulcus, likely small pleural effusion. Right IJ CVC, appropriately positioned. (3) Decubital ulcer Assessment & Plan: Pt presented on admission with contractures, multiple pressure injuries.Unstageable pressure injury noted to upper L earlobe(L)0.5cm x (W)0.8cm. Stable dry eschar noted at base of injury.Edges adhrent and pink.Medially along L earlobe is a DTPI(L)0.8cm x (W)0.6cm. Base of wound is Purple at center with surrounding maroon borders. Distally L earlobe is and Unstageable Pressure Injury(L)1cm x (W)0.4cm. Stable dry eschar at base of injury . Edges dry,adherent and pink. In close proximity at distal lobule is second pressure injury(L)0.5cm x (W)0.6cm. Base of wound is moist and viable. No exudate noted. stage 4 Sacral Pressure injury(L)5.6cmx (W)6.8cm. base of wound has 75% soft necrosis,25% gustabo with surrounding maroon ,indurated borders.Small amt non- odorous serous exudate noted. Sacral wound in its entirety measures (L)9cm x (W) 8cm. Areas of hyperpigmentation from previous wounds noted to L trochanter,and L lower buttocks. Partial thickness wound noted to head of penis(L)0.4cm x (W)0.5cm. Base of wound is moist and viable. Partial thickness Pressure Injury noted at base of shaft of penis(L)2.1cm x (W) 2.4cm. Base of wound is moist and viable. MASD R and L groin ,and Scrotum. Affected areas are erythematous and denuded. Unstageable Pressure injury R heel(L)6.5cm x (W)8cm . Wound is open blood blister. Base of wound is moist ugstabo, black at center base of wound. Overlying loose skin flap removed. Periwound R heel is boggy with non-blanchable erythema. Unstageable Pressure Injury R Hallux(L)1.5cm x (W)2.9cm. Base of wound has 60% soft necrosis,40% gustabo. Macerated borders. Small amt. non-odorous serous exudate. Non-blanchable erythema without induration or elevated skin temp periwound. Unstageable Pressure injury Lateral R malleolus(L)1.8cm x (W)1.2cm. Base of is 100% necrotic with semi-detached borders which are erythematous and moist.Wound is malodorous. Periwound erythematous, but without elevated skin temp. Unstageable Pressure Injury L heel(L)4.6cm x (W)5.5cm. Base of wound is 100% necrotic with detached borders that present with mixed erythema and slough. Wound is malodorous. Periwound is erythematous and fluctuant. No elevation in skin temp noted. Unstageable Pressure Injury L lateral Malleolus (L)1.1cm x (W)1.2cm.Stable dry brown eschar at base of wound. Edges flat, adherent and pink. No erythema or fluctuance periwound. Full thickness stage 3 Pressure Injury L hallux(L)3.6cm x (W)3.9cm.Base of wound is moist pink with small amt Biofilm. Bone is palpable. Edges are macerated. No odor noted.Small amt serous exudate noted. Periwound is erythematous,no elevation in skin temp or fluctuance noted. DTPI medial/lateral L foot(L)2.5cm x (W)1.9cm. Base of Injury is maroon and fluctuant. Periwound is pink. Unstageable Pressure Injury distal/lateral L foot(L)2.5cm x (W)1.9cm. Base of wound is 100% soft necrosis with marginal erythema. No odor or exudate noted. Periwound is boggy but pink. Stable dry eschar R 1st metatarsal Head(L)0.6cm x (W)0.5cm. Tx.Plan: Apply Betadine to Wounds L earlobe Daily. Pad Oxygen tubing and keep tubing loose around ears. Cleanse Sacral wound with Saline. Apply Therahoney. Apply Moisture Barrier Periwound. Cover with Optifoam drsg. Change every 3 days and prn. Apply Moisture Barrier Paste to to R and L groin, Base of Penis, and scrotum with each Incontinence care. Apply Betadine to wounds R foot. Cover each wound with Optifoam drsg. Change Daily and prn. Apply Betadine to wounds L foot. Cover each wound with Optifoam drsg. Change Daily and prn. Reposition at least every 2hours or as tolerated. Place pillow between knees. Off-load heels with pillow. Air Fluidized mattress. (4) Suspected COVID-19 virus infection Davonte Ham Dec 16, 2019 15:15
[2019-12-16] MEDS ORDERED: Acetaminophen 650 MG SUPP RECTAL PRN (20:00)
[2019-12-16] MEDS: Dyna-Hex 2% Top Sol 2oz TOPIC SCH (20:19)
--- NOTE | 2019-12-16 20:24 | General Progress Note ---
Assessment/Plan Problem List: (1) Urinary tract infection ICD Codes: N39.0 - Urinary tract infection, site not specified SNOMED: 86791207 (2) Respiratory insufficiency ICD Codes: R06.89 - Other abnormalities of breathing SNOMED: 855183844 (3) Decubital ulcer ICD Codes: L89.90 - Pressure ulcer of unspecified site, unspecified stage SNOMED: 989113385 (4) Suspected COVID-19 virus infection ICD Codes: R68.89 - Other general symptoms and signs SNOMED: 689696030 Status: progressing, deteriorating Assessment/Plan: downs syndrome s/p septic shock pna resp insuff sepsis uti malnutrition low bp resolved off pressor abx per id reviwed chart and labs Subjective ROS Limited/Unobtainable: Yes Allergies: Coded Allergies: MOLD (Unverified Allergy, Unknown, 12/07/19) POLLEN EXTRACTS (Unverified Allergy, Unknown, 12/07/19) Objective Last 24 Hour Vital Signs Date Time Temp Pulse Resp B/P (MAP) Pulse Ox O2 Delivery O2 Flow Rate FiO2 12/16/19 18:00 89 21 115/72 (86) 99 12/16/19 17:00 77 21 95/58 (70) 99 12/16/19 16:00 82 12/16/19 16:00 99.0 82 15 111/87 (95) 97 12/16/19 16:00 Room Air Room Air Room Air 12/16/19 15:00 65 15 117/71 (86) 99 12/16/19 14:00 77 20 94/99 (97) 98 12/16/19 13:00 107 20 83/48 (60) 98 12/16/19 12:00 98.7 73 19 106/53 (70) 99 12/16/19 12:00 67 12/16/19 12:00 Room Air Room Air Room Air 12/16/19 11:00 74 20 94/53 (67) 99 12/16/19 10:00 100 23 84/48 (60) 99 12/16/19 09:00 81 23 103/55 (71) 99 12/16/19 08:00 Room Air Room Air Room Air 12/16/19 08:00 85 12/16/19 08:00 98.0 76 21 88/47 (61) 100 12/16/19 07:00 91/51 4/12/20 07:00 74 21 85/48 (60) 99 12/16/19 06:30 84 32 95/48 (64) 99 12/16/19 06:00 89/49 12/16/19 06:00 80 31 82/39 (53) 100 12/16/19 05:30 80 29 86/46 (59) 100 12/16/19 05:00 78 28 85/52 (63) 100 12/16/19 05:00 85/47 12/16/19 04:30 98.0 75 25 95/44 (61) 100 12/16/19 04:00 88 12/16/19 04:00 Room Air Room Air Room Air 12/16/19 04:00 87/57 12/16/19 04:00 77 29 87/52 (64) 100 12/16/19 03:30 81 29 82/47 (59) 99 12/16/19 03:00 87 26 121/102 (108) 98 12/16/19 03:00 121/102 12/16/19 02:30 100 35 104/86 (92) 97 12/16/19 02:26 100 37 92/73 (79) 98 12/16/19 02:00 77 26 80/39 (53) 100 12/16/19 02:00 80/39 12/16/19 01:30 74 27 95/58 (70) 100 12/16/19 01:03 76 27 89/43 (58) 99 12/16/19 01:00 76 22 88/41 (57) 100 12/16/19 01:00 89/45 12/16/19 00:31 Room Air Room Air Room Air 12/16/19 00:30 77 26 94/44 (61) 100 12/16/19 00:00 96 12/16/19 00:00 99.5 78 21 77/44 (55) 100 12/16/19 00:00 93/52 12/15/19 23:30 77 25 88/56 (67) 99 12/15/19 23:00 75 24 106/79 (88) 99 12/15/19 23:00 88/56 12/15/19 22:30 78 25 97/48 (64) 100 12/15/19 22:00 88 28 98/71 (80) 100 12/15/19 22:00 97/58 12/15/19 21:56 82/59 12/15/19 21:30 85 29 82/59 (67) 100 12/15/19 21:00 88/56 12/15/19 21:00 85 26 85/58 (67) 100 12/15/19 20:30 84 27 85/70 (75) 99 Intake and Output 12/15/19 12/16/19 19:00 07:00 Intake Total 1712.984 ml 1579.068 ml Output Total 740 ml 460 ml Balance 972.984 ml 1119.068 ml Intake Free Water 50 ml IV Total 1032.984 ml 929.068 ml Tube Feeding 600 ml 600 ml Other 80 ml Output Urine Total 740 ml 460 ml # Bowel Movements 1 Laboratory Tests 12/16/19 00:30: Vancomycin Level Trough 13.4H 12/16/19 04:00: White Blood Count 12.5H, Red Blood Count 2.84L, Hemoglobin 8.6L, Hematocrit 25.9L, Mean Corpuscular Volume 91, Mean Corpuscular Hemoglobin 30.1, Mean Corpuscular Hemoglobin Concent 33.0, Red Cell Distribution Width 18.5H, Platelet Count 488H, Mean Platelet Volume 5.4L, Neutrophils (%) (Auto) 78.7H, Lymphocytes (%) (Auto) 12.6L, Monocytes (%) (Auto) 6.6, Eosinophils (%) (Auto) 1.6, Basophils (%) (Auto) 0.4, Erythrocyte Sedimentation Rate 103H, Sodium Level 136, Potassium Level 5.0, Chloride Level 105, Carbon Dioxide Level 24, Anion Gap 7, Blood Urea Nitrogen 19H, Creatinine 0.7, Estimat Glomerular Filtration Rate > 60, Glucose Level 81, Calcium Level 8.7, Total Bilirubin 0.2, Aspartate Amino Transf (AST/SGOT) 29, Alanine Aminotransferase (ALT/SGPT) 29, Alkaline Phosphatase 150H, C-Reactive Protein, Quantitative 12.2H, Total Protein 5.7L, Albumin 1.3L, Globulin 4.4, Albumin/Globulin Ratio 0.3L Height (Feet): 5 Height (Inches): 7.00 Weight (Pounds): 129 General Appearance: confused Leda Sweeney MD Dec 16, 2019 20:24
--- NOTE | 2019-12-16 23:05 | Pulmonolgy Critical Care Note ---
Critical Care - Asmt/Plan Assessment/Plan: Pulmonary Critical Care Progress Note HPI 69-year-old male history of cerebral palsy, bedbound, nonverbal, Roper dependent presented for fever cough and shortness of breath. Patient apparently fever for the 24 hours [employer] TECH[employer]. Patient is on nasal canula O2. History limited due to patient's baseline mental status. Has G tube Noted to have DVT, KPC on culture On pressors PRN, On AC Negative for Covid19, In ICU due to hypotension On IV Antibiotics per ID, IVF, IV pressors weaned Hemodynamically stable currently, on NC O2 Allergies: No Known Allergies Past Medical History: GERD, Dysphagia, previous G tube, Cerebral Palsy, BPH All Other Systems: limited - History limited due to patient's baseline mental status Physical Exam Vital Signs Noted General Appearance: thin, Chronically Ill, mild pallor Head: normocephalic, atraumatic Eyes: bilateral eye PERRL, bilateral eye EOMI ENT: moist mm Neck: full range of motion, supple Respiratory: CTAB Cardiovascular: regular rate, rhythm, HS1, HS2 normal, no murmur, normal peripheral pulses, Gastrointestinal: non tender, soft, non-distended, no guarding Musculoskeletal: other - Extremities contracted, chronic ulcerations noted bilateral feet Neurologic: awake, no focal defects, other - Patient nonverbal at baseline Skin: warm/dry Impression: Urinary tract infection Possible Pneumonia Sepsis Covid-19 negative Cerebral Palsy Seizure History BPH - chronic roper Dysphagia s/p G tube Anemia DVT Lymphopenia Plan IV antibiotics Continue AC for DVT VQ scan R/o coronavirus infection IVF Pressors PRN Await cultures PPX Monitor labs O2 PRN Bronchodilators Laboratory Tests Noted EKG: Rate: normal Rhythm: NSR Other Impression t wave flattening 1 AVL CXR: Atelectasis RLL, L mid zone Subjective ROS Limited/Unobtainable: No Allergies: Coded Allergies: No Known Allergies (Unverified , 12/07/19) Microbiology Date/Time Source Procedure Growth Status 12/07/19 15:50 Nasal Nares - Final Complete 12/07/19 15:50 Nasal Nares - Final Complete 12/07/19 18:15 Rectum Received Critical Care - Objective Last 24 Hour Vital Signs Date Time Temp Pulse Resp B/P (MAP) Pulse Ox O2 Delivery O2 Flow Rate FiO2 12/16/19 21:00 Room Air Room Air Room Air 12/16/19 20:00 98.0 91 18 120/68 (85) 97 12/16/19 18:00 89 21 115/72 (86) 99 12/16/19 17:00 77 21 95/58 (70) 99 12/16/19 16:00 82 12/16/19 16:00 99.0 82 15 111/87 (95) 97 12/16/19 16:00 Room Air Room Air Room Air 12/16/19 15:00 65 15 117/71 (86) 99 12/16/19 14:00 77 20 94/99 (97) 98 12/16/19 13:00 107 20 83/48 (60) 98 12/16/19 12:00 98.7 73 19 106/53 (70) 99 12/16/19 12:00 67 12/16/19 12:00 Room Air Room Air Room Air 12/16/19 11:00 74 20 94/53 (67) 99 12/16/19 10:00 100 23 84/48 (60) 99 12/16/19 09:00 81 23 103/55 (71) 99 12/16/19 08:00 Room Air Room Air Room Air 12/16/19 08:00 85 12/16/19 08:00 98.0 76 21 88/47 (61) 100 12/16/19 07:00 91/51 12/16/19 07:00 74 21 85/48 (60) 99 12/16/19 06:30 84 32 95/48 (64) 99 12/16/19 06:00 89/49 12/16/19 06:00 80 31 82/39 (53) 100 12/16/19 05:30 80 29 86/46 (59) 100 12/16/19 05:00 78 28 85/52 (63) 100 12/16/19 05:00 85/47 12/16/19 04:30 98.0 75 25 95/44 (61) 100 12/16/19 04:00 88 12/16/19 04:00 Room Air Room Air Room Air 12/16/19 04:00 87/57 12/16/19 04:00 77 29 87/52 (64) 100 12/16/19 03:30 81 29 82/47 (59) 99 12/16/19 03:00 87 26 121/102 (108) 98 12/16/19 03:00 121/102 12/16/19 02:30 100 35 104/86 (92) 97 12/16/19 02:26 100 37 92/73 (79) 98 12/16/19 02:00 77 26 80/39 (53) 100 12/16/19 02:00 80/39 12/16/19 01:30 74 27 95/58 (70) 100 12/16/19 01:03 76 27 89/43 (58) 99 12/16/19 01:00 76 22 88/41 (57) 100 12/16/19 01:00 89/45 12/16/19 00:31 Room Air Room Air Room Air 12/16/19 00:30 77 26 94/44 (61) 100 12/16/19 00:00 96 12/16/19 00:00 99.5 78 21 77/44 (55) 100 12/16/19 00:00 93/52 12/15/19 23:30 77 25 88/56 (67) 99 Critical Care - Subjective ROS Limited/Unobtainable: No Condition: improving FI02: 28 Sputum Amount: None Tube Feeding Amount: 50 I&O: Intake and Output 12/15/19 12/16/19 19:00 07:00 Intake Total 1712.984 ml 1579.068 ml Output Total 740 ml 460 ml Balance 972.984 ml 1119.068 ml Intake Free Water 50 ml IV Total 1032.984 ml 929.068 ml Tube Feeding 600 ml 600 ml Other 80 ml Output Urine Total 740 ml 460 ml # Bowel Movements 1 Oscar Bragg MD Dec 16, 2019 23:04
[2019-12-17] VITALS: BP 145/80
[2019-12-17] MEDS ORDERED: Vancomycin 500 MG in D5W 110 ML IVPB SCH (01:00)
[2019-12-17 04:00] VITALS: BP 130/72
[2019-12-17] MEDS: Enoxaparin 60mg Inj SUBQ SCH ×2 (05:26→18:43)
[2019-12-17 08:00] VITALS: BP 101/55
[2019-12-17] MEDS: levETIRAcetam 500mg/5ml Liquid GT SCH ×2 (09:33→20:18)
[2019-12-17] MEDS: Cefepime HCl 1 GM in D5W 55 ML IVPB SCH (09:35)
--- NOTE | 2019-12-17 10:44 | Infectious Diseases Prog Note ---
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 RECOMMENDATION: Discontinue Cefepime & IV Vancomycin Observe off antibiotic COVID-19: negative Subjective ROS Limited/Unobtainable: Yes Constitutional: Reports: other - transferred from ICU to telemetry Neurologic: Reports: other - more alert Allergies: Coded Allergies: MOLD (Unverified Allergy, Unknown, 12/07/19) POLLEN EXTRACTS (Unverified Allergy, Unknown, 12/07/19) Objective Vital Signs Last 24 Hour Vital Signs Date Time Temp Pulse Resp B/P (MAP) Pulse Ox O2 Delivery O2 Flow Rate FiO2 12/17/19 08:00 98.2 62 21 101/55 (70) 98 12/17/19 04:00 96.9 100 18 130/72 (91) 97 12/17/19 04:00 81 12/17/19 00:00 84 12/17/19 00:00 99.3 115 18 145/80 (101) 98 12/16/19 21:00 Room Air Room Air Room Air 12/16/19 20:00 98.0 91 18 120/68 (85) 97 12/16/19 20:00 87 12/16/19 18:00 89 21 115/72 (86) 99 12/16/19 17:00 77 21 95/58 (70) 99 12/16/19 16:00 82 12/16/19 16:00 99.0 82 15 111/87 (95) 97 12/16/19 16:00 Room Air Room Air Room Air 12/16/19 15:00 65 15 117/71 (86) 99 12/16/19 14:00 77 20 94/99 (97) 98 12/16/19 13:00 107 20 83/48 (60) 98 12/16/19 12:00 98.7 73 19 106/53 (70) 99 12/16/19 12:00 67 12/16/19 12:00 Room Air Room Air Room Air 12/16/19 11:00 74 20 94/53 (67) 99 Height (Feet): 5 Height (Inches): 7.00 Weight (Pounds): 171 General Appearance: no acute distress HEENT: mucous membranes moist Respiratory/Chest: lungs clear Cardiovascular: normal rate Abdomen: soft, non tender, other - GT feeding Extremities: other - dependent edema Neurologic/Psychiatric: aphasia, other - opens eyes Current Medications Medications (Trade) Dose Ordered Sig/Nazia Route PRN Reason Start Time Stop Time Status Last Admin Dose Admin Acetaminophen (Tylenol) 650 mg Q4H PRN ORAL Temp >100.5 12/16/19 20:00 01/07/20 19:59 Acetaminophen (Tylenol) 650 mg Q4H PRN RECTAL Temp >100.5 12/16/19 20:00 01/06/20 19:59 Cefepime HCl 1 gm/ Dextrose 55 ml @ 110 mls/hr EVERY 12 HOURS IVPB 12/16/19 21:00 12/17/19 10:59 12/17/19 09:35 Chlorhexidine Gluconate (Susanna-Hex 2%) 1 applic DAILY@2000 TOPIC 12/16/19 20:00 03/07/20 19:59 12/16/19 20:19 Dextrose/Sodium Chloride 1,000 ml @ 60 mls/hr [id number] IV 12/16/19 19:45 01/08/20 10:14 12/16/19 20:19 Enoxaparin Sodium (Lovenox) 60 mg Q12H SUBQ 12/17/19 06:00 03/13/20 17:59 12/17/19 05:26 Lansoprazole (Prevacid) 30 mg BID GT 12/17/19 09:00 01/07/20 08:59 12/17/19 09:33 Levetiracetam (Keppra) 500 mg Q12HR GT 12/16/19 21:00 01/07/20 08:59 12/17/19 09:33 Midodrine (Pro-Amatine) 10 mg Q8HR GT 12/16/19 22:00 03/12/20 13:59 12/17/19 05:24 Ondansetron HCl (Zofran) 4 mg Q6H PRN IVP Nausea & Vomiting 12/16/19 20:00 01/06/20 19:59 Potassium Chloride (K-Dur) 40 meq TWICE A DAY GT 12/17/19 09:00 03/12/20 08:59 Vancomycin HCl (Vanco rx to dose) 1 ea DAILY PRN MISC Per rx protocol 12/17/19 09:00 01/13/20 10:44 Vancomycin HCl 500 mg/Dextrose 110 ml @ 110 mls/hr Q12HR@0100,1300 IVPB 12/17/19 01:00 12/19/19 12:59 12/17/19 00:35 Lucas Gutierrez MD Dec 17, 2019 10:44
[2019-12-17 12:00] VITALS: BP 123/75
--- NOTE | 2019-12-17 12:49 | Hematology/Onc Progress Note ---
Assessment/Plan Assessment/Plan IMPRESSION/RECS: # Anemia of chronic disease due to underlying chronic medical issues, multifactorial v Gi bleed --> Anemia workup has been ordered, rule out gi bleed --> No evidence of hemolysis is noted, peripheral smear has been reviewed. --> Hgb goal >7. Transfuse prn. --> Epogen or iron at this time is not particularly indicated --> Medications have been reviewed --> low threshold for gi evaluation in case has occult + --> bone marrow biopsy is not indicated given the other more likely causes --> hgb trend 8.6 # Dvt of the right leg history --> hep bolus and gtt -> lovenox sq bid --> 12/09 us duplex positive for right dvt # Lymphopenia is likely due to Sepsis, septic shock, currently on dopamine. --> remains in the icu, with UTI with Pseudomonas --> imaging noted, cultures reviewed --> as per id Positive blood culture likely contamination --> COVID negative --> abx: cefepime/vanc-->OFF # VRE Carrier # Multiple pressure ulcer, # Down syndrome. # Confused/ams # Dvt ppx lovenox sq The timing of this note does not necessarily reflect the time of the patient was seen. Greatly appreciate consultation. Subjective Constitutional: Denies: no symptoms, chills, fever, malaise, weakness, other HEENT: Denies: no symptoms, eye pain, blurred vision, tearing, double vision, ear pain, ear discharge, nose pain, nose congestion, throat pain, throat swelling, mouth pain, mouth swelling, other Cardiovascular: Denies: no symptoms, chest pain, edema, irregular heart rate, lightheadedness, palpitations, syncope, other Respiratory: Denies: no symptoms, cough, shortness of breath, SOB with excertion, SOB at rest, sputum, wheezing, other Gastrointestinal/Abdominal: Denies: no symptoms, abdomen distended, abdominal pain, black stools, tarry stools, blood in stool, constipated, diarrhea, difficulty swallowing, nausea, poor appetite, poor fluid intake, rectal bleeding , vomiting, other Genitourinary: Denies: no symptoms, burning, discharge, frequency, flank pain, hematuria, incontinence, pain, urgency, other Neurologic/Psychiatric: Denies: no symptoms, anxiety, depressed, emotional problems, headache, numbness, paresthesia, pre-existing deficit, seizure, tingling, tremors, weakness, other Endocrine: Denies: no symptoms, excessive sweating, flushing, intolerance to cold, intolerance to heat, increased hunger, increased thirst, increased urine, unexplained weight gain, unexplained weight loss, other Hematologic/Lymphatic: Denies: no symptoms, anemia, easy bleeding, easy bruising, adenopathy, other Allergies: Coded Allergies: MOLD (Unverified Allergy, Unknown, 12/07/19) POLLEN EXTRACTS (Unverified Allergy, Unknown, 12/07/19) Subjective 12/10 icu, nonverbal, cov 19 negative, positive for right le dvt, on pressors 12/11 remains on dopamine, with gtube feeds as well, labs noted hgb 10.4 12/12 is a+o x1, with roper and on dopamine 12/13 on cefepime and vanc, also on dopamine, labs noted 12/16 resting comfortably, seen by id, is now off vanc/cefe Objective Objective Current Medications Medications (Trade) Dose Ordered Sig/Nazia Route PRN Reason Start Time Stop Time Status Last Admin Dose Admin Acetaminophen (Tylenol) 650 mg Q4H PRN ORAL Temp >100.5 12/16/19 20:00 01/07/20 19:59 Acetaminophen (Tylenol) 650 mg Q4H PRN RECTAL Temp >100.5 12/16/19 20:00 01/06/20 19:59 Chlorhexidine Gluconate (Susanna-Hex 2%) 1 applic DAILY@1999 TOPIC 12/16/19 20:00 03/07/20 19:59 12/16/19 20:19 Dextrose/Sodium Chloride 1,000 ml @ 60 mls/hr [id number] IV 12/16/19 19:45 01/08/20 10:14 12/16/19 20:19 Enoxaparin Sodium (Lovenox) 60 mg Q12H SUBQ 12/17/19 06:00 03/13/20 17:59 12/17/19 05:26 Lansoprazole (Prevacid) 30 mg BID GT 12/17/19 09:00 01/07/20 08:59 12/17/19 09:33 Levetiracetam (Keppra) 500 mg Q12HR GT 12/16/19 21:00 01/07/20 08:59 12/17/19 09:33 Midodrine (Pro-Amatine) 10 mg Q8HR GT 12/16/19 22:00 03/12/20 13:59 12/17/19 05:24 Ondansetron HCl (Zofran) 4 mg Q6H PRN IVP Nausea & Vomiting 12/16/19 20:00 01/06/20 19:59 Potassium Chloride (K-Dur) 40 meq TWICE A DAY GT 12/17/19 09:00 03/12/20 08:59 Last 24 Hour Vital Signs Date Time Temp Pulse Resp B/P (MAP) Pulse Ox O2 Delivery O2 Flow Rate FiO2 12/17/19 08:00 77 12/17/19 08:00 98.2 62 21 101/55 (70) 98 12/17/19 04:00 96.9 100 18 130/72 (91) 97 12/17/19 04:00 81 12/17/19 00:00 84 12/17/19 00:00 99.3 115 18 145/80 (101) 98 12/16/19 21:00 Room Air Room Air Room Air 12/16/19 20:00 98.0 91 18 120/68 (85) 97 12/16/19 20:00 87 12/16/19 18:00 89 21 115/72 (86) 99 12/16/19 17:00 77 21 95/58 (70) 99 12/16/19 16:00 82 12/16/19 16:00 99.0 82 15 111/87 (95) 97 12/16/19 16:00 Room Air Room Air Room Air 12/16/19 15:00 65 15 117/71 (86) 99 12/16/19 14:00 77 20 94/99 (97) 98 12/16/19 13:00 107 20 83/48 (60) 98 12/16/19 12:00 98.7 73 19 106/53 (70) 99 12/16/19 12:00 67 12/16/19 12:00 Room Air Room Air Room Air 12/16/19 11:00 74 20 94/53 (67) 99 12/16/19 10:00 100 23 84/48 (60) 99 12/16/19 09:00 81 23 103/55 (71) 99 12/16/19 08:00 Room Air Room Air Room Air 12/16/19 08:00 85 12/16/19 08:00 98.0 76 21 88/47 (61) 100 12/16/19 07:00 91/51 12/16/19 07:00 74 21 85/48 (60) 99 12/16/19 06:30 84 32 95/48 (64) 99 12/16/19 06:00 89/49 12/16/19 06:00 80 31 82/39 (53) 100 12/16/19 05:30 80 29 86/46 (59) 100 12/16/19 05:00 78 28 85/52 (63) 100 12/16/19 05:00 85/47 12/16/19 04:30 98.0 75 25 95/44 (61) 100 12/16/19 04:00 88 12/16/19 04:00 Room Air Room Air Room Air 12/16/19 04:00 87/57 12/16/19 04:00 77 29 87/52 (64) 100 12/16/19 03:30 81 29 82/47 (59) 99 12/16/19 03:00 87 26 121/102 (108) 98 12/16/19 03:00 121/102 12/16/19 02:30 100 35 104/86 (92) 97 12/16/19 02:26 100 37 92/73 (79) 98 12/16/19 02:00 77 26 80/39 (53) 100 12/16/19 02:00 80/39 12/16/19 01:30 74 27 95/58 (70) 100 12/16/19 01:03 76 27 89/43 (58) 99 12/16/19 01:00 76 22 88/41 (57) 100 12/16/19 01:00 89/45 12/16/19 00:31 Room Air Room Air Room Air 12/16/19 00:30 77 26 94/44 (61) 100 12/16/19 00:00 96 12/16/19 00:00 99.5 78 21 77/44 (55) 100 12/16/19 00:00 93/52 12/15/19 23:30 77 25 88/56 (67) 99 4/11/20 23:00 75 24 106/79 (88) 99 12/15/19 23:00 88/56 12/15/19 22:30 78 25 97/48 (64) 100 12/15/19 22:00 88 28 98/71 (80) 100 12/15/19 22:00 97/58 12/15/19 21:56 82/59 12/15/19 21:30 85 29 82/59 (67) 100 12/15/19 21:00 88/56 12/15/19 21:00 85 26 85/58 (67) 100 12/15/19 20:30 84 27 85/70 (75) 99 12/15/19 20:23 100 Nasal Cannula 2.0 28 12/15/19 20:23 85 21 100 Nasal Cannula 2.0 28 12/15/19 20:00 95/58 12/15/19 20:00 98.8 88 25 95/58 (70) 100 12/15/19 20:00 Room Air Room Air Room Air 12/15/19 20:00 77 12/15/19 19:30 84 26 94/71 (79) 100 12/15/19 19:00 89 27 85/48 (60) 99 12/15/19 19:00 85/48 12/15/19 18:30 93 25 81/50 (60) 98 12/15/19 18:00 102/69 12/15/19 18:00 100 30 102/69 (80) 96 12/15/19 17:30 97 25 84/58 (67) 99 12/15/19 17:00 78 27 84/58 (67) 97 12/15/19 17:00 84/58 12/15/19 16:30 78 27 87/53 (64) 100 12/15/19 16:00 90/45 12/15/19 16:00 78 12/15/19 16:00 98.5 75 24 90/45 (60) 100 12/15/19 16:00 Room Air Room Air Room Air 12/15/19 15:30 76 25 101/52 (68) 98 12/15/19 15:00 95/47 12/15/19 15:00 90 32 95/47 (63) 100 12/15/19 14:30 73 25 95/60 (72) 99 4/11/20 14:00 66 19 75/45 (55) 99 12/15/19 14:00 75/45 12/15/19 13:30 76 24 97/61 (73) 100 12/15/19 13:00 97/61 12/15/19 13:00 67 18 77/37 (50) 99 Intake and Output 12/16/19 12/17/19 19:00 07:00 Intake Total 1545 ml 1305 ml Output Total 1326 ml 350 ml Balance 219 ml 955 ml Intake Free Water 200 ml 200 ml IV Total 475 ml 555 ml Tube Feeding 650 ml 550 ml Other 220 ml Output Urine Total 1325 ml 350 ml Stool Total 1 ml # Bowel Movements 1 1 Labs Test 12/15/19 04:00 12/16/19 00:30 12/16/19 04:00 White Blood Count 11.5 K/UL (4.8-10.8) 12.5 K/UL (4.8-10.8) Red Blood Count 2.96 M/UL (4.70-6.10) 2.84 M/UL (4.70-6.10) Hemoglobin 8.9 G/DL (14.2-18.0) 8.6 G/DL (14.2-18.0) Hematocrit 26.5 % (42.0-52.0) 25.9 % (42.0-52.0) Mean Corpuscular Volume 90 FL (80-99) 91 FL (80-99) Mean Corpuscular Hemoglobin 30.2 PG (27.0-31.0) 30.1 PG (27.0-31.0) Mean Corpuscular Hemoglobin Concent 33.7 G/DL (32.0-36.0) 33.0 G/DL (32.0-36.0) Red Cell Distribution Width 18.1 % (11.6-14.8) 18.5 % (11.6-14.8) Platelet Count 496 K/UL (150-450) 488 K/UL (150-450) Mean Platelet Volume 4.9 FL (6.5-10.1) 5.4 FL (6.5-10.1) Neutrophils (%) (Auto) 74.0 % (45.0-75.0) 78.7 % (45.0-75.0) Lymphocytes (%) (Auto) 16.0 % (20.0-45.0) 12.6 % (20.0-45.0) Monocytes (%) (Auto) 8.3 % (1.0-10.0) 6.6 % (1.0-10.0) Eosinophils (%) (Auto) 1.2 % (0.0-3.0) 1.6 % (0.0-3.0) Basophils (%) (Auto) 0.4 % (0.0-2.0) 0.4 % (0.0-2.0) Sodium Level 137 MMOL/L (136-145) 136 MMOL/L (136-145) Potassium Level 4.7 MMOL/L (3.5-5.1) 5.0 MMOL/L (3.5-5.1) Chloride Level 105 MMOL/L (98-107) 105 MMOL/L (98-107) Carbon Dioxide Level 24 MMOL/L (21-32) 24 MMOL/L (21-32) Anion Gap 8 mmol/L (5-15) 7 mmol/L (5-15) Blood Urea Nitrogen 14 mg/dL (7-18) 19 mg/dL (7-18) Creatinine 0.7 MG/DL (0.55-1.30) 0.7 MG/DL (0.55-1.30) Estimat Glomerular Filtration Rate > 60 mL/min (>60) > 60 mL/min (>60) Glucose Level 105 MG/DL (74-106) 81 MG/DL (74-106) Calcium Level 8.6 MG/DL (8.5-10.1) 8.7 MG/DL (8.5-10.1) Vancomycin Level Trough 13.4 ug/mL (5.0-12.0) Erythrocyte Sedimentation Rate 103 MM/HR (0-20) Total Bilirubin 0.2 MG/DL (0.2-1.0) Aspartate Amino Transf (AST/SGOT) 29 U/L (15-37) Alanine Aminotransferase (ALT/SGPT) 29 U/L (12-78) Alkaline Phosphatase 150 U/L (46-116) C-Reactive Protein, Quantitative 12.2 mg/dL (0.00-0.90) Total Protein 5.7 G/DL (6.4-8.2) Albumin 1.3 G/DL (3.4-5.0) Globulin 4.4 g/dL Albumin/Globulin Ratio 0.3 (1.0-2.7) Height (Feet): 5 Height (Inches): 7.00 Weight (Pounds): 171 Objective Review of Systems difficult to obtain given medical condition baseline Physical Exam General Appearance: no apparent distress Lines, tubes and drains: central line HEENT: mucous membranes moist Neck: normal inspection Respiratory/Chest: no respiratory distress Cardiovascular/Chest: normal rate Abdomen: soft, no organomegaly, no mass, other Extremities: inflammation, slow capillary refill, other Skin Exam: warm/dry : judson+ Camden Bella MD Dec 17, 2019 12:49
--- NOTE | 2019-12-17 12:58 | Surgery Progress Note ---
Surgery Progress Note Subjective Additional Comments leukocytosis comfortable otherwise stable Objective Last 24 Hour Vital Signs Date Time Temp Pulse Resp B/P (MAP) Pulse Ox O2 Delivery O2 Flow Rate FiO2 12/17/19 08:00 77 12/17/19 08:00 98.2 62 21 101/55 (70) 98 12/17/19 04:00 96.9 100 18 130/72 (91) 97 12/17/19 04:00 81 12/17/19 00:00 84 12/17/19 00:00 99.3 115 18 145/80 (101) 98 12/16/19 21:00 Room Air Room Air Room Air 12/16/19 20:00 98.0 91 18 120/68 (85) 97 12/16/19 20:00 87 12/16/19 18:00 89 21 115/72 (86) 99 12/16/19 17:00 77 21 95/58 (70) 99 12/16/19 16:00 82 12/16/19 16:00 99.0 82 15 111/87 (95) 97 12/16/19 16:00 Room Air Room Air Room Air 12/16/19 15:00 65 15 117/71 (86) 99 12/16/19 14:00 77 20 94/99 (97) 98 12/16/19 13:00 107 20 83/48 (60) 98 I&O Intake and Output 12/16/19 12/17/19 19:00 07:00 Intake Total 1545 ml 1305 ml Output Total 1326 ml 350 ml Balance 219 ml 955 ml Intake Free Water 200 ml 200 ml IV Total 475 ml 555 ml Tube Feeding 650 ml 550 ml Other 220 ml Output Urine Total 1325 ml 350 ml Stool Total 1 ml # Bowel Movements 1 1 Dressing: saturated Wound: other Drains: other Cardiovascular: RSR Respiratory: decreased breath sounds Abdomen: soft, non-tender, present bowel sounds Extremities: no tenderness, no cyanosis Plan Problems: (1) Urinary tract infection (2) Respiratory insufficiency Assessment & Plan: Right central line terminates in the right atrium. Cardiomegaly. Mild vascular congestion. Mild bilateral pleural effusions. The tip of the right internal jugular central venous catheter is appropriately position, projecting near the cavoatrial junction, stable in the interval. No pneumothorax. Persistent blunting of the right costophrenic sulcus suggesting a small pleural effusion with some basilar atelectasis. Degenerative changes. IMPRESSION: No significant change in blunting of the right costophrenic sulcus, likely small pleural effusion. Right IJ CVC, appropriately positioned. (3) Decubital ulcer Assessment & Plan: Pt presented on admission with contractures, multiple pressure injuries.Unstageable pressure injury noted to upper L earlobe(L)0.5cm x (W)0.8cm. Stable dry eschar noted at base of injury.Edges adhrent and pink.Medially along L earlobe is a DTPI(L)0.8cm x (W)0.6cm. Base of wound is Purple at center with surrounding maroon borders. Distally L earlobe is and Unstageable Pressure Injury(L)1cm x (W)0.4cm. Stable dry eschar at base of injury . Edges dry,adherent and pink. In close proximity at distal lobule is second pressure injury(L)0.5cm x (W)0.6cm. Base of wound is moist and viable. No exudate noted. stage 4 Sacral Pressure injury(L)5.6cmx (W)6.8cm. base of wound has 75% soft necrosis,25% gustabo with surrounding maroon ,indurated borders.Small amt non- odorous serous exudate noted. Sacral wound in its entirety measures (L)9cm x (W) 8cm. Areas of hyperpigmentation from previous wounds noted to L trochanter,and L lower buttocks. Partial thickness wound noted to head of penis(L)0.4cm x (W)0.5cm. Base of wound is moist and viable. Partial thickness Pressure Injury noted at base of shaft of penis(L)2.1cm x (W) 2.4cm. Base of wound is moist and viable. MASD R and L groin ,and Scrotum. Affected areas are erythematous and denuded. Unstageable Pressure injury R heel(L)6.5cm x (W)8cm . Wound is open blood blister. Base of wound is moist gustabo, black at center base of wound. Overlying loose skin flap removed. Periwound R heel is boggy with non-blanchable erythema. Unstageable Pressure Injury R Hallux(L)1.5cm x (W)2.9cm. Base of wound has 60% soft necrosis,40% gustabo. Macerated borders. Small amt. non-odorous serous exudate. Non-blanchable erythema without induration or elevated skin temp periwound. Unstageable Pressure injury Lateral R malleolus(L)1.8cm x (W)1.2cm. Base of is 100% necrotic with semi-detached borders which are erythematous and moist.Wound is malodorous. Periwound erythematous, but without elevated skin temp. Unstageable Pressure Injury L heel(L)4.6cm x (W)5.5cm. Base of wound is 100% necrotic with detached borders that present with mixed erythema and slough. Wound is malodorous. Periwound is erythematous and fluctuant. No elevation in skin temp noted. Unstageable Pressure Injury L lateral Malleolus (L)1.1cm x (W)1.2cm.Stable dry brown eschar at base of wound. Edges flat, adherent and pink. No erythema or fluctuance periwound. Full thickness stage 3 Pressure Injury L hallux(L)3.6cm x (W)3.9cm.Base of wound is moist pink with small amt Biofilm. Bone is palpable. Edges are macerated. No odor noted.Small amt serous exudate noted. Periwound is erythematous,no elevation in skin temp or fluctuance noted. DTPI medial/lateral L foot(L)2.5cm x (W)1.9cm. Base of Injury is maroon and fluctuant. Periwound is pink. Unstageable Pressure Injury distal/lateral L foot(L)2.5cm x (W)1.9cm. Base of wound is 100% soft necrosis with marginal erythema. No odor or exudate noted. Periwound is boggy but pink. Stable dry eschar R 1st metatarsal Head(L)0.6cm x (W)0.5cm. Tx.Plan: Apply Betadine to Wounds L earlobe Daily. Pad Oxygen tubing and keep tubing loose around ears. Cleanse Sacral wound with Saline. Apply Therahoney. Apply Moisture Barrier Periwound. Cover with Optifoam drsg. Change every 3 days and prn. Apply Moisture Barrier Paste to to R and L groin, Base of Penis, and scrotum with each Incontinence care. Apply Betadine to wounds R foot. Cover each wound with Optifoam drsg. Change Daily and prn. Apply Betadine to wounds L foot. Cover each wound with Optifoam drsg. Change Daily and prn. Reposition at least every 2hours or as tolerated. Place pillow between knees. Off-load heels with pillow. Air Fluidized mattress. (4) Suspected COVID-19 virus infection Davonte Ham Dec 17, 2019 12:58
--- NOTE | 2019-12-17 13:36 | Nephrology Progress Note ---
Assessment/Plan Problem List: (1) Electrolyte imbalance (2) Dehydration (3) Urinary tract infection (4) Hypoalbuminemia (5) Hypokalemia (6) BPH (benign prostatic hyperplasia) (7) Anemia Assessment Hypokalemia Hypoalbuminemia Urinary tract infection Possible Pneumonia, Sepsis, Rule out Covid-19 Cerebral Palsy Seizure History BPH - chronic roper Dysphagia s/p G tube Anemia, Lymphopenia Plan Increase midodrine to 10 mg every 8 hours for low blood pressure Remains on dopamine for blood pressure maintenance IV hydration-potassium supplement as needed Monitor renal parameters and electrolytes Antibiotics Avoid nephrotoxic's Per consultants Per orders Subjective ROS Limited/Unobtainable: No Constitutional: Reports: malaise, weakness Objective Objective Last 24 Hour Vital Signs Date Time Temp Pulse Resp B/P (MAP) Pulse Ox O2 Delivery O2 Flow Rate FiO2 12/17/19 08:00 77 12/17/19 08:00 98.2 62 21 101/55 (70) 98 12/17/19 04:00 96.9 100 18 130/72 (91) 97 12/17/19 04:00 81 12/17/19 00:00 84 12/17/19 00:00 99.3 115 18 145/80 (101) 98 12/16/19 21:00 Room Air Room Air Room Air 12/16/19 20:00 98.0 91 18 120/68 (85) 97 12/16/19 20:00 87 12/16/19 18:00 89 21 115/72 (86) 99 12/16/19 17:00 77 21 95/58 (70) 99 12/16/19 16:00 82 12/16/19 16:00 99.0 82 15 111/87 (95) 97 12/16/19 16:00 Room Air Room Air Room Air 12/16/19 15:00 65 15 117/71 (86) 99 12/16/19 14:00 77 20 94/99 (97) 98 Intake and Output 12/16/19 12/17/19 19:00 07:00 Intake Total 1545 ml 1305 ml Output Total 1326 ml 350 ml Balance 219 ml 955 ml Intake Free Water 200 ml 200 ml IV Total 475 ml 555 ml Tube Feeding 650 ml 550 ml Other 220 ml Output Urine Total 1325 ml 350 ml Stool Total 1 ml # Bowel Movements 1 1 Height (Feet): 5 Height (Inches): 7.00 Weight (Pounds): 171 General Appearance: no apparent distress Objective No change Andre Flores MD Dec 17, 2019 13:36
--- NOTE | 2019-12-17 14:10 | Cardiac Electrophysiology PN ---
Assessment/Plan Assessment/Plan 1. Shortness of breath. Ruled out for MO. Echo EF 60%. COVID negative 2. S/P Septic shock.Resolved. On IV antibiotic. DC Midodrine 3. Nonsustained VT 20 beats. Mg replaced. No further 4. Transient atrial fib, converted back to SR. No further 5. R CFV DVT, on Lovenox 70 sq bid 6. Cough and fever. Possible pneumonia. Ruled out for COVID-19. 7. Seizures, on Keppra. 8. Cerebral palsy. DW RN Subjective Subjective Transferred out of ICU. No further VT. Had 20 beats of VT on 12/10/19. In isolation for MRSA and VRE. COVID is negative. RN at bedside Had transient atrial fib 12/12/19 but no further Objective Last 24 Hour Vital Signs Date Time Temp Pulse Resp B/P (MAP) Pulse Ox O2 Delivery O2 Flow Rate FiO2 12/17/19 12:00 97.9 87 22 123/75 (91) 100 12/17/19 08:00 77 12/17/19 08:00 98.2 62 21 101/55 (70) 98 12/17/19 04:00 96.9 100 18 130/72 (91) 97 12/17/19 04:00 81 12/17/19 00:00 84 12/17/19 00:00 99.3 115 18 145/80 (101) 98 12/16/19 21:00 Room Air Room Air Room Air 12/16/19 20:00 98.0 91 18 120/68 (85) 97 12/16/19 20:00 87 12/16/19 18:00 89 21 115/72 (86) 99 12/16/19 17:00 77 21 95/58 (70) 99 12/16/19 16:00 82 12/16/19 16:00 99.0 82 15 111/87 (95) 97 12/16/19 16:00 Room Air Room Air Room Air 12/16/19 15:00 65 15 117/71 (86) 99 Intake and Output 12/16/19 12/17/19 19:00 07:00 Intake Total 1545 ml 1305 ml Output Total 1326 ml 350 ml Balance 219 ml 955 ml Intake Free Water 200 ml 200 ml IV Total 475 ml 555 ml Tube Feeding 650 ml 550 ml Other 220 ml Output Urine Total 1325 ml 350 ml Stool Total 1 ml # Bowel Movements 1 1 Objective HEAD AND NECK: No JVD. LUNGS: Coarse rhonchi. CARDIOVASCULAR: Regular S1 and S2 with no gallop. ABDOMEN: Soft. EXTREMITIES: 1+ pitting edema. Rk Hdz MD Dec 17, 2019 14:10
[2019-12-17 16:00] VITALS: BP 127/71
[2019-12-17] MEDS: D5NS 1,000 ML IV SCH (16:12)
[2019-12-17] MEDS: Dyna-Hex 2% Top Sol 2oz TOPIC SCH (20:14)
[2019-12-17] MEDS ORDERED: Acetaminophen 650 MG SUPP RECTAL PRN (20:51)
[2019-12-17] MEDS ORDERED: D5NS 1,000 ML IV SCH (20:51)
[2019-12-17] MEDS ORDERED: Acetaminophen 650mg/20.3ml GT PRN (21:00)
--- NOTE | 2019-12-17 21:23 | General Progress Note ---
Assessment/Plan Problem List: (1) Urinary tract infection ICD Codes: N39.0 - Urinary tract infection, site not specified SNOMED: 92190286 (2) Respiratory insufficiency ICD Codes: R06.89 - Other abnormalities of breathing SNOMED: 981426938 (3) Decubital ulcer ICD Codes: L89.90 - Pressure ulcer of unspecified site, unspecified stage SNOMED: 344205801 (4) Suspected COVID-19 virus infection ICD Codes: R68.89 - Other general symptoms and signs SNOMED: 476859471 Status: progressing, deteriorating Assessment/Plan: uti positve blood cx negative covid pna resp insuff sepsis uti malnutrition low bp resolved off pressor abx Subjective ROS Limited/Unobtainable: Yes Allergies: Coded Allergies: MOLD (Unverified Allergy, Unknown, 12/07/19) POLLEN EXTRACTS (Unverified Allergy, Unknown, 12/07/19) Objective Last 24 Hour Vital Signs Date Time Temp Pulse Resp B/P (MAP) Pulse Ox O2 Delivery O2 Flow Rate FiO2 12/17/19 21:17 Room Air Room Air Room Air 12/17/19 16:00 60 12/17/19 16:00 97.9 92 20 127/71 (89) 99 12/17/19 12:00 97.9 87 22 123/75 (91) 100 12/17/19 09:00 Room Air Room Air Room Air 12/17/19 08:00 77 12/17/19 08:00 98.2 62 21 101/55 (70) 98 12/17/19 04:00 96.9 100 18 130/72 (91) 97 12/17/19 04:00 81 12/17/19 00:00 84 12/17/19 00:00 99.3 115 18 145/80 (101) 98 Intake and Output 12/16/19 12/17/19 19:00 07:00 Intake Total 1545 ml 1305 ml Output Total 1326 ml 350 ml Balance 219 ml 955 ml Intake Free Water 200 ml 200 ml IV Total 475 ml 555 ml Tube Feeding 650 ml 550 ml Other 220 ml Output Urine Total 1325 ml 350 ml Stool Total 1 ml # Bowel Movements 1 1 Height (Feet): 5 Height (Inches): 7.00 Weight (Pounds): 171 Leda Sweeney MD Dec 17, 2019 21:23
[2019-12-17 23:52] VITALS: BP 124/76
--- NOTE | 2019-12-17 23:54 | Pulmonolgy Critical Care Note ---
Critical Care - Asmt/Plan Assessment/Plan: Pulmonary Critical Care Progress Note HPI 69-year-old male history of cerebral palsy, bedbound, nonverbal, Roper dependent presented for fever cough and shortness of breath. Patient apparently fever for the 24 hours [employer]. Patient is on nasal canula O2. History limited due to patient's baseline mental status. Has G tube Noted to have DVT, KPC on culture On pressors PRN, NC O2 Negative for Covid19, out of ICU On IV Antibiotics per ID Hemodynamically stable currently, on NC O2 Allergies: No Known Allergies Past Medical History: GERD, Dysphagia, previous G tube, Cerebral Palsy, BPH All Other Systems: limited - History limited due to patient's baseline mental status Physical Exam Vital Signs Noted General Appearance: thin, Chronically Ill, mild pallor Head: normocephalic, atraumatic Eyes: bilateral eye PERRL, bilateral eye EOMI ENT: moist mm Neck: full range of motion, supple Respiratory: CTAB Cardiovascular: regular rate, rhythm, HS1, HS2 normal, no murmur, normal peripheral pulses, Gastrointestinal: non tender, soft, non-distended, no guarding Musculoskeletal: other - Extremities contracted, chronic ulcerations noted bilateral feet Neurologic: awake, no focal defects, other - Patient nonverbal at baseline Skin: warm/dry Impression: Urinary tract infection Possible Pneumonia Sepsis Covid-19 negative Cerebral Palsy Seizure History BPH - chronic roper Dysphagia s/p G tube Anemia DVT Lymphopenia Plan IV antibiotics Continue AC for DVT VQ scan R/o coronavirus infection Await cultures PPX Monitor labs O2 PRN Bronchodilators Laboratory Tests Noted EKG: Rate: normal Rhythm: NSR Other Impression t wave flattening 1 AVL CXR: Atelectasis RLL, L mid zone Subjective ROS Limited/Unobtainable: No Allergies: Coded Allergies: No Known Allergies (Unverified , 12/07/19) Microbiology Date/Time Source Procedure Growth Status 12/07/19 15:50 Nasal Nares - Final Complete 12/07/19 15:50 Nasal Nares - Final Complete 12/07/19 18:15 Rectum Received Critical Care - Objective Last 24 Hour Vital Signs Date Time Temp Pulse Resp B/P (MAP) Pulse Ox O2 Delivery O2 Flow Rate FiO2 12/17/19 23:52 98.2 80 18 124/76 (92) 96 12/17/19 21:17 Room Air Room Air Room Air 12/17/19 16:00 60 12/17/19 16:00 97.9 92 20 127/71 (89) 99 12/17/19 12:00 97.9 87 22 123/75 (91) 100 12/17/19 09:00 Room Air Room Air Room Air 12/17/19 08:00 77 12/17/19 08:00 98.2 62 21 101/55 (70) 98 12/17/19 04:00 96.9 100 18 130/72 (91) 97 12/17/19 04:00 81 12/17/19 00:00 84 12/17/19 00:00 99.3 115 18 145/80 (101) 98 Critical Care - Subjective ROS Limited/Unobtainable: No Condition: stable FI02: 28 Sputum Amount: None Tube Feeding Amount: 50 I&O: Intake and Output 12/16/19 12/17/19 19:00 07:00 Intake Total 1545 ml 1305 ml Output Total 1326 ml 350 ml Balance 219 ml 955 ml Intake Free Water 200 ml 200 ml IV Total 475 ml 555 ml Tube Feeding 650 ml 550 ml Other 220 ml Output Urine Total 1325 ml 350 ml Stool Total 1 ml # Bowel Movements 1 1 Oscar Bragg MD Dec 17, 2019 23:54
[2019-12-18 04:10] VITALS: BP 118/72
[2019-12-18 05:45] LABS: HEMATOCRIT 23.5 % (42.0-52.0); HEMOGLOBIN 7.9 G/DL (14.2-18.0); MEAN CORPUSCULAR VOLUME 91 FL (80-99); PLATELET COUNT 475 K/UL (150-450); RED BLOOD COUNT 2.58 M/UL (4.70-6.10); RED CELL DISTRIBUTION WIDTH 18.9 % (11.6-14.8); WHITE BLOOD COUNT 12.4 K/UL (4.8-10.8)
[2019-12-18] MEDS ORDERED: Enoxaparin 60mg Inj SUBQ SCH (06:00)
[2019-12-18 06:21] LABS: ALANINE AMINOTRANSFERASE 66 U/L (12-78); ALBUMIN 1.5 G/DL (3.4-5.0); ALBUMIN/GLOBULIN RATIO 0.3 (1.0-2.7); ALKALINE PHOSPHATASE 180 U/L (46-116); ANION GAP 6 mmol/L (5-15); ASPARTATE AMINO TRANSFERASE 76 U/L (15-37); BILIRUBIN,TOTAL 0.1 MG/DL (0.2-1.0); BLOOD UREA NITROGEN 26 mg/dL (7-18); CALCIUM 8.5 MG/DL (8.5-10.1); CARBON DIOXIDE 24 MMOL/L (21-32); CHLORIDE 106 MMOL/L (98-107); CREATININE 0.9 MG/DL (0.55-1.30); POTASSIUM 3.8 MMOL/L (3.5-5.1); SODIUM 136 MMOL/L (136-145)
[2019-12-18 08:00] VITALS: BP 124/72
[2019-12-18] MEDS ORDERED: levETIRAcetam 500mg/5ml Liquid GT SCH (09:00)
--- NOTE | 2019-12-18 09:14 | Hematology/Onc Progress Note ---
Assessment/Plan Assessment/Plan IMPRESSION/RECS: # Anemia of chronic disease due to underlying chronic medical issues, multifactorial v Gi bleed --> Anemia workup has been ordered, rule out gi bleed -> ferritin is 646 --> No evidence of hemolysis is noted, peripheral smear has been reviewed. --> Hgb goal >7. Transfuse prn. --> Epogen or iron at this time is not particularly indicated --> Medications have been reviewed --> low threshold for gi evaluation in case has occult + --> bone marrow biopsy is not indicated given the other more likely causes --> hgb trend 8.6-->7.9 # Dvt of the right leg history --> hep bolus and gtt -> lovenox sq bid --> 12/09 us duplex positive for right dvt # Lymphopenia is likely due to Sepsis, septic shock, currently on dopamine. --> remains in the icu, with UTI with Pseudomonas --> imaging noted, cultures reviewed --> as per id Positive blood culture likely contamination --> COVID negative --> abx: cefepime/vanc-->OFF # VRE Carrier # Multiple pressure ulcer, # Down syndrome. # Confused/ams # Dvt ppx lovenox sq The timing of this note does not necessarily reflect the time of the patient was seen. Greatly appreciate consultation. Subjective HEENT: Denies: no symptoms, eye pain, blurred vision, tearing, double vision, ear pain, ear discharge, nose pain, nose congestion, throat pain, throat swelling, mouth pain, mouth swelling, other Cardiovascular: Denies: no symptoms, chest pain, edema, irregular heart rate, lightheadedness, palpitations, syncope, other Respiratory: Denies: no symptoms, cough, shortness of breath, SOB with excertion, SOB at rest, sputum, wheezing, other Gastrointestinal/Abdominal: Denies: no symptoms, abdomen distended, abdominal pain, black stools, tarry stools, blood in stool, constipated, diarrhea, difficulty swallowing, nausea, poor appetite, poor fluid intake, rectal bleeding , vomiting, other Genitourinary: Denies: no symptoms, burning, discharge, frequency, flank pain, hematuria, incontinence, pain, urgency, other Neurologic/Psychiatric: Denies: no symptoms, anxiety, depressed, emotional problems, headache, numbness, paresthesia, pre-existing deficit, seizure, tingling, tremors, weakness, other Endocrine: Denies: no symptoms, excessive sweating, flushing, intolerance to cold, intolerance to heat, increased hunger, increased thirst, increased urine, unexplained weight gain, unexplained weight loss, other Hematologic/Lymphatic: Denies: no symptoms, anemia, easy bleeding, easy bruising, adenopathy, other Allergies: Coded Allergies: MOLD (Unverified Allergy, Unknown, 12/07/19) POLLEN EXTRACTS (Unverified Allergy, Unknown, 12/07/19) Subjective 12/10 icu, nonverbal, cov 19 negative, positive for right le dvt, on pressors 12/11 remains on dopamine, with gtube feeds as well, labs noted hgb 10.4 12/12 is a+o x1, with roper and on dopamine 12/13 on cefepime and vanc, also on dopamine, labs noted 12/16 resting comfortably, seen by id, is now off vanc/cefe 12/17 no other changes today, no bleeding, labs reviewed hgb 7.9 Objective Objective Current Medications Medications (Trade) Dose Ordered Sig/Nazia Route PRN Reason Start Time Stop Time Status Last Admin Dose Admin Acetaminophen (Tylenol) 650 mg Q4H PRN GT Temp >100.5 12/17/19 21:00 01/16/20 20:50 Acetaminophen (Tylenol) 650 mg Q4H PRN RECTAL Temp >100.5 12/17/19 20:51 01/16/20 20:50 Chlorhexidine Gluconate (Susanna-Hex 2%) 1 applic DAILY@2000 TOPIC 12/18/19 20:00 03/07/20 19:59 Dextrose/Sodium Chloride 1,000 ml @ 60 mls/hr [id number] IV 12/17/19 20:51 01/16/20 20:50 12/17/19 20:56 Enoxaparin Sodium (Lovenox) 60 mg Q12H SUBQ 12/18/19 06:00 03/13/20 17:59 12/18/19 05:41 Lansoprazole (Prevacid) 30 mg BID GT 12/18/19 09:00 01/07/20 08:59 Levetiracetam (Keppra) 500 mg Q12HR GT 12/18/19 09:00 01/17/20 08:59 Ondansetron HCl (Zofran) 4 mg Q6H PRN IVP Nausea & Vomiting 12/17/19 20:52 01/16/20 20:51 Potassium Chloride (K-Dur) 40 meq TWICE A DAY GT 12/18/19 09:00 03/12/20 08:59 Last 24 Hour Vital Signs Date Time Temp Pulse Resp B/P (MAP) Pulse Ox O2 Delivery O2 Flow Rate FiO2 12/18/19 08:00 97.6 82 18 124/72 (89) 96 12/18/19 04:10 97.6 84 18 118/72 (87) 94 12/17/19 23:52 98.2 80 18 124/76 (92) 96 12/17/19 21:17 Room Air Room Air Room Air 12/17/19 20:00 96 Room Air 21 12/17/19 20:00 80 20 96 Room Air 21 12/17/19 16:00 60 12/17/19 16:00 97.9 92 20 127/71 (89) 99 12/17/19 12:00 97.9 87 22 123/75 (91) 100 12/17/19 09:00 Room Air Room Air Room Air 12/17/19 08:00 77 12/17/19 08:00 98.2 62 21 101/55 (70) 98 12/17/19 04:00 96.9 100 18 130/72 (91) 97 12/17/19 04:00 81 12/17/19 00:00 84 12/17/19 00:00 99.3 115 18 145/80 (101) 98 12/16/19 21:00 Room Air Room Air Room Air 12/16/19 20:00 98.0 91 18 120/68 (85) 97 12/16/19 20:00 87 12/16/19 18:00 89 21 115/72 (86) 99 12/16/19 17:00 77 21 95/58 (70) 99 12/16/19 16:00 82 12/16/19 16:00 99.0 82 15 111/87 (95) 97 12/16/19 16:00 Room Air Room Air Room Air 12/16/19 15:00 65 15 117/71 (86) 99 12/16/19 14:00 77 20 94/99 (97) 98 12/16/19 13:00 107 20 83/48 (60) 98 12/16/19 12:00 98.7 73 19 106/53 (70) 99 12/16/19 12:00 67 12/16/19 12:00 Room Air Room Air Room Air 12/16/19 11:00 74 20 94/53 (67) 99 12/16/19 10:00 100 23 84/48 (60) 99 Intake and Output 12/17/19 12/18/19 19:00 07:00 Intake Total 1210 ml Output Total 600 ml 850 ml Balance -600 ml 360 ml Intake Free Water 60 ml IV Total 600 ml Tube Feeding 550 ml Output Urine Total 600 ml 850 ml # Voids 1 # Bowel Movements 2 Labs Test 12/16/19 00:30 12/16/19 04:00 12/18/19 05:00 Vancomycin Level Trough 13.4 ug/mL (5.0-12.0) White Blood Count 12.5 K/UL (4.8-10.8) 12.4 K/UL (4.8-10.8) Red Blood Count 2.84 M/UL (4.70-6.10) 2.58 M/UL (4.70-6.10) Hemoglobin 8.6 G/DL (14.2-18.0) 7.9 G/DL (14.2-18.0) Hematocrit 25.9 % (42.0-52.0) 23.5 % (42.0-52.0) Mean Corpuscular Volume 91 FL (80-99) 91 FL (80-99) Mean Corpuscular Hemoglobin 30.1 PG (27.0-31.0) 30.6 PG (27.0-31.0) Mean Corpuscular Hemoglobin Concent 33.0 G/DL (32.0-36.0) 33.6 G/DL (32.0-36.0) Red Cell Distribution Width 18.5 % (11.6-14.8) 18.9 % (11.6-14.8) Platelet Count 488 K/UL (150-450) 475 K/UL (150-450) Mean Platelet Volume 5.4 FL (6.5-10.1) 5.4 FL (6.5-10.1) Neutrophils (%) (Auto) 78.7 % (45.0-75.0) % (45.0-75.0) Lymphocytes (%) (Auto) 12.6 % (20.0-45.0) % (20.0-45.0) Monocytes (%) (Auto) 6.6 % (1.0-10.0) % (1.0-10.0) Eosinophils (%) (Auto) 1.6 % (0.0-3.0) % (0.0-3.0) Basophils (%) (Auto) 0.4 % (0.0-2.0) % (0.0-2.0) Erythrocyte Sedimentation Rate 103 MM/HR (0-20) Sodium Level 136 MMOL/L (136-145) 136 MMOL/L (136-145) Potassium Level 5.0 MMOL/L (3.5-5.1) 3.8 MMOL/L (3.5-5.1) Chloride Level 105 MMOL/L (98-107) 106 MMOL/L (98-107) Carbon Dioxide Level 24 MMOL/L (21-32) 24 MMOL/L (21-32) Anion Gap 7 mmol/L (5-15) 6 mmol/L (5-15) Blood Urea Nitrogen 19 mg/dL (7-18) 26 mg/dL (7-18) Creatinine 0.7 MG/DL (0.55-1.30) 0.9 MG/DL (0.55-1.30) Estimat Glomerular Filtration Rate > 60 mL/min (>60) > 60 mL/min (>60) Glucose Level 81 MG/DL (74-106) 107 MG/DL (74-106) Calcium Level 8.7 MG/DL (8.5-10.1) 8.5 MG/DL (8.5-10.1) Total Bilirubin 0.2 MG/DL (0.2-1.0) 0.1 MG/DL (0.2-1.0) Aspartate Amino Transf (AST/SGOT) 29 U/L (15-37) 76 U/L (15-37) Alanine Aminotransferase (ALT/SGPT) 29 U/L (12-78) 66 U/L (12-78) Alkaline Phosphatase 150 U/L (46-116) 180 U/L (46-116) C-Reactive Protein, Quantitative 12.2 mg/dL (0.00-0.90) Total Protein 5.7 G/DL (6.4-8.2) 5.8 G/DL (6.4-8.2) Albumin 1.3 G/DL (3.4-5.0) 1.5 G/DL (3.4-5.0) Globulin 4.4 g/dL 4.3 g/dL Albumin/Globulin Ratio 0.3 (1.0-2.7) 0.3 (1.0-2.7) Height (Feet): 5 Height (Inches): 7.00 Weight (Pounds): 175 Objective Review of Systems difficult to obtain given medical condition baseline Physical Exam General Appearance: no apparent distress Lines, tubes and drains: central line HEENT: mucous membranes moist Neck: normal inspection Respiratory/Chest: no respiratory distress Cardiovascular/Chest: normal rate Abdomen: soft, no organomegaly, no mass, other Extremities: inflammation, slow capillary refill, other Skin Exam: warm/dry : judson+ Camden Bella MD Dec 18, 2019 09:14
[2019-12-18 10:13] LABS: INR 1.1 (0.9-1.1)
--- NOTE | 2019-12-18 11:49 | Infectious Diseases Prog Note ---
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 RECOMMENDATION: Observe off antibiotic COVID-19: negative Subjective ROS Limited/Unobtainable: Yes Gastrointestinal/Abdominal: Reports: other - GT malfuntioning Allergies: Coded Allergies: MOLD (Unverified Allergy, Unknown, 12/07/19) POLLEN EXTRACTS (Unverified Allergy, Unknown, 12/07/19) Objective Vital Signs Last 24 Hour Vital Signs Date Time Temp Pulse Resp B/P (MAP) Pulse Ox O2 Delivery O2 Flow Rate FiO2 12/18/19 08:00 97.6 82 18 124/72 (89) 96 12/18/19 04:10 97.6 84 18 118/72 (87) 94 12/17/19 23:52 98.2 80 18 124/76 (92) 96 12/17/19 21:17 Room Air Room Air Room Air 12/17/19 20:00 96 Room Air 21 12/17/19 20:00 80 20 96 Room Air 21 12/17/19 16:00 60 12/17/19 16:00 97.9 92 20 127/71 (89) 99 12/17/19 12:00 97.9 87 22 123/75 (91) 100 Height (Feet): 5 Height (Inches): 7.00 Weight (Pounds): 175 General Appearance: no acute distress HEENT: mucous membranes moist Respiratory/Chest: lungs clear Cardiovascular: normal rate Abdomen: soft, non tender, other - GT feeding Extremities: other - cotracted Skin: ulcers Neurologic/Psychiatric: alert, aphasia Laboratory Tests Test 12/18/19 05:00 12/18/19 09:44 White Blood Count 12.4 K/UL (4.8-10.8) H Red Blood Count 2.58 M/UL (4.70-6.10) L Hemoglobin 7.9 G/DL (14.2-18.0) L Hematocrit 23.5 % (42.0-52.0) L Mean Corpuscular Volume 91 FL (80-99) Mean Corpuscular Hemoglobin 30.6 PG (27.0-31.0) Mean Corpuscular Hemoglobin Concent 33.6 G/DL (32.0-36.0) Red Cell Distribution Width 18.9 % (11.6-14.8) H Platelet Count 475 K/UL (150-450) H Mean Platelet Volume 5.4 FL (6.5-10.1) L Neutrophils (%) (Auto) % (45.0-75.0) Lymphocytes (%) (Auto) % (20.0-45.0) Monocytes (%) (Auto) % (1.0-10.0) Eosinophils (%) (Auto) % (0.0-3.0) Basophils (%) (Auto) % (0.0-2.0) Differential Total Cells Counted 100 Neutrophils % (Manual) 74 % (45-75) Lymphocytes % (Manual) 20 % (20-45) Monocytes % (Manual) 6 % (1-10) Eosinophils % (Manual) 0 % (0-3) Basophils % (Manual) 0 % (0-2) Band Neutrophils 0 % (0-8) Platelet Estimate Increased H Platelet Morphology Normal Anisocytosis 1+ Sodium Level 136 MMOL/L (136-145) Potassium Level 3.8 MMOL/L (3.5-5.1) Chloride Level 106 MMOL/L (98-107) Carbon Dioxide Level 24 MMOL/L (21-32) Anion Gap 6 mmol/L (5-15) Blood Urea Nitrogen 26 mg/dL (7-18) H Creatinine 0.9 MG/DL (0.55-1.30) Estimat Glomerular Filtration Rate > 60 mL/min (>60) Glucose Level 107 MG/DL (74-106) H Calcium Level 8.5 MG/DL (8.5-10.1) Total Bilirubin 0.1 MG/DL (0.2-1.0) L Aspartate Amino Transf (AST/SGOT) 76 U/L (15-37) H Alanine Aminotransferase (ALT/SGPT) 66 U/L (12-78) Alkaline Phosphatase 180 U/L (46-116) H Total Protein 5.8 G/DL (6.4-8.2) L Albumin 1.5 G/DL (3.4-5.0) L Globulin 4.3 g/dL Albumin/Globulin Ratio 0.3 (1.0-2.7) L Prothrombin Time 11.7 SEC (9.30-11.50) H Prothromb Time International Ratio 1.1 (0.9-1.1) Current Medications Medications (Trade) Dose Ordered Sig/Nazia Route PRN Reason Start Time Stop Time Status Last Admin Dose Admin Acetaminophen (Tylenol) 650 mg Q4H PRN GT Temp >100.5 12/17/19 21:00 01/16/20 20:50 Acetaminophen (Tylenol) 650 mg Q4H PRN RECTAL Temp >100.5 12/17/19 20:51 01/16/20 20:50 Chlorhexidine Gluconate (Susanna-Hex 2%) 1 applic DAILY@2000 TOPIC 12/18/19 20:00 03/07/20 19:59 Dextrose/Sodium Chloride 1,000 ml @ 60 mls/hr [id number] IV 12/17/19 20:51 01/16/20 20:50 12/17/19 20:56 Enoxaparin Sodium (Lovenox) 60 mg Q12H SUBQ 12/18/19 06:00 03/13/20 17:59 12/18/19 05:41 Lansoprazole (Prevacid) 30 mg BID GT 12/18/19 09:00 01/07/20 08:59 12/18/19 09:59 Levetiracetam (Keppra) 500 mg Q12HR GT 12/18/19 09:00 01/17/20 08:59 12/18/19 10:00 Ondansetron HCl (Zofran) 4 mg Q6H PRN IVP Nausea & Vomiting 12/17/19 20:52 01/16/20 20:51 Potassium Chloride (K-Dur) 40 meq TWICE A DAY GT 12/18/19 09:00 03/12/20 08:59 12/18/19 10:00 Lucas Gutierrez MD Dec 18, 2019 11:49
--- NOTE | 2019-12-18 11:53 | Cardiac Electrophysiology PN ---
Assessment/Plan Assessment/Plan 1. Shortness of breath. Ruled out for [place]. Echo EF 60%. COVID negative 2. S/P Septic shock. Resolved. On IV antibiotic. 3. Nonsustained VT 20 beats. Mg replaced. No further. Off tele 4. Transient atrial fib, converted back to SR. No further 5. R CFV DVT, on Lovenox 70 sq bid 6. Cough and fever. Possible pneumonia. Ruled out for COVID-19. Off abx 7. Seizures, on Keppra. 8. Cerebral palsy. DW RN Subjective Subjective Had 20 beats of VT on 12/10/19. Had transient atrial fib 12/12/19 but no further In isolation for MRSA and VRE. COVID is negative. RN at bedside. GT not flushing. DC to [facility] pending today Right IJ to be removed as no more iv Abx Objective Last 24 Hour Vital Signs Date Time Temp Pulse Resp B/P (MAP) Pulse Ox O2 Delivery O2 Flow Rate FiO2 12/18/19 08:00 97.6 82 18 124/72 (89) 96 12/18/19 04:10 97.6 84 18 118/72 (87) 94 12/17/19 23:52 98.2 80 18 124/76 (92) 96 12/17/19 21:17 Room Air Room Air Room Air 12/17/19 20:00 96 Room Air 21 12/17/19 20:00 80 20 96 Room Air 21 12/17/19 16:00 60 12/17/19 16:00 97.9 92 20 127/71 (89) 99 12/17/19 12:00 97.9 87 22 123/75 (91) 100 Intake and Output 12/17/19 12/18/19 19:00 07:00 Intake Total 1210 ml Output Total 600 ml 850 ml Balance -600 ml 360 ml Intake Free Water 60 ml IV Total 600 ml Tube Feeding 550 ml Output Urine Total 600 ml 850 ml # Voids 1 # Bowel Movements 2 Laboratory Tests Test 12/18/19 05:00 12/18/19 09:44 White Blood Count 12.4 K/UL (4.8-10.8) H Red Blood Count 2.58 M/UL (4.70-6.10) L Hemoglobin 7.9 G/DL (14.2-18.0) L Hematocrit 23.5 % (42.0-52.0) L Mean Corpuscular Volume 91 FL (80-99) Mean Corpuscular Hemoglobin 30.6 PG (27.0-31.0) Mean Corpuscular Hemoglobin Concent 33.6 G/DL (32.0-36.0) Red Cell Distribution Width 18.9 % (11.6-14.8) H Platelet Count 475 K/UL (150-450) H Mean Platelet Volume 5.4 FL (6.5-10.1) L Neutrophils (%) (Auto) % (45.0-75.0) Lymphocytes (%) (Auto) % (20.0-45.0) Monocytes (%) (Auto) % (1.0-10.0) Eosinophils (%) (Auto) % (0.0-3.0) Basophils (%) (Auto) % (0.0-2.0) Differential Total Cells Counted 100 Neutrophils % (Manual) 74 % (45-75) Lymphocytes % (Manual) 20 % (20-45) Monocytes % (Manual) 6 % (1-10) Eosinophils % (Manual) 0 % (0-3) Basophils % (Manual) 0 % (0-2) Band Neutrophils 0 % (0-8) Platelet Estimate Increased H Platelet Morphology Normal Anisocytosis 1+ Sodium Level 136 MMOL/L (136-145) Potassium Level 3.8 MMOL/L (3.5-5.1) Chloride Level 106 MMOL/L (98-107) Carbon Dioxide Level 24 MMOL/L (21-32) Anion Gap 6 mmol/L (5-15) Blood Urea Nitrogen 26 mg/dL (7-18) H Creatinine 0.9 MG/DL (0.55-1.30) Estimat Glomerular Filtration Rate > 60 mL/min (>60) Glucose Level 107 MG/DL (74-106) H Calcium Level 8.5 MG/DL (8.5-10.1) Total Bilirubin 0.1 MG/DL (0.2-1.0) L Aspartate Amino Transf (AST/SGOT) 76 U/L (15-37) H Alanine Aminotransferase (ALT/SGPT) 66 U/L (12-78) Alkaline Phosphatase 180 U/L (46-116) H Total Protein 5.8 G/DL (6.4-8.2) L Albumin 1.5 G/DL (3.4-5.0) L Globulin 4.3 g/dL Albumin/Globulin Ratio 0.3 (1.0-2.7) L Prothrombin Time 11.7 SEC (9.30-11.50) H Prothromb Time International Ratio 1.1 (0.9-1.1) Objective HEAD AND NECK: No JVD. LUNGS: Coarse rhonchi. CARDIOVASCULAR: Regular S1 and S2 with no gallop. ABDOMEN: Soft. EXTREMITIES: 1+ pitting edema. Rk Hdz MD Dec 18, 2019 11:52
[2019-12-18 12:00] VITALS: BP 130/78
--- NOTE | 2019-12-18 13:57 | Surgery Progress Note ---
Surgery Progress Note Subjective Additional Comments no acute events exam stable comfortable labs noted Objective Last 24 Hour Vital Signs Date Time Temp Pulse Resp B/P (MAP) Pulse Ox O2 Delivery O2 Flow Rate FiO2 12/18/19 12:00 98.2 80 18 130/78 (95) 97 12/18/19 09:00 Room Air Room Air Room Air 12/18/19 08:00 97.6 82 18 124/72 (89) 96 12/18/19 04:10 97.6 84 18 118/72 (87) 94 12/17/19 23:52 98.2 80 18 124/76 (92) 96 12/17/19 21:17 Room Air Room Air Room Air 12/17/19 20:00 96 Room Air 21 12/17/19 20:00 80 20 96 Room Air 21 12/17/19 16:00 60 12/17/19 16:00 97.9 92 20 127/71 (89) 99 I&O Intake and Output 12/17/19 12/18/19 19:00 07:00 Intake Total 1210 ml Output Total 600 ml 850 ml Balance -600 ml 360 ml Intake Free Water 60 ml IV Total 600 ml Tube Feeding 550 ml Output Urine Total 600 ml 850 ml # Voids 1 # Bowel Movements 2 Dressing: saturated Wound: other Drains: other Cardiovascular: RSR Respiratory: decreased breath sounds Abdomen: soft, non-tender, present bowel sounds Extremities: no tenderness, no cyanosis Laboratory Tests Test 12/18/19 05:00 12/18/19 09:44 White Blood Count 12.4 K/UL (4.8-10.8) H Red Blood Count 2.58 M/UL (4.70-6.10) L Hemoglobin 7.9 G/DL (14.2-18.0) L Hematocrit 23.5 % (42.0-52.0) L Mean Corpuscular Volume 91 FL (80-99) Mean Corpuscular Hemoglobin 30.6 PG (27.0-31.0) Mean Corpuscular Hemoglobin Concent 33.6 G/DL (32.0-36.0) Red Cell Distribution Width 18.9 % (11.6-14.8) H Platelet Count 475 K/UL (150-450) H Mean Platelet Volume 5.4 FL (6.5-10.1) L Neutrophils (%) (Auto) % (45.0-75.0) Lymphocytes (%) (Auto) % (20.0-45.0) Monocytes (%) (Auto) % (1.0-10.0) Eosinophils (%) (Auto) % (0.0-3.0) Basophils (%) (Auto) % (0.0-2.0) Differential Total Cells Counted 100 Neutrophils % (Manual) 74 % (45-75) Lymphocytes % (Manual) 20 % (20-45) Monocytes % (Manual) 6 % (1-10) Eosinophils % (Manual) 0 % (0-3) Basophils % (Manual) 0 % (0-2) Band Neutrophils 0 % (0-8) Platelet Estimate Increased H Platelet Morphology Normal Anisocytosis 1+ Sodium Level 136 MMOL/L (136-145) Potassium Level 3.8 MMOL/L (3.5-5.1) Chloride Level 106 MMOL/L (98-107) Carbon Dioxide Level 24 MMOL/L (21-32) Anion Gap 6 mmol/L (5-15) Blood Urea Nitrogen 26 mg/dL (7-18) H Creatinine 0.9 MG/DL (0.55-1.30) Estimat Glomerular Filtration Rate > 60 mL/min (>60) Glucose Level 107 MG/DL (74-106) H Calcium Level 8.5 MG/DL (8.5-10.1) Total Bilirubin 0.1 MG/DL (0.2-1.0) L Aspartate Amino Transf (AST/SGOT) 76 U/L (15-37) H Alanine Aminotransferase (ALT/SGPT) 66 U/L (12-78) Alkaline Phosphatase 180 U/L (46-116) H Total Protein 5.8 G/DL (6.4-8.2) L Albumin 1.5 G/DL (3.4-5.0) L Globulin 4.3 g/dL Albumin/Globulin Ratio 0.3 (1.0-2.7) L Prothrombin Time 11.7 SEC (9.30-11.50) H Prothromb Time International Ratio 1.1 (0.9-1.1) Plan Problems: (1) Urinary tract infection (2) Respiratory insufficiency Assessment & Plan: Right central line terminates in the right atrium. Cardiomegaly. Mild vascular congestion. Mild bilateral pleural effusions. The tip of the right internal jugular central venous catheter is appropriately position, projecting near the cavoatrial junction, stable in the interval. No pneumothorax. Persistent blunting of the right costophrenic sulcus suggesting a small pleural effusion with some basilar atelectasis. Degenerative changes. IMPRESSION: No significant change in blunting of the right costophrenic sulcus, likely small pleural effusion. Right IJ CVC, appropriately positioned. (3) Decubital ulcer Assessment & Plan: Pt presented on admission with contractures, multiple pressure injuries.Unstageable pressure injury noted to upper L earlobe(L)0.5cm x (W)0.8cm. Stable dry eschar noted at base of injury.Edges adhrent and pink.Medially along L earlobe is a DTPI(L)0.8cm x (W)0.6cm. Base of wound is Purple at center with surrounding maroon borders. Distally L earlobe is and Unstageable Pressure Injury(L)1cm x (W)0.4cm. Stable dry eschar at base of injury . Edges dry,adherent and pink. In close proximity at distal lobule is second pressure injury(L)0.5cm x (W)0.6cm. Base of wound is moist and viable. No exudate noted. stage 4 Sacral Pressure injury(L)5.6cmx (W)6.8cm. base of wound has 75% soft necrosis,25% gustabo with surrounding maroon ,indurated borders.Small amt non- odorous serous exudate noted. Sacral wound in its entirety measures (L)9cm x (W) 8cm. Areas of hyperpigmentation from previous wounds noted to L trochanter,and L lower buttocks. Partial thickness wound noted to head of penis(L)0.4cm x (W)0.5cm. Base of wound is moist and viable. Partial thickness Pressure Injury noted at base of shaft of penis(L)2.1cm x (W) 2.4cm. Base of wound is moist and viable. MASD R and L groin ,and Scrotum. Affected areas are erythematous and denuded. Unstageable Pressure injury R heel(L)6.5cm x (W)8cm . Wound is open blood blister. Base of wound is moist gustabo, black at center base of wound. Overlying loose skin flap removed. Periwound R heel is boggy with non-blanchable erythema. Unstageable Pressure Injury R Hallux(L)1.5cm x (W)2.9cm. Base of wound has 60% soft necrosis,40% gustabo. Macerated borders. Small amt. non-odorous serous exudate. Non-blanchable erythema without induration or elevated skin temp periwound. Unstageable Pressure injury Lateral R malleolus(L)1.8cm x (W)1.2cm. Base of is 100% necrotic with semi-detached borders which are erythematous and moist.Wound is malodorous. Periwound erythematous, but without elevated skin temp. Unstageable Pressure Injury L heel(L)4.6cm x (W)5.5cm. Base of wound is 100% necrotic with detached borders that present with mixed erythema and slough. Wound is malodorous. Periwound is erythematous and fluctuant. No elevation in skin temp noted. Unstageable Pressure Injury L lateral Malleolus (L)1.1cm x (W)1.2cm.Stable dry brown eschar at base of wound. Edges flat, adherent and pink. No erythema or fluctuance periwound. Full thickness stage 3 Pressure Injury L hallux(L)3.6cm x (W)3.9cm.Base of wound is moist pink with small amt Biofilm. Bone is palpable. Edges are macerated. No odor noted.Small amt serous exudate noted. Periwound is erythematous,no elevation in skin temp or fluctuance noted. DTPI medial/lateral L foot(L)2.5cm x (W)1.9cm. Base of Injury is maroon and fluctuant. Periwound is pink. Unstageable Pressure Injury distal/lateral L foot(L)2.5cm x (W)1.9cm. Base of wound is 100% soft necrosis with marginal erythema. No odor or exudate noted. Periwound is boggy but pink. Stable dry eschar R 1st metatarsal Head(L)0.6cm x (W)0.5cm. Tx.Plan: Apply Betadine to Wounds L earlobe Daily. Pad Oxygen tubing and keep tubing loose around ears. Cleanse Sacral wound with Saline. Apply Therahoney. Apply Moisture Barrier Periwound. Cover with Optifoam drsg. Change every 3 days and prn. Apply Moisture Barrier Paste to to R and L groin, Base of Penis, and scrotum with each Incontinence care. Apply Betadine to wounds R foot. Cover each wound with Optifoam drsg. Change Daily and prn. Apply Betadine to wounds L foot. Cover each wound with Optifoam drsg. Change Daily and prn. Reposition at least every 2hours or as tolerated. Place pillow between knees. Off-load heels with pillow. Air Fluidized mattress. (4) Suspected COVID-19 virus infection Davonte Ham Dec 18, 2019 13:57
[2019-12-18 16:00] VITALS: BP 123/65
[2019-12-18] MEDS ORDERED: Dyna-Hex 2% Top Sol 2oz TOPIC SCH (20:00)
--- NOTE | 2019-12-18 23:40 | Pulmonolgy Critical Care Note ---
Critical Care - Asmt/Plan Assessment/Plan: Pulmonary Progress Note HPI 69-year-old male history of cerebral palsy, bedbound, nonverbal, Roper dependent presented for fever cough and shortness of breath. 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 Patient is on nasal canula O2. History limited due to patient's baseline mental status. Has G tube Noted to have DVT, KPC on culture On pressors PRN, NC O2 Negative for Covid19, out of ICU On IV Antibiotics per ID Hemodynamically stable currently, on NC O2 Seen earlier Allergies: No Known Allergies Past Medical History: GERD, Dysphagia, previous G tube, Cerebral Palsy, BPH All Other Systems: limited - History limited due to patient's baseline mental status Physical Exam Vital Signs Noted General Appearance: thin, Chronically Ill, mild pallor Head: normocephalic, atraumatic Eyes: bilateral eye PERRL, bilateral eye EOMI ENT: moist mm Neck: full range of motion, supple Respiratory: CTAB Cardiovascular: regular rate, rhythm, HS1, HS2 normal, no murmur, normal peripheral pulses, Gastrointestinal: non tender, soft, non-distended, no guarding Musculoskeletal: other - Extremities contracted, chronic ulcerations noted bilateral feet Neurologic: awake, no focal defects, other - Patient nonverbal at baseline Skin: warm/dry Impression: Urinary tract infection Possible Pneumonia Sepsis Covid-19 negative Cerebral Palsy Seizure History BPH - chronic roper Dysphagia s/p G tube Anemia DVT Lymphopenia Plan IV antibiotics Continue AC for DVT VQ scan R/o coronavirus infection Await cultures PPX Monitor labs O2 PRN Bronchodilators Laboratory Tests Noted EKG: Rate: normal Rhythm: NSR Other Impression t wave flattening 1 AVL CXR: Atelectasis RLL, L mid zone Subjective ROS Limited/Unobtainable: No Allergies: Coded Allergies: No Known Allergies (Unverified , 12/07/19) Microbiology Date/Time Source Procedure Growth Status 12/07/19 15:50 Nasal Nares - Final Complete 12/07/19 15:50 Nasal Nares - Final Complete 12/07/19 18:15 Rectum Received Critical Care - Objective Last 24 Hour Vital Signs Date Time Temp Pulse Resp B/P (MAP) Pulse Ox O2 Delivery O2 Flow Rate FiO2 12/18/19 16:48 98.2 12/18/19 16:00 97.0 75 18 123/65 (84) 97 12/18/19 12:00 98.2 80 18 130/78 (95) 97 12/18/19 09:00 Room Air Room Air Room Air 12/18/19 08:00 97.6 82 18 124/72 (89) 96 12/18/19 04:10 97.6 84 18 118/72 (87) 94 12/17/19 23:52 98.2 80 18 124/76 (92) 96 Critical Care - Subjective ROS Limited/Unobtainable: No FI02: 21 Sputum Amount: None Tube Feeding Amount: 50 I&O: Intake and Output 12/17/19 12/18/19 19:00 07:00 Intake Total 1210 ml Output Total 600 ml 850 ml Balance -600 ml 360 ml Intake Free Water 60 ml IV Total 600 ml Tube Feeding 550 ml Output Urine Total 600 ml 850 ml # Voids 1 # Bowel Movements 2 Oscar Bragg MD Dec 18, 2019 23:40
--- NOTE | 2019-12-19 15:14 | Discharge Summary ---
Discharge Summary Discharge Summary _ DATE OF ADMISSION: 12/07/2019 DATE OF DISCHARGE: 12/18/2019 DISCHARGED BY: Dr. Sweeney REASON FOR ADMISSION: 69 years old male with past medical history of cerebral palsy, bedbound, nonverbal, with chronic Nava catheter, presented due to fever, cough and shortness of breath. In the morning fever was 101. Upon evaluation patient had low-grade fever 99.9 , pulse oximetry was stable on room air. Laboratory work-up revealed leukocytosis and anemia , lymphopenia. Urinalysis revealed +3 protein and was grossly positive for urinary tract infection. Stable electrolytes. BUN 31, creatinine 0.8. Lactic acid 1.2. Stable LFT. Troponin negative. EKG revealed sinus rhythm no acute ischemic changes. Albumin 1.4. Influenza screen test was negative. Chest x-ray demonstrated bronchovascular crowding with subsegmental atelectasis versus scaring in the left midlung and right base. Otherwise no acute cardiopulmonary disease. Patient pancultured , started on empiric antibiotic. Patient was tested for COVID-19 and admitted for further management. CONSULTANTS: metal fitters and machinists Dr. De Guzman pulmonary Dr. Mahsa Ashby ID specialist Dr. Samuel Gutierrez GI specialist Dr. Vargas satellite specialist Dr. Flores surgeon Dr. Ham yoga coordinator/oncologist Dr. Bella HOSPITAL COURSE: Patient admitted to isolation room. Patient started on empiric antibiotics. The next day blood pressure dropped , and patient required pressors for hemodynamic support. Central line was placed by ED physician, patient was transferred to ICU. Patient started on dopamine drip, which titrated to keep mean arterial blood pressure above 65. Venous duplex bilateral lower extremity revealed acute DVT right common femoral vein. Patient started on heparin drip, and later was changed to Lovenox. Blood culture initially revealed coagulase negative staph. Urine culture revealed Pseudomonas. COVID-19 was not detected. Repeated blood culture were negative. Initial positive blood cultures were likely contaminant, as per ID specialist. Supplemental oxygen provided and titrated to keep oximetry above 92%. Nebulizing treatments bronchodilator was on board as needed. Patient was followed-up with chest x-ray , which showed no changes. Patient completed antibiotic treatment while in the hospital. Echocardiogram demonstrated preserved ejection fraction of 60%. No evidence of pericardial effusion. No evidence of wall motion abnormality to the extent visualized. Right ventricular systolic pressure of 39 consistent with a mild pulmonary hypertension. Patient eventually was able to be weaned from pressors. Patient started on Midodrine. Hemodynamic status was closely monitored. Blood pressure stabilized. Patient demonstrated evidence of nonsustained ventricular tachycardia . Magnesium was replaced , no further NSVT. Patient also demonstrated episode of transient atrial fibrillation , spontaneously converted back to sinus rhythm ,no further atrial fibrillation. G-tube feeding continued. Strict aspiration precaution maintained. GI prophylaxis provided. Bowel regimen instituted. Renal parameters and electrolytes were closely monitored. Electrolytes corrected as needed. Nephrotoxins were avoided. All electrolytes stable prior to discharge. Seizure precautions maintained. Keppra continued. No evidence of seizure activity. Hemoglobin and hematocrit were closely monitored with goal to keep hemoglobin above 7. Anemia work-up was consistent with anemia of chronic disease. Epogen or iron at this time were not particularly indicated. Initially noted lymphopenia was most likely due to sepsis/septic shock. Prior to discharge hemoglobin 7.9 , hematocrit 23.5. Wound care for multiply pressure injury present on admission , provided as per surgeon recommendation. Continue wound care at the facility. Patient clinically stabilized. Patient completed treatment with antibiotics. Blood pressure 123/65 prior to discharge . Pulse oximetry stable on room air. Patient was ready for transfer back to senior care facility for continuation of care. FINAL DIAGNOSES: Sepsis with septic shock -resolved Pseudomonas UTI Possible pneumonia Acute DVT right common femoral vein Anemia of chronic disease Decubitus ulcers, present on admission Cerebral palsy Suspected COVID-19 -was ruled out Nonsustained VT Transient atrial fibrillation BPH Dysphagia, status post G-tube Electrolyte imbalance Dehydration Hypoalbuminemia DISCHARGE MEDICATIONS: See Medication Reconciliation list. DISCHARGE INSTRUCTIONS: Patient was discharged to the senior care facility. Follow up with medical doctor at the facility. I have been assigned to dictate discharge summary for this account. I was not involved in the patient's management. Hailee Roberto NP Dec 19, 2019 15:14
== END 2019-12-18 17:34 | DRG 871 ==
LOC: EDBD 14:59 → EMR 15:35 → ICU 16:28 → EDBEDREQ 18:43 → 2E 12-16 18:25 → 4E 12-17 20:34
DX: A41.9 Sepsis, unspecified organism (principal); L89.154 Pressure ulcer of sacral region, stage 4; R65.21 Severe sepsis with septic shock; L89.893 Pressure ulcer of other site, stage 3; J18.9 Pneumonia, unspecified organism; N39.0 Urinary tract infection, site not specified; I47.2 Ventricular tachycardia; E46 Unspecified protein-calorie malnutrition; I82.411 Acute embolism and thrombosis of right femoral vein; Z43.1 Encounter for attention to gastrostomy; G40.89 Other seizures; B96.5 Pseudomonas (aeruginosa) (mallei) (pseudomallei) as the cause of diseases classified elsewhere; G80.9 Cerebral palsy, unspecified; L89.620 Pressure ulcer of left heel, unstageable; L89.610 Pressure ulcer of right heel, unstageable; L89.520 Pressure ulcer of left ankle, unstageable; L89.510 Pressure ulcer of right ankle, unstageable; E87.6 Hypokalemia; D63.8 Anemia in other chronic diseases classified elsewhere; R13.10 Dysphagia, unspecified; E87.8 Other disorders of electrolyte and fluid balance, not elsewhere classified; E86.0 Dehydration; E88.09 Other disorders of plasma-protein metabolism, not elsewhere classified; Q90.9 Down syndrome, unspecified; N40.0 Benign prostatic hyperplasia without lower urinary tract symptoms; R06.89 Other abnormalities of breathing; L89.810 Pressure ulcer of head, unstageable; M24.50 Contracture, unspecified joint; Z22.322 Carrier or suspected carrier of Methicillin resistant Staphylococcus aureus; I48.91 Unspecified atrial fibrillation
CPT/HCPCS: 36415; 36600; 71045; 80048; 80053; 80061; 80202; 81003; 82533; 82550; 82553; 82728; 82803; 82977; 83036; 83605; 83735; 83880; 84100; 84443; 84484; 84550; 85007; 85025; 85610; 85651; 85730; 86140; 86710; 87040; 87081; 87086; 87181; 87635; 93005; 93306; 93970; 94664; 96361; 96365; 96367; 99285; J8499